=== PATIENT | female | born 2000 | race Caucasian/White ===

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

== ENCOUNTER 2019-07-31 11:42 | Emergency (ER) | payer MEDICAID, OTHER ==
[~2019-07-31] VITALS: Ht 149.9 cm; Wt 79.1 kg
[2019-07-31 11:43] VITALS: BP 126/80
[2019-07-31 12:44] LABS: HEMATOCRIT 40.1 % (36.0-47.0); MEAN CORPUSCULAR HEMOGLOBIN 27.2 pg (27.0-33.0); MEAN CORPUSCULAR HGB CONC 32.4 g/dl (32.0-36.5); MEAN CORPUSCULAR VOLUME 83.9 fl (80.0-96.0); PLATELET COUNT, AUTOMATED 286 10^3/uL (150-450); RED BLOOD COUNT 4.78 10^6/uL (4.00-5.40); WHITE BLOOD COUNT 7.2 10^3/uL (4.0-10.0)
[2019-07-31] MEDS ORDERED: ACETAMINOPHEN 500 MG TAB PO ONE (12:45)
[2019-07-31 13:04] LABS: BLOOD UREA NITROGEN 6 MG/DL (7-18); CALCIUM LEVEL 8.9 MG/DL (8.5-10.1); CARBON DIOXIDE LEVEL 24 MEQ/L (21-32); CHLORIDE LEVEL 109 MEQ/L (98-107); GLUCOSE, FASTING 88 MG/DL (70-100); POTASSIUM SERUM 3.6 MEQ/L (3.5-5.1); SODIUM LEVEL 139 MEQ/L (136-145)
--- NOTE | 2019-07-31 13:37 | REP ---
EMERGENCY FIRST TRIMESTER OBSTETRIC SONOGRAPHY: HISTORY: Rule out ectopic. 7 weeks 0 days by dates. FINDINGS: Transabdominal and transvaginal scanning are performed. Uterine dimensions are 9.0 x 4.9 x 8.3 cm. On transvaginal imaging, there is a small sac-like structure in the endometrium with mean sac size diameter of 3.1 mm. This would correspond with a 5-auol-3-day gestational age estimate based on mean sac diameter. No embryonic pole or yolk sac is visible. There is a small fluid collection adjacent to this which may be a small adjacent bleed. There is mild fluid in the cul-de-sac. This fluid is anechoic. Normal left ovary is seen measuring 2.4 x 1.0 x 1.8 cm. There is 2.1 cm hypoechoic cystic area in the right ovary. Right ovary dimensions are 3.7 x 2.1 x 2.9 cm. Doppler flow is present in both ovaries with resistive indices measured at 0.53 on the right and 0.48 on the left by Doppler. IMPRESSION: Nonspecific sonographic findings. There is a small 3.1 mm sac-like structure in the uterine endometrium with adjacent fluid. No yolk sac or embryonic pole. 5-week 0 days size by sac size diameter criteria. There is minimal anechoic fluid in the cul-de-sac. No adnexal masses seen. A 2.1 cm hypoechoic cyst is noted in the right ovary. Clinical and possibly sonographic followup is advised. Electronically Signed by Marcial Cardoso MD 08/01/2019 05:15 A
== END 2019-07-31 12:56 | disposition home or self-care (01) ==
LOC: M ED 11:42
DX: N83.209 Unspecified ovarian cyst, unspecified side (principal); Z3A.01 Less than 8 weeks gestation of pregnancy; F33.9 Major depressive disorder, recurrent, unspecified; F41.9 Anxiety disorder, unspecified

== ENCOUNTER → 2020-02-15 | Emergency (ER) | payer OTHER | END | disposition left against medical advice (07) | LOC: M ED 11:10 | DX: Z53.21 Procedure and treatment not carried out due to patient leaving prior to being seen by health care provider (principal) ==

== ENCOUNTER 2020-08-09 19:44 | Emergency (ER) | payer OTHER, MEDICAID ==
[~2020-08-09] VITALS: Ht 149.9 cm; Wt 69.3 kg
[~2020-08-09 19:44] MED LIST: ACET300T47 PO; AMOX500C; DOXY-350 PO; FLAG500T PO; GABA-282 PO; IBUP1TAB7 PO; IBUP80TA PO; KEFL500C17 PO; MAPA500T2 PO; MISO100T22 PO; OXYC1TAB23 PO; PRENTAB9 PO; REGL10TA6 PO; [UNRECOGNIZED DRUG - OTHER]
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
--- OUTSIDE RECORDS SUMMARY | 2020-08-09 19:54 | CCD | Continuity of Care Document ---
Author Author [facility] Organization [facility] Address Unknown Phone Unavailable Care Team Providers Care Senior Construction Estimator Name Role Phone Mirtha Escobar MD Unavailable Unavailable Allergies, Adverse Reactions, Alerts Substance Reaction Status Criticality MEPERIDINE HCL nausea and urticaria Active No Informat ion latex Active No Information Medications Medication Instructions Dosage Effective Dates (start - stop) Sta tus Comments acetaminophen 300 mg-codeine 30 mg tablet 1-2 tabs po every 4 hours prn pain MDD 10 - Active ibuprofen 800 mg tablet 1 tab po every 8 hours prn May - Active misoprostol 200 mcg tablet 4 tabs buccally 24-48 hrs after mifep ristone (#4) - Active ondansetron HCl 4 mg tablet 1 tab po every 4 hours prn (#4) - Active NuvaRing 0.12 mg-0.015 mg/24 hr vaginal 1 ring inserte d vaginally x 3 weeks for 12 weeks, then out x 1 week - Active Problems Condition Effective Dates (start - stop) Clinical Status C omments Body mass index (BMI) 35.0-35.9, adult - Encounter for test, result positive Encntr screen for dis of the bld/bld-form org/immun mechn Encounter for elective termination of Problems related to unwanted Encounter for initial prescription of vagnl ring Encounter for oth general cnsl and advice on contraception Encntr screen for infections w sexl mode of transmiss Other sex counseling Other sex counseling Encounter for oth general cnsl and advice on contraception Unspecified blood type, Rh positive Encounter for elective termination of Encounter for preprocedural laboratory examination Inapprop chg quantitav hCG in early Encntr screen for infections w sexl mode of transmiss High risk heterosexual behavior Encounter for test, result positive Problems related to unwanted state, incidental Encounter for other specified special examinations Unspecified blood type, Rh positive Other sex counseling Encounter for preprocedural laboratory examination Encounter for other preprocedural examination Encounter for test, result negative - Encounter for test, result negative Encounter for oth general cnsl and advice on contraception Encounter for surveillance of other contraceptives Encounter for initial prescription of other contraceptives Enctr srvlnc implantable subdermal contraceptive Enctr for init prescription of implntbl subdermal contracep Encounter for oth general cnsl and advice on contraception Encntr screen for infections w sexl mode of transmiss High risk heterosexual behavior Encounter for test, result negative Human immunodeficiency virus [HIV] counseling 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) w/o abn findings Encounter for oth general cnsl and advice on contraception Encounter for surveillance of contraceptive pills High risk heterosexual behavior Obesity, unspecified Encounter for surveillance of contraceptive pills Human immunodeficiency virus [HIV] counseling Encounter for test, result negative Encounter for oth general cnsl and advice on contraception Encounter for initial prescription of contraceptive pills BCM Other, Start OCP, Start F/U Surgical AB BCM Other, Start Migraine - Active Procedures Procedure Date No Information Results Test Name Date and Time Measure Units Reference Range Abnormal Flag St atus Comments No Information Advance Directives Directive Yes / No Effective Date File Name No Information Encounters Encounter Description Practice Location Reason(s) For Visit Diagnose s Date Provider Providers Copied on Encounter [facility] [address] [place] [address], [id number], tel:[phone] [facility] [place] No Information W cameron Shannon. [address] [place] [address], [id number], . tel:[phone] [facility] [place], [address] [place] [address], [id number], tel:[phone] [facility] [place] Encounter for pregn catalina test, result positiveEncntr screen for dis of the bld/bld-form org/immun mechnsmEncounter for elective termination of pregnancyProblems related to unwanted pregnancyEncounter for initial prescription of vagnl ringEncounter for oth general cnsl and advice on contraceptionEncntr screen for infections w sexl mode of transmissOther sex counseling Jojo Sampson. [address] [place] [address], [id number], [place]. tel:[phone] Referring Provider: Camilla Mayorga, [address] [place] [address], [id number]. tel:[phone] [facility], [address] [place] [address], [id number], [place] tel:[phone] [facility] [place] Other sex counselin gEncounter for oth general cnsl and advice on contraceptionUnspecified blood type, Rh positiveEncounter for elective termination of Albaro Matamoros. [address] [place] [address], [id number], [place]. tel:[phone] Referring Provider: Shiloh Irvin, [address] [place] [address], [id number]. tel:[phone] [facility], [address] [place] [address], [id number], [place] tel:[phone] [facility] [place] Encounter for prepr ocedural laboratory examinationInapprop chg quantitav hCG in early Albaro Matamoros. [address] [place] [address], [id number], [place]. tel:[phone] Referring Provider: Shiloh Irvin, [address] [place] [address], [id number]. tel:[phone] Provider: LUIZ Nurse/CA. [facility], [address] [place] [address], [id number], [place] tel:[phone] [facility] [place] Encntr screen for i nfections w sexl mode of transmissHigh risk heterosexual behaviorEncounter for test, result positiveProblems related to unwanted pregnancy state, incidentalEncoun ter for other specified special examinationsUnspecified blood type, Rh positiveOther sex counselingEncounter for preprocedural laboratory examinationEncounter for other preprocedural examinationEncounter for test, result negative Albaro Matamoros. [address] [place] [address], [id number], . tel:[phone] Referring Provider: Shiloh Irvin, [address] [place], [place], [id number]. tel:[phone] [facility], [address] [place] [address], [id number], [place] tel:[phone] [facility] [place] Encounter for pregn catalina test, result negativeEncounter for oth general cnsl and advice on contraceptionEncounter for surveillance of other contraceptivesEncounter for initial prescription of other contraceptivesEnctr srvlnc implantable subdermal contraceptiveEnctr for init prescription of implntbl subdermal contracep King Homar monroe. [address] [place] [address], [id number]. tel:[phone] Referring Provider: Jeanine Pérez, [address] [place] [address], [id number]. tel:[phone] [facility], [address] [place] [address], [id number], [place] tel:[phone] [facility] [place] Encounter for oth g eneral cnsl and advice on contraceptionEncntr screen for infections w sexl mode of transmissHigh risk heterosexual behavior King Jeanine. [address] [place] [address], [id number]. tel:[phone] Referring Provider: Jeanine Pérez, [address] [place] [address], [id number]. tel:[phone] [facility], [address] [place] [address], [id number], [place] tel:[phone] [facility] [place] Encounter for pregn catalina test, result negative Katie Gamez. [address] [place] [address], [id number], . tel:[phone] Referring Provider: Vera Wilson, [address], [place], [id number]. tel:[phone] Provider: LUIZ Nurse/CA. [facility], [address] [place] [address], [id number], tel:[phone] [facility] [place] Human immunodeficie ncy virus [HIV] counselingBody mass index (BMI) 35.0-35.9, adult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) w/o abn findingsEncounter for oth general cnsl and advice on contraceptionEncounter for surveillance of contraceptive pillsHigh risk heterosexual behaviorObesity, unspecified King Jeanine. [address] [place] [address], [id number]. tel:[phone] Referring Provider: Jeanine Pérez, [address] [place] [address], [id number]. tel:[phone] [facility], [address] [place] [address], [id number], tel:[phone] LUIZ Lu Encounter for surve illance of contraceptive pills Infante. [address] [place] [address], [id number], . tel:[phone] [facility], [address] [place] [address], [id number], tel:[phone] LUIZ Lu Human immunodeficie ncy virus [HIV] counselingEncounter for test, result negativeEncounter for oth general cnsl and advice on contraceptionEncounter for initial prescription of contraceptive pills Uche Drake. [address] [place] [address], [id number], [place]. tel:[phone] Referring Provider: Noelle Ivey, [address] [place], [place], [id number]. tel:[phone] [facility], [address] [place] [address], [id number], tel:[phone] [facility] [place] No Information F molina Martin. [address] [place] [address], [address] [place] [address], [place]. tel:[phone] [facility], [address] [place] [address], [id number], [place] tel:[phone] [facility] [place] BCM Other, Start Cl Lee. [address] [place] [address], [address] [place] [address], . tel:[phone] [facility], [address] [place] [address], [address] [place] [address], tel:[phone] [facility] [place] OCP, Start ONe ill Beatrice. [address] [place] [address], [id number], [place]. tel:[phone] [facility], [address] [place] [address], [address] [place] [address], [place] tel:[phone] [facility] [place] F/U Surgical ABBCM Other, Start Mccann Beatrice. [address] [place] [address], [address] [place] [address], [place]. tel:[phone] Family History Family Member Diagnosis Age At Onset Brother No history of Myocardial infarction Brother No history of Stroke Mother No history of Stroke Maternal grandmother Stroke Sister No history of Myocardial infarction Mother Depression Paternal grandmother Alzheimer's Disease Sister No history of Stroke Mother No history of Myocardial infarction Father No history of Stroke Maternal grandmother Diabetes mellitus Father No history of Myocardial infarction Mother Heart disease Maternal grandmother Cancer, colon Maternal grandfather Stroke Family history of Cancer, cervical Maternal grandfather Diabetes mellitus Immunizations Vaccine Date Status Comments No Information Payers Payer name Insurance type Covered republican ID Authorization(s ) Medicaid MC [id number] Social History Type Description Quantity Date Captured Comments Alcohol Use Details Unknown Caffeine Use Details Unknown Tobacco Use Status Smoking Status Light tobacco smoker Sex Female Vital Signs Date / Time: Height Weight BMI Pulse Rate Blood Pressure Temperatu re Respiratory Rate Body Surface Area Head Circumference BMI percentile Pulse Ox In haled Ox No Information Chief Complaint And Reason For Visit No Information Reason For Referral Reason For Referral No Information Plan Of Treatment Date Type Action Status Goal Tobacco cessation counseling com pleted Goal Tobacco cessation counseling com pleted Goal Tobacco cessation counseling com pleted Goal Tobacco cessation counseling com pleted Goal Tobacco cessation counseling com pleted Goal Lifestyle education regarding di et completed History Of Present Illness Encounter Date Complaint History Of Present I llness No Information Functional Status Date Functional Assessment No Information Medications Administered Medication Instructions Dosage Effective Dates (start - stop) Sta tus Comments No Information Instructions Date Instruction Additional Informati on Giving encouragement to exercise Related to Body mass index (BMI) 35.0-35.9, adult Lifestyle education regarding diet Relat ed to Body mass index (BMI) 35.0-35.9, adult Assessments Type Assessment Date No Information Goals Health Concern Goal Type Priority Status Date No Information Medical Equipment Description Device [place] Device Identifier Effective Celestino es (start - stop) Status No Information Mental Status Date Cognitive Assessment No Information Health Concerns Observation Date No Information Concern Status Date No Information Physical Examination Exam Findings Details No Information
--- OUTSIDE RECORDS SUMMARY | 2020-08-09 19:54 | CCD | Continuity of Care Document ---
Author Author [facility] Organization [facility] Address [address] [place] [address] Phone Care Team Providers Care Trade Facilitator Name Role Phone Josiane LLOYD, Leatha Unavailable Unavailabl e Allergies, Adverse Reactions, Alerts Substance Reaction Status [...] sex counseling Other sex counseling Encounter for ot general cnsl and advice on contraception Unspecified [...] Encounter for test, result negative Encounter for ot general cnsl and advice on contraception Encounter for surveillance of other contraceptives Encounter for initial prescription of other contraceptives Enctr srvlnc implantable subdermal contraceptive Enctr for init prescription of implntbl subdermal contracep Encounter for ot general cnsl and advice on contraception Encntr screen for infections w sexl mode of transmiss High risk heterosexual behavior Encounter for test, result negative Human immunodeficiency virus [HIV] counseling 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 [address] [place] [address], [id number], [place]. tel:[phone] [facility], [address] [place], [place], [id number], [place] tel:[phone] [facility] Encounter for pregn catalina test, result positiveEncntr screen for dis of the bld/bld-form org/immun mechnsmEncounter for elective termination of pregnancyProblems related to unwanted pregnancyEncounter for initial prescription of vagnl ringEncounter for oth general cnsl and advice on contraceptionEncntr screen for infections w sexl mode of transmissOther sex counseling Jojo Sampson. [address] [place] [address], [id number], [place]. tel:[phone] Referring Provider: Camilla Mayorga, [address] [place] [address], [id number]. tel:[phone] [facility], [address] [place] [address], [id number], [place] tel:[phone] [facility] Other sex counselin gEncounter for oth general cnsl and advice on contraceptionUnspecified blood type, Rh positiveEncounter for elective termination of Albaro Matamoros. [address] [place] [address], [id number], [place]. tel:[phone] Referring Provider: Shiloh Irvin, [address] [place] [address], [id number]. tel:[phone] [facility], [address] [place] [address], [id number], [place] tel:[phone] [facility] Encounter for prepr ocedural laboratory examinationInapprop chg quantitav hCG in early Albaro Matamoros. [address] [place] [address], [id number], [place]. tel:[phone] Referring Provider: Shiloh Irvin, [address] [place] [address], [id number]. tel:[phone] Provider: LUIZ Nurse/CA. [facility], [address] [place] [address], [id number], [place] tel:[phone] [facility] Encntr screen for i nfections w sexl mode of transmissHigh risk heterosexual behaviorEncounter for test, result positiveProblems related to unwanted pregnancy state, incidentalEncoun ter for other specified special examinationsUnspecified blood type, Rh positiveOther sex counselingEncounter for preprocedural laboratory examinationEncounter for other preprocedural examinationEncounter for test, result negative Albaro Matamoros. [address] [place] [address], [id number], [place]. tel:[phone] Referring Provider: Shiloh Irvin, [address] [place], [place], [id number]. tel:[phone] [facility], [address] [place] [address], [id number], tel:[phone] [facility] [place] Encounter for pregn catalina test, result negativeEncounter for oth general cnsl and advice on contraceptionEncounter for surveillance of other contraceptivesEncounter for initial prescription of other contraceptivesEnctr srvlnc implantable subdermal contraceptiveEnctr for init prescription of implntbl subdermal contracep King Homar monroe. [address] [place] [address], [id number]. tel:[phone] Referring Provider: Jeanine éPrez, [address] [place] [address], [id number]. tel:[phone] [facility], [address] [place] [address], [id number], [place] tel:[phone] [facility] [place] Encounter for oth g eneral cnsl and advice on contraceptionEncntr screen for infections w sexl mode of transmissHigh risk heterosexual behavior King Jeanine. [address] [place] [address], [id number]. tel:[phone] Referring Provider: Jeanine Pérez, [address] [place] [address], [id number]. tel:[phone] [facility], [address] [place], [place], [id number], [place] tel:[phone] LUIZ [place] Encounter for pregn catalina test, result negative Katie Gamez. [address] [place], [place], [id number], [place]. tel:[phone] Referring Provider: Vera Wilson, [address] [place], [place], [id number]. tel:[phone] Provider: LUIZ Nurse/CA. [facility], [address] [place] [address], [id number], [place] tel:[phone] LUI[facility] [place] Human immunodeficie ncy virus [HIV] counselingBody mass index (BMI) 35.0-35.9, adultEncntr for metal baler exam (general) (routine) w/o abn findingsEncounter for oth general cnsl and advice on contraceptionEncounter for surveillance of contraceptive pillsHigh risk heterosexual behaviorObesity, unspecified King Jeanine. [address] [place] [address], [id number]. tel:[phone] Referring Provider: Jeanine Pérez, [address] [place] [address], [id number]. tel:[phone] [facility], [address] [place], [place], [id number], [place] tel:[phone] LUIZ Lu Encounter for surve illance of contraceptive pills Estelleaston Sharpe. [address] [place], [place], [id number], [place]. tel:[phone] [facility], [address] [place], [place], [id number], [place] tel:[phone] LUIZ Lu Human immunodeficie ncy virus [HIV] counselingEncounter for test, result negativeEncounter for oth general cnsl and advice on contraceptionEncounter for initial prescription of contraceptive pills Uche Drake. [address] [place] [address], [id number], [place]. tel:[phone] Referring Provider: Noelle Ivey, [address] [place], [place], [id number]. tel:[phone] [facility], [address] [place] [address], [id number], [place] tel:[phone] [facility] [place] No Information Mariano Martin. [address] [place] [address], [id number], [place]. tel:[phone] [facility], [address] [place] [address], [id number], [place] tel:[phone] [facility] [place] BCM Other, Start Cl Lee. [address] [place] [address], [address] [place] [address], [place]. tel:[phone] [facility], [address] [place] [address], [id number], [place] tel:[phone] [facility] [place] OCP, Start ONe ill Beatrice. [address] [place] [address], [id number], [place]. tel:[phone] [facility], [address] [place] [address], [address] [place] [address], [place] tel:[phone] [facility] [place] [facility] Other, Start Mccann Beatrice. [address] [place] [address], [id number], [place]. tel:[phone] Family History Family Member Diagnosis Age At [...] Information Payers Payer name Insurance type Covered libertarian ID Authorization(s ) Medicaid MC [id number] Social History Type Description Quantity Date Captured [...] Date No Information Medical Equipment Description Device [facility] Device Identifier Effective Celestino es (start - stop) Status No Information Mental Status Date Cognitive Assessment No Information Health Concerns Observation Date No Information Concern Status Date No Information Physical Examination Exam Findings Details No Information
--- OUTSIDE RECORDS SUMMARY | 2020-08-09 19:54 | CCD | Continuity of Care Document ---
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 [address] [place] [address], [id number], . tel:[phone] [facility], [address] [place] [address], [id number], tel:[phone] LUIZ [place] Encounter for pregn catalina test, result positiveEncntr screen for dis of the bld/bld-form org/immun mechnsmEncounter for elective termination of pregnancyProblems related to unwanted pregnancyEncounter for initial prescription of vagnl ringEncounter for oth general cnsl and advice on contraceptionEncntr screen for infections w sexl mode of transmissOther sex counseling Jojo Sampson. [address] [place] [address], [id number], [place]. tel:[phone] Referring Provider: Camilla Mayorga, [address] [place] [address], [id number]. tel:[phone] [facility], [address] [place] [address], [id number], [place] tel:[phone] [facility] [place] Other sex counselin gEncounter for oth general cnsl and advice on contraceptionUnspecified blood type, Rh positiveEncounter for elective termination of Albaro Matamoros. [address] [place] [address], [id number], [place]. tel:[phone] Referring Provider: Shiloh Irvin, [address] [place] [address], [id number]. tel:[phone] [facility], [address] [place] [address], [id number], [place] tel:[phone] [facility] [place] Encounter for prepr ocedural laboratory examinationInapprop chg quantitav hCG in early Albaro Matamoros. [address] [place] [address], [id number], [place]. tel:[phone] Referring Provider: Shiloh Irvin, [address] [place] [address], [id number]. tel:[phone] Provider: LUIZ Nurse/CA. [facility], [address] [place] [address], [id number], [place] tel:[phone] [facility] Encntr screen for i nfections w sexl mode of transmissHigh risk heterosexual behaviorEncounter for test, result positiveProblems related to unwanted pregnancy state, incidentalEncoun ter for other specified special examinationsUnspecified blood type, Rh positiveOther sex counselingEncounter for preprocedural laboratory examinationEncounter for other preprocedural examinationEncounter for test, result negative Albaro Matamoros. [address] [place] [address], [id number], [place]. tel:[phone] Referring Provider: Shiloh Irvin, [address] [place], [place], [id number]. tel:[phone] [facility], [address] [place] [address], [id number], [place] tel:[phone] [facility] [place] Encounter for pregn catalina test, result negativeEncounter for oth general cnsl and advice on contraceptionEncounter for surveillance of other contraceptivesEncounter for initial prescription of other contraceptivesEnctr srvlnc implantable subdermal contraceptiveEnctr for init prescription of implntbl subdermal contracep King Homar monroe. [address] [place] [address], [id number]. tel:[phone] Referring Provider: Jeanine Pérez, [address] [place] [address], [id number]. tel:[phone] [facility], [address] [place] [address], [id number], [place] tel:[phone] [facility] Encounter for oth g eneral cnsl and advice on contraceptionEncntr screen for infections w sexl mode of transmissHigh risk heterosexual behavior King Jeanine. [address] [place] [address], [id number]. tel:[phone] Referring Provider: Jeanine Pérez, [address] [place] [address], [id number]. tel:[phone] [facility], [address] [place] [address], [id number], [place] tel:[phone] LUIZ [place] Encounter for pregn catalina test, result negative Katie Gamez. [address] [place], [place], [id number], [place]. tel:[phone] Referring Provider: Vera Wilson, [address] [place], [place], [id number]. tel:[phone] Provider: LUIZ Nurse/CA. [facility], [address] [place] [address], [id number], [place] tel:[phone] LUIZ [place] Human immunodeficie ncy virus [HIV] counselingBody mass index (BMI) 35.0-35.9, adultEncntr for industrial engineering technician exam (general) (routine) w/o abn findingsEncounter for oth general cnsl and advice on contraceptionEncounter for surveillance of contraceptive pillsHigh risk heterosexual behaviorObesity, unspecified King Jeanine. [address] [place] [address], [id number]. tel:[phone] Referring Provider: Jeanine Pérez, [address] [place] [address], [id number]. tel:[phone] [facility], [address] [place] [address], [id number], [place] tel:[phone] LUIZ Lu Encounter for surve illance of contraceptive pills Infante. [address] [place], [place], [id number], [place]. tel:[phone] [facility], [address] [place] [address], [id number], [place] tel:[phone] LUIZ Lu Human immunodeficie ncy virus [HIV] counselingEncounter for test, result negativeEncounter for oth general cnsl and advice on contraceptionEncounter for initial prescription of contraceptive pills Uche Drake. [address] [place] [address], [address] [place] [address], . tel:[phone] Referring Provider: Noelle Ivey, [address] [place] [address], [id number]. tel:[phone] [facility], [address] [place] [address], [address] [place] [address], tel:[phone] [facility] [place] No Information F molina Martin. [address] [place] [address], [address] [place] [address], . tel:[phone] [facility], [address] [place] [address], [address] [place] [address], [phone] [facility] [place] BCM Other, Start Cl Lee. [address] [place] [address], [address] [place] [address], . tel:[phone] [facility], [address] [place] [address], [address] [place] [address], tel:[phone] PPT[facility] [place] OCP, Start ONe ill Beatrice. [address] [place] [address], [address] [place] [address], . tel:[phone] [facility], [address] [place] [address], [address] [place] [address], tel:[phone] [facility] [place] [facility] Other, Start Mccann Beatrice. [address] [place] [address], [address] [place] [address], . tel:[phone] Family History Family Member Diagnosis Age At [...] Information Payers Payer name Insurance type Covered constitution party ID Authorization(s ) Medicaid MC [id number] Social History Type Description Quantity Date Captured [...] Date No Information Medical Equipment Description Device [place] Device Identifier Effective Celestino es (start - stop) Status No Information Mental Status Date Cognitive Assessment No Information Health Concerns Observation Date No Information Concern Status Date No Information Physical Examination Exam Findings Details No Information
--- OUTSIDE RECORDS SUMMARY | 2020-08-09 19:54 | CCD ---
Author Author [facility] Organization [facility] Address Unknown Phone Unavailable Care Team Providers Care Pediatric Critical Care Nurse Name Role Phone Sj Guadarrama Unavailable PROBLEMS Type Condition ICD9-CM Code [id number] Code Onset Dates Condition S tatus SNOMED Code Notes Problem Supervision of other normal Z34.80 Ac tive [id number] ALLERGIES Allergen (clinical drug ingredient) Drug/Non Drug Allergy do cumented on EMR Reaction Allergy Type Onset Date Status meperidine Demerol([facility] Code:[address]-55) Unknown Drug Allergy Active ENCOUNTERS from 1999 to 2020-06-29 Encounter Location Date Provider Diagnosis [facility] [address] [place] [id number] May, Sj Guadarrama Dichorionic diamniot ic twin in first trimester O30.041 and 8 weeks gestation of Z3A.08 IMMUNIZATIONS No Information SOCIAL HISTORY Tobacco Use: [...] FOR REFERRAL No Information VITAL SIGNS Weight 165 lbs 13 Nov, 2020 Weight-kg 74.84 kg May, Height 60 in May, BMI 32.224 kg/m2 May, Blood pressure systolic 110 mm Hg May, Blood pressure diastolic 70 mm Hg May, MEDICATIONS Medication SIG (Take, Route, Frequency, Duration) Notes Start Da te End Date Status Flagyl 500 MG 1 tablet Orally Three times a day Active Reglan 5 MG 1 tablet before meals Orally Twice a day Active Keflex 250 MG 1 capsule Orally every 6 hrs Active Lexapro 10 MG 1 tablet Orally Once a day for 30 day(s) Jun, Not-Taking PROCEDURES No Information RESULTS No Results REASON FOR VISIT 1ST PN TWINS PER DR GUADARRAMA MEDICAL (GENERAL) HISTORY Type Description Date Medical History PTSD Medical History anxiety Medical History depression Medical History bipolar Medical History unathoast disease Surgical History 04/25/2019 Surgical History 07/14/2017 Hospitalization History childbirth 07/14/2017 Hospitalization History childbirth 04/25/2019 Goals Section No Information Health Concerns No Information MEDICAL EQUIPMENT No Information MENTAL STATUS No Information FUNCTIONAL STATUS No Information ASSESSMENTS Encounter Date Diagnosis Assessment Notes Treatment Notes Treatm ent Clinical Notes May, Dichorionic diamniotic twin in first trimester (ICD-10 - O30.041) May, 8 weeks gestation of (ICD-10 - Z3A.08) PLAN OF TREATMENT Treatment Notes Test Name Order Date HIV 1&2 ANTIBODY SCREEN 2020-06-29 SYPHILIS ANTIBODY (RPR SCREEN) 2020-06-29 CBC - Complete Blood Count 2020-06-29 RUBELLA IMMUNE STATUS IgG 2020-06-29 URINE CULTURE 2020-06-29 CHLAMYDIA & GC DNA AMPLIFICAT 2020-06-29 HEPATITIS C ANTIBODY INDEX 2020-06-29 HBSAG 2020-06-29 Type and Screen Prenatal1 2020-06-29 Next Appt Details Provider Name:Deshawn Smallwood, 2020 0 8:20:00 AM, [address] [place], [id number],
--- OUTSIDE RECORDS SUMMARY | 2020-08-09 19:55 | CCD | Continuity of Care Document ---
Author Author [facility] Organization [facility] Address [address] [place] [address] Phone Care Team Providers [employer] Name Role Phone Dwello Camilla CHAVEZ Unavailable Unavailable Allergies, Adverse Reactions, Alerts Substance [...] then out x 1 week - Active misoprostol 200 mcg tablet 4 tabs buccally 24-48 hrs after mifep ristone (#4) - No Longer Active Problems Condition Effective Dates (start - stop) Clinical Status C omments Body mass index (BMI) 35.0-35.9, adult - Encounter for test, result positive Encntr screen for dis of the bld/bld-form org/immun mechnsm Encounter for elective termination of Problems related to unwanted Encounter for initial prescription of vagnl ring Encounter for ot general cnsl and advice [...] Human immunodeficiency virus [HIV] counseling 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 [address], [place], [id number], [place]. tel:[phone] [facility], [address] [place] [address], [id number], [place] tel:[phone] [facility] for [facility] catalina test, result positiveEncntr screen for dis of the bld/bld-form org/immun mechnsmEncounter for elective termination of pregnancyProblems related to unwanted pregnancyEncounter for initial prescription of vagnl ringEncounter for oth general cnsl and advice on contraceptionEncntr screen for infections w sexl mode of transmissOther sex counseling Jojo Sampson. [address] [place] [address], [id number], [place]. tel:[phone] Referring Provider: Camilla Mayorga, [address] [place] [address], [id number]. tel:[phone] [facility], [address] [place] [address], [id number], [place] tel:[phone] [facility] Other sex counselin gEncounter for oth general cnsl and advice on contraceptionUnspecified blood type, Rh positiveEncounter for elective termination of Albaro Matamoros. [address] [place] [address], [id number], [place]. tel:[phone] Referring Provider: Shiloh Irvin, [address] [place] [address], [id number]. tel:[phone] [facility], [address] [place] [address], [id number], [place] tel:[phone] [facility] Encounter for prepr ocedural laboratory examinationInapprop chg quantitav hCG in early Albaro Matamoros. [address] [place] [address], [id number], [place]. tel:[phone] Referring Provider: Shiloh Irvin, [address] [place] [address], [id number]. tel:[phone] Provider: LUIZ Nurse/[place]. [facility], [address], [place], [id number], tel:[phone] [facility] Encntr screen for i nfections w sexl mode of transmissHigh risk heterosexual behaviorEncounter for test, result positiveProblems related to unwanted pregnancy state, incidentalEncoun ter for other specified special examinationsUnspecified blood type, Rh positiveOther sex counselingEncounter for preprocedural laboratory examinationEncounter for other preprocedural examinationEncounter for test, result negative Albaro Matamoros. [address], [place], [id number], [place]. tel:[phone] Referring Provider: Shiloh Irvin, [address], [place], [id number]. tel:[phone] [facility], [address], [place], [id number], [place] tel:[phone] [facility] [place] Encounter for pregn catalina test, result negativeEncounter for oth general cnsl and advice on contraceptionEncounter for surveillance of other contraceptivesEncounter for initial prescription of other contraceptivesEnctr srvlnc implantable subdermal contraceptiveEnctr for init prescription of implntbl subdermal contracep King Homar monroe. [address] [place] [address], [id number]. tel:[phone] Referring Provider: Jeanine Pérez, [address], [place], [id number]. tel:[phone] [facility], [address], [place], [id number], [place] tel:[phone] [facility] Encounter for oth g eneral cnsl and advice on contraceptionEncntr screen for infections w sexl mode of transmissHigh risk heterosexual behavior King Jeanine. [address] [place], [place], [id number]. tel:[phone] Referring Provider: Jeanine Pérez, [address] [place] [address], [id number]. tel:[phone] [facility], [address] [place] [address], [id number], [place] tel:[phone] [facility] [place] Encounter for pregn catalina test, result negative Katie Gamez. [address] [place] [address], [id number], [place]. tel:[phone] Referring Provider: Vera Wilson, [address] [place] [address], [id number]. tel:[phone] Provider: LUIZ Nurse/[place]. [facility], [address] [place] [address], [id number], [place] tel:[phone] [facility] [place] Human immunodeficie ncy virus [HIV] counselingBody mass index (BMI) 35.0-35.9, adultEncntr for lightning rod erector exam (general) (routine) w/o abn findingsEncounter for oth general cnsl and advice on contraceptionEncounter for surveillance of contraceptive pillsHigh risk heterosexual behaviorObesity, unspecified King Jeanine. [address] [place] [address], [id number]. tel:[phone] Referring Provider: Jeanine Pérez, [address] [place] [address], [id number]. tel:[phone] [facility], [address] [place] [address], [id number], [place] tel:[phone] L[facility] [place] Encounter for surve illance of contraceptive pills Infante. [address] [place] [address], [id number], [place]. tel:[phone] [facility], [address] [place] [address], [id number], [place] tel:[phone] LUIZ [place] Human immunodeficie ncy virus [HIV] counselingEncounter for test, result negativeEncounter for oth general cnsl and advice on contraceptionEncounter for initial prescription of contraceptive pills Uche Drake. [address] [place] [address], [id number], . tel:[phone] Referring Provider: Noelle Ivey, [address], [place], [id number]. tel:[phone] [facility], [address] [place] [address], [address] [place] [address], tel:[phone] [facility] [place] No Information Mariano Martin. [address] [place] [address], [address] [place] [address], . tel:[phone] [facility], [address] [place] [address], [address] [place] [address], tel:[phone] [facility] [place] BCM Other, Start Cl Lee. [address] [place] [address], [address] [place] [address], [place]. tel:[phone] [facility], [address] [place] [address], [address] [place] [address], tel:[phone] [facility] [place] OCP, Start ONe ill Beatrice. [address] [place] [address], [address] [place] [address], . tel:[phone] [facility], [address] [place] [address], [address] [place] [address], [place] tel:[phone] [facility] [place] F/U Surgical ABBCM Other, Start Mccann Beatrice. [address] [place] [address], [address] [place] [address], [place]. tel:[phone] Family History Family Member Diagnosis Age At [...] Information Payers Payer name Insurance type Covered democrat ID Authorization(s ) Medicaid MC [id number] Social History Type Description Quantity Date Captured [...] Goal Lifestyle education regarding di et completed Appointment Latasha Dickerson BOOKED History Of Present Illness Encounter Date Complaint [...] Date No Information Medical Equipment Description Device [place] Device Identifier Effective Celestino es (start - stop) Status No Information Mental Status Date Cognitive Assessment No Information Health Concerns Observation Date No Information Concern Status Date No Information Physical Examination Exam Findings Details No Information
--- OUTSIDE RECORDS SUMMARY | 2020-08-09 19:55 | CCD ---
Author Author [facility] Organization [facility] Address Unknown Phone Unavailable Support Name Relationship Address Phone Shirley Pleitez Next Of Kin [address] [place], [place] [id number] MESHA ROSE Next Of Kin [address] [facility] [address] [place] [address] MESHA WANG Next Of Kin [address] [place] [address] NO, CONTACT Next Of Kin Unknown DOES, WISH NOT Next Of Kin [address] [place] [address] MEGHANN GOMEZ Next Of Kin [address] [place] [address] ANI HAY Next Of Kin [address] [place] [address] MEGHANN PAZ Next Of Kin [address] [place] [address] [facility] Next Of Kin [address] [place] [address] Unavailable UE Next Of Kin Unknown Unavailable JESSICA SANTANA Next Of Kin [address] [place] [address] MG FRITZ Next Of Kin [address] [place] [address] [facility] Next Of Kin [address] [place] [address] Pratik AMAYA, Ned Jaquez Next Of Kin [address] [place] [address] Carina Pleitez Next Of Kin [address] [place] [address] UN Next Of Kin Unknown Unavailable CHILD Next Of Kin Unknown Unavailable SYD, PRESTON Next Of Kin [address] [address] PRESTON STEARNS Next Of Kin [address] [place], [place] [id number] Next Of Kin Unknown Unavailable TRACI [place] [address] Eladia Hansen Next Of Kin [address] [place] [address] MESHA ROSE ECON [address] [place] [address] Unavailable PRESTON AGRAWAL ECON [address] [place] [address] [phone] Care Team Providers Care Geology Faculty Member Name Role Phone Irvin LABORER PLUMBING, Raquel Shiloh Unavailable Irvin LABORER PLUMBING, Raquel Shiloh Unavailable Irvin LABORER PLUMBING, Raquel Shiloh Unavailable Irvin LABORER PLUMBING, Raquel Shiloh Unavailable Irvin LABORER PLUMBING, Raquel Shiloh Unavailable Irvin LABORER PLUMBING, Raquel Shiloh Unavailable Ned Escobar MD Unavailable Unavailable Shawn, Ned Shannon MD Unavailable Unavailable Shawn, Ned Shannon MD Unavailable Unavailable Shawn, Ned Shannon MD Unavailable Unavailable Shawn, Ned Shannon MD Unavailable Unavailable Shawn, Ned Shannon MD Unavailable Unavailable Shawn, Ned Shannon MD Unavailable Unavailable Shawn, Ned Shannon MD Unavailable Unavailable Shawn, Ned Shannon MD Unavailable Unavailable Shawn, Ned Shannon MD Unavailable Unavailable Shawn, Ned Shannon MD Unavailable Unavailable Shawn, Ned Shannon MD Unavailable Unavailable Shawn, Ned Shannon MD Unavailable Unavailable Shawn, Ned Shannon MD Unavailable Unavailable Shawn, Ned Shannon MD Unavailable Unavailable Shawn, Ned Shannon MD Unavailable Unavailable Shawn, Ned Shannon MD Unavailable Unavailable Shawn, Ned Shannon MD Unavailable Unavailable Ned Escobar MD Unavailable Unavailable Shawn, Ned Shannon MD Unavailable Unavailable Ned Escobar MD Unavailable Unavailable Ned Escobar MD Unavailable Unavailable Ned Escobar MD Unavailable Unavailable Ned Escobar MD Unavailable Unavailable Ned Escobar MD Unavailable Unavailable Shawn, A Mirtha AMAYA Unavailable Unavailable Shawn, A Mirtha AMAYA Unavailable Unavailable Shawn, A Mirtha AMAYA Unavailable Unavailable Shawn, A Mirtha AMAYA Unavailable Unavailable Shawn, A Mirtha AMAYA Unavailable Unavailable Shawn, A Mirtha AMAYA Unavailable Unavailable Shawn, A Mirtha AMAYA Unavailable Unavailable Shawn, A Mirtha AMAYA Unavailable Unavailable Shawn, A Mirtha AMAYA Unavailable Unavailable Shawn, A Mirtha AMAYA Unavailable Unavailable Shawn, A Mirtha AMAYA Unavailable Unavailable Shawn, A Mirtha AMAYA Unavailable Unavailable Shawn, A Mirtha AMAYA Unavailable Unavailable Shawn, A Mirtha AMAYA Unavailable Unavailable Shawn, A Mirtha AMAYA Unavailable Unavailable Shawn, A Mirtha AMAYA Unavailable Unavailable Shawn, A Mirtha AMAYA Unavailable Unavailable Shawn, A Mirtha AMAYA Unavailable Unavailable Shawn, A Mirtha AMAYA Unavailable Unavailable Shawn, A Mirtha AMAYA Unavailable Unavailable Shawn, A Mirtha AMAYA Unavailable Unavailable Shawn, A Mirtha AMAYA Unavailable Unavailable Shawn, A Mirtha AMAYA Unavailable Unavailable Shawn, A Mirtha AMAYA Unavailable Unavailable Shawn, A Mirtha AMAYA Unavailable Unavailable Shawn, A Mirtha AMAYA Unavailable Unavailable Shawn, A Mirtha AMAYA Unavailable Unavailable Shawn, A Mirtha AMAYA Unavailable Unavailable Shawn, A Mirtha AMAYA Unavailable Unavailable Shawn, A Mirtha AMAYA Unavailable Unavailable Shawn, A Mirtha AMAYA Unavailable Unavailable Shawn, A Mirtha AMAYA Unavailable Unavailable Shawn, A Mirtha AMAYA Unavailable Unavailable Shawn, A Mirtha AMAYA Unavailable Unavailable Shawn, A Mirtha AMAYA Unavailable Unavailable Shawn, A Mirtha AMAYA Unavailable Unavailable Shawn, A Mirtha AMAYA Unavailable Unavailable Shawn, A Mirtha AMAYA Unavailable Unavailable Shawn, A Mirtha AMAYA Unavailable Unavailable Shawn, A Mirtha AMAYA Unavailable Unavailable Shawn, A Mirtha AMAYA Unavailable Unavailable Shawn, A Mirtha AMAYA Unavailable Unavailable Shawn, A Mirtha AMAYA Unavailable Unavailable Shawn, A Mirtha AMAYA Unavailable Unavailable Shawn, A Mirtha AMAYA Unavailable Unavailable Shawn, A Mirtha AMAYA Unavailable Unavailable Shawn, A Mirtha AMAYA Unavailable Unavailable Shawn, A Mirtha AMAYA Unavailable Unavailable Shawn, A Mirtha AMAYA Unavailable Unavailable Shawn, A Mirtha AMAYA Unavailable Unavailable MCELHERAN, FRANCISCO J PA Unavailable Unavailable MCELHERAN, FRANCISCO J PA Unavailable Unavailable MCELHERAN, FRANCISCO J PA Unavailable Unavailable MCELHERAN, FRANCISCO J PA Unavailable Unavailable MCELHERAN, FRANCISCO J PA Unavailable Unavailable MCELHERAN, FRANCISCO J PA Unavailable Unavailable MCELHERAN, FRANCISCO J PA Unavailable Unavailable MCELHERAN, FRANCISCO J PA Unavailable Unavailable MCELHERAN, FRANCISCO J PA Unavailable Unavailable MCELHERAN, FRANCISCO J PA Unavailable Unavailable MCELHERAN, FRANCISCO J PA Unavailable Unavailable MCELHERAN, FRANCISCO J PA Unavailable Unavailable MCELHERAN, FRANCISCO J PA Unavailable Unavailable MCELHERAN, FRANCISCO J PA Unavailable Unavailable MCELHERAN, FRANCISCO J PA Unavailable Unavailable MCELHERAN, FRANCISCO J PA Unavailable Unavailable MCELHERAN, FRANCISCO J PA Unavailable Unavailable MCELHERAN, FRANCISCO J PA Unavailable Unavailable MCELHERAN, FRANCISCO J PA Unavailable Unavailable MCELHERAN, FRANCISCO J PA Unavailable Unavailable MCELHERAN, FRANCISCO J PA Unavailable Unavailable MCELHERAN, FRANCISCO J PA Unavailable Unavailable MCELHERAN, FRANCISCO J PA Unavailable Unavailable MCELHERAN, FRANCISCO J PA Unavailable Unavailable MCELHERAN, FRANCISCO J PA Unavailable Unavailable MCELHERAN, FRANCISCO J PA Unavailable Unavailable MCELHERAN, FRANCISCO J PA Unavailable Unavailable MCELHERAN, FRANCISCO J PA Unavailable Unavailable PRYBYLOWSKI, E MOIZ PA Unavailable Unavailable PRYBYLOWSKI, E MOIZ PA Unavailable Unavailable PRYBYLOWSKI, E MOIZ PA Unavailable Unavailable PRYBYLOWSKI, E MOIZ PA Unavailable Unavailable PRYBYLOWSKI, E MOIZ PA Unavailable Unavailable PRYBYLOWSKI, E MOIZ PA Unavailable Unavailable PRYBYLOWSKI, E MOIZ PA Unavailable Unavailable PRYBYLOWSKI, E MOIZ PA Unavailable Unavailable PRYBYLOWSKI, E MOIZ PA Unavailable Unavailable PRYBYLOWSKI, E MOIZ PA Unavailable Unavailable PRYBYLOWSKI, E MOIZ PA Unavailable Unavailable PRYBYLOWSKI, E MOIZ PA Unavailable Unavailable PRYBYLOWSKI, E MOIZ PA Unavailable Unavailable PRYBYLOWSKI, E MOIZ PA Unavailable Unavailable PRYBYLOWSKI, E MOIZ PA Unavailable Unavailable PRYBYLOWSKI, E MOIZ PA Unavailable Unavailable POWER, MARY CARMEN RPA Unavailable Unavailable POWER, MARY CARMEN RPA Unavailable Unavailable POWER, MARY CARMEN RPA Unavailable Unavailable POWER, MARY CARMEN RPA Unavailable Unavailable POWER, MARY CARMEN RPA Unavailable Unavailable POWER, MARY CARMEN RPA Unavailable Unavailable POWER, MARY CARMEN RPA Unavailable Unavailable POWER, MARY CARMEN RPA Unavailable Unavailable POWER, MARY CARMEN RPA Unavailable Unavailable POWER, MARY CARMEN RPA Unavailable Unavailable POWER, MARY CARMEN RPA Unavailable Unavailable POWER, MARY CARMEN RPA Unavailable Unavailable POWER, MARY CARMEN RPA Unavailable Unavailable POWER, MARY CARMEN RPA Unavailable Unavailable POWER, MARY CARMEN RPA Unavailable Unavailable POWER, MARY CARMEN RPA Unavailable Unavailable POWER, MARY CARMEN RPA Unavailable Unavailable POWER, MARY CARMEN RPA Unavailable Unavailable Mara, Court HOGSHEAD MAT INSPECTOR Unavailable Unavailable Mara, Court HOGSHEAD MAT INSPECTOR Unavailable Unavailable Mara, Court HOGSHEAD MAT INSPECTOR Unavailable Unavailable Mara, Court HOGSHEAD MAT INSPECTOR Unavailable Unavailable Mara, Court HOGSHEAD MAT INSPECTOR Unavailable Unavailable Mara, Court HOGSHEAD MAT INSPECTOR Unavailable Unavailable Mara, Court HOGSHEAD MAT INSPECTOR Unavailable Unavailable Mara, Court HOGSHEAD MAT INSPECTOR Unavailable Unavailable Mara, Court HOGSHEAD MAT INSPECTOR Unavailable Unavailable Amra, Court HOGSHEAD MAT INSPECTOR Unavailable Unavailable Mara, Court HOGSHEAD MAT INSPECTOR Unavailable Unavailable Dwello PA PA, Camilla Unavailable Unavailable Dwello PA PA, Camilla Unavailable Unavailable [place]-Power, Leatha CNM Unavailable Unavailab le Rachele-Power, Leatha CNM Unavailable Unavailab le Rachele-Power, Leatha CNM Unavailable Unavailab le [place]-Power, Leatha CNM Unavailable Unavailab le [place]achele-Power, Leatha CNM Unavailable Unavailab le [place]-Power, Leatha CNM Unavailable Unavailab le Re-disclosure Warning The records that you are about to access may contain information from federally-assisted alcohol or drug abuse programs. If such information is present, then the following federally mandated warning applies: This information has been disclosed to you from records protected by federal confidentiality rules (42 CFR part 2). The federal rules prohibit you from making any further disclosure of this information unless further disclosure is expressly permitted by the written consent of the person to whom it pertains or as otherwise permitted by 42 CFR part 2. A general authorization for the release of medical or other information is NOT sufficient for this purpose. The Federal rules restrict any use of the information to criminally investigate or prosecute any alcohol or drug abuse patient.The records that you are about to access may contain highly sensitive health information, the redisclosure of which is protected by Article 27-F of the [facility] Public Health law. If you continue you may have access to information: Regarding HIV / AIDS; Provided by facilities licensed or operated by the [facility] Office of Mental Health; or Provided by the [facility] Office for People With Developmental Disabilities. If such information is present, then the following [facility] mandated warning applies: This information has been disclosed to you from confidential records which are protected by state law. State law prohibits you from making any further disclosure of this information without the specific written consent of the person to whom it pertains, or as otherwise permitted by law. Any unauthorized further disclosure in violation of state law may result in a fine or group home sentence or both. A general authorization for the release of medical or other information is NOT sufficient authorization for further disc losure. Family History Family Member Name Family Member Gender Family Member Status Date o f Status Description Data Source(s) Unknown Male Diagnosis 01/02/2016 12:00:00 AM EDT [facility] ([facility]) Unknown Male Diagnosis 01/02/2016 12:00:00 AM EDT [facility] ([facility]) Encounters Encounter Providers Location Date Indications Data Source(s ) ( [facility]) [facility] 20 Min [address] [place] [address] 2020 12:00:00 AM EST eCW1 ([facility]) Attender: Mirtha Mazariegos 10/2019 02:21:00 PM EST - 06/24/2020 02:21:00 PM EST [facility] ([facility]) [facility]EE [facility] 06/23/2020 12:49:00 PM EST - 06/23/2020 12:49:00 PM EST [facility] ([facility] Attender: Leatha [facility]EE [facility] 06/23/2020 10:15:00 AM EST - 06/23/2020 10:15:00 AM EST [facility] ([facility] Attender: Camilla [place] 08/2019 08:23:00 AM EST - 06/22/2020 08:23:00 AM EST [facility] ([facility]) Attender: Mirtha Mazariegos 02:32:00 PM EST - 06/20/2020 02:32:00 PM EST [facility] ([facility]) Attender: Camilla Mazariegos 12:15:00 PM EST - 06/20/2020 12:15:00 PM EST Other sex counselingEncntr screen for in fections w sexl mode of transmissEncounter for oth general cnsl and advice on contraceptionEncounter for initial prescription of vagnl ringProblems related to unwanted pregnancyEncounter for elective termination of pregnancyEncntr screen for dis of the bld/bld-form org/immun mechnsmEncounter for test, result positive [facility] ([facility]) Other sex counseling Encntr screen for infections w sexl mode of transmiss Encounter for oth general cnsl and advic e on contraception Encounter for initial prescription of va gnl ring Problems related to unwanted Encounter for elective termination of pr egnancy Encntr screen for dis of the bld/bld-for m org/immun mechnsm Encounter for test, result pos itive ([facility] EST[facility]) [facility] Est OB [address] [place] [address] 06/03/2020 12:00:00 AM EST eCW1 ([facility]) Unknown [address] [facility] [address] 05/26/2020 12:00:00 AM EST eCW1 ([facility]) Office Visit Attender: FRANCISCO J FERNANDO Physical Therapy 05/17/2020 02:00:00 PM EDT [facility] ([facility]) Outpatient Attender: Court Terry NP [facility] 05/16/2020 12:50: 00 PM EDT [facility] Outpatient Attender: FRANCISCO J FERNANDO Physical Therapy 04/12/2020 02:00:00 PM EDT [facility] ([facility]) Attender: MOIZ Perez 10:01:00 AM EDT - 02/15/2020 10:01:00 AM EDT [facility] ([facility]) Outpatient Referrer: MARY CARMEN POWER RPA 08/14/2019 05:50 :00 AM EST [facility] Attender: Shiloh DEE [place] 08/12/2019 11:15:00 AM EST - 08/12/2019 11:15:00 AM EST Encounter for elective termination of pregnancyUnspecified blood type, Rh positiveEncounter for oth general cnsl and advice on contraceptionOther sex counseling [facility] Encounter for elective termination of pr egnancy Unspecified blood type, Rh positive Encounter for oth general cnsl and advic e on contraception Other sex counseling Attender: Shiloh DEE [place] 08/03/2019 01:50:00 PM EST - 08/03/2019 01:50:00 PM EST Inapprop chg quantitav hCG in early pregnancyEncounter for preprocedural laboratory examination [facility] ([facility]) Inapprop chg quantitav hCG in early preg emma Encounter for preprocedural laboratory e xamination Attender: Shiloh JONES PPTOMAS [place] 07/31/2019 10:00:00 AM EST - 07/31/2019 10:00:00 AM EST Encounter for test, result negativeEncounter for other preprocedural examinationEncounter for preprocedural laboratory examinationOther sex counselingUnspecified blood type, Rh positiveEncounter for other specified special examinations state, incidentalProblems related to unwanted pregnancyEncounter for test, result positiveHigh risk heterosexual behaviorEncntr screen for infections w sexl mode of transmiss [facility] ([facility]) Encounter for test, result neg ative Encounter for other preprocedural examin ation Encounter for preprocedural laboratory e xamination Other sex counseling Unspecified blood type, Rh positive Encounter for other specified special ex aminations state, incidental Problems related to unwanted Encounter for test, result pos itive High risk heterosexual behavior Encntr screen for infections w sexl mode of transmiss Medications Medication Brand Name Start Date Product Form Dose Route Admi nistrative Instructions Pharmacy Instructions Status Indications Reaction Description Data Source(s) doxycycline hyclate 100 MG Oral Capsule DOXYCYCLINE HYCLATE 06/24/2020 12:00:00 AM EST capsule 20 TAKE ONE CAPSULE BY MOUTH TW ICE A DAY TAKE ONE CAPSULE BY MOUTH TWICE A DAY SOLD: 06/24/2020 [facility] 300-30 mg 06/20/2020 12:00:00 AM EST tablet 10 TAKE ONE TO TWO TABLETS BY MOUTH EVERY 4 HOURS NEEDED FOR PAIN MAXIMUM DAILY DOSE = TEN TABLETS TAKE ONE TO TWO TABLETS BY MOUTH EVERY 4 HOURS NEEDED FOR PAIN MAXIMUM DAILY DOSE = TEN TABLETS SOLD: 06/20/2020 [facility] 21 DAY Ethinyl Estradiol 0.228799 MG/HR / Etonogestrel 0.005 MG/HR Vaginal Ring [NuvaRing] NuvaRing 0.12 mg-0.015 mg/24 hr vaginal NuvaRing 0.12 mg-0.015 mg/24 hr vaginal 06/20/2020 12:00:00 AM EST active 21 DAY ethinyl estradiol 0.152763 MG/HR / etonogestrel 0.005 MG/HR Vaginal System [NuvaRing] [facility] ([facility]) Misoprostol 0.2 MG Oral Tablet misoprostol 200 mcg tab let misoprostol 200 mcg tablet 06/20/2020 12:00:00 AM EST active 4 tabs buccally 24-48 hrs after mifepristone (#4) [facility] ([facility]) Misoprostol 0.2 MG Oral Tablet misoprostol 200 mcg tab let misoprostol 200 mcg tablet 06/20/2020 12:00:00 AM EST completed 4 tabs buccally 24-48 hrs after mifepristone (#4) [facility] ([facility]) Mifepristone 200 MG Oral Tablet [Mifeprex] Mifeprex 20 0 mg tablet Mifeprex 200 mg tablet 06/20/2020 12:00:00 AM EST complete d mifepristone 200 MG Oral Tablet [Mifeprex] [facility] ([facility]) Ondansetron 4 MG Oral Tablet ondansetron HCl 4 mg tabl et ondansetron HCl 4 mg tablet 06/20/2020 12:00:00 AM EST active 1 tab po every 4 hours prn (#4) [facility] ([facility]) 800 mg 06/20/2020 12:00:00 AM EST tablet 10 TAKE ONE TABLET BY MOUTH EVERY 8 HOURS NEEDED TAKE ONE TABLET BY MOUTH EVERY 8 HOURS NEEDED SOLD: 06/20/2020 [facility] Ibuprofen 800 MG Oral Tablet ibuprofen 800 mg tablet ibuprof en 800 mg tablet 06/20/2020 12:00:00 AM EST active 1 tab po every 8 hours prn [facility] ([facility]) Acetaminophen 300 MG / Codeine Phosphate 30 MG Oral Tablet acetaminophen 300 mg- codeine 30 mg tablet acetaminophen 300 mg-codeine 30 mg tablet 06/20/2020 12:00:00 AM EST active 1-2 tabs po every 4 hours prn pain MDD 10 [facility] ([facility]) 4 mg 06/20/2020 12:00:00 AM EST tablet 10 TAKE ONE TABLET BY MOUTH EVERY 4 HOURS NEEDED MAXIMUM DAILY DOSE = SIX TABLETS TAKE ONE TABLET BY MOUTH EVERY 4 HOURS NEEDED MAXIMUM DAILY DOSE = SIX TABLETS SOLD: 06/20/2020 [facility] 10 mg 05/30/2020 12:00:00 AM EST tablet 20 TAKE ONE TABLET BY MOUTH EVERY 6 HOURS NEEDED FOR NAUSEA TAKE ONE TABLET BY MOUTH EVERY 6 HOURS A S NEEDED FOR NAUSEA SOLD: 05/30/2020 [facility] Cephalexin 500 MG Oral Capsule CEPHALEXIN 05/26/2020 12:00:00 AM EST capsule 28 TAKE ONE CAPSULE BY MOUTH EVERY 12 HOURS TAKE ONE CAPS ULE BY MOUTH EVERY 12 HOURS SOLD: 05/27/2020 [facility] Metronidazole 500 MG Oral Tablet METRONIDAZOLE 05/26/2020 12:0 0:00 AM EST tablet 14 TAKE ONE TABLET BY MOUTH TWICE A DAY TAKE ONE TABLET BY MOUTH TWICE A DAY SOLD: 05/27/2020 [facility] 300 mg 04/12/2020 12:00:00 AM EDT capsule 90 TAKE ONE CAPSULE BY MOUTH AT BEDTIME FOR 1 WEEK THEN 1 TWO TIMES A DAY FOR 1 WEEK THEN 1 THREE TIMES A DAY TAKE ONE CAPSULE BY MOUTH AT BEDTIME FOR 1 WEEK THEN 1 TWO TIMES A DAY FOR 1 WEEK THEN 1 THREE TIMES A DAY SOLD: 04/12/2020 [facility] gabapentin 300 MG Oral Capsule Gabapentin 04/12/2020 12:00:00 AM EDT ORAL active [facility] ([facility] tizanidine 4 MG Oral Tablet Tizanidine HCL 04/12/2020 12:00:00 AM EDT ORAL active [facility] ([facility] ) Methylprednisolone 4 MG Oral Tablet [Medrol] Medrol 12:00:00 AM EDT active [facility] ( [facility] ) 4 mg 04/12/2020 12:00:00 AM EDT tablet 60 TAKE ONE TABLET BY MOUTH THREE TIMES A DAY TAKE ONE TABLET BY MOUTH THREE TIMES A DAY SOLD: 04/12/2020 [facility] 4 mg 04/12/2020 12:00:00 AM EDT tablets,dose pack 21 DIRECTED DIRECTED SOLD: 04/12/2020 [facility] 500 mg 09/16/2019 12:00:00 AM EST capsule 30 TAKE ONE CAPSULE BY MOUTH THREE TIMES A DAY TAKE ONE CAPSULE BY MOUTH THREE TIMES A DAY SOLD: 09/16/2019 [facility] 800 mg 08/12/2019 12:00:00 AM EST tablet 10 TAKE ONE TABLET BY MOUTH EVERY 8 HOURS NEEDED TAKE ONE TABLET BY MOUTH EVERY 8 HOURS NEEDED SOLD: 08/12/2019 [facility] 25 mg 08/12/2019 12:00:00 AM EST tablet 10 TAKE ONE TABLET BY MOUTH EVERY 4 TO 6 HOURS NEEDED FOR NAUSEA TAKE ONE TABLET BY MOUTH EVERY 4 TO 6 HO URS NEEDED FOR NAUSEA SOLD: 08/12/2019 [facility] 300-30 mg 08/12/2019 12:00:00 AM EST tablet 10 TAKE ONE TO TWO TABLETS BY MOUTH EVERY 4 HOURS NEEDED FOR PAIN MAXIMUM DAILY DOSE = 10 TAKE ONE TO TWO TABLETS BY MOUTH EVERY 4 HOURS NEEDED FOR PAIN MAXIMUM DAILY DOSE = 10 SOLD: 08/12/2019 [facility] Escitalopram 10 MG Oral Tablet ESCITALOPRAM OXALATE 06/22/2019 1 2:00:00 AM EST tablet 30 TAKE ONE TABLET BY MOUTH EVERY D AY TAKE ONE TABLET BY MOUTH EVERY DAY SOLD: 06/22/2019 [facility] Escitalopram 10 MG Oral Tablet [Lexapro] Lexapro 10 MG Lexap ro 10 MG 06/22/2019 12:00:00 AM EST 1.0 {tablet} suspended Lexapro 10 MG eCW1 ([facility]) Escitalopram 10 MG Oral Tablet [Lexapro] Lexapro 10 MG Lexap ro 10 MG 06/22/2019 12:00:00 AM EST 1.0 {tablet} active Le xapro 10 MG eCW1 ([facility]) Escitalopram 10 MG Oral Tablet ESCITALOPRAM OXALATE 06/22/2019 1 2:00:00 AM EST tablet 30 TAKE ONE TABLET BY MOUTH EVERY D AY TAKE ONE TABLET BY MOUTH EVERY DAY SOLD: 08/11/2019 [facility] Escitalopram 10 MG Oral Tablet [Lexapro] Lexapro 10 MG Lexap ro 10 MG 06/22/2019 12:00:00 AM EST 1.0 {tablet} suspended Lexapro 10 MG eCW1 ([facility]) Escitalopram 10 MG Oral Tablet ESCITALOPRAM OXALATE 06/22/2019 1 2:00:00 AM EST tablet 30 TAKE ONE TABLET BY MOUTH EVERY D AY TAKE ONE TABLET BY MOUTH EVERY DAY SOLD: 09/11/2019 [facility] Citalopram 10 MG Oral Tablet citalopram 10 mg tablet citalopram 10 mg tablet 1.00 {tablet} ORAL completed take 1 t ablet by oral route every day [facility] ([facility]) Insurance Providers Payer name Policy type / Coverage type Policy ID Covered constitution party ID Covered constitution party's relationship to langley Policy Langley Plan Information JULIO [id number] SP [id number] SP [id number] [facility] [id number] SP [id number] SELF PAY ONLY [id number] SP [id number] [facility] [employer] MCDO [id number] SP [id number] Medicaid Dental S [id number] Managed Care [facility] P [id number] S [id number] SELF PAY O UNAVAILABLE S UNAVAILA BLE SELF PAY UNAVAILABLE SP UNAVAILA BLE [facility] O [id number] S [id number] MEDICAID [id number] SP [id number] SELF PAY [facility] MCDO [id number] SP [id number] [facility] [id number] SP [id number] [facility] [id number] SP [id number] [facility] [id number] SP [id number] [facility] [id number] SP [id number] [facility] [id number] SP [id number] [facility] MEDICAID [id number] [place] [id number] [facility] COMMUNITY PLAN [id number] SP [id number] [facility] COMMUNITY PLAN [id number] SP [id number] [facility] COMM[facility] [id number] SP [id number] [facility] COMMUNITY PLAN UNAVAILABLE UNAVAILABLE [facility] HEA [id number] S [id number] [place] Individual Policy 0 Self 0 UnitedHealthcare Other 0 Self 0 UNITED HEALTHCARE HEA [id number] S 10 [id number] [place] Individual Policy 0 Self 0 UnitedHealthcare Other 0 Self 0 MEDICAID [facility] [id number] SP [id number] [place] [id number] SP [place] [id number] MEDICAID [id number] SP [id number] [facility] Maintenance Organization (HMO) Self [facility] I [id number] Self [id number] Medicaid-Pcap Medicaid Self [facility] Community Plan Health Maintenance Organization (HMO) [facility] [phone] Family Dependent [phone] [facility] Community Plan Health Maintenance Organization (HMO) Family Dependent [facility] [id number] Family Dependent Jerry Hansen [id number] [facility] Community Plan Health Maintenance Organization (HMO) [id number] Family Dependent Preston Hansen [id number] Medicaid-Pcap Medicaid [id number] Self [id number] [facility] I [id number] Self [id number] MEDICAID [id number] SP [id number] MEDICAID M [id number] S [id number] Medicaid S [id number] S [id number] Managed Care - Community [facility] P [id number] S [id number] [facility]CS MEDICAID [id number] SP [id number] UNAVAILABLE LG UNAVAILA BLE MEDICAID M [id number] S [id number] [facility] [employer] O UNAVAILABLE S UNAVAILABLE [facility] COMMUNITY PLAN [id number] SP 1 [id number] SELF PAY UNAVAILABLE UNAVAILA BLE [facility](MCAID) P [id number] S [id number] MEDICAID W [id number] S [id number] [facility] REGIONAL CLAIMS O [id number] S [id number] [place]BA [place] [id number] SP [id number] PGBA [place] [id number] FA [id number] [place] [id number] FA [id number] PGBA [place] [id number] FA2 [id number] Problems, Conditions, and Diagnoses Code Display Name Description Problem Type Effective Dates Data Source(s) F32.9 Depression Depression (emotion) Problem 2020 12:0 0:00 AM EST eCW1 (Formerly [facility]) Z34.80 care Supervision of other normal P jayne 06/02/2020 12:00:00 AM EST eCW1 ([facility]) Surgeries/Procedures Procedure Description Date Indications Data Source(s) CVR Finance Specialist.Svc. STI / H 06/20/2020 12:00:00 AM EST - 06/20/2020 12:00:00 AM EST [facility] ([facility]) CVR Finance Specialist.Svc. Other 06/20/2020 12:00:00 AM EST - 2019 12:00:00 AM EST [facility] ([facility]) CVR Finance Specialist.Svc. Contraceptive 06/20/2020 12 :00:00 AM EST - 06/20/2020 12:00:00 AM EST [facility]Gen ([facility]) CVR Med.Svc. Height/Weight 06/20/2020 12 :00:00 AM EST - 06/20/2020 12:00:00 AM EST [facility] ([facility]) CVR Blood Pressure 06/20/2020 12:00:00 AM EST - 2019 12:00:00 AM EST [facility]Gen ([facility]) Misoprostol, oral, 200 mcg 4 Tabs MAB 12:00:00 AM EST - 06/20/2020 12:00:00 AM EST [facility]Gen ([facility]) Misoprostol, oral, 200 mcg 4 Tabs MAB 12:00:00 AM EST - 06/20/2020 12:00:00 AM EST [facility]Gen ([facility]) Mifeprex, oral, 200 mg 06/20/2020 12:00: 00 AM EST - 06/20/2020 12:00:00 AM EST [facility]Gen ([facility]) NGHN Default 06/20/2020 12:00:00 AM EST - 06/20/2020 1 2:00:00 AM EST NextGen ([facility]) NGHN Default 06/20/2020 12:00:00 AM EST - 06/20/2020 1 2:00:00 AM EST [facility]Gen ([facility]) CHORIONIC GONADOTROPIN TEST 06/20/2020 1 2:00:00 AM EST - 06/20/2020 12:00:00 AM EST [facility]Gen ([facility]) N.GONORRHOEAE, URINE 06/20/2020 12:00:00 AM EST - 06/20/2020 12:00:00 AM EST [facility]Gen ([facility]) CHYLMD TRACH, URINE 06/20/2020 12:00:00 AM EST - 06/20 12:00:00 AM EST NextGen ([facility]) CAPILLARY BLOOD DRAW 06/20/2020 12:00:00 AM EST - 06/20/2020 12:00:00 AM EST [facility]Gen ([facility]) HEMOGLOBIN 06/20/2020 12:00:00 AM EST - 06/20/2020 1 2:00:00 AM EST [facility]Gen ([facility]) URINE TEST 06/20/2020 12:00:00 AM EST - 06/20/2020 12:00:00 AM EST NextGen ([facility]) RADEX SPINE CRV COMPL W/OBLQ&FLEX&/XTN STDS 04/12/2020 12:00:00 AM EDT MEDENT ([facility]) RADEX SPINE THORACIC 2 VIEWS 04/12/2020 12:00:00 AM ED T MEDENT ([facility]) Results ID Date Data Source [id number] 06/23/2020 06:35:00 AM EST [facility] Name Value Range Interpretation Code Description Data Becca rce(s) Supporting Document(s) SARS coronavirus 2 RNA [Presence] in Res piratory specimen by BELEN with probe detection [facility] This lab was ordered by [facility] a nd reported by [facility]. ID Date Data Source [id number] 06/20/2020 01:02:51 PM EST NextGen ([facility]) Name Value Range Interpretation Code Description Data Becca rce(s) Supporting Document(s) 12.30 gm/dL Hemoglobin NextGen ([facility]) ID Date Data Source [id number] 06/20/2020 12:55:41 PM EST NextGen ([facility]) Name Value Range Interpretation Code Description Data Becca rce(s) Supporting Document(s) 9.80 gm/dL Hemoglobin [facility] ([facility]) ID Date Data Source [id number] 06/20/2020 12:45:41 PM EST NextGen ([facility]) Name Value Range Interpretation Code Description Data Becca rce(s) Supporting Document(s) PositiveLot: [id number]: 09/18/2021 Abnormal (applies to non-numeric results) High Sensitivity Urine Test NextGen ([facility]) ID Date Data Source [id number] 06/20/2020 12:00:00 AM EST NextGen ([facility]) Name Value Range Interpretation Code Description Data Becca rce(s) Supporting Document(s) Negative Normal (applies to non-numeric resul ts) Urine CT/GC Combo - GC [facility] ([facility]) : No Performed by: CDD ([id number]) ID Date Data Source [id number] 06/20/2020 12:00:00 AM EST NextGen ([facility]) Name Value Range Interpretation Code Description Data Becca rce(s) Supporting Document(s) Negative Normal (applies to non-numeric resul ts) Urine CT/GC Combo - CT NextGen ([facility]) ID Date Data Source [id number] 06/20/2020 12:00:00 AM EST NextGen ([facility]) Name Value Range Interpretation Code Description Data Becca rce(s) Supporting Document(s) [id number] SeeComment Abnormal (applies to no n-numeric results) hCG Quantitative NextGen ([facility]) Gestational Age Expected hCG values (m IU/mL)<1 Week: 5-501-2 Weeks: 50-5002-3 Weeks: 100-86347-6 Weeks: 640-833282-2 Weeks: 4636-482230-3 Weeks: 36456-6160126-7 Weeks: 05097-4088692-1 Months: 48319- 2484321Ckqicozvbhfoxx < 10 The table above provides only an estimate of gestationalage and should be used in conjunction with other more reliable and accurate methods for establishing gestationalage, e.g., Last Menstrual Period (LMP) or ultrasound. Forresults of 5-25 mlU/mL, collect another sample and repeattest in 2 days, if is suspected. Values from different assay methods may vary.The use of this assay to monitor or to diagnose patients with cancer or any condition unrelatedto has not been cleared or approved bythe FDA or the vp publisher development of the assay.

Performed by:
NASRIN ([id number])

Procedure Social History Code Duration Value Status Description Data Source(s ) Smoking 2020 12:00:00 AM EST Current Smoker completed Curre nt Smoker eCW1 (Formerly [facility]) Smoking 06/24/2020 12:00:00 AM EST Light tobacco smoker comple donna Light tobacco smoker NextGen ([facility]) 06/20/2020 12:00:00 AM EST Light cigarette smoker (1-9 cigs/day) completed Light cigarette smoker (1-9 cigs/day) NextGen ([facility]) Smoking 06/02/2020 12:00:00 AM EST Current Smoker completed Curre nt Smoker eCW1 (Formerly [facility]) Smoking 07/28/2019 12:00:00 AM EST Current Smoker completed Curre nt Smoker eCW1 (Formerly [facility]) Vital Signs ID Date Data Source [id number] Name Value Range Interpretation Code Description Data Source(s) Diastolic blood pressure 70 mm[Hg] 70 mm[Hg] eCW1 ([facility]) Systolic blood pressure 118 mm[Hg] 118 mm[Hg] e CW1 ([facility]) Body mass index (BMI) [Ratio] 30.74 kg/m2 30.74 kg/m2 W1 ([facility]) Body height 60 [in_i] 60 [in_i] W1 ([facility]) Body weight 71.4 kg 71.4 kg [facility] ([facility]) Body weight 157.4 [lb_av] 157.4 [lb_av] W ([facility]) Body mass index (BMI) [Ratio] 31.25 kg/m2 Overweight 31.25 kg/m2 NextGen ([facility]) Diastolic blood pressure 70 mm[Hg] 70 mm[Hg] NextGen ([facility]) Systolic blood pressure 110 mm[Hg] 110 mm[Hg] N extGen ([facility]) Body weight 72.575 kg 72.575 kg [facility] ([facility]) Body height 152.40 cm 152.40 cm [facility] ([facility]) Diastolic blood pressure 70 mm[Hg] 70 mm[Hg] eCW1 ([facility]) Systolic blood pressure 110 mm[Hg] 110 mm[Hg] e CW1 ([facility]) Body mass index (BMI) [Ratio] 32.224 kg/m2 32.2 24 kg/m2 W1 ([facility]) Body height 60 [in_i] 60 [in_i] eCW1 ([facility]) Body weight 74.84 kg 74.84 kg W1 ([facility]) Body weight 165 [lb_av] 165 [lb_av] eCW1 ([facility]) Body mass index (BMI) [Ratio] 27.7 kg/m2 27.7 k g/m2 MEDENT ([facility] ) Body weight 166.25 [lb_av] 166.25 [lb_av] MEDEN T ([facility] ) Body height 65 [in_i] 65 [in_i] MEDENT ([facility] ) 5'5" Body temperature 97.4 [degF] 97.4 [degF] MEDENT ([facility] ) Patient Treatment Plan of Care Planned Activity Planned Date Details Description Data Source (s) 21 DAY Ethinyl Estradiol 0.002960 MG/HR / Etonogestrel 0.005 MG/HR Vaginal Ring [NuvaRing] 06/20/2020 12:00:00 AM EST NextG en ([facility]) Ondansetron 4 MG Oral Tablet 06/20/2020 12:00:00 AM EST NextGen ([facility]) Misoprostol 0.2 MG Oral Tablet 06/20/2020 12:00:00 AM EST NextGen ([facility]) Ibuprofen 800 MG Oral Tablet 06/20/2020 12:00:00 AM EST NextGen ([facility]) Acetaminophen 300 MG / Codeine Phosphate 30 MG Oral Ta blet 06/20/2020 12:00:00 AM EST [facility] Misoprostol 0.2 MG Oral Tablet 06/20/2020 12:00:00 AM EST NextGen ([facility]) Mifepristone 200 MG Oral Tablet [Mifeprex] 06/20/2020 12:00:[address] [facility] ([facility]) Escitalopram 10 MG Oral Tablet [Lexapro] 06/22/2019 12:00:00 AM EST eCW1 ([facility]) Citalopram 10 MG Oral Tablet NextGen ([facility])
--- OUTSIDE RECORDS SUMMARY | 2020-08-09 19:55 | CCD ---
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 Role Phone Sj Alberto Unavailable PROBLEMS No Information ALLERGIES Allergen (clinical drug ingredient) Drug/Non Drug Allergy do cumented on EMR Reaction Allergy Type Onset Date Status meperidine Demerol([facility] Code:[address]-25) Unknown Drug Allergy Active ENCOUNTERS from 1999 to 2020-05-30 Encounter Location Date Provider Diagnosis [facility] [address] [place] [id number] May, Sj Alberto IMMUNIZATIONS No Information SOCIAL HISTORY Tobacco Use: [...] REASON FOR REFERRAL No Information VITAL SIGNS No information MEDICATIONS Medication SIG (Take, Route, Frequency, Duration) Start Date En d Date Status Lexapro 10 MG 1 tablet Orally Once a day for 30 day(s) Jun, Active PROCEDURES No Information RESULTS No Results REASON FOR VISIT pain MEDICAL (GENERAL) HISTORY Type Description Date Medical History PTSD Medical History anxiety Medical History depression Medical History bipolar Medical History unathoast disease Surgical History 04/25/2019 Surgical History 07/14/2017 Hospitalization History childbirth 07/14/2017 Hospitalization History childbirth 04/25/2019 Goals Section No Information Health Concerns No Information MEDICAL EQUIPMENT No Information MENTAL STATUS No Information FUNCTIONAL STATUS No Information ASSESSMENTS No Information PLAN OF TREATMENT Medication Medication Name Sig Start Date Stop Date Lexapro 10 MG 1 tablet Orally Once a day for 30 day(s) Jun, Next Appt Details Provider Name:Sj Alberto, 2020-06-03 08:00:00 AM, [address] [place], [address], Insurance Providers Payer Name Payer Address Payer Phone Insured Name Patient Relati onship to Insured Coverage Start Date Coverage End Date MEDICAID [employer] [id number] [facility] [id number] KATHRYN SPARROW self
--- OUTSIDE RECORDS SUMMARY | 2020-08-09 19:55 | CCD | Continuity of Care Document ---
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 Role Phone Mirtha Escobar MD Unavailable [...] then out x 1 week - Active Mifeprex 200 mg tablet 1 po administer to pt in clinic - No Longer Active misoprostol 200 mcg tablet 4 tabs buccally 24-48 hrs after mifep ristone (#4) - No Longer Active citalopram 10 mg tablet take 1 tablet by oral route every day 1 0 MG - No Longer Active Problems Condition Effective [...] Human immunodeficiency virus [HIV] counseling Encntr for shareholder exam (general) (routine) w/o abn findings Encounter [...] Copied on Encounter [facility], [address] [place], [place], [id number], tel:[phone] [facility] No Information W cameron Shannon. [address] [place] [address], [id number], [place]. tel:[phone] [facility], [address] [place] [address], [id number], [place] tel:[phone] [facility] Encounter for pregn catalina test, result positiveEncntr screen for dis of the bld/bld-form org/immun mechnsmEncounter for elective termination of pregnancyProblems related to unwanted pregnancyEncounter for initial prescription of vagnl ringEncounter for oth general cnsl and advice on contraceptionEncntr screen for infections w sexl mode of transmissOther sex counseling Jojo Sampson. [address] [place] [address], [id number], [place]. tel:[phone] Referring Provider: Camilla Mayorga, [address] [place] [address], [id number]. tel:[phone] [facility], [address] [place] [address], [id number], [place] tel:[phone] [facility] Other sex counselin gEncounter for oth general cnsl and advice on contraceptionUnspecified blood type, Rh positiveEncounter for elective termination of Albaro Matamoros. [address] [place] [address], [id number], [place]. tel:[phone] Referring Provider: Shiloh Irvin, [address] [place] [address], [id number]. tel:[phone] [facility], [address] [place] [address], [id number], [place] tel:[phone] [facility] Encounter for prepr ocedural laboratory examinationInapprop chg quantitav hCG in early Albaro Matamoros. [address] [place] [address], [id number], [place]. tel:[phone] Referring Provider: Shiloh Irvin [address] [place] [address], [id number]. tel:[phone] Provider: LUIZ Nurse/CA. [facility], [address] [place] [address], [id number], [place] tel:[phone] [facility] Encntr screen for i nfections w sexl mode of transmissHigh risk heterosexual behaviorEncounter for test, result positiveProblems related to unwanted pregnancy state, incidentalEncoun ter for other specified special examinationsUnspecified blood type, Rh positiveOther sex counselingEncounter for preprocedural laboratory examinationEncounter for other preprocedural examinationEncounter for test, result negative Albaro Matamoros. [address] [place] [address], [id number], [place]. tel:[phone] Referring Provider: Shiloh Irvin, [address] [place], [place], [id number]. tel:[phone] [facility], [address] [place] [address], [id number], [place] tel:[phone] [facility] Encounter for pregn catalina test, result negativeEncounter for oth general cnsl and advice on contraceptionEncounter for surveillance of other contraceptivesEncounter for initial prescription of other contraceptivesEnctr srvlnc implantable subdermal contraceptiveEnctr for init prescription of implntbl subdermal contracep King Homar monroe. [address] [place] [address], [id number]. tel:[phone] Referring Provider: Jeanine Pérez, [address] [place] [address], [id number]. tel:[phone] [facility], [address] [place] [address], [id number], [place] tel:[phone] [facility] [place] Encounter for oth g eneral cnsl and advice on contraceptionEncntr screen for infections w sexl mode of transmissHigh risk heterosexual behavior King Jeanine. [address] [place], [place], [id number]. tel:[phone] Referring Provider: Jeanine Pérez, [address] [place], [place], [id number]. tel:[phone] [facility] [place], [address] [place] [address], [id number], [place] tel:[phone] [facility] [place] Encounter for pregn catalina test, result negative Katie Gamez. [address] [place] [address], [id number], [place]. tel:[phone] Referring Provider: Vera Wilson, [address] [place], [place], [id number]. tel:[phone] Provider: LUIZ Nurse/CA. [facility] [place], [address] [place] [address], [id number], [place] tel:[phone] [facility] [place] Human immunodeficie ncy virus [HIV] counselingBody mass index (BMI) 35.0-35.9, adultEncntr for shareholder exam (general) (routine) w/o abn findingsEncounter for oth general cnsl and advice on contraceptionEncounter for surveillance of contraceptive pillsHigh risk heterosexual behaviorObesity, unspecified King Jeanine. [address] [place] [address], [id number]. tel:[phone] Referring Provider: Jeanine Pérez, [address] [place] [address], [id number]. tel:[phone] [facility] [place], [address] [place] [address], [id number], [place] tel:[phone] LUIZ [place] Encounter for surve illance of contraceptive pills Infante. [address] [place] [address], [id number], [place]. tel:[phone] [facility] [place], [address] [place], [place], [id number], tel:[phone] LUIZ Lu Human immunodeficie ncy virus [HIV] counselingEncounter for test, result negativeEncounter for oth general cnsl and advice on contraceptionEncounter for initial prescription of contraceptive pills Uche Drake. [address] [place] [address], [address] [place] [address], . tel:[phone] Referring Provider: Noelle Ivey, [address] [place], [place], [id number]. tel:[phone] [facility], [address] [place] [address], [id number], tel:[phone] [facility] [place] No Information F molina Martin. [address] [place] [address], [address] [place] [address], . tel:[phone] [facility], [address] [place] [address], [address] [place] [address], [place] tel:[phone] LUIZ [place] BCM Other, Start Cl Rosa. [address] [place] [address], [address] [place] [address], . tel:[phone] [facility], [address] [place] [address], [address] [place] [address], tel:[phone] [facility] [place] OCP, Start ONe ill Beatrice. [address] [place] [address], [address] [place] [address], [place]. tel:[phone] [facility], [address] [place] [address], [address] [place] [address], [place] tel:[phone] [facility] [place] F/U Surgical ABBCM Other, Start Mccann Beatrice. [address] [place] [address], [address] [place] [address], . tel:[phone] Family History Family Member Diagnosis Age At [...] Covered libertarian ID Authorization(s ) Medicaid MC [id number] Social History Type Description Quantity Date Captured [...] Date No Information Medical Equipment Description Device Excel Device Identifier Effective Celestino es (start - stop) Status No Information Mental Status Date Cognitive Assessment No Information Health Concerns Observation Date No Information Concern Status Date No Information Physical Examination Exam Findings Details No Information
--- OUTSIDE RECORDS SUMMARY | 2020-08-09 19:55 | CCD | Continuity of Care Document ---
Author Author Latasha ALLEN PAbisai Organization Unknown Address [address] [place] [address], it e [address] [place] [id number] Phone [phone] Problems Description No Information Available Social History Type Date Description Comments Sex Unknown Tobacco Use Start: Unknown Patient is a current smoker, smo kes every day Smoking Status Reviewed: 04/12/20 Patient is a current smoker, smokes every day Allergies, Adverse Reactions, Alerts Description No Information Available Medications Active Medications SIG Qnty Indications Ordering Provide r Date Medrol 4mg Tablets dose tulio, take as directed on sheet 1tabs S22.040A Balbir Keen MD 020 Tizanidine HCL 4mg Tablets 1 by mouth three times a day 60tabs S22.040A Balbir Keen MD 020 Gabapentin 300mg Capsules 1 tab po qhs for one week, then one tab po bid for one week then one tab po tid 90caps S22.040A Balbir Keen MD 04/12/2020 Immunizations Description No Information Available Vital Signs Date Vital Result Comment 04/12/2020 3:20pm Body Temperature 97.4 F Height 65 inches 5'5" Weight 166.25 lb BMI (Body Mass Index) 27.7 kg/m2 Results Description No Information Available Procedures Date Code Description Status 04/12/2020 54826 X-Ray Spine Thoracic Ap & Latera l 2 Views Completed 04/12/2020 02269 X-Ray Spine Cervical 6 Or More V iews Completed Medical Devices Description No Information Available Encounters Type Date Location Provider Dx Diagnosis Office Visit 05/17/2020 2:00p Oniel Pop S22.040D Wedge comprsn fx fourth thor vert, subs for fx w routn heal S12.391D Oth nondisp fx of 4th cervca l vert, subs for fx w routn heal Office Visit 04/12/2020 2:00p Dixonbee Allen, P.A. S22.040A Wedge compression fracture of fourth thoracic vertebra, init S12.391A Oth nondisp fx of fourth cer vical vertebra, init for clos fx Assessments Date Code Description Provider 05/17/2020 S22.040D Wedge compression fr acture of fourth thoracic vertebra, subsequent encounter for fracture with routine healing Tien Allen, P.A. 05/17/2020 S12.391D Other nondisplaced f racture of fourth cervical vertebra, subsequent encounter for fracture with routine healing Tien Allen, P.A. 04/12/2020 S22.040A Wedge compression fr acture of fourth thoracic vertebra, initial encounter for closed fracture Tien Allen, EshaA. 04/12/2020 S12.391A Other nondisplaced f racture of fourth cervical vertebra, initial encounter for closed fracture Tien Allen, P.AShelli Plan of Treatment No Information Available Functional Status Description No Information Available Mental Status Description No Information Available Referrals Description No Information Available
--- OUTSIDE RECORDS SUMMARY | 2020-08-09 19:55 | CCD | Continuity of Care Document ---
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 Height/Weight CVR Reel Slitter.Svc. Contraceptive CVR Reel Slitter.Svc. Other CVR Reel Slitter.Svc. STI / H Results Test Name Date and Time Measure Units Reference Range Abnormal Flag St atus Comments Panel Description: hCG Quantitative Final hCG Quantitative 00:00:00 804125 See Comment A Final Gestational Age Expected hCG values (mIU/mL)<1 Week: 5-501-2 Weeks: 50-5002-3 Weeks: 100-46405-6 Weeks: 406-378382-6 Weeks: 4427-457814-4 Weeks: 50803-2085957-1 Weeks: 57923-0773850-7 Months: 80015- 1400692Phvewoseozsvdb < 10 The table above provides only [...] cleared or approved bythe FDA or the marketing intern of the assay.

Performed by:
CDD ([id number])

Panel Description: Chlamydia trachomatis rRNA [Presence] in Unspecified specimen by BELEN with probe detection Final Urine CT/GC Combo - CT 00:00:00 Negative N Final Performed by:
CDD ([id number])

Panel Description: Amplified GC - Urine Final Urine CT/GC Combo - GC 00:00:00 Negative N Final : No

Performed by:
CDD ([id number])

Panel Description: Hemoglobin Final Hemoglobin 13:02:51 12.30 gm/dL Maya l Panel Description: Hemoglobin Final Hemoglobin 12:55:41 9.80 gm/dL Final Panel Description: High Sensitivity Urine Test Fi nal High Sensitivity Urine Test 12:45:41 P ositiveLot: [id number]: 09/18/2021 A Final Advance Directives Directive Yes / No Effective Date File Name No Information Encounters Encounter Description Practice Location Reason(s) For Visit Diagnose s Date Provider Providers Copied on Encounter [facility], [address] [place] [address], [id number], tel:[phone] PPWINY [place] (chief complaint)Pr egnancy Test (chief complaint) Encounter for test, result pos itiveEncntr screen for dis of the bld/bld-form org/immun mechnsmEncounter for elective termination of pregnancyProblems related to unwanted pregnancyEncounter for initial prescription of vagnl ringEncounter for oth general cnsl and advice on contraceptionEncntr screen for infections w sexl mode of transmissOther sex counseling Jojo Sampson. [address] [place] [address], [id number], . tel:[phone] Referring Provider: Camilla Suarez , [address] [place] [address], [id number]. tel:[phone] [facility], [address] [place] [address], [id number], [place] tel:[phone] [facility] Other sex counselin gEncounter for oth general cnsl and advice on contraceptionUnspecified blood type, Rh positiveEncounter for elective termination of Albaro Matamoros. [address] [place] [address], [id number], [place]. tel:[phone] Referring Provider: Shiloh Irvin, [address] [place] [address], [id number]. tel:[phone] [facility], [address] [place] [address], [id number], [place] tel:[phone] [facility] Encounter for prepr ocedural laboratory examinationInapprop chg quantitav hCG in early Albaro Matamoros. [address] [place] [address], [id number], [place]. tel:[phone] Referring Provider: Shiloh Irvin, [address] [place] [address], [id number]. tel:[phone] Provider: LUIZ Nurse/CA. [facility], [address] [place] [address], [id number], [place] tel:[phone] [facility] Encntr screen for i nfections w sexl mode of transmissHigh risk heterosexual behaviorEncounter for test, result positiveProblems related to unwanted pregnancy state, incidentalEncoun ter for other specified special examinationsUnspecified blood type, Rh positiveOther sex counselingEncounter for preprocedural laboratory examinationEncounter for other preprocedural examinationEncounter for test, result negative Albaro Matamoros. [address] [place] [address], [id number], [place]. tel:[phone] Referring Provider: Shiloh Irvin, [address] [place], [place], [id number]. tel:[phone] [facility], [address] [place] [address], [id number], [place] tel:[phone] [facility] Encounter for pregn catalina test, result negativeEncounter for oth general cnsl and advice on contraceptionEncounter for surveillance of other contraceptivesEncounter for initial prescription of other contraceptivesEnctr srvlnc implantable subdermal contraceptiveEnctr for init prescription of implntbl subdermal contracep King Homar monroe. [address] [place] [address], [id number]. tel:[phone] Referring Provider: Jeanine Pérez, [address] [place] [address], [id number]. tel:[phone] [facility] [place], [address] [place] [address], [id number], [place] tel:[phone] [facility] Encounter for oth g eneral cnsl and advice on contraceptionEncntr screen for infections w sexl mode of transmissHigh risk heterosexual behavior King Jeanine. [address] [place], [place], [id number]. tel:[phone] Referring Provider: Jeanine Pérez, [address] [place] [address], [id number]. tel:[phone] [facility] [place], [address] [place] [address], [id number], [place] tel:[phone] [facility] Encounter for pregn catalina test, result negative Katie Gamez. [address] [place] [address], [id number], [place]. tel:[phone] Referring Provider: Vera Wilson, [address] [place] [address], [id number]. tel:[phone] Provider: LUIZ Nurse/CA. [facility] [place], [address] [place] [address], [id number], [place] tel:[phone] [facility] Human immunodeficie ncy virus [HIV] counselingBody mass index (BMI) 35.0-35.9, adultEncntr for assistant director of plant operations exam (general) (routine) w/o abn findingsEncounter for oth general cnsl and advice on contraceptionEncounter for surveillance of contraceptive pillsHigh risk heterosexual behaviorObesity, unspecified King Jeanine. [address] [place] [address], [id number]. tel:[phone] Referring Provider: Jeanine Pérez, [address] [place] [address], [id number]. tel:[phone] [facility], [address] [place] [address], [id number], [place] tel:[phone] [facility] [place] Encounter for surve illance of contraceptive pills Estelle Annemarie. [address] [place] [address], [id number], [place]. tel:[phone] [facility], [address] [place] [address], [id number], [place] tel:[phone] [facility] [place] Human immunodeficie ncy virus [HIV] counselingEncounter for test, result negativeEncounter for oth general cnsl and advice on contraceptionEncounter for initial prescription of contraceptive pills Uche Drake. [address] [place] [address], [id number], [place]. tel:[phone] Referring Provider: Noelle Ivey, [address] [place], [place], [id number]. tel:[phone] [facility], [address] [place] [address], [id number], [place] tel:[phone] [facility] [place] No Information F molina Martin. [address] [place] [address], [id number], [place]. tel:[phone] [facility], [address] [place] [address], [id number], [place] tel:[phone] [facility] [place] BCM Other, Start Cl Rosa. [address] [place] [address], [id number], [place]. tel:[phone] [facility], [address] [place] [address], [id number], [place] tel:[phone] [facility] [place] OCP, Start ONe ill Beatrice. [address] [place] [address], [id number], [place]. tel:[phone] [facility], [address] [place] [address], [id number], [place] tel:[phone] LUIZ [place] [facility] Other, Start Ramy Barron. [address] [place], [place], [id number], . tel:[phone] Family History Family Member Diagnosis Age At [...] constitution party ID Authorization(s ) Medicaid MC [id number] Social History Type Description Quantity Date Captured Comments Alcohol Use Details Unknown Caffeine Use Details Unknown Tobacco Use Status Light cigarette smoker (1-9 cigs/day) Smoking Status Light tobacco smoker Smoking Tobacco Use Details Cigarette: Years Used 3 Cigarette: 3 Cigarettes per day, Pack Year: 0.45 Sex Female Vital Signs Date / Time: Height Weight BMI Pulse Rate Blood Pressure Temperatu re Respiratory Rate Body Surface Area Head Circumference BMI percentile Pulse Ox In haled Ox 12:40 PM 60.00 in 160.00 lbs 31.25 kg/meter(2) 110/7 0 mm[Hg] Chief Complaint And Reason For Visit Most recent encounter only, dated '06/20/2020 12:15'. (chief complaint) Test (chief complaint) Reason For Referral Reason For Referral No [...] (BMI) 35.0-35.9, adult Assessments Type Assessment Date assessment Encounter for test, result pos itive assessment Encntr screen for dis of the bld/bld-for m org/immun mechnsm assessment Encounter for elective termination of pr egnancy assessment Problems related to unwanted N assessment Encounter for initial prescription of va gnl ring assessment Encounter for oth general cnsl and advic e on contraception assessment Encntr screen for infections w sexl mode of transmiss assessment Other sex counseling Goals Health Concern Goal Type Priority Status Date No Information Medical Equipment Description Device [place] Device Identifier Effective Celestino es (start - stop) Status No Information Mental Status Date Cognitive Assessment Orientation - Oriented to ti me, place, person, situation.Normal Orientation Health Concerns Observation Date No Information Concern Status Date No Information Physical Examination Exam Findings Details Neurological Normal Level of consciousne ss - Normal. Orientation - Normal. Psychiatric Normal Orientation - Ferney ed to time, place, person & situation.
--- OUTSIDE RECORDS SUMMARY | 2020-08-09 21:46 | CCD ---
Author Author [facility] Organization [facility] Address Unknown Phone Unavailable Support Name Relationship Address Phone Shirley Pleitez Next Of Kin [address] [place], [place] [id number] MESHA ROSE Next Of Kin [address] ON LICENSE OF [facility] [address] [place] [address] MESHA WANG Next Of Kin [address] [place] [address] NO, CONTACT Next Of Kin Unknown DOES, WISH NOT Next Of Kin [address] [place] [address] MEGHANN GOMEZ Next Of Kin [address] [place] [address] ANI HAY Next Of Kin [address] [place] [address] MEGHANN PAZ Next Of Kin [address] [place] [address] [facility] Next Of Kin [address] [place] [address] Unavailable UE Next Of Kin Unknown Unavailable JESSICA SANTANA Next Of Kin [address] [place] [address] MG FRITZ Next Of Kin [address] [place] [address] [facility]DRENS, HOME Next Of Kin [address] [place] [address] Pratik AMAYA, Ned Jaquez Next Of Kin [address] [place] [address] Carina Pleitez Next Of Kin [address] [place] [phone] UN Next Of Kin Unknown Unavailable CHILD Next Of Kin Unknown Unavailable PRESTON VELARDE Next Of Kin [address] [address] PRESTON STEARNS Next Of Kin [address] [place], [place] [id number] Next Of Kin Unknown Unavailable TR[place] [address] Eladia Hansen Next Of Kin [address] [place] [address] MESHA ROSE ECON [address] [place] [address] Unavailable PRESTON AGRAWAL ECON [address] [place] [address] [phone] Care Team Providers Care Timber Cruiser Name Role Phone Irvin HEBREW PROFESSOR, Raquel Shiloh Unavailable Irvin HEBREW PROFESSOR, Raquel Shiloh Unavailable Irvin HEBREW PROFESSOR, Raquel Shiloh Unavailable Irvin HEBREW PROFESSOR, Raquel Shiloh Unavailable Irvin HEBREW PROFESSOR, Raquel Shiloh Unavailable Irvin HEBREW PROFESSOR, Raquel Shiloh Unavailable Ned Escobar MD Unavailable Unavailable Ned [...] Unavailable Ned Escobar MD Unavailable Unavailable Ned Ecsobar MD Unavailable Unavailable Ned Escobar MD Unavailable [...] MARY CARMEN RPA Unavailable Unavailable Mara, Court CLOCK REPAIRER Unavailable Unavailable Mara, Court CLOCK REPAIRER Unavailable Unavailable Mara, Court CLOCK REPAIRER Unavailable Unavailable Mara, Court CLOCK REPAIRER Unavailable Unavailable Mara, Court CLOCK REPAIRER Unavailable Unavailable Mara, Court CLOCK REPAIRER Unavailable Unavailable Mara, Court CLOCK REPAIRER Unavailable Unavailable Mara, Court CLOCK REPAIRER Unavailable Unavailable Mara, Court CLOCK REPAIRER Unavailable Unavailable Mara, Court CLOCK REPAIRER Unavailable Unavailable Mara, Court CLOCK REPAIRER Unavailable Unavailable Dwello PA PA, Camilla Unavailable Unavailable Dwello PA PA, Camilla Unavailable Unavailable Somers-Power, Leatha CNM Unavailable Unavailab le Rachele-Power, Leatha CNM Unavailable Unavailab le Rachele-Power, Leatha CNM Unavailable Unavailab le Somers-Power, Leatha CNM Unavailable Unavailab le Rachele-Power, Leatha CNM Unavailable Unavailab le Somers-Power, Leatha CNM Unavailable Unavailab le Re-disclosure Warning [...] is protected by Article 27-F of the [facility] Public Health law. If you continue you may have access to information: Regarding HIV / AIDS; Provided by facilities licensed or operated by the [facility] Office of Mental Health; or Provided by the [facility] Office for People With Developmental Disabilities. If such information is present, then the following [facility] mandated warning applies: This information has [...] law may result in a fine or nursing home sentence or both. A general authorization for the release of medical or other information is NOT sufficient authorization for further disc losure. Family History Family Member Name Family Member Gender Family Member Status Date o f Status Description Data Source(s) Unknown Male Diagnosis 01/02/2016 12:00:00 AM EDT [facility] ([facility]) Unknown Male Diagnosis 01/02/2016 12:00:00 AM EDT [facility] ([facility]) Encounters Encounter Providers Location Date Indications Data Source(s ) ( 20ESGYN) WCenter 20 Min Est Geophysical Laboratory Supervisor [address] [place] [address] 2020 12:00:00 AM EST eCW1 ([facility]) Attender: Mirtha Mazariegos 10/2019 02:21:00 PM EST - 06/24/2020 02:21:00 PM EST [facility] ([facility]) Attender: Leatha Joshua CNM, PPNCNY [address] [facility] 06/23/2020 12:49:00 PM EST - 06/23/2020 12:49:00 PM EST [facility] Attender: Leatha Joshua CNM, PPNCCLAR[address] Pl [facility] 06/23/2020 10:15:00 AM EST - 06/23/2020 10:15:00 AM EST [facility] ([facility] Attender: Camilla [place] 08/2019 08:23:00 AM EST - 06/22/2020 08:23:00 AM EST [facility] ([facility]) Attender: Mirtha Mazariegos 02:32:00 PM EST - 06/20/2020 02:32:00 PM EST [facility] ([facility]) Attender: Camilla Mazariegos 12:15:00 PM EST - 06/20/2020 12:15:00 PM EST Other sex counselingEncntr screen for in fections w sexl mode of transmissEncounter for oth general cnsl and advice on contraceptionEncounter for initial prescription of vagnl ringProblems related to unwanted pregnancyEncounter for elective termination of pregnancyEncntr screen for dis of the bld/bld-form org/immun mechnsmEncounter for test, result positive [facility] ([facility]) Other sex counseling Encntr screen for infections w sexl mode of transmiss Encounter for oth general cnsl and advic e on contraception Encounter for initial prescription of va gnl ring Problems related to unwanted Encounter for elective termination of pr egnancy Encntr screen for dis of the bld/bld-for m org/immun mechnsm Encounter for test, result pos itive (WC ESTOB) WCenter Est OB [address] [place] [address] 06/03/2020 12:00:00 AM EST eCW1 ([facility]) Unknown [address] [facility] [address] 05/26/2020 12:00:00 AM EST eCW1 ([facility]) Office Visit Attender: FRANCISCO J FERNANDO Physical Therapy 05/17/2020 02:00:00 PM EDT [facility] ([facility]) Outpatient Attender: Court Terry NP [facility] 05/16/2020 12:50: 00 PM EDT [facility] Outpatient Attender: FRANCISCO J FERNANDO Physical Therapy 04/12/2020 02:00:00 PM EDT MED[facility] ([facility]) Attender: MOIZ Perez 10:01:00 AM EDT - 02/15/2020 10:01:00 AM EDT [facility] ([facility]) Outpatient Referrer: MARY CARMEN POWER RPA 08/14/2019 05:50 :00 AM EST [facility] Imaging Attender: Shiloh DEE [place] 08/12/2019 11:15:00 AM EST - 08/12/2019 11:15:00 AM EST Encounter for elective termination of pregnancyUnspecified blood type, Rh positiveEncounter for oth general cnsl and advice on contraceptionOther sex counseling [facility] Encounter for elective termination of pr egnancy Unspecified blood type, Rh positive Encounter for oth general cnsl and advic e on contraception Other sex counseling Attender: Shiloh DEE [place] 08/03/2019 01:50:00 PM EST - 08/03/2019 01:50:00 PM EST Inapprop chg quantitav hCG in early pregnancyEncounter for preprocedural laboratory examination Next[facility] ([facility]) Inapprop chg quantitav hCG in early preg emma Encounter for preprocedural laboratory e xamination Attender: [facility] [place] 07/31/2019 10:00:00 AM EST - 07/31/2019 10:00:00 AM EST Encounter for test, result negativeEncounter for other preprocedural examinationEncounter for preprocedural laboratory examinationOther sex counselingUnspecified blood type, Rh positiveEncounter for other specified special examinations state, incidentalProblems related to unwanted pregnancyEncounter for test, result positiveHigh risk heterosexual behaviorEncntr screen for infections w sexl mode of transmiss [facility] ([facility] Encounter for test, result neg ative Encounter [...] BY MOUTH TWICE A DAY SOLD: 06/24/2020 [facility] 300-30 mg 06/20/2020 12:00:00 AM EST tablet 10 TAKE ONE TO TWO TABLETS BY MOUTH EVERY 4 HOURS NEEDED FOR PAIN MAXIMUM DAILY DOSE = TEN TABLETS TAKE ONE TO TWO TABLETS BY MOUTH EVERY 4 HOURS NEEDED FOR PAIN MAXIMUM DAILY DOSE = TEN TABLETS SOLD: 06/20/2020 [facility] 21 DAY Ethinyl Estradiol 0.817523 MG/HR / Etonogestrel 0.005 MG/HR Vaginal Ring [NuvaRing] NuvaRing 0.12 mg-0.015 mg/24 hr vaginal NuvaRing 0.12 mg-0.015 mg/24 hr vaginal 06/20/2020 12:00:00 AM EST active 21 DAY ethinyl estradiol 0.184397 MG/HR / etonogestrel 0.005 MG/HR Vaginal System [NuvaRing] NextGen ([facility]) Misoprostol 0.2 MG Oral Tablet misoprostol 200 mcg tab let misoprostol 200 mcg tablet 06/20/2020 12:00:00 AM EST active 4 tabs buccally 24-48 hrs after mifepristone (#4) [facility] ([facility]) Misoprostol 0.2 MG Oral Tablet misoprostol 200 mcg tab let misoprostol 200 mcg tablet 06/20/2020 12:00:00 AM EST completed 4 tabs buccally 24-48 hrs after mifepristone (#4) [facility] ([facility]) Mifepristone 200 MG Oral Tablet [Mifeprex] Mifeprex 20 0 mg tablet Mifeprex 200 mg tablet 06/20/2020 12:00:00 AM EST complete d mifepristone 200 MG Oral Tablet [Mifeprex] [facility] ([facility]) Ondansetron 4 MG Oral Tablet ondansetron HCl 4 mg tabl et ondansetron HCl 4 mg tablet 06/20/2020 12:00:00 AM EST active 1 tab po every 4 hours prn (#4) [facility] ([facility]) 800 mg 06/20/2020 12:00:00 AM EST tablet 10 TAKE ONE TABLET BY MOUTH EVERY 8 HOURS NEEDED TAKE ONE TABLET BY MOUTH EVERY 8 HOURS NEEDED SOLD: 06/20/2020 [facility] Ibuprofen 800 MG Oral Tablet ibuprofen 800 mg tablet ibuprof en 800 mg tablet 06/20/2020 12:00:00 AM EST active 1 tab po every 8 hours prn [facility] ([facility]) Acetaminophen 300 MG / Codeine Phosphate 30 MG Oral Tablet acetaminophen 300 mg- codeine 30 mg tablet acetaminophen 300 mg-codeine 30 mg tablet 06/20/2020 12:00:00 AM EST active 1-2 tabs po every 4 hours prn pain MDD 10 [facility] ([facility]) 4 mg 06/20/2020 12:00:00 AM EST tablet [...] 04/12/2020 12:00:00 AM EDT ORAL active MEDENT ([facility] ) tizanidine 4 MG Oral Tablet Tizanidine HCL 04/12/2020 12:00:00 AM EDT ORAL active [facility] ([facility] ) Methylprednisolone 4 MG Oral Tablet [Medrol] Medrol 12:00:00 AM EDT active MED[facility] ( [facility] ) 4 mg 04/12/2020 12:00:00 AM [...] 1.0 {tablet} suspended Lexapro 10 MG eCW1 ([facility]) Escitalopram 10 MG Oral Tablet [Lexapro] Lexapro 10 MG Lexap ro 10 MG 06/22/2019 12:00:00 AM EST 1.0 {tablet} active Le xapro 10 MG eCW1 ([facility]) Escitalopram 10 MG Oral Tablet ESCITALOPRAM OXALATE 06/22/2019 1 2:00:00 AM EST tablet 30 TAKE ONE TABLET BY MOUTH EVERY D AY TAKE ONE TABLET BY MOUTH EVERY DAY SOLD: 08/11/2019 [facility] Escitalopram 10 MG Oral Tablet [Lexapro] Lexapro 10 MG Lexap ro 10 MG 06/22/2019 12:00:00 AM EST 1.0 {tablet} suspended Lexapro 10 MG eCW1 ([facility]) Escitalopram 10 MG Oral Tablet ESCITALOPRAM [...] every day [facility] ([facility]) Insurance Providers Payer name Policy type / Coverage type Policy ID Covered democrat ID Covered democrat's relationship to langley Policy Langley Plan Information JULIO [id number] SP [id number] SP [id number] [facility] [id number] SP [id number] SELF PAY ONLY [id number] SP [id number] [facility] COMMUNITY PLAN [facility] [id number] SP [id number] Medicaid Dental S [id number] S [id number] Managed Care [facility] P [id number] S [id number] SELF PAY O UNAVAILABLE S UNAVAILA BLE SELF PAY UNAVAILABLE SP UNAVAILA BLE [facility](MCA[facility]) O [id number] S [id number] MEDICAID [id number] SP [id number] SELF PAY [facility] COMMUNITY PLAN [facility] [id number] SP [id number] [facility] COMMUNITY PLAN [facility] [id number] SP [id number] [facility] COMMUNITY PLAN [facility] [id number] SP [id number] [facility] [id number] SP [id number] [facility] [id number] SP [id number] [facility] COMMUNITY PLAN [facility] [id number] SP [id number] [facility] MEDICAID PI PI [facility] MEDICAID [id number] [place] [id number] [facility]AN [id number] SP [id number] [facility]AN [id number] SP [id number] [facility] COMMUNITY PLAN [id number] SP [id number] [facility] COMMUN[facility] PLAN UNAVAILABLE [facility]NAVAILABLE [facility] [id number] S [id number] [place] of [place] Individual Policy 0 Self 0 UnitedHealthcare Other 0 Self 0 UNITED HEALTHCARE HEA [id number] S [id number] [place] of [place] Individual Policy 0 Self 0 UnitedHealthcare Other 0 Self 0 MEDICAID [facility] [id number] SP [id number] MED[place]ID [place] [id number] SP [id number] MEDICAID [id number] SP [id number] [facility]/Community [facility] Health Maintenance Organization (HMO) Self [facility] I [id number] Self [id number] Medicaid-Pcap Medicaid Self [facility] Community Plan Health Maintenance Organization (HMO) [facility] Commercial [phone] Family Dependent [phone] [facility] Community Plan Health Maintenance Organization (HMO) Family Dependent [facility] Commercial [id number] Family Dependent Jerry Hansen [id number] [facility] Community Plan Health Maintenance Organization (HMO) [id number] Family Dependent Preston Hansen [id number] Medicaid-Pcap Medicaid [id number] Self [id number] [facility] I [id number] Self [id number] MEDICAID [id number] SP [id number] MEDICAID M [id number] S [id number] Medicaid S [id number] S [id number] Managed Care - Community [facility] P [id number] S [id number] [facility] MEDICAID [id number] SP [id number] UNAVAILABLE LG UNAVAILA BLE MEDICAID M [id number] S [id number] [facility] [place] O UNAVAILABLE S UNAVAILABLE [facility] COMMUNITY PLAN [id number] SP [id number] SELF PAY UNAVAILABLE [facility]VAILA BLE [facility]) P [id number] S [id number] MEDICAID W [id number] S [id number] [facility] REGIONAL CLAIMS O [id number] S [id number] [facility] [place] [id number] SP [id number] [facility] [place] [facility] [id number] FA [id number] [facility] [place] [id number] FA [id number] [facility] [place] [id number] FA2 [id number] Problems, Conditions, and Diagnoses Code Display Name Description Problem Type Effective Dates Data Source(s) F32.9 Depression Depression (emotion) Problem 2020 12:0 0:00 AM EST eCW1 ([facility]) Z34.80 care Supervision of other normal P jayne 06/02/2020 12:00:00 AM EST eCW1 ([facility]) Surgeries/Procedures Procedure Description Date Indications Data Source(s) CVR Swaging Machine Adjuster.Svc. STI / H 06/20/2020 12:00:00 AM EST - 06/20/2020 12:00:00 AM EST [facility] ([facility]) CVR Swaging Machine Adjuster.Svc. Other 06/20/2020 12:00:00 AM EST - 2019 12:00:00 AM EST [facility] ([facility]) CVR Swaging Machine Adjuster.Svc. Contraceptive 06/20/2020 12 :00:00 AM EST - 06/20/2020 12:00:00 AM EST [facility] ([facility]) CVR Med.Svc. Height/Weight 06/20/2020 12 :00:00 AM EST - 06/20/2020 12:00:00 AM EST [facility] ([facility]) CVR Blood Pressure 06/20/2020 12:00:00 AM EST - 2019 12:00:00 AM EST [facility] ([facility]) Misoprostol, oral, 200 mcg 4 Tabs MAB 12:00:00 AM EST - 06/20/2020 12:00:00 AM EST [facility] ([facility]) Misoprostol, oral, 200 mcg 4 Tabs MAB 12:00:00 AM EST - 06/20/2020 12:00:00 AM EST [facility] ([facility]) Mifeprex, oral, 200 mg 06/20/2020 12:00: 00 AM EST - 06/20/2020 12:00:00 AM EST [facility] ([facility]) NGHN Default 06/20/2020 12:00:00 AM EST - 06/20/2020 1 2:00:00 AM EST [facility] ([facility]) NGHN Default 06/20/2020 12:00:00 AM EST - 06/20/2020 1 2:00:00 AM EST [facility] ([facility]) CHORIONIC GONADOTROPIN TEST 06/20/2020 1 2:00:00 AM EST - 06/20/2020 12:00:00 AM EST [facility] ([facility]) N.GONORRHOEAE, URINE 06/20/2020 12:00:00 AM EST - 06/20/2020 12:00:00 AM EST [facility] ([facility]) CHYLMD TRACH, URINE 06/20/2020 12:00:00 AM EST - 06/20 12:00:00 AM EST [facility] ([facility]) CAPILLARY BLOOD DRAW 06/20/2020 12:00:00 AM EST - 06/20/2020 12:00:00 AM EST [facility] ([facility]) HEMOGLOBIN 06/20/2020 12:00:00 AM EST - 06/20/2020 1 2:00:00 AM EST [facility] ([facility]) URINE TEST 06/20/2020 12:00:00 AM EST - 06/20/2020 12:00:00 AM EST [facility] ([facility]) RADEX SPINE CRV COMPL W/OBLQ&FLEX&/XTN STDS 04/12/2020 12:00:00 AM EDT [facility] ([facility]) RADEX SPINE THORACIC 2 VIEWS 04/12/2020 12:00:00 AM ED T [facility] ([facility]) Results ID Date Data Source [id number] 06/23/2020 06:35:00 AM EST [facility] Name Value Range Interpretation Code Description Data Becca rce(s) Supporting Document(s) SARS coronavirus 2 RNA [Presence] in Res piratory specimen by BELEN with probe detection [facility] This lab was ordered by [facility] a nd reported by [facility]. ID Date Data Source [id number] 06/20/2020 01:02:51 PM EST [facility] ([facility]) Name Value Range Interpretation Code Description Data Becca rce(s) Supporting Document(s) 12.30 gm/dL Hemoglobin Next[facility] ([facility]) ID Date Data Source [id number] 06/20/2020 12:55:41 PM EST [facility] ([facility]) Name Value Range Interpretation Code Description Data Becca rce(s) Supporting Document(s) 9.80 gm/dL Hemoglobin [facility] ([facility]) ID Date Data Source [id number] 06/20/2020 12:45:41 PM EST [facility] ([facility]) Name Value Range Interpretation Code Description Data Becca rce(s) Supporting Document(s) PositiveLot: [id number]: 09/18/2021 Abnormal (applies to non-numeric results) High Sensitivity Urine Test [facility] ([facility]) ID Date Data Source [id number] 06/20/2020 12:00:00 AM EST [facility] ([facility]) Name Value Range Interpretation Code Description Data Becca rce(s) Supporting Document(s) Negative Normal (applies to non-numeric resul ts) Urine CT/GC Combo - GC [facility] : No Performed by: CDD ([id number]) ID Date Data Source [id number] 06/20/2020 12:00:00 AM EST [facility] ([facility]) Name Value Range Interpretation Code Description Data Becca rce(s) Supporting Document(s) Negative Normal (applies to non-numeric resul ts) Urine CT/GC Combo - CT [facility] ([facility]) ID Date Data Source [id number] 06/20/2020 12:00:00 AM EST [facility] ([facility]) Name Value Range Interpretation Code Description Data Becca rce(s) Supporting Document(s) [id number] SeeComment Abnormal (applies to no n-numeric results) hCG Quantitative [facility] ([facility]) Gestational Age Expected hCG values (m IU/mL)<1 Week: 5-501-2 Weeks: 50-5002-3 Weeks: 100-59348-5 Weeks: 962-588780-7 Weeks: 6220-624267-3 Weeks: 25629-9704750-3 Weeks: 60372-6724675-9 Months: 58358- 3070725Vfwngngleruvic < 10 The table above provides only [...] cleared or approved bythe FDA or the collections rep of the assay.

Performed by:
NASRIN ([id number])

Procedure Social History Code Duration Value Status Description Data Source(s ) Smoking 2020 12:00:00 AM EST Current Smoker completed Curre nt Smoker eCW1 ([facility]) Smoking 06/24/2020 12:00:00 AM EST Light tobacco smoker comple donna Light tobacco smoker [facility] ([facility]) 06/20/2020 12:00:00 AM EST Light cigarette smoker (1-9 cigs/day) completed Light cigarette smoker (1-9 cigs/day) [facility] ([facility]) Smoking 06/02/2020 12:00:00 AM EST Current Smoker completed Curre nt Smoker eCW1 ([facility]) Smoking 07/28/2019 12:00:00 AM EST Current Smoker completed Curre nt Smoker eCW1 ([facility]) Vital Signs ID Date Data Source UNK Name Value Range Interpretation Code Description Data Source(s) Diastolic blood pressure 70 mm[Hg] 70 mm[Hg] eCW1 ([facility]) Systolic blood pressure 118 mm[Hg] 118 mm[Hg] e CW1 ([facility]) Body mass index (BMI) [Ratio] 30.74 kg/m2 30.74 kg/m2 W1 ([facility]) Body height 60 [in_i] 60 [in_i] W1 ([facility]) Body weight 71.4 kg 71.4 kg [facility] ([facility]) Body weight 157.4 [lb_av] 157.4 [lb_av] W ([facility]) Body mass index (BMI) [Ratio] 31.25 kg/m2 Overweight 31.25 kg/m2 Next[facility] ([facility]) Diastolic blood pressure 70 mm[Hg] 70 mm[Hg] Next[facility] ([facility]) Systolic blood pressure 110 mm[Hg] 110 mm[Hg] N extGen ([facility]) Body weight 72.575 kg 72.575 kg [facility] ([facility]) Body height 152.40 cm 152.40 cm [facility] ([facility]) Diastolic blood pressure 70 mm[Hg] 70 mm[Hg] eCW1 ([facility]) Systolic blood pressure 110 mm[Hg] 110 mm[Hg] e CW1 ([facility]) Body mass index (BMI) [Ratio] 32.224 kg/m2 32.2 24 kg/m2 W1 ([facility]) Body height 60 [in_i] 60 [in_i] eCW1 ([facility]) Body weight 74.84 kg 74.84 kg W1 ([facility]) Body weight 165 [lb_av] 165 [lb_av] eCW1 ([facility]) Body mass index (BMI) [Ratio] 27.7 kg/m2 27.7 k g/m2 MEDENT ([facility] Body weight 166.25 [lb_av] 166.25 [lb_av] MEDEN T ([facility] ) Body height 65 [in_i] 65 [in_i] MED[facility] ([facility] ) 5'5" Body temperature 97.4 [degF] 97.4 [degF] [facility] ([facility] ) Patient Treatment Plan of Care Planned Activity Planned Date Details Description Data Source (s) 21 DAY Ethinyl Estradiol 0.856349 MG/HR / Etonogestrel 0.005 MG/HR Vaginal Ring [NuvaRing] 06/20/2020 12:00:00 AM EST NextG en ([facility]) Ondansetron 4 MG Oral Tablet 06/20/2020 12:00:00 AM EST [facility] ([facility]) Misoprostol 0.2 MG Oral Tablet 06/20/2020 12:00:00 AM EST [facility] ([facility]) Ibuprofen 800 MG Oral Tablet 06/20/2020 12:00:00 AM EST [facility] ([facility]) Acetaminophen 300 MG / Codeine Phosphate 30 MG Oral Ta blet 06/20/2020 12:00:00 AM EST [facility] Misoprostol 0.2 MG Oral Tablet 06/20/2020 12:00:00 AM EST [facility] ([facility]) Mifepristone 200 MG Oral Tablet [Mifeprex] 06/20/2020 12:00:[address] [facility] ([facility]) Escitalopram 10 MG Oral Tablet [Lexapro] 06/22/2019 12:00:00 AM EST eCW1 ([facility]) Citalopram 10 MG Oral Tablet [facility] ([facility])
[2020-08-09] MEDS ORDERED: NS 1,000 ML IV ONE (22:15)
[2020-08-09 22:32] LABS: APPEARANCE, URINE CLEAR (CLEAR); BACTERIA, URINE AUTO NEGATIVE (NEGATIVE); BILIRUBIN, URINE AUTO NEGATIVE (NEGATIVE); BLOOD, URINE BLOOD 3+ (NEGATIVE); COLOR, URINE YELLOW (YELLOW); GLUCOSE, URINE (UA) AUTO NEGATIVE (NEGATIVE); KETONE, URINE AUTO NEGATIVE (NEGATIVE); LEUKOCYTE ESTERASE, URINE AUTO NEGATIVE (NEGATIVE); MUCUS, URINE SMALL (NEGATIVE); NITRITE, URINE AUTO NEGATIVE (NEGATIVE); PROTEIN, URINE AUTO NEGATIVE (NEGATIVE); RBC, URINE AUTO 153 /HPF (0-3); SPECIFIC GRAVITY URINE AUTO 1.016 (1.002-1.035); SQUAMOUS EPITHELIAL CELL UR AU 0 /HPF (0-6); UROBILINOGEN, URINE AUTO 0.2 mg/dL (0.0-2.0); WBC, URINE AUTO 2 /HPF (0-3)
[2020-08-09] MEDS ORDERED: ACETAMINOPHEN 325 MG TAB PO ONE (22:45)
[2020-08-09 22:50] LABS: HEMATOCRIT 38.3 % (36.0-47.0); HEMOGLOBIN 12.2 g/dl (12.0-15.5); MEAN CORPUSCULAR HGB CONC 31.9 g/dl (32.0-36.5); MEAN CORPUSCULAR VOLUME 87.8 fl (80.0-96.0); PLATELET COUNT, AUTOMATED 295 10^3/uL (150-450); RED BLOOD COUNT 4.36 10^6/uL (4.00-5.40); WHITE BLOOD COUNT 10.5 10^3/uL (4.0-10.0)
[2020-08-10] MEDS ORDERED: RHOGAM 300 MCG (1500 IU) INJ (J2790) IM ONE ×2 (00:45)
--- NOTE | 2020-08-10 01:06 | REPVR ---
PROCEDURE INFORMATION: Exam: US First Trimester, Transabdominal Exam date and time: 08/09/2020 12:21 AM Age: 20 years old Clinical indication: Lmp or gestational age (in weeks): N/a; Prior surgery; Surgery date: 1-6 months; Patient HX: Patient had elective chemical induced ab on 06/21 for twins, ended up with complications and a d&c on 06/24 now here today for abnormal bleeding 1st cycle since d&c, also hcg came back positive. TECHNIQUE: Imaging protocol: Real-time transabdominal obstetrical ultrasound of the maternal pelvis and a first trimester , less than 14 weeks 0 days, with image documentation. COMPARISON: No relevant prior studies available. FINDINGS: Gestation: No intrauterine gestational sac MATERNAL: Uterus: The uterus measures 11.0 cm in its cephalocaudad dimension and 7.4 x 8.2 cm in its AP and lateral dimensions transabdominal. The uterus measures 12.3 cm in its cephalocaudad dimension and 6.8 x 8.4 cm in its AP and lateral dimensions transvaginal. The endometrium is complex and heterogeneous measuring 3.7 cm in thickness transabdominal and 4.9 cm transvaginal. There is vascular supply from anteriorly Cervix: Unremarkable. Right adnexa: The right ovary measures 3.8 x 2.2 x 2.8 cm with arterial and venous blood flow. Left adnexa: The left ovary measures 2.9 x 1.3 x 1.8 cm with blood flow. Intraperitoneal space: No intraperitoneal free fluid. IMPRESSION: 1. Thick heterogeneous endometrium measuring up to 4.9 cm with vascularity along the anterior aspect suggesting retained products of conception and adjacent blood clot. 2. Otherwise negative pelvic sonogram. Electronically signed by: Anthony Mackenzie On 08/10/2020 01:05:30 AM
[2020-08-10 01:41] VITALS: BP 119/57
== END 2020-08-10 01:43 | disposition home or self-care (01) ==
LOC: M ED 19:44
DX: N93.9 Abnormal uterine and vaginal bleeding, unspecified (principal); R10.2 Pelvic and perineal pain; R89.1 Abnormal level of hormones in specimens from other organs, systems and tissues; F17.200 Nicotine dependence, unspecified, uncomplicated

== ENCOUNTER 2021-01-15 10:23 | Emergency (ER) | payer MEDICAID, OTHER ==
[~2021-01-15] VITALS: Ht 149.9 cm; Wt 59.9 kg
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
[2021-01-15 12:38] VITALS: BP 138/91
== END 2021-01-15 12:41 | disposition home or self-care (01) ==
LOC: M ED 10:23
DX: M54.5 Low back pain (principal); G89.29 Other chronic pain; Z88.8 Allergy status to other drugs, medicaments and biological substances; Z87.828 Personal history of other (healed) physical injury and trauma

== ENCOUNTER 2021-02-03 05:30 | Emergency (ER) | payer OTHER ==
[~2021-02-03] VITALS: Ht 149.9 cm; Wt 58.1 kg
[2021-02-03] MEDS ORDERED: NORCO, ANEXSIA 5/325MG TABLET (HYDROcodone/ACETAMINOPHEN) PO ONE (07:25)
[2021-02-03 07:58] LABS: BASO # 0.1 10^3/uL (0.0-0.2); BASO % 0.7 % (0.0-1.0); EOS # 0.1 10^3/uL (0.0-0.5); EOS % 1.2 % (0.0-3.0); HEMATOCRIT 33.6 % (36.0-47.0); HEMOGLOBIN 10.1 g/dl (12.0-15.5); LYMPH # 1.9 10^3/uL (1.5-5.0); LYMPH % 25.3 % (24.0-44.0); MEAN CORPUSCULAR HGB CONC 30.1 g/dl (32.0-36.5); MONO # 0.7 10^3/uL (0.0-0.8); MONO % 9.2 % (2.0-8.0); NEUTROPHILS # 4.6 10^3/uL (1.5-8.5); NEUTROPHILS % 63.3 % (36.0-66.0); PLATELET COUNT, AUTOMATED 342 10^3/uL (150-450); WHITE BLOOD COUNT 7.3 10^3/uL (4.0-10.0)
--- NOTE | 2021-02-03 08:24 | REP ---
INDICATION: 5 weeks preg, vaginal bleeding COMPARISON: None. TECHNIQUE: Transabdominal and transvaginal 1st trimester obstetrical ultrasound with color Doppler evaluation. FINDINGS: Anteverted uterus measures 8.6 x 4.1 x 5.7 cm. The endometrial complex measures 13.2 mm thickness. No intrauterine identified. Bilateral ovaries are normal in appearance. Right ovary measures 2.0 x 1.7 x 2.2 cm. Left ovary measures 2.5 x 1.8 x 1.7 cm. No pelvic fluid or adnexal mass lesion. IMPRESSION: Anteverted uterus without intrauterine . Differential diagnosis includes spontaneous as well as early and less likely ectopic cannot be excluded. Correlation with serial HCG levels and physical examination recommended. <Electronically signed by Francisco Ryan > 02/03/21 [id number]
[2021-02-03 09:22] VITALS: BP 125/65
== END 2021-02-03 09:25 | disposition home or self-care (01) ==
LOC: M ED 05:30
DX: O03.9 Complete or unspecified spontaneous abortion without complication (principal); D64.9 Anemia, unspecified; Z3A.01 Less than 8 weeks gestation of pregnancy; Z88.8 Allergy status to other drugs, medicaments and biological substances; F17.210 Nicotine dependence, cigarettes, uncomplicated

== ENCOUNTER 2021-02-18 15:32 | Inpatient (IN) | payer OTHER ==
[~2021-02-18] VITALS: Ht 149.9 cm; Wt 59.0 kg
[2021-02-18] MEDS ORDERED: AMOX500C (15:40)
[2021-02-18] MEDS ORDERED: CEPH500C (15:40)
[2021-02-18] MEDS ORDERED: NS 1,000 ML IV ONE (16:05)
--- NOTE | 2021-02-18 16:19 | ECGEPIP ---
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
[2021-02-18 16:48] LABS: BASO % 0.5 % (0.0-1.0); EOS # 0.1 10^3/uL (0.0-0.5); HEMATOCRIT 31.6 % (36.0-47.0); HEMOGLOBIN 9.5 g/dl (12.0-15.5); LYMPH # 1.6 10^3/uL (1.5-5.0); LYMPH % 27.2 % (24.0-44.0); MEAN CORPUSCULAR HEMOGLOBIN 21.5 pg (27.0-33.0); MEAN CORPUSCULAR HGB CONC 30.1 g/dl (32.0-36.5); MEAN CORPUSCULAR VOLUME 71.7 fl (80.0-96.0); MONO # 0.6 10^3/uL (0.0-0.8); MONO % 10.1 % (2.0-8.0); NEUTROPHILS # 3.7 10^3/uL (1.5-8.5); PLATELET COUNT, AUTOMATED 291 10^3/uL (150-450); RED BLOOD COUNT 4.41 10^6/uL (4.00-5.40)
[2021-02-18 17:10] LABS: ALBUMIN 3.7 GM/DL (3.2-5.2); BILIRUBIN,DIRECT 0.1 MG/DL (0.0-0.2); BILIRUBIN,TOTAL 0.3 MG/DL (0.2-1.0); TOTAL PROTEIN 6.6 GM/DL (6.4-8.2)
[2021-02-18] MEDS ORDERED: MORPHINE 2 MG/ML 1ML VIAL (J2270) IV ONE (18:05)
[2021-02-18] MEDS ORDERED: ISOVUE-370 76% 100ML VIAL As Ordered ONE (18:19)
--- NOTE | 2021-02-18 18:27 | REP ---
INDICATION: CHEST PAIN. COMPARISON: PA chest, 01/31/2012. TECHNIQUE: AP portable image of the chest was obtained. FINDINGS: The lungs are clear. The heart borders, mediastinum and pulmonary vascular pattern normal. The upper abdominal bowel gas pattern is normal. IMPRESSION: No evidence of acute cardiopulmonary pathology. <Electronically signed by Kobe Delarosa > 02/18/21 [id number]
--- NOTE | 2021-02-18 19:29 | REPVR ---
PROCEDURE INFORMATION: Exam: CTA Chest With Contrast Exam date and time: 02/18/2021 6:24 PM Age: 20 years old Clinical indication: Other: R/O pe TECHNIQUE: Imaging protocol: Computed tomographic angiography of the chest with contrast. 3D rendering (Not supervised by radiologist): MIP and/or 3D reconstructed images were created by the technologist. Radiation optimization: All CT scans at this facility use at least one of these dose optimization techniques: automated exposure control; mA and/or kV adjustment per patient size (includes targeted exams where dose is matched to clinical indication); or iterative reconstruction. Contrast material: ISOVUE 370; Contrast volume: 100 ml; Contrast route: INTRAVENOUS (IV); COMPARISON: CR PORTABLE CHEST X-RAY 02/18/2021 6:09 PM FINDINGS: Pulmonary arteries: There are no abnormal filling defects within the pulmonary arterial system. The examination is negative for pulmonary thromboembolism. Aorta: The thoracic aorta is normal caliber. No aneurysm or dissection is seen. Lungs: No infiltrate is seen. Pleural spaces: No pleural effusion. No pneumothorax. Heart: No cardiomegaly or pericardial effusion. Mediastinal space: Pneumomediastinum is noted. Mediastinal air is seen anteriorly, in the left subcarinal region, and adjacent to the esophagus in the mid to lower chest. Lymph nodes: No lymphadenopathy. Liver: Suspect hepatomegaly. The liver is not included in its entirety. Bones/joints: Unremarkable. No acute fracture. IMPRESSION: 1. Pneumomediastinum, with esophagus as the likely source of mediastinal air. 2. No pulmonary embolism identified. Electronically signed by: Solange Evans On 02/18/2021 19:29:08 PM
[2021-02-18] MEDS ORDERED: HOME MED LIST COMPLETE! XX SCH (20:30)
[2021-02-18 21:00] VITALS: BP 126/72
[2021-02-18] MEDS ORDERED: DOCUSATE SODIUM 100MG CAPSULE PO SCH (21:00)
[2021-02-18] MEDS ORDERED: NORCO, ANEXSIA 5/325MG TABLET (HYDROcodone/ACETAMINOPHEN) PO PRN (21:40)
[2021-02-18] MEDS ORDERED: BISACODYL 10 MG SUPP PR PRN (21:40)
[2021-02-18] MEDS ORDERED: ONDANSETRON 4MG/2ML VIAL IV PRN (21:40)
[2021-02-18] MEDS ORDERED: ACETAMINOPHEN TAB 650MG DOSE (2X325MG) PO PRN (21:40)
[2021-02-18] MEDS ORDERED: KCL 20MEQ IN D5/NS 1000ML 1,000 ML IV SCH (21:40)
[2021-02-18] MEDS ORDERED: LEVALBUTEROL 1.25 MG/0.5 ML CONCENTRATE NEB NEB PRN (21:40)
[2021-02-18] MEDS ORDERED: KETOROLAC 30 MG/ML 1ML VIAL IV SCH (22:00)
[2021-02-19] MEDS ORDERED: LEVALBUTEROL 1.25 MG/0.5 ML CONCENTRATE NEB NEB SCH (02:00)
[2021-02-19] MEDS ORDERED: HEPARIN SOD (PORCINE) 5000UNITS/ML 1ML VIAL/SYRINGE SC SCH (09:00)
[2021-02-19] MEDS ORDERED: MOM 30ML SUSPENSION UDC PO SCH (09:00)
[2021-02-19] MEDS ORDERED: PANTOPRAZOLE 40MG TAB (PROTONIX) PO SCH (09:00)
--- NOTE | 2021-02-19 12:13 | CR ---
CONSULTATION DATE: 02/18/2021 REASON FOR CONSULTATION: The patient is seen at the request of Dr. Chaidez in the emergency room for mediastinal emphysema with a chest CT report from radiology invoking esophageal rupture. HISTORY OF PRESENT ILLNESS: The patient is a 20-year-old white female who story starts three days when she started to develop chest pain in her upper chest and neck. This was not occasioned by any trauma. She has a chronic smoker's cough, which she smokes about a half pack per day. There has been no nausea or vomiting. There has been no fever, chills or sweats, but she does state that she subjectively has felt warm over the last couple of days. She is not intrinsically short of breath, but it does hurt to take a deep breath. It was noticeably in the upper mid chest. There is no sputum production, no hemoptysis. She has been eating and has not had any dysphagia or pain with swelling this past three days. The patient states that at least once a month she gets the same pain, which goes away in a day. This is the longest that it has lasted. No one has been able to uncover the source of this pain. There is nothing in the medical record indicated prior pneumomediastinum. She also states that she feels faint two or three times a week and has to sit down. She has never lost consciousness. She does report having seizures in the past and states that she has been seen by both Trudi and Amanda. Nothing has been uncovered as far as its causes. I have reviewed the medical record and I do not find any history of treatment of seizures at this hospital. The patient has had two children. During her , she did stop smoking, but she now is smoking as noted above 1/2 pack [place] PAST MEDICAL HISTORY: As noted above in the history and physical. She has had various obstetric procedures with septic endometritis and retained products of conception after a medically induced in 2019. Denies any other medical problems other than the described seizures. PAST SURGERIES: Dilation and curettage, section times two. MEDICATIONS AT HOME: None. HABITS: The above smoking history. Denies alcohol. Smokes marijuana 3 or 4 times a day. 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 Does not do any heavy lifting. No asbestos exposure. No dogs, birds or cats at home. TRAVEL HISTORY: She has been to [place] once for a few hours. There has been no other travel history to [facility] or [facility] and no foreign travel. FAMILY HISTORY: Not pertinent to the acute problem. REVIEW OF SYSTEMS: Constitutional: See history of present illness. Eyes: Without diplopia. Without amaurosis fugax. Without prior jaundice. Does wear glasses. Nose: No epistasis. Mouth: Has her own teeth. Respiratory: See history of present illness. Cardiac: Without orthopnea or paroxysmal nocturnal dyspnea. Poor intermittent claudication. No history of prior myocardial infarction. Without palpitations or tachycardia. Gastrointestinal (GI): Without nausea or vomiting. She has had diarrhea today, but none before. Without abdominal pain. Without hematemesis or dysphagia. Without melena or hematochezia. Genitourinary (): Without dysuria or hematuria or prior renal stones. Endocrine: Without diabetes or thyroid disease. Neurologic; Without paresthesias or paralyses. The above history of prior seizures. Psychiatric: According to the medical records, she has had suicidal ideation in the past, but none now. There is an emergency room note of 03/15/2013 when she was age 12 of being transferred to Hospital for suicidal ideation. PHYSICAL EXAMINATION: Well-developed, well-nourished, but underweight, white female, in no acute distress. Vital signs: Temperature is 98.5 with a heart rate of 94 in sinus rhythm. Respiratory rate of 18 without use of accessory muscles, who is a 100% saturating on room air and blood pressure is 138/77. Her weight is 69 kilograms on a standing scale. Head: Normocephalic. Eyes: Pupils equal, round and reactive to light. Extraocular motions intact. Sclerae nonicteric. Nose without deformity. Mouth: Shows mucous membranes to be pink and moist. Lips and commissures are without lesions. Teeth are in good repair. There is no thrush. Neck is supple. There is no jugular venous distention (JVD). No subcutaneous emphysema. Trachea is midline. 2+ carotid upstrokes without bruits. There is no thyromegaly or lymphadenopathy. Lungs show equal breath sounds on either side without wheezes, rhonchi or rales. Percussion is full at the diaphragm. Cardiac examination: Without murmurs, clicks, gallops or rubs. PMI is the 5th intercostal space. S1, S2 are normal. Abdomen: Soft, nontender. Bowel sounds positive. There is no hepatomegaly. No costovertebral angle (CVA) tenderness. Extremities: Show no pretibial edema. No calf tenderness. No differential swelling in the upper extremities. Both dorsalis pedis and posterior tibials are 2+. Skin: Warm, dry and perfuse without cyanosis or mottling including nailbeds and knees. Neuro: CN II-XII intact with gross motor intact. Gait is not tested. Psychiatric: Awake, alert and oriented x 3 with appropriate mood and affect and conversational. INVESTIGATIONS: Her white count is 6.0 with a hemoglobin and hematocrit of 9.5 and 31.6. Platelet count is 291. Differential shows 61% neutrophils, 20% lymphocytes, 10% monocytes. There are no immature forms or toxic granulations. Chemistries showed normal electrolytes with a potassium of 3.6. Hematocrit is 31. Ionized calcium is 4.9. AST and ALT are 7 and 19 respectively with a total bilirubin of 0.3 and albumin if 3.7. Beta HCG is less than 5.0. Her chest x-ray shows her lungs fully expanded to the chest wall with sharp costophrenic angles. There is no pneumothorax. It is done portably. I do not appreciate B-cell emphysema on the chest x-ray. There is no pneumopericardium. CT angiogram of the chest was undertaken. I see no pulmonary emboli. 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 There is some in the posterior mediastinal space and along the upper esophagus. There is no pleural effusion. She had some lower lobe bronchiectasis. Infection quite striking. There are no other emphysematous changes in the lungs however. Great vessels were intact. There is no pericardial effusion. There is no lymphadenopathy. The adrenals have a normal configuration. No liver lesions. Pancreas looks to have a normal configuration. IMPRESSION: 1. Mediastinal emphysema. 2. Prior suicidal ideation. 3. Prior endometritis and septic . 4. History of seizures per patient, not documented in medical record. 5. Tobacco abuse. 6. Marijuana abuse. PLAN/DISCUSSION: I highly doubt that she has esophageal rupture. This pain started three day ago in the anterior mediastinum. If esophagus really had rupture, she would be in deep trouble by today. I There is no white count, no pleural effusion and no posterior or lateral chest pain. However, the radiologist has invoked the diagnosis and I am obliged to observe her at least 24 to 48 hours. I suspect the pneumomediastinum is from her chronic cough against a closed glottis. Will treat her pain with Toradol. She is not yet vaccinated and both and her boyfriend seemed to be quite reticent and resistant to vaccination. I also counseled her on smoking cessation. She stopped during her and if she had the interest in stopping, we would provide support for her with at least nicotine patch. Complicating her medical care is that she does not have a primary care physician. She is to be admitted to the hospitalist service with me on consultation. DIANNA
== END 2021-02-18 22:12 | disposition left against medical advice (07) | DRG 143 ==
LOC: M ED 15:32 → M ED INP 15:33
PROVIDERS: ADMIT Thoracic Surgery (Cardiothoracic Vascular Surgery); ATTEND Thoracic Surgery (Cardiothoracic Vascular Surgery)
DX: J98.2 Interstitial emphysema (principal); F17.210 Nicotine dependence, cigarettes, uncomplicated; F12.10 Cannabis abuse, uncomplicated

== ENCOUNTER 2021-05-13 13:29 | Emergency (ER) | payer MEDICAID, OTHER ==
[~2021-05-13] VITALS: Ht 149.9 cm; Wt 62.9 kg
[~2021-05-13 13:29] MED LIST changes: +CEPH500C
[2021-05-13 13:30] VITALS: BP 113/57
--- OUTSIDE RECORDS SUMMARY | 2021-05-13 17:36 | CCD | Continuity of Care Document ---
Author Author Latasha VAZQUEZ M.D. Organization Unknown Address [address] [place] [address] Phone [phone] Care Team Providers Care [employer] Supervisor Name Role Phone Jacques Wang AUTM [phone] AUTM Unavailable No PCP AUTM Unavailable Problems Active Problems Provider Date Sleep apnea Noelle Velasquez M.D. Onset: Disturbance of consciousness Noelle Velasquez M.D. O nset: 04/06/2016 Tobacco user Noelle Velasquez M.D. Onset: Social History Type Date Description Comments Sex Unknown Tobacco Use Start: Unknown End: Unknown Patient is a former smoker hx: 6-8 cigs pd x 7yrs, quit a few days ago Exercise Type/Frequency Occasional Mild Exercise JAYDON: 05/03/2019 Estimated Date of Delivery Based on Final JAYDON Allergies, Adverse Reactions, Alerts Active Allergies Criticality Reaction | Severity Comments Date Demerol Unable to assess criticality Nausea and Vomiting 04/06/2016 Medications Active Medications SIG Qnty Indications Ordering Provide r Date Zantac 150 Maximum Strength 150mg Tablets 1 by mouth twice daily 60tabs Jackelyn Carrero , MSN, CNM 09/08/2018 Immunizations CPT Code Status Date Vaccine Lot # [id number] Given 03/18/2019 Tetanus, Diphthe arian Toxoids/Acellular Pertussis Vaccine 7 Or > Vital Signs Date Vital Result Comment 09/12/2018 10:53am BP Systolic 110 mmHg BP Diastolic 64 mmHg Height 60 inches 5'0" Weight 175.00 lb BMI (Body Mass Index) 34.2 kg/m2 [place] Body Weight 100 lb Weight 79.380 kg Weight Percentile 94th Height Percentile 5 % BSA (Body Surface Area) 1.76 m2 04/06/2016 10:42am BP Systolic 100 mmHg BP Diastolic 64 mmHg Heart Rate 64 /min O2 % BldC Oximetry 99 % Height 62 inches 5'2" Weight 174.00 lb BMI (Body Mass Index) 31.8 kg/m2 Neck Circumference in inches 15.5 Trail Score 1 Weight 78.926 kg Weight Percentile 95th Height Percentile 20 % BSA (Body Surface Area) 1.80 m2 Results Description No Information Available Procedures Date Code Description Status 02/18/2021 83750 Emergency Dept Visit Level 4 Com pleted Medical Devices Description No Information Available Encounters Type Date Location Provider Dx Diagnosis Office Visit 02/18/2021 1:23a [facility] hugo Vazquez M.D. 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 02/18/2021 F17.210 Nicotine dependence, cigarettes, uncomplicated Paul Vazquez M.D. 02/18/2021 F12.10 Cannabis abuse, uncomplicated Maru Vazquez M.D. Plan of Treatment No Information Available Functional Status Description No Information Available Mental Status Mental Condition Comment Date Status Cognitive ability not impaired A ctive Referrals Description No Information Available
--- OUTSIDE RECORDS SUMMARY | 2021-05-13 17:36 | CCD ---
Author Author [facility] Organization [facility] Address Unknown Phone Unavailable Support Name Relationship Address Phone JEIMY PRITCHETT Next Of Kin [address] [place] [address] ROXANA PRINGEL Next Of Kin [address] [place] [address] BRODERICK SULLIVAN Next Of Kin Unknown Mara ALATORRE-C, Shirley Yun Next Of Kin [address] [place], [place] [phone] MESHA ROSE Next Of Kin [address] [place] [address] MESHA WANG Next Of Kin [address] [place] [address] NO, CONTACT Next Of Kin Unknown DOES, WISH NOT Next Of Kin [address] [place] [address] MEGHANN GOMEZ Next Of Kin [address] [place] [address] ANI HAY Next Of Kin [address] [place] [address] MEGHANN PAZ Next Of Kin [address] [place] [address] [facility] Next Of Kin [address] [place] [address] Unavailable UE Next Of Kin Unknown Unavailable JESSICA SANTANA Next Of Kin [address] [place] [address] MG FRITZ Next Of Kin [address] [place] [address] CHILDRENS, HOME Next Of Kin [address] [place] [address] Pratik MD, A Gisele Next Of Kin [address] [place] [address] Mara PNP-C, Carina Next Of Kin [address] [place] [address] UN Next Of Kin Unknown Unavailable CHILD Next Of Kin Unknown Unavailable PRESTON VELARDE Next Of Kin [address] [address] PRESTON STEARNS Next Of Kin [address] [place] [address] ST Next Of Kin Unknown Unavailable TRACI HUANG [place] [address] Eladia Hansen Next Of Kin [address] [place] [address] MESHA ROSE ECON [address] [place] [address] Unavailable Preston Hansen ECON [address] [place] [address] [phone] Care Team Providers Care Warehouse Operations Manager Name Role Phone NO, PCP Unavailable Unavailable MCELHERAN, FRANCISCO J PA Unavailable [...] Unavailable MCELHERAN, FRANCISCO J PA Unavailable Unavailable MCELAN, FRANCISCO J PA Unavailable Unavailable MCELHERAN, FRANCISCO [...] Unavailable MCELHERAN, FRANCISCO J PA Unavailable Unavailable Dwello PA PA, Camilla Unavailable Unavailable Dwello PA PA, Camilla Unavailable Unavailable Dwello PA PA, Camilla Unavailable Unavailable Dwello PA PA, Camilla Unavailable Unavailable Dwello PA PA, Camilla Unavailable Unavailable Dwello PA PA, Camilla Unavailable Unavailable Dwello PA PA, Camilla Unavailable Unavailable Shawn, Ned Shannon MD Unavailable [...] Shawn, Ned Shannon MD Unavailable Unavailable Shawn, eNd Shannon MD Unavailable Unavailable Shawn, Ned Shannon MD Unavailable Unavailable Shawn, Ned Shannon MD Unavailable Unavailable Shawn, Ned Shannon MD Unavailable Unavailable Shawn, Ned Shannon MD Unavailable Unavailable Shawn, A Mirtha AMAYA Unavailable Unavailable Shawn, A Mirtha AMAYA Unavailable Unavailable Shawn, A Mirtha AMAYA Unavailable Unavailable Shawn, Ned Shannon MD Unavailable Unavailable Shawn, Ned Shannon MD Unavailable Unavailable Shawn, Ned Shannon MD Unavailable Unavailable Shawn, Ned Shannon MD Unavailable Unavailable Shawn, Ned Shannon MD Unavailable Unavailable Shawn, Ned Shannon MD Unavailable Unavailable Shawn, Ned Shannon MD Unavailable Unavailable Shawn, Ned Shannon MD Unavailable Unavailable Shawn, Ned Shannon MD Unavailable Unavailable Shawn, Ned Shannon MD Unavailable Unavailable Shawn, Nde Shannon MD Unavailable Unavailable Shawn, Ned Shannon MD Unavailable Unavailable Shawn, Ned Shannon MD Unavailable Unavailable Shawn, Ned Shannon MD Unavailable Unavailable Shawn, A Mirtha AMAYA Unavailable Unavailable Shawn, A Mirtha AMAYA Unavailable Unavailable Shawn, A Mirtha AMYAA Unavailable Unavailable Shawn, A Mirtha AMAYA Unavailable Unavailable Shawn, A Mirtha AMAYA Unavailable Unavailable Shawn, Ned Shannon MD Unavailable [...] Shawn, Ned Shannon MD Unavailable Unavailable Shawn, A Mirtha MD Unavailable Unavailable Shawn, A Mirtha MD Unavailable Unavailable Shawn, A Mirtha MD Unavailable Unavailable Shawn, A Mirtha MD Unavailable Unavailable Shawn, A Mirtha MD Unavailable Unavailable Shawn, A Mirtha MD Unavailable Unavailable Shawn, A Mirtha MD Unavailable Unavailable Shawn, A Mirtha MD Unavailable Unavailable Shawn, A Mirtha MD Unavailable Unavailable Shawn, A Mirtha MD Unavailable Unavailable Shawn, A Mirtha MD Unavailable Unavailable Shawn, A Mirtha MD Unavailable Unavailable Shawn, A Mirtha MD Unavailable Unavailable Shawn, A Mirtha MD Unavailable Unavailable Shawn, A Mirtha MD Unavailable Unavailable Shawn, A Mirtha MD Unavailable Unavailable Shawn, A Mirtha MD Unavailable Unavailable Shawn, A Mirtha MD Unavailable Unavailable Shawn, A Mirtha MD Unavailable Unavailable Shawn, A Mritha MD Unavailable Unavailable Shawn, A Mirtha MD Unavailable Unavailable Shawn, Ned Shannon MD Unavailable Unavailable Shawn, Ned Shannon MD Unavailable Unavailable Mathew, Sathya Miller MD Unavailable Unavailable Mathew, Sathya Miller MD Unavailable Unavailable Mathew, Sathya Miller MD Unavailable Unavailable Mathew, Sathya Miller MD Unavailable Unavailable Mathew, Sathya Miller MD Unavailable Unavailable Mathew, Sathya Miller MD Unavailable Unavailable Mathew, Sathya Miller MD Unavailable Unavailable Mathew, Sathya Miller MD Unavailable Unavailable Mathew, Sathya Miller MD Unavailable Unavailable Mathew, Sathya Miller MD Unavailable Unavailable Mathew, Sathya Miller MD Unavailable Unavailable Mathew, Sathya Miller MD Unavailable Unavailable Mathew, Sathya Miller MD Unavailable Unavailable Mathew, Sathya Miller MD Unavailable Unavailable Mathew, Sathya Miller MD Unavailable Unavailable Mathew, Sathya Miller MD Unavailable Unavailable Mathew, Sathya Miller MD Unavailable Unavailable Mathew, Sathya Miller MD Unavailable Unavailable Mathew, Sathya Miller MD Unavailable Unavailable Mathew, Sathya Miller MD Unavailable Unavailable Mathew, Sathya Miller MD Unavailable Unavailable Mathew, Sathya Miller MD Unavailable Unavailable Mathew, Sathya Miller MD Unavailable Unavailable Mathew, Sathya Miller MD Unavailable Unavailable Mathew, Sathya Miller MD Unavailable Unavailable Mathew, Sathya Miller MD Unavailable Unavailable Mathew, Sathya Miller MD Unavailable Unavailable Mathew, Sathya Miller MD Unavailable Unavailable Mathew, Sathya Miller MD Unavailable Unavailable Mathew, Sathya Miller MD Unavailable Unavailable Mathew, Sathya Miller MD Unavailable Unavailable Mathew, Sathya Miller MD Unavailable Unavailable Mathew, Sathya Miller MD Unavailable Unavailable Mathew, Sathya Miller MD Unavailable Unavailable Mathew, Stahya Miller MD Unavailable Unavailable Mathew, Sathya Miller MD Unavailable Unavailable Rachele-Power, Leatha CNM Unavailable Unavailab le Rachele-Power, Leatha CNM Unavailable Unavailab le Rachele-Power, Leatha CNM Unavailable Unavailab le [place]-Power, Leatha CNM Unavailable Unavailab le Rachele-Power, Leatha CNM Unavailable Unavailab le Rachele-Power, Leatha CNM Unavailable Unavailab le Mara, Court TACKER ELASTIC BAND Unavailable Unavailable Mara, Court TACKER ELASTIC BAND Unavailable Unavailable Mara, Court TACKER ELASTIC BAND Unavailable Unavailable Mara, Court TACKER ELASTIC BAND Unavailable Unavailable Mara, Court TACKER ELASTIC BAND Unavailable Unavailable Mara, Court TACKER ELASTIC BAND Unavailable Unavailable Mara, Court TACKER ELASTIC BAND Unavailable Unavailable Mara, Court TACKER ELASTIC BAND Unavailable Unavailable Mara, Court TACKER ELASTIC BAND Unavailable Unavailable Mara, Court TACKER ELASTIC BAND Unavailable Unavailable Mara, Court TACKER ELASTIC BAND Unavailable Unavailable Quiñonez, M Christopher PA-C Unavailable Unavailable Quiñonez, M Christopher PA-C Unavailable Unavailable Quiñonez, M Christopher PA-C Unavailable Unavailable Quiñonez, M Christopher PA-C Unavailable Unavailable Quiñonez, M Christopher PA-C Unavailable Unavailable Quiñonez, M Christopher PA-C Unavailable Unavailable Quiñonez, M Christopher PA-C Unavailable Unavailable Quiñonez, M Christopher PA-C Unavailable Unavailable Quiñonez, M Christopher PA-C Unavailable Unavailable Quiñonez, M Christopher PA-C Unavailable Unavailable Quiñonez, M Christopher PA-C Unavailable Unavailable Quiñonez, M Christopher PA-C Unavailable Unavailable Quiñonez, M Christopher PA-C Unavailable Unavailable Quiñonez, M Christopher PA-C Unavailable Unavailable Quiñonez, M Christopher PA-C Unavailable Unavailable Quiñonez, M Christopher PA-C Unavailable Unavailable Quiñonez, M Christopher PA-C Unavailable Unavailable Quiñonez, M Christopher PA-C Unavailable Unavailable Quiñonez, M Christopher PA-C Unavailable Unavailable Quiñonez, M Christopher PA-C Unavailable Unavailable Quiñonez, M Christopher PA-C Unavailable Unavailable Quiñonez, M Christopher PA-C Unavailable Unavailable Quiñonez, M Christopher PA-C Unavailable Unavailable Quiñonez, M Christopher PA-C Unavailable Unavailable Quiñonez, M Christopher PA-C Unavailable Unavailable Quiñonez, M Christopher PA-C Unavailable Unavailable Beth TREVINO MD Unavailable Unavailable Beth TREVINO MD Unavailable Unavailable URIEL, L CAROLINE MD Unavailable Unavailable URIEL, L CAROLINE MD Unavailable Unavailable URIEL, L CAROLINE MD Unavailable Unavailable URIEL, L CAROLINE MD Unavailable Unavailable URIEL, L CAROLINE MD Unavailable Unavailable URIEL, L CAROLINE MD Unavailable Unavailable URIEL, L CAROLINE MD Unavailable Unavailable URIEL, L CAROLINE MD Unavailable Unavailable URIEL, L CAROLINE MD Unavailable Unavailable URIEL, L CAROLINE MD Unavailable Unavailable URIEL, L CAROLINE MD Unavailable Unavailable URIEL, L CAROLINE MD Unavailable Unavailable URIEL, L CAROLINE MD Unavailable Unavailable URIEL, L CAROLINE MD Unavailable Unavailable URIEL, L CAROLINE MD Unavailable Unavailable URIEL, L CAROLINE MD Unavailable Unavailable URIEL, L CAROLINE MD Unavailable Unavailable URIEL, L CAROLINE MD Unavailable Unavailable Re-disclosure Warning The records that you are [...] protected by Article 27-F of the [facility] Public Health law. If you continue you may have access to information: Regarding HIV / AIDS; Provided by facilities licensed or operated by the [facility] Office of Mental Health; or Provided by the [facility] Office for People With Developmental Disabilities. If such information is present, then the following [facility] mandated warning applies: This information has [...] law may result in a fine or shelter sentence or both. A general authorization for the release of medical or other information is NOT sufficient authorization for further disc losure. Family History Family Member Name Family Member Gender Family Member Status Date o f Status Description Data Source(s) Unknown Male Diagnosis 01/02/2016 12:00:00 AM EDT [facility] ([facility]) Unknown Male Diagnosis 01/02/2016 12:00:00 AM EDT [facility] ([facility]) Encounters Encounter Providers Location Date Indications Data Source(s ) Outpatient Attender: Stefan Quiñonez PA-C 02/18/2021 02:19:05 PM EDT - 02/18/2021 02:56:57 PM EDT [facility] ([facility]) Outpatient Attender: Paul Hill/Genaro/Conner/Harika indl 02/18/2021 01:23:00 AM EDT [facility] ([facility]) OFFICE VISIT, ESTOutpatient Attender: Camilla DEE [place] 11/01/2020 12:00:00 PM EDT - 11/01/2020 12:00:00 PM EDT Other sex counselingEncounter for initial prescription of vagnl ringEncounter for oth general cnsl and advice on contraceptionHuman immunodeficiency virus [HIV] counseling [facility] ([facility]) Other sex counseling Encounter for initial prescription of va gnl ring Encounter for oth general cnsl and advic e on contraception Human immunodeficiency virus [HIV] couns ashish Outpatient 10/26/2020 01:10:31 PM EDT - 021 01:11:03 PM EDT [facility] ([facility]) Attender: Camilla DEE [place] 10:27:00 AM EST - 09/13/2020 10:27:00 AM EST [facility] ([facility]) Emergency Attender: CAROLINE TREVINO MDConsultant: PCP NO 08/10/2020 03:31:00 AM EST - 08/10/2020 07:13:00 AM EST [facility] Patient discharged[facility] (WC 20ESGYN) [facility] 20 Min Est Vp Compliance [address] [place] [address] 2020 12:00:00 AM EST eCW1 (Critical access hospital) Attender: Mirtha Mazariegos 10/2019 02:21:00 PM EST - 06/24/2020 02:21:00 PM EST [facility] ([facility]) [facility] 06/23/2020 12:49:00 PM EST - 06/23/2020 12:49:00 PM EST [facility]atha [facility] 06/23/2020 10:15:00 AM EST - 06/23/2020 10:15:00 AM EST [facility] Attender: Camilla DEE [place] 08/2019 08:23:00 AM EST - 06/22/2020 08:23:00 AM EST [facility] ([facility]) Attender: Mirtha DEE [place] 02:32:00 PM EST - 06/20/2020 02:32:00 PM EST [facility] ([facility]) Attender: Camilla DEE [place] 12:15:00 PM EST - 06/20/2020 12:15:00 PM EST Other sex counselingEncntr screen for in fections w sexl mode of transmissEncounter for oth general cnsl and advice on contraceptionEncounter for initial prescription of vagnl ringProblems related to unwanted pregnancyEncounter for elective termination of pregnancyEncntr screen for dis of the bld/bld-form org/immun mechnsmEncounter for test, result positive [facility] ([facility]) Other sex counseling Encntr [...] itive (WC ESTOB) WCenter Est OB [address] [place] [address] 06/03/2020 12:00:00 AM EST eCW1 ([facility]) Unknown [address] [facility] [place] [address] 05/26/2020 12:00:00 AM EST eCW1 (Critical access hospital) Office Visit Attender: FRANCISCO J FERNANDO Physical [facility] 05/17/2020 02:00:00 PM EDT [facility] ([facility]) Outpatient Attender: Court Terry NP [facility] 05/16/2020 12:50: 00 PM EDT [facility] Outpatient Attender: FRANCISCO J FERNANDO Physical Therapy 04/12/2020 02:00:00 PM EDT [facility] ([facility]) Medications Medication Brand Name Start Date Product Form Dose Route Admi nistrative Instructions Pharmacy Instructions Status Indications Reaction Description Data Source(s) 800 mg 02/09/2021 12:00:00 AM EDT tablet 15 TAKE ONE TABLET BY MOUTH THREE TIMES A DAY NEEDED FOR PAIN TAKE ONE TABLET BY MOUTH THREE TIMES A D AY NEEDED FOR PAIN SOLD: 02/11/2021 [facility] 500 mg 02/09/2021 12:00:00 AM EDT capsule 15 TAKE ONE CAPSULE BY MOUTH THREE TIMES A DAY TAKE ONE CAPSULE BY MOUTH THREE TIMES A DAY SOLD: 02/11/2021 [facility] Cephalexin 500 MG Oral Capsule CEPHALEXIN 02/09/2021 12:00:00 AM EDT capsule 14 TAKE ONE CAPSULE BY MOUTH TWICE A DAY FOR 7 DAYS TAKE ONE CAPSULE BY MOUTH TWICE A DAY FOR 7 DAYS SOLD: 02/09/2021 [facility] 21 DAY Ethinyl Estradiol 0.547037 MG/HR / Etonogestrel 0.005 MG/HR Vaginal Ring [NuvaRing] NuvaRing 0.12 mg-0.015 mg/24 hr vaginal NuvaRing 0.12 mg-0.015 mg/24 hr vaginal 11/01/2020 12:00:00 AM EDT active 21 DAY ethinyl estradiol 0.403732 MG/HR / etonogestrel 0.005 MG/HR Vaginal System [NuvaRing] [facility] ([facility]) 5 % 10/25/2020 12:00:00 AM EDT cream 60 APPLY LIBERALLY ONCE AND THEN SHOWER 8 HOURS LATER APPLY LIBERALLY ONCE AND THEN SHOWER 8 HOURS LATER [facility] 150 mg 10/13/2020 12:00:00 AM EDT capsule,extended releas e 24hr 30 TAKE ONE CAPSULE BY MOUTH EVERY MORNING TAKE ONE CAPSULE BY MOUTH EVERY MORNING SOLD: 10/15/2020 [facility] 50 mg 10/13/2020 12:00:00 AM EDT tablet 30 TAKE ONE TABLET BY MOUTH AT BEDTIME FOR SLEEP TAKE ONE TABLET BY MOUTH AT BEDTIME FOR SLEEP SOLD: [facility] 0.12-0.015 mg/24 hr 09/14/2020 12:00:00 AM EST ring 3 INSERT ONE RING VAGINALLY AND LEAVE IN FOR 3 WEEKS, THEN REMOVE FOR ONE WEEK INSERT ONE RING VAGINALLY AND LEAVE IN FOR 3 WEEKS, THEN REMOVE FOR ONE WEEK SOLD: 09/15/2020 [facility] 37.5 mg 09/14/2020 12:00:00 AM EST capsule,extended releas e 24hr 30 TAKE ONE CAPSULE BY MOUTH EVERY MORNING TAKE ONE CAPSULE BY MOUTH EVERY MORNING SOLD: 09/15/2020 [facility] 50 mg 09/14/2020 12:00:00 AM EST tablet 15 TAKE ONE-HALF TABLET BY MOUTH AT BEDTIME NEEDED TAKE ONE-HALF TABLET BY MOUTH AT BEDTIME NEEDED [facility] doxycycline hyclate 100 MG Oral Capsule DOXYCYCLINE HYCLATE 06/24/2020 12:00:00 AM EST capsule 20 TAKE ONE CAPSULE BY MOUTH TW ICE A DAY TAKE ONE CAPSULE BY MOUTH TWICE A DAY SOLD: 06/24/2020 [facility] Misoprostol 0.2 MG Oral Tablet misoprostol 200 mcg tab let misoprostol 200 mcg tablet 06/20/2020 12:00:00 AM EST completed 4 tabs buccally 24-48 hrs after mifepristone (#4) [facility] ([facility]) Mifepristone 200 MG Oral Tablet [Mifeprex] Mifeprex 20 0 mg tablet Mifeprex 200 mg tablet 06/20/2020 12:00:00 AM EST complete d mifepristone 200 MG Oral Tablet [Mifeprex] [facility] ([facility]) Misoprostol 0.2 MG Oral Tablet misoprostol 200 mcg tab let misoprostol 200 mcg tablet 06/20/2020 12:00:00 AM EST active 4 tabs buccally 24-48 hrs after mifepristone (#4) [facility] ([facility]) 800 mg 06/20/2020 12:00:00 AM EST tablet 10 TAKE ONE TABLET BY MOUTH EVERY 8 HOURS NEEDED TAKE ONE TABLET BY MOUTH EVERY 8 HOURS NEEDED SOLD: 06/20/2020 [facility] Ib[facility] 800 MG Oral Tablet ibuprofen 800 mg tablet ibuprof en 800 mg tablet 06/20/2020 12:00:00 AM EST active 1 tab po every 8 hours prn [facility] ([facility]) 21 DAY Ethinyl Estradiol 0.573178 MG/HR / Etonogestrel 0.005 MG/HR Vaginal Ring [NuvaRing] NuvaRing 0.12 mg-0.015 mg/24 hr vaginal NuvaRing 0.12 mg-0.015 mg/24 hr vaginal 06/20/2020 12:00:00 AM EST complet ed 21 DAY ethinyl estradiol 0.982574 MG/HR / etonogestrel 0.005 MG/HR Vaginal System [NuvaRing] [facility] ([facility]) Ondansetron 4 MG Oral Tablet ondansetron HCl 4 mg tabl et ondansetron HCl 4 mg tablet 06/20/2020 12:00:00 AM EST active 1 tab po every 4 hours prn (#4) [facility] ([facility]) Acetaminophen 300 MG / Codeine Phosphate 30 MG Oral Tablet acetaminophen 300 mg- codeine 30 mg tablet acetaminophen 300 mg-codeine 30 mg tablet 06/20/2020 12:00:00 AM EST active 1-2 tabs po every 4 hours prn pain MDD 10 [facility] ([facility]) 300-30 mg 06/20/2020 12:00:00 AM EST tablet 10 TAKE ONE TO TWO TABLETS BY MOUTH EVERY 4 HOURS NEEDED FOR PAIN MAXIMUM DAILY DOSE = TEN TABLETS TAKE ONE TO TWO TABLETS BY MOUTH EVERY 4 HOURS NEEDED FOR PAIN MAXIMUM DAILY DOSE = TEN TABLETS SOLD: 06/20/2020 [facility] 4 mg 06/20/2020 12:00:00 AM EST tablet [...] FOR NAUSEA SOLD: 05/30/2020 [facility] Metronidazole 500 MG Oral Tablet METRONIDAZOLE 05/26/2020 12:0 0:00 AM EST tablet 14 TAKE ONE TABLET BY MOUTH TWICE A DAY TAKE ONE TABLET BY MOUTH TWICE A DAY SOLD: 05/27/2020 [facility] Cephalexin 500 MG Oral Capsule CEPHALEXIN 05/26/2020 12:00:00 AM EST capsule 28 TAKE ONE CAPSULE BY MOUTH EVERY 12 HOURS TAKE ONE CAPS ULE BY MOUTH EVERY 12 HOURS SOLD: 05/27/2020 [facility] Methylprednisolone 4 MG Oral Tablet [Medrol] Medrol 12:00:00 AM EDT active [facility] ( [facility]) 300 mg 04/12/2020 12:00:00 AM EDT capsule 90 TAKE ONE CAPSULE BY MOUTH AT BEDTIME FOR 1 WEEK THEN 1 TWO TIMES A DAY FOR 1 WEEK THEN 1 THREE TIMES A DAY TAKE ONE CAPSULE BY MOUTH AT BEDTIME FOR 1 WEEK THEN 1 TWO TIMES A DAY FOR 1 WEEK THEN 1 THREE TIMES A DAY SOLD: 04/12/2020 [facility] tizanidine 4 MG Oral Tablet Tizanidine HCL 04/12/2020 12:00:00 AM EDT ORAL active [facility] ([facility]) gabapentin 300 MG Oral Capsule Gabapentin 04/12/2020 12:00:00 AM EDT ORAL active [facility] ([facility]) 4 mg 04/12/2020 12:00:00 AM EDT tablets,dose pack 21 DIRECTED DIRECTED SOLD: 04/12/2020 [facility] 4 mg 04/12/2020 12:00:00 AM EDT tablet 60 TAKE ONE TABLET BY MOUTH THREE TIMES A DAY TAKE ONE TABLET BY MOUTH THREE TIMES A DAY SOLD: 04/12/2020 [facility] Citalopram 10 MG Oral Tablet citalopram 10 mg tablet citalopram 10 mg tablet 1.00 {tablet} ORAL completed take 1 t ablet by oral route every day [facility] ([facility]) Insurance Providers Payer name Policy type / Coverage type Policy ID Covered libertarian ID Covered libertarian's relationship to langley Policy Langley Plan Information MEDICAID [facility] [id number] [id number] Medicaid [facility] Individual Policy 0 [id number] Self 0 United Healthcare Commercial [id number] Family Dependent [phone] Medicaid [facility] Individual Policy 0 [id number] Self 0 [facility] Community Plan Health Maintenance Organization (HMO) [id number] Family Dependent Medicaid S [id number] S [id number] UnitedHealthcare Other 0 [id number] Self 0 UnitedHealthcare Other 0 [id number] Self 0 Managed Care - Community Plan United Healthcare P [id number] S [id number] Medicaid Dental S [id number] Medicaid-Pcap Medicaid [id number] Self [facility] Community Plan Health Maintenance Organization (HMO) [id number] Managed Care United Healthcare P [id number] S [id number] UH I [id number] Self [id number] UH I [id number] Self [id number] [facility] COMMUNITY PLAN [id number] SP [id number] [facility] COMMUNITY PLAN [id number] SP [id number] [facility] MEDICAID [id number] [place] [id number] [facility] COMMUNITY PLAN MCDHMO [id number] SP [id number] [facility] COMMUNITY PLAN MCDHMO [id number] SP [id number] SELF PAY [employer] [id number] Self [id number] UNITED HEALTHCARE HEA [id number] S [id number] UNITED HEALTHCARE HEA [id number] S 1 [id number] MEDICAID [facility] [id number] SP [id number] MEDICAID [id number] SP [id number] [facility] Health Maintenance Organization (HMO) [id number] Self United Healthcare Commercial [id number] Family Dependent Preston Hansen [id number] [facility] Community Plan Health Maintenance Organization (HMO) [id number] Family Dependent Preston Hansen [id number] Medicaid-Pcap Medicaid [id number] Self [id number] MEDICAID [id number] SP [id number] MEDICAID [id number] S [id number] MEDICAID [id number] SP [id number] UNAVAILABLE LG UNAVAILA BLE [facility] [employer] [place] O UNAVAILABLE [id number] S UNAVAILABLE [facility] COMMUNITY PLAN [id number] SP [id number] SELF PAY UNAVAILABLE UNAVAILA BLE [facility](MCAID) P [id number] S [id number] MEDICAID [id number] S [id number] [facility] REGIONAL CLAIMS O [id number] S [id number] [employer] [place] [id number] SP [id number] [employer] [place] [id number] FA [id number] [employer] [place] [id number] FA [id number] [employer] [place] [id number] [id number] JULIO [id number] SP [id number] [place] MED[place] [id number] SP [id number] SELF PAY ONLY [id number] SP [id number] [place] [id number] SP [id number] [place] CARE [place] O [id number] S [id number] MEDICAID M [id number] S [id number] JULIO CARE [place] -OP [id number] [facility] COMMUNITY PLAN [facility] [id number] SP [id number] SELF PAY O UNAVAILABLE [id number] S UNAVAILA BLE SELF PAY UNAVAILABLE SP UNAVAILA BLE [facility](MCAID) O [id number] S [id number] MEDICAID [id number] SP [id number] [facility] COMMUNITY PLAN [facility] [id number] SP [id number] [facility] COMMUNITY PLAN [facility] [id number] SP [id number] [facility] [id number] SP [id number] [facility] [id number] SP [id number] [facility] [id number] SP [id number] [facility] MEDICAID PI PI [facility] COMMUNITY PLAN [id number] SP [id number] [facility] COMMUNITY PLAN UNAVAILABLE UNAVAILABLE Problems, Conditions, and Diagnoses Code Display Name Description Problem Type Effective Dates Data Source(s) Z3A01 Less than 8 weeks gestation of Less than 8 weeks gestation of Diagnosis 08/10/2020 03:31:00 AM [facility] T60332 Nicotine dependence, cigarettes, uncompl icated Nicotine dependence, cigarettes, uncomplicated Diagnosis 08/10/2020 03:31:00 AM [facility] [id number] Smoking (tobacco) complicating , first trimester Smoking (tobacco) complicating , first trimester Diagnosis 07/23 03:31:00 AM [facility] R55 Syncope and collapse Syncope and collapse Diagnosis 08/10/2020 03:31:00 AM [facility] [id number] Other specified related condit ions, first trimester Other specified related conditions, first trimester Diagnosis 08/10/2020 03:31:00 AM [facility] O200 Threatened Threatened Diagnosis 0 08/10/2020 03:31:00 AM [facility] O209 Hemorrhage in early , unspecifi ed Hemorrhage in early , unspecified Diagnosis 08/10/2020 03:31:00 AM [facility] F32.9 Depression Depression (emotion) Problem 2020 12:0 0:00 AM [place] [address] ([facility]) Z34.80 care Supervision of other normal P roblem 06/02/2020 12:00:00 AM [place] [address] ([facility]) Surgeries/Procedures Procedure Description Date Indications Data Source(s) EMERGENCY DEPARTMENT VISIT HIGH/URGENT SEVERITY 2020 12:00:00 AM EDT [facility] ([facility]) CVR Usability Architect.Svc. STI / H 11/01/2020 12:00:00 AM EDT - 11/01/2020 12:00:00 AM EDT [facility] ([facility]) CVR Usability Architect.Svc. Contraceptive 11/01/2020 12 :00:00 AM EDT - 11/01/2020 12:00:00 AM EDT [facility] ([facility]) CVR Med.Svc. Method Initiation 12:00:00 AM EDT - 11/01/2020 12:00:00 AM EDT [facility] ([facility]) CVR Med.Svc. Height/Weight 11/01/2020 12 :00:00 AM EDT - 11/01/2020 12:00:00 AM EDT [facility] ([facility]) HCS Without Test 11/01/2020 12:00:00 AM EDT - 11/02/19 21 12:00:00 AM EDT [facility] ([facility]) OFFICE VISIT, EST 11/01/2020 12:00:00 AM EDT - 021 12:00:00 AM EDT [facility] ([facility]) CVR Usability Architect.Svc. STI / H 06/20/2020 12:00:00 AM EST - 06/20/2020 12:00:00 AM EST [facility] ([facility]) CVR Usability Architect.Svc. Other 06/20/2020 12:00:00 AM EST - 2019 12:00:00 AM EST [facility] ([facility]) CVR Usability Architect.Svc. Contraceptive 06/20/2020 12 :00:00 AM EST - 06/20/2020 12:00:00 AM EST [facility] ([facility]) CVR Med.Svc. Height/Weight 06/20/2020 12 :00:00 AM EST - 06/20/2020 12:00:00 AM EST [facility] ([facility]) CVR Blood Pressure 06/20/2020 12:00:00 AM EST - 2019 12:00:00 AM EST [facility] ([facility]) Misoprostol, oral, 200 mcg 4 Tabs MAB 12:00:00 AM EST - 06/20/2020 12:00:00 AM EST [facility] ([facility]) Misoprostol, oral, 200 mcg 4 Tabs MAB 12:00:00 AM EST - 06/20/2020 12:00:00 AM EST [facility] ([facility]) Mifeprex, oral, 200 mg 06/20/2020 12:00: 00 AM EST - 06/20/2020 12:00:00 AM EST [facility] ([facility]) NGHN Default 06/20/2020 12:00:00 AM EST - 06/20/2020 1 2:00:00 AM EST [facility] ([facility]) NGHN Default 06/20/2020 12:00:00 AM EST - 06/20/2020 1 2:00:00 AM EST [facility] ([facility]) CHORIONIC GONADOTROPIN TEST 06/20/2020 1 2:00:00 AM EST - 06/20/2020 12:00:00 AM EST [facility] ([facility]) N.GONORRHOEAE, URINE 06/20/2020 12:00:00 AM EST - 06/20/2020 12:00:00 AM EST [facility] ([facility]) CHYLMD TRACH, URINE 06/20/2020 12:00:00 AM EST - 06/20 12:00:00 AM EST [facility] ([facility]) CAPILLARY BLOOD DRAW 06/20/2020 12:00:00 AM EST - 06/20/2020 12:00:00 AM EST [facility] ([facility]) HEMOGLOBIN 06/20/2020 12:00:00 AM EST - 06/20/2020 1 2:00:00 AM EST [facility] ([facility]) URINE TEST 06/20/2020 12:00:00 AM EST - 06/20/2020 12:00:00 AM EST [facility] ([facility]) RADEX SPINE CRV COMPL W/OBLQ&FLEX&/XTN STDS 04/12/2020 12:00:00 AM EDT [facility] ([facility]) RADEX SPINE THORACIC 2 VIEWS 04/12/2020 12:00:00 AM ED T [facility] ([facility]) Results ID Date Data Source [id number] 08/10/2020 03:31:00 AM EST [facility] 1 OrderSheet [facility] Emergency Department [address] [place] [address] Phone #: ext- [phone] 08/10/2020 03:29 Patient: KATHRYN SPARROW Sex: F : 2000 Age: 20yWEIGHT:68.0 kg (S) HEIGHT:59 inches (S) BMI:30.3ALLERGIES: No Known Drug AllergyCHIEF COMPLAINT: vag bleedingDIAGNOSIS: , Vaginal bleeding problem, Vasovagal syncopeLAB ORDERSOrder Description Priority Entered Acknowledged InitialedCBC w Diff STAT 03:52 08/10/2020 03:53 Uriel Kraus Norma MD; Patsy YbarraCMP STAT 03:52 08/10/2020 03:53 Uriel Kraus Norma MD; Patsy YbarraDIAGNOSTIC STUDY ORDERSOrder Description Priority Entered Acknowledged InitialedMEDICATION/IV/DRIP/FLUID ORDERSOrder Description Priority Entered Acknowledged InitialedIV NS 1000 mL 03:52 08/10/2020 03:57 Nayana,Bolus : Bolus 1000 Caroline Trevino MD; Patsy YbarramL (X1)GENERAL ORDERSOrder Description Priority Entered Acknowledged Initialed[Electronically signed by Patsy Kraus R.N. (07:13 08/10/2020)][Electronically signed by Caroline Trevino MD (07:18 08/10/2020)][Electronically locked by Patsy Kraus R.N. (07:13 08/10/2020)] Name Value Range Interpretation Code Description Data Becca rce(s) Supporting Document(s) ID Date Data Source [id number] 08/10/2020 03:31:00 AM EST [facility] 1 Medication Reconciliation Report [facility] Emergency Department [address] [place] [address] Phone #: ext- [phone] 08/10/2020 03:29 Patient: KATHRYN SPARROW Sex: F : 2000 Age: 20yWeight: 68.0 kgHeight/Length: 59 in.BMI: 30.3ALLERGIES: No Known Drug AllergyThe patient's Home Medications are listed below:NONE.The source(s) of the original Home Medication information:Not obtained.The following Medications were given to the patient in the Emergency Department:Sodium Chloride [IV] IV Fluids bolus 1000 mL, then 1000 mL/hr, administered: 03:57 08/10/2020The following Medications were prescribed to the patient:None. Name Value Range Interpretation Code Description Data [facility](s) Supporting Document(s) ID Date Data Source [id number] 08/10/2020 03:31:00 AM EST [facility] 1 Medication Administration Record [facility] Emergency Department [address] [place] [address] Phone #: ext- [phone] 08/10/2020 03:29 Patient: KATHRYN SPARROW Sex: F : 2000 Age: 20yWeight: 68.0 kgHeight/Length: 59 inBMI: 30.3ALLERGIES: No Known Drug Allergy Date/Time Medication Administered Medication OrderedStart SODIUM CHLORIDE [IV] IV NS 1000 mL Bolus : Bolus [id number] 08/10/2020 Dose: IV Fluids mL (X1)Patsy Kraus, RShelliNShelli Rate: 1000 mL/hr over 1 hour(s)---- Bolus: 1000 mLStop Dispensed: 1000 mL bag05:07 08/10/2020 Site: #1 right Patsy Stallworth RAmber Name Value Range Interpretation Code Description Data Becca rce(s) Supporting Document(s) ID Date Data Source [id number] 08/10/2020 03:31:00 AM EST [facility] 1 General Instructions [facility] Emergency Department [address] [place] [address] Phone #: ext- [phone] 08/10/2020 03:29 Patient: KATHRYN SPARROW Sex: F : 2000 Age: 20yVaginal bleeding.Threatened .Vasovagal syncopeINSTRUCTIONSNo strenuous activity.Drink plenty of fluids.(Take tylenol for pain. Please call your ob doctor today for a follow up appt. you will need a repeat Hcgand a repeat ultrasound in 2-3 days. If you feel worse or you feel something does not feel right, pleasereturn immediately for re-evaluation. drink plenty of fluids and make sure you eat to keep up your energy.).Warnings: Further evaluation is necessary.GENERAL WARNINGS: Return or contact your physician immediately if your condition worsens orchanges unexpectedly, if not improving as expected, or if other problems arise.Your Current Medications: .No home medication.Follow-up:Follow up with your doctor today even if well. Call for an appointment. Reason for referral: evaluation.Summary of care provided to patient via paper.Understanding of the discharge instructions verbalized by patient. ADDITIONAL INFORMATIONPossible Miscarriage (Threatened )You may be having a miscarriage.Common signs of a miscarriage are pain and bleeding. A small amount of bleeding can be normalduring the first 3 months of . Often the pain and bleeding stop, and you have a normalpregnancy and baby. But heavy bleeding or severe cramping can be an early sign of miscarriage. Amiscarriage means an unexpected loss of your .At this time, your healthcare provider doesn't know whether you will have a miscarriage, or if things 2 General Instructions [facility] Emergency Department [address] [place] [address] Phone #: ext- [phone] 08/10/2020 03:29 [id number] Sex[facility] Mariano : 2000 Age: 20ywill clear up and your will continue normally. This can be emotionally difficult. There is littlethat can be done to change the way you feel. But understand that miscarriages are common.About 1 or 2 out of every [address] Some even end before you know you are. This happens for a number of reasons, and usually the cause is never known. It's importantyou know that it is not your fault. It didn't happen because you did anything wrong.Having sex or exercising does not cause a miscarriage. These activities are usually safe unless youhave pain or bleeding or your healthcare provider tells you to stop. Even minor falls won't cause amiscarriage. Miscarriages h appen because things were not developing as they were supposed to. Nomedicine can prevent a miscarriage.Again, understand that things are uncertain right now. You may still have some bleeding. This may belight spotting or like a period, and you may pass some tissue. You may have some cramping. This iswhy follow-up care is important.Home careTo improve the chance of keeping your , you should take these steps: Rest in bed until the pain and bleeding stop. Don't have sex until your healthcare provider says it's OK. Use sanitary napkins instead of tampons. Don't douche. Don't take aspirin, ibuprofen, or naproxen. Don't have alcoholic or caffeinated beverages or smoke.Follow-up careMake an appointment with your healthcare provider within the next week, or as directed.If you had an ultrasound, a radiologist will review it. You will be told of any new findings that mayaffect your care.Call [phone] if you have: Severe pain and very heavy bleeding Severe lightheadedness, passing out, or fainting Rapid heart rate 3 General Instructions [facility] Emergency Department [address] [place] [address] Phone #: ext- [phone] 08/10/2020 03:29 Patient: KATHRYN SPARROW Sex: F : 2000 Age: 20y Trouble breathing Confusion or trouble waking upWhen to seek medical adviceCall your healthcare provider right away if any of these occur: Vaginal bleeding or pain that lasts for more than 3 days Heavy bleeding. This means soaking 1 new pad an hour over 3 hours. Fever of 100.4F (38C) or higher, or as directed by your healthcare provider Pain in your lower belly (abdomen) that gets worse Weakness or dizziness Passage of anything that resembles tissue. This would be pink or grayish membrane or solid material. Save the tissue in a clean container and bring it to your provider. [phone] [employer]. [address] [place] [address]. All rights reserved. This information is not intended as asubstitute for professional medical care. Always follow your healthcare professional's instructions.Painful Menstrual Periods (Dysmenorrhea)Dysmenorrhea is the term used to describe painful menstrual periods.The uterus is a muscle. Normally, chemicals called prostaglandins cause the uterus to contract duringyour period. The contractions push out the build-up of tissue that occurs each month inside theuterus. If the contraction is very strong, it can cause pain. The pain may feel like cramping in the 4 General Instructions [facility] Emergency Department [address] [place] [address] Phone #: ext- [phone] 08/10/2020 03:29 Patient: KATHRYN SPARROW Sex: F : 2000 Age: 20ylower abdomen, lower back, or thighs. In severe cases, you may have other symptoms as well. Thesecan include nausea, vomiting, loose stools, sweating, or dizziness.There are 2 types of dysmenorrhea:Primary dysmenorrhea refers to common menstrual cramps. It may begin 1 or 2 years after you firstget your period. It may get better or go away as you get older or when you have a baby. The crampsare most often felt just before, or on the first day of your period. They may last 1 to 3 days. Treatmentis with medicines and comfort measures as described below (see the "Home care" section).Secondary dysmenorrhea may start later in life. It describes menstrual pain that occurs due to anunderlying health problem. The pain may last longer than common menstrual cramps. It may alsoworsen over time. Some problems that can lead to secondary dysmenorrhea include: Pelvic inflammatory disease (PID). Infection that involves the female reproductive organs, such as the uterus and fallopian tubes Fibroids. Benign growths within the wall of the uterus (not cancer) Endometriosis. Tissue that normally only lines the uterus also grows outside of it (because the abnormal tissue also swells and bleeds each month, it can cause pain)Once the cause of secondary dysmenorrhea is found, it can be treated. Your healthcare provider willdiscuss options with you as needed. Your care may also include some of the treatments describedbelow (see the "Home care" section).Home careMedicinesCertain medicines can help relieve or prevent menstru al pain and cramping. These can include: Nonsteroidal anti-inflammatory drugs (NSAIDs), such as ibuprofen Prescription pain medicine, if needed Hormone therapy (this includes most methods of hormonal control such as pills, shots, or a hormone-releasing IUD)General careTo help relieve pain and cramping, try these tips: Rest as needed. Apply a heating pad to the lower belly or back as directed. A warm bath or massage to these areas may also help. 5 General Instructions [facility] Emergency Department [address] [place] [address] Phone #: ext- [phone] 08/10/2020 03:29 [id number] Sex: F : 2000 Age: 20y Exercise regularly. Many women find that being more active each week helps reduce pain and cramping. Ask your healthcare provider for advice about other treatments you can try to help control pain and cramping.Follow-up careFollow up with your healthcare provider, or as advised.When to seek medical adviceCall your healthcare provider right away if any of these occur: Fever of 100.4F (38C) or higher, or as directed by your provider Pain or cramping worsens or doesn't improve with medicine Pain or cramping lasts longer than usual or occurs between periods Unusual vaginal discharge between periods Bleeding becomes heavy (soaking more than 1 pad or tampon every hour for 3 hours) Passage of pink or holcomb tissue from the vagina [employer]. [address] [place] [address]. All rights reserved. This information is not intended as asubstitute for professional medical care. Always follow your healthcare professional's instructions.Fainting: Vagal ReactionFainting (syncope) is a temporary loss of consciousness that is associated with a loss of posturaltone. It's also called passing out. It occurs when blood flow to the brain is less than normal. Yourhealthcare provider believes that your fainting w as because of a vagal reaction. This condition is not asign of serious disease.A vagal reaction is a response in your body that causes your pulse to slow down or the blood vesselsto expand. This causes your blood pressure to fall. And this sends less blood to your brain if you arestanding or sitting. That results in dizziness, near-fainting, or fainting. Lying down usually stops thereaction within 60 seconds.This response can occur during sudden fear, severe pain, emotional stress, overexertion,overheating, hunger, nausea or vomiting, prolonged standing, or standing up after sitting or lying for along time.Home care 6 General Instructions [facility] Emergency Department [address] [place] [address] Phone #: ext- [phone] 08/10/2020 03:29 Patient: KATHRYN SPARROW [facility]#: [id number] Sex: F : 2000 Age: 20yFollow these guidelines when caring for yourself at home: Rest today. Go back to your normal activities as soon as you are feeling back to normal. Stay hydrated and avoid skipping meals. If you feel lightheaded or dizzy, lie down right away. Or sit with your head lowered between your knees.Follow-up careFollow up with your healthcare provider, or as advised.When to seek medical adviceCall your healthcare provider right away if any of these occur: Another fainting spell that's not explained by the common causes listed above Pain in your chest, arm, neck, jaw, back, or abdomen Shortness of breath Severe headache or seizure Your heart beats very rapidly, very slowly, or irregularly (palp itations) [employer] [address] [place] [address]. All rights reserved. This information is not intended as asubstitute for professional medical care. Always follow your healthcare professional's instructions. You have been given the following additional information: Possible Miscarriage (Threatened ) Painful Menstrual Periods (Dysmenorrhea) Fainting, Vagal Reaction No strenuous activity.(Electronically signed by Caroline Trevino MD 08/10/2020 07:18) Name Value Range Interpretation Code Description Data Becca rce(s) Supporting Document(s) ID Date Data Source [id number] 08/10/2020 03:31:00 AM EST [facility] 1 Clinical Report - Nurses [facility] Emergency Department [address] [place] [address] Phone #: ext- [phone] 08/10/2020 03:29 Patient: KATHRYN SPARROW Sex: F : 2000 Age: 20yTRIAGEArrived by EMS. Historian: patient. Accompanied by family.Acuity: LEVEL 3.Chief Complaint: ABDOMINAL CRAMPS and VAGINAL BLEEDING.Alert. No acute distress.Onset. (8 days). ( Patient arrives via ems from home c/o vaginal bleed. [facility] she just found out she was today, unsure how far along she is. Pt statesshe was also told the bleeding she is having now is her period. Pt reports pelvic cramping, that feels likeperiod cramps. Pt states when she got home she was still bleeding about 200 cc of bright red blood. Ptstates she had pelvic exam and US at [facility]. Pt is a .).Treatment ALLERGY NURSE:(IVFs by ems). --03:39 08/10/20 Patsy Kraus R.N.03:29 08/10/20. BP: 97/64. MAP: 75. HR: 72. RR: 16. O2 saturation: 98%. Temp: 98.3 F (oral). Pain levelnow: 7/10. --03:39 08/10/20 Patsy Kraus R.N.Weight: 68 kg stated. Height/Length: 59 inches Per Patient. BMI: 30.3. --03:36 08/10/20 Patsy Kraus R.N.MedicationsNone. --03:39 08/10/20 Patsy Kraus R.N.AllergiesNo Known Drug Allergy. --03:38 08/10/20 Patsy Kraus R.N.ADDITIONAL SURGERIES:C-sections.D. --03:39 08/10/20 Patsy Kraus R.N.HistoryPAST MEDICAL HX: Immunizations: up-to-date. Last normal menstrual period- D6 weeks ago, unsure oflast lmp. Currently : do es not know how far along she is. In 1st trimester. OB history: G 8; Ab 2.SOCIAL HX: Heavy tobacco smoker (cigarette)- 1 pack per day. No alcohol use or drug use. The patientwas offered HIV testing but declined. Patient education was provided. The patient was offered hepatitis Ctesting but declined. Patient education was provided. ( COVID screen negative). The patient has nottraveled outside the [place]Infectious disease exposure: No infectious disease exposure. Patient is not a known carrier of tuberculosis, 2 Clinical Report - Nurses [facility] Emergency Department [address] [place] [address] Phone #: ext- [phone] 08/10/2020 03:29 Patient: KATHRYN SPARROW Sex: F : 2000 Age: 20y hepatitis, HIV, MRSA or VRE. Patient is not a known carrier of CRE. SELF HARM ASSESSMENT: Self harm assessment was performed. The patient answered "no" to the question(s) "Have you recently felt down, depressed, or hopeless?", "Do you have thoughts of harming or killing yourself?", "Do you have a plan for harming or killing yourself?" and "Have you recently had thoughts about harming or killing others?". ABUSE ASSESSMENT: Abuse assessment. The patient had positive responses to the question(s) "Do you feel safe in your home?", "Are you afraid to go home?" and "Has anyone hurt you or threatened to hurt you?". Abuse denied. NUTRITIONAL RISK ASSESSMENT: The nutritional risk assessment revealed no deficiencies. FUNCTIONAL ASSESSMENT: Functional assessment: no impairments noted. LEARNING NEEDS ASSESSMENT: The learning needs assessment revealed no barriers. FALL RISK ASSESSMENT: Fall risk assessment completed. No risk factors identified. SKIN INTEGRITY ASSESSMENT: Skin integrity risk assessment completed. No skin integrity risk identified. --03:39 08/10/20 Patsy Kraus R.N. Int erventions Identification band on patient. To treatment room. --03:39 08/10/20 Patsy Kraus R.N.PHYSICAL ASSESSMENTTo room via stretcher. Patient gowned.GENERAL / NEURO / PSYCH: Alert. Oriented X 4. Appears in no acute distress.HEENT: Mucous membranes are pink.RESPIRATORY: Respirations not labored. Breath sounds within normal limits.CVS: Normal heart rate and rhythm. Capillary refill less than 2 seconds.GI / : Abdomen soft and nontender. Bowel sounds within normal limits. Vaginal bleeding present,consisting of bright red blood (200 cc since she was d/c home from [facility]). ( Unknown how far along sheis or her lmp. Pt states she was told today she is and that she is on her period now.).EXTREMITIES: No lower extremity edema.SKIN: Skin is warm and dry. --03:43 08/10/20 Patsy Kraus R.N.NURSING PROGRESS NOTESPatient gowned. Reassurance given. Two patient identifiers checked. Call light placed in reach. Siderails up x 2. Bed placed in lowest position. Brakes of bed on. --03:40 08/10/20 Patsy bradford R.N. 03:40 08/10/2020 Site #1 started prior to arrival by EMS via IV in the right antecubital space with an 20g angiocath. Blood drawn: rainbow set. Sent to the lab. Saline lock flushed with 10 mL saline. --03:40 08/10/20 Patsy Kraus R.N. 3 Clinical Report - Nurses [facility] Emergency Department [address] [place] [address] Phone #: ext- [phone] 08/10/2020 03:29 Patient: KATHRYN SPARROW Sex: F : 2000 Age: 20y ( Per [facility] pt is <14 weeks , 1st trimester by US.). --03:44 08/10/20 Patsy Kraus R.N. 03:57 08/10/2020 Started bag #1 1000 mL IV Fluids Sodium Chloride; bolus of 1000 mL then at 1000 mL/hr over 1 hour(s) via site #1 via IV pump. Allergies verified and confirmed 5 rights. IV patency established. IV site checked: no pain, redness, or swelling. IV flushed thoroughly pre- and post- medication administration. Information reviewed with patient. Verbalizes understanding. --03:57 08/10/20 Patsy Kraus R.N. late entry - 05:07 08/10/20. The patient is sleeping. --05:58 08/10/20 Patsy Kraus R.N. 05:07 08/10/2020 IV Fluids Sodium Chloride via IV site #1 Discontinued: completed. Total amount infused: 1000 mL. IV patency established. IV site checked: no pain, redness, or swelling. IV flushed thoroughly. --05:57 08/10/20 Patsy Kraus R.N. The patient is calm, resting quietly and sleeping. --06:24 08/10/20 Patsy Kraus R.N. 06:24 08/10/20. BP: 91/49. MAP: 63. HR: 76. RR: 16. O2 saturation: 99%. --06:24 08/10/20 Patsy Kraus R.N. The patient is calm and resting quietly. --06:43 08/10/20 Patsy Kraus R.N. 06:42 08/10/20. BP: 103/64. MAP: 77. --06:43 08/10/20 Patsy Kraus R.N.DISPOSITION / DISCHARGE 06:45 08/10/20. BP: 103/64. MAP: 77. HR: 76. RR: 16. O2 saturation: 99% on room air. Temp: 98.1 F. Pain level now: 10/29. --06:45 08/10/20 Patsy Kraus R.N. 07:08/10/2020 Site #1 removed upon discharge. Bandage applied. --07:11 08/10/20 Patsy Kraus R.N. No learning barriers present. Discharge instructions provided and reviewed with the patient. Reviewed warnings. Reviewed medication(s). Treatments reviewed. Reviewed referral to an esthetician makeup artist. Work note given. Patient verbalized understanding. Written instructions provided in [place]. The patient was discharged home and accompanied by bias cutter helper. She left ambulatory and via private vehicle. Behavioral Health Tech driving. --07:13 08/10/20 Patsy Kraus R.N.Locked/Released at 08/10/2020 07:13 by Patsy Kraus R.N. 4 Clinical Report - Nurses [facility] Emergency Department [address] [place] [address] Phone #: [phone] 08/10/2020 03:29 Patient: KATHRYN SPARROW Sex: F : 2000 Age: 20y Name Value Range Interpretation Code Description Data Becca rce(s) Supporting Document(s) ID Date Data Source [id number] 08/10/2020 03:31:00 AM EST [facility] 1 Clinical Report - Physicians/Mid Levels [facility] Emergency Department [address] [place] [address] Phone #: ext- [phone] 08/10/2020 03:29 Patient: KATHRYN SPARROW Sex: F : 2000 Age: 20y Arrived- By private vehicle. Historian- patient. Disposition decision: 06:44 08/10/2020.HISTORY OF PRESENT ILLNESS Chief Complaint: VAGINAL BLEEDING. ((8 days). ( Patient arrives via ems from home c/o vaginal bleed. Pt states she was just d/c from [facility]. Pt states she just found out she was today, unsure how far along she is. Pt states she was also told the bleeding she is having now is her period. Pt reports pelvic cramping, that feels like period cramps. Pt states when she got home she was still bleeding about 200 cc of bright red blood. she states she thinks she may have passed out when she went home. Her boyfriend brought her here to the ED for further evaluation. Pt states she had pelvic exam and US at [facility]. Pt is a .). Still present. The symptoms are described as mild. Modifying factors. Not worsened by anything. Not relieved by anything. The patient has had abdominal pain and abnormal bleeding. No pelvic pain, vaginal pain, low back pain, flank pain or vaginal discharge. No vaginal itching, genital lesions, pain with urination, urinary frequency or urgency of urination. No hematuria. The patient has missed a period and had irregular periods. Currently . Similar symptoms previously. Recent medical care: The patient was seen recently at another facility in the emergency department.REVIEW OF SYSTEMSNo nausea, vomiting, diarrhea, headache or fever. No chills, eye discomfort, sore throat or throat orcough. No difficulty breathing, chest pain, skin rash or rash or chills. No fever, double vision, ear pain,epistaxis or cough. No constipation, diarrhea, nausea, vomiting or urinary frequency. No hematuria,back pain, headache, seizure or easy bruising. No difficulty with urination. The patient has hadabdominal pain and abnormal bleeding.PAST HISTORYSee nurses notes. Problems: . OB History. Additio nal Surgeries: C-sections. D. 2 Clinical Report - Physicians/Mid Levels [facility] Emergency Department [address] [place] [address] Phone #: ext- [phone] 08/10/2020 03:29 Patient: KATHRYN SPARROW Sex: F : 2000 Age: 20y Medications: None. Allergies: No Known Drug Allergy.SOCIAL HISTORYNo drug use.ADDITIONAL NOTESThe nursing notes have been reviewed.PHYSICAL EXAMVital Signs: 08/10/2020 06:45 BP: 103/64. MAP: 77. HR: 76. RR: 16. O2 saturation: 99% on room air.Temp: 98.1 F. Pain level now: 10/29.08/10/2020 06:42 BP: 103/64. MAP: 77.08/10/2020 06:24 BP: 91/49. MAP: 63. HR: 76. RR: 16. O2 saturation: 99%.08/10/2020 03:29 BP: 97/64. MAP: 75. HR: 72. RR: 16. O2 saturation: 98%. Temp: 98.3 F. Pain level now:01/28. Have been reviewed and appear to be correct. Blood pressure normal. Mean arterial pressure-normal. Heart rate normal. Respiratory rate normal. Temperature normal. Oxygen saturation normal.Appearance: Alert. Oriented X3. No acute distress.HEENT: Normal external inspection.ENT: Pharynx normal.Neck: Neck supple.CVS: Heart sounds normal.Respir atory: No respiratory distress. Painless inspiration. Breath sounds normal. Chest nontender.Abdomen: Soft and nontender. Bowel sounds normal.Back: Normal external inspection. No CVA tenderness.Skin: Skin warm and dry. Normal skin color. No rash. Normal skin turgor.Extremities: Extremities nontender. No lower extremity edema.Neuro: Oriented X 3. Mood/affect normal. No motor deficit.LABS, X-RAYS, AND EKGLaboratory Tests: CBC w Diff: (ANN: 08/10/2020 03:36) ( MsgRcvd 08/10/2020 04:01) Final results Test Result Flag Units (Reference) CBC W/AUTOMATED DIFF COMPLETE BLOOD COUNT WBC 9.2 10/uL (4.2 - 11.0) RBC 3.37 L 10/uL (4.20 - 5.40) HEMOGLOBIN 9.7 L g/dL (12.0 - 16.0) HEMATOCRIT 28.9 L % (37.0 - 47.0) MCV 85.8 fL (81.0 - 101) MCH 28.8 pg (27.0 - 34.0) MCHC 33.6 g/dL (31.0 - 36.0) RDW 13.5 % (11.5 - 14.5) 3 Clinical Report - Physicians/Mid Levels [facility] Emergency Department [address] [place] [address] Phone #: ext- [phone] 08/10/2020 03:29 Patient: KATHRYN SPARROW Sex: F : 2000 Age: 20y PLATELETS 250 10/uL (150 - 450) MPV 10.9 H fL (7.4 - 10.4) NEUT 61.3 % (37.0 - 80.0) LYMPH 30.0 % (25.0 - 40.0) MONO 7.4 % (3.0 - 8.0) EOS 0.7 % (0.0 - 7.0) BASO 0.5 % (0.0 - 2.5) %IG 0.1 H % (0.0 - 0.0) %NRBC 0.0 % (0.0 - 0.0) #NEUT 5.62 10/uL (2.00 - 6.90) #LYMPH 2.75 10/uL (0.60 - 3.40) #MONO 0.68 10/uL (0.00 - 0.90) #EOS 0.06 10/uL (0.00 - 0.70) #BASO 0.05 10/uL (0.00 - 0.20) #IG 0.01 10/uL (0.00 - 0.10) #NRBC 0.00 10/uL (0.00 - 0.00) MANUAL DIFF NOT INDICATED RBC MORPH NOT INDICATED CMP: (ANN: 08/10/2020 03:36) ( MsgRcvd 08/10/2020 04:13) Final results Test Result Flag Units (Reference) COMPREHENSIVE METABOLIC PANEL COMPREHENSIVE METABOLIC PANEL SODIUM 139 mEq/L (134 - 153) POTASSIUM 3.4 L mEq/L (3.6 - 5.0) CHLORIDE 106 mEq/L (98 - 107) CO2 24 MEQ/L (22 - 30) GLUCOSE 110 H MG/DL (70 - 99) BUN 6 L MG/DL (7 - 21) CREATININE 0.7 MG/DL (0.7 - 1.5) BUN/CREAT 9 (8 - 27) TOTAL PROTEIN 5.8 L G/DL (6.3 - 8.2) ALBUMIN 4.1 G/DL (3.9 - 5.0) GLOBULIN 1.7 L GM/DL (2.4 - 3.2) A/G RATIO 2.4 H (0.8 - 2.0) CALCIUM 8.2 L MG/DL (8.4 - 10.2) TOTAL BILI <0.7 MG/DL (0.2 - 1.3) ALKALINE PHOS 67 U/L (38 - 126) SGOT/AST 12 U/L (5 - 40) SGPT/ALT 11 U/L (7 - 56) ANION GAP 9.0 mmol/L (8.0 - 16.0) AGE 20 yrs NON-AA GFR >60 mL/min AFR AMER GFR >60 mL/min Male GFR Interprentation 20-49 yrs >60 mL/min Normal 50-59 yrs >56 mL/min Normal 60-69 yrs >49 mL/min Normal 70-79yrs >42 mL/min Normal 80 and above >35 mL/min Normal Female GFR Interpretation 20-39 yrs >60 mL/min Normal 40-49 yrs >58 mL/min Normal 50-59 yrs >51 mL/min Normal 60-69 yrs >45 mL/min Normal 70-79 yrs >39 mL/min Normal 80 and above >32 mL/min Normal.PROGRESS AND PROCEDURESCourse of Care: Pt presents to the ED after being discharged from [facility] for vaginal bleeding. shestates she is and she does not know how far along she is. she states she went home and bleed 4 Clinical Report - Physicians/Mid Levels [facility] Emergency Department [address] [place] [address] Phone #: ext- [phone] 08/10/2020 03:29 Patient: KATHRYN SPARROW Sex: F : 2000 Age: 20y more. she has been bleeding for 8 days. she has had multiple miscarriages in the past all int he first trimester of the . pt states she thinks she may have passed out when she went home when she bled again. on exam, she is non-toxic. We requested labs from [facility]. I reordered labs here at [facility]. I was able to review. Her h/h has not dropped. she received 300mcg of rhogram at [facility]. Her bp was slightly low. I think this might have been positional. she did receive 1 L NS in our ED. she states she felt better and she had no dizziness. Patient/family counseled. Disposition: Discharged. Condition: good and stable.CLINICAL IMPRESSION Vaginal bleeding. Threatened . Vasovagal syncopeINSTRUCTIONS No strenuous activity. Drink plenty of fluids. (Take tylenol for pain. Please call your ob doctor today for a follow up appt. you will need a repeat Hcg and a repeat ultrasound in 2-3 days. If you feel worse or you feel something does not feel right, please return immediately for re-evaluation. drink plenty of fluids and make sure you eat to keep up your energy.). Warnings: Further evaluation is necessary. GENERAL WARNINGS: Return or contact your physician immediately if your condition worsens or changes unexpectedly, if not improving as expected, or if other problems arise. Your Current Medications: . No home medication. Follow-up: Follow up with your doctor today even if well. Call for an appointment. Reason for referral: evaluation. Summary of care provided to patient via paper. Understanding of the discharge instructions verbalized by patient.(Electronically signed by Caroline Trevino MD 08/10/2020 07:18) 5Clinical Report - Physicians/Mid Levels [facility] Emergency Department [address] [place] [address] Phone #: ext- [phone] 08/10/2020 03:29--------- Patient: KATHRYN SPARROW Sex: F : 2000 Age: 20y Name Value Range Interpretation Code Description Data Becca rce(s) Supporting Document(s) ID Date Data Source [id number] 08/10/2020 04:13:00 AM EST [facility] Name Value Range Interpretation Code Description Data [facility] rce(s) Supporting Document(s) COMPREHENSIVE METABOLIC PANEL [facility] COMPREHENSIVE METABOLIC PANEL Sodium [Moles/volume] in Serum or Plasma 139 mEq/L 134 - 153 [facility] Potassium [Moles/volume] in Serum or Plasma 3.4 mEq/L 3.6 - 5.0 L [facility] Chloride [Moles/volume] in Serum or Plasma 106 mEq/L 98 - 107 [facility] Carbon dioxide, total [Moles/volume] in Serum or Plasma 24 MEQ/L 22 - 30 [facility] Glucose [Mass/volume] in Serum or Plasma 110 MG/DL 70 - 99 H [facility] BUN 6 MG/DL 7 - 21 [facility] Creat[facility] [Mass/volume] in Serum or Plasma 0.7 MG/DL 0.7 - 1.5 [facility] BUN/CREAT 9 8 - 27 [facility] Protein [Mass/volume] in Serum or Plasma 5.8 G/DL 6.3 - 8.2 L [facility] Albumin [Mass/volume] in Serum or Plasma 4.1 G/DL 3.9 - 5.0 [facility] Globulin [Mass/volume] in Serum by calculation 1.7 GM/DL 2.4 - 3.2 L [facility] A/G RATIO 2.4 0.8 - 2.0 [facility] al Calcium [Mass/volume] in Serum or Plasma 8.2 MG/DL 8.4 - 10.2 L [facility] Bilirubin.total [Mass/volume] in Serum or Plasma <0.7 MG/DL 0.2 - 1.3 [facility] Alkaline phosphatase [Enzymatic activity/volume] in Serum or Plasma 67 U/L 38 - 126 [facility] Aspartate aminotransferase [Enzymatic activity/volume] in Serum or Plasma 12 U/L 5 - 40 [facility] Alanine aminotransferase [Enzymatic activity/volume] in Seru m or Plasma 11 U/L 7 - 56 [facility] Anion gap 3 in Serum or Plasma 9.0 mmol/L 8.0 - 16.0 [facility] AGE 20 yrs [facility] Hospit al NON-AA GFR >60 mL/min [facility] Hosp ital AFR AMER GFR >60 mL/min [facility] Ho spital Male GFR In terprentation 20-49 yrs >60 mL/min Normal 50-59 yrs >56 mL/min Normal 60-69 yrs >49 mL/min Normal 70-79yrs >42 mL/min Normal 80 and above >35 mL/min Normal Female GFR Interpretation 20-39 yrs >60 mL/min Normal 40-49 yrs >58 mL/min Normal 50-59 yrs >51 mL/min Normal 60-69 yrs >45 mL/min Normal 70-79 yrs >39 mL/min Normal 80 and above >32 mL/min Normal ID Date Data Source [id number] 08/10/2020 04:01:00 AM EST [facility] Name Value Range Interpretation Code Description Data Becca rce(s) Supporting Document(s) CBC W/AUTOMATED DIFF [facility] COMPLETE BLOOD COUNT Leukocytes [#/volume] in Blood by Automated count 9.2 10^3/uL 4.2 - 1 1.0 [facility] Erythrocytes [#/volume] in Blood by Automated count 3.37 10^6/uL 4. 20 - 5.40 L [facility] Hemoglobin [Mass/volume] in Blood 9.7 g/dL 12.0 - 16.0 L [facility] Hematocrit [Volume Fraction] of Blood by Automated count 28.9 % 3 7.0 - 47.0 L [facility] Erythrocyte mean corpuscular volume [Entitic volume] by Auto mated count 85.8 fL 81.0 - 101 [facility] Erythrocyte mean corpuscular hemoglobin [Entitic mass] by Automated count 28.8 pg 27.0 - 34.0 [facility] Erythrocyte mean corpuscular hemoglobin concentration [Mass/volume] by Automated count 33.6 g/dL 31.0 - 36.0 [facility] Erythrocyte distribution width [Ratio] by Automated count 13.5 % 11.5 - 14.5 [facility] Platelets [#/volume] in Blood by Automated count 250 10^3/uL 150 - 45 0 [facility] Platelet mean volume [Entitic volume] in Blood by Automated count 10.9 fL 7.4 - 10.4 H [facility] Neutrophils/100 leukocytes in Blood by Automated count 61.3 % 37. 0 - 80.0 [facility] Lymphocytes/100 leukocytes in Blood by Manual count 30.0 % 25.0 - 40.0 [facility] Monocytes/100 leukocytes in Blood by Automated count 7.4 % 3.0 - 8.0 [facility] Eosinophils/100 leukocytes in Blood by Automated count 0.7 % 0.0 - 7.0 [facility] Basophils/100 leukocytes in Blood by Automated count 0.5 % 0.0 - 2.5 [facility] %IG 0.1 % 0.0 - 0.0 [facility] %NRBC 0.0 % 0.0 - 0.0 [facility] al Neutrophils [#/volume] in Blood by Automated count 5.62 10^3/uL 2.00 - 6.90 [facility] Lymphocytes [#/volume] in Blood by Automated count 2.75 10^3/uL 0.60 - 3.40 [facility] Monocytes [#/volume] in Blood by Automated count 0.68 10^3/uL 0.00 - 0.90 [facility] Eosinophils [#/volume] in Blood by Automated count 0.06 10^3/uL 0.00 - 0.70 [facility] Basophils [#/volume] in Blood by Automated count 0.05 10^3/uL 0.00 - 0.20 [facility] #IG 0.01 10^3/uL 0.00 - 0.10 [facility] #NRBC 0.00 10^3/uL 0.00 - 0.00 [facility] MANUAL DIFF NOT INDICATED [facility] RBC MORPH NOT INDICATED [facility] ID Date Data Source [id number] 06/23/2020 06:35:00 AM EST [facility] Name Value Range Interpretation Code Description Data Becca rce(s) Supporting Document(s) SARS coronavirus 2 RNA [Presence] in Res piratory specimen by BELEN with probe detection [facility] This lab was ordered by [facility] a nd reported by [facility]. ID Date Data Source [id number] 06/20/2020 01:02:51 PM EST [facility] ([facility]) Name Value Range Interpretation Code Description Data Becca rce(s) Supporting Document(s) 12.30 gm/dL Hemoglobin [facility] ([facility]) ID Date Data Source [id number] 06/20/2020 12:55:41 PM EST [facility] ([facility]) Name Value Range Interpretation Code Description Data Becca rce(s) Supporting Document(s) 9.80 gm/dL Hemoglobin [facility] ([facility]) ID Date Data Source [id number] 06/20/2020 12:45:41 PM EST [facility] ([facility]) Name Value Range Interpretation Code Description Data Becca rce(s) Supporting Document(s) PositiveLot: [id number]: 09/18/2021 Abnormal (applies to non-numeric results) High Sensitivity Urine Test [facility] ([facility]) ID Date Data Source [id number] 06/20/2020 12:00:00 AM EST [facility] ([facility]) Name Value Range Interpretation Code Description Data Becca rce(s) Supporting Document(s) Negative Normal (applies to non-numeric resul ts) Urine CT/GC Combo - GC [facility] ([facility]) : No Performed by: NASRIN ([id number]) ID Date Data Source [id number] 06/20/2020 12:00:00 AM EST [facility] ([facility]) Name Value Range Interpretation Code Description Data Becca rce(s) Supporting Document(s) Negative Normal (applies to non-numeric resul ts) Urine CT/GC Combo - CT [facility] ([facility]) ID Date Data Source [id number] 06/20/2020 12:00:00 AM EST [facility]) Name Value Range Interpretation Code Description Data Becca rce(s) Supporting Document(s) [id number] SeeComment Abnormal (applies to no n-numeric results) hCG Quantitative [facility] ([facility]) Gestational Age Expected hCG values (m IU/mL)<1 Week: 5-501-2 Weeks: 50-5002-3 Weeks: 100-41224-5 Weeks: 956-865885-6 Weeks: 8345-023844-1 Weeks: 86824-5865949-9 Weeks: 69414-4327792-1 Months: 50174- [id number] < 10 The table above provides only [...] cleared or approved bythe FDA or the construction cost estimator of the assay.

Performed by:
NASRIN ([id number])

Procedure Social History Code Duration Value Status Description Data Source(s ) 11/01/2020 12:00:00 AM EDT Light cigarette smoker (1-9 cigs/day) completed Light cigarette smoker (1-9 cigs/day) [facility] ([facility]) Smoking 11/01/2020 12:00:00 AM EDT Light tobacco smoker comple donna Light tobacco smoker [facility] ([facility]) Smoking 2020 12:00:00 AM EST Current Smoker completed Curre nt Smoker eCW1 ([facility]) Smoking 06/02/2020 12:00:00 AM EST Current Smoker completed Curre nt Smoker eCW1 ([facility]) Vital Signs ID Date Data Source [id number] Name Value Range Interpretation Code Description Data Source(s) Body height 149.86 cm 149.86 cm [facility] ([facility]) Body weight 63.503 kg 63.503 kg [facility] ([facility]) Body mass index (BMI) [Ratio] 28.28 kg/m2 Overweight 28.28 kg/m2 [facility] ([facility]) Body weight 157.4 [lb_av] 157.4 [lb_av] eCW1 ([facility]) Diastolic blood pressure 70 mm[Hg] 70 mm[Hg] eCW1 ([facility]) Body weight 71.4 kg 71.4 kg W1 ([facility]) Body height 60 [in_i] 60 [in_i] W1 ([facility]) Body mass index (BMI) [Ratio] 30.74 kg/m2 30.74 kg/m2 W1 ([facility]) Systolic blood pressure 118 mm[Hg] 118 mm[Hg] e CW1 ([facility]) Body height 152.40 cm 152.40 cm [facility] ([facility]) Body weight 72.575 kg 72.575 kg [facility] ([facility]) Systolic blood pressure 110 mm[Hg] 110 mm[Hg] N [facility]Gen ([facility]) Diastolic blood pressure 70 mm[Hg] 70 mm[Hg] [facility] ([facility]) Body mass index (BMI) [Ratio] 31.25 kg/m2 Overweight 31.25 kg/m2 [facility] ([facility]) Body weight 165 [lb_av] 165 [lb_av] eCW1 ([facility]) Body weight 74.84 kg 74.84 kg eCW1 ([facility]) Body height 60 [in_i] 60 [in_i] eCW1 ([facility]) Body mass index (BMI) [Ratio] 32.224 kg/m2 32.2 24 kg/m2 eCW1 ([facility]) Systolic blood pressure 110 mm[Hg] 110 mm[Hg] e CW1 ([facility]) Diastolic blood pressure 70 mm[Hg] 70 mm[Hg] eCW1 ([facility]) Body temperature 97.4 [degF] 97.4 [degF] [facility] ([facility]) Body height 65 [in_i] 65 [in_i] [facility] ([facility]) 5'5" Body weight 166.25 [lb_av] 166.25 [lb_av] MEDEN T ([facility]) Body mass index (BMI) [Ratio] 27.7 kg/m2 27.7 k g/m2 [facility] ([facility]) Patient Treatment Plan of Care Planned Activity Planned Date Details Description Data Source (s) 21 DAY Ethinyl Estradiol 0.258666 MG/HR / Etonogestrel 0.005 MG/HR Vaginal Ring [NuvaRing] 11/01/2020 12:00:00 AM EDT [facility] ([facility]) 21 DAY Ethinyl Estradiol 0.273218 MG/HR / Etonogestrel 0.005 MG/HR Vaginal Ring [NuvaRing] 06/20/2020 12:00:00 AM EST [facility] ([facility]) Ondansetron 4 MG Oral Tablet 06/20/2020 12:00:00 AM EST [facility] ([facility]) Misoprostol 0.2 MG Oral Tablet 06/20/2020 12:00:00 AM EST [facility] ([facility]) Ibuprofen 800 MG Oral Tablet 06/20/2020 12:00:00 AM EST [facility] ([facility]) Acetaminophen 300 MG / Codeine Phosphate 30 MG Oral Ta blet 06/20/2020 12:00:00 AM EST [facility] Misoprostol 0.2 MG Oral Tablet 06/20/2020 12:00:00 AM EST [facility] ([facility]) Mifepristone 200 MG Oral Tablet [Mifeprex] 06/20/2020 12:00:[address] [facility] ([facility]) Citalopram 10 MG Oral Tablet [facility] ([facility])
== END 2021-05-13 14:00 | disposition left against medical advice (07) ==
LOC: M ED 13:29
DX: Z53.29 Procedure and treatment not carried out because of patient's decision for other reasons (principal)

== ENCOUNTER 2021-05-15 09:00 | Emergency (ER) | payer OTHER ==
[~2021-05-15] VITALS: Ht 149.9 cm; Wt 59.1 kg
--- OUTSIDE RECORDS SUMMARY | 2021-05-15 09:06 | CCD ---
Author Author [facility] Organization [facility] Address Unknown Phone Unavailable Support Name Relationship Address Phone JEIMY PRITCHETT Next Of Kin [address] [place] [address] ROXANA PRINGLE Next Of Kin [address] [place] [address] BRODERICK SULLIVAN Next Of Kin Unknown Mara ALATORRE-C, Shirley Yun Next Of Kin [address] [place], [place] [id number] MESHA ROSE Next Of Kin [address] [facility] [address] [place] [address] MESHA WANG Next Of Kin [address] [place] [address] NO, CONTACT Next Of Kin Unknown DOES, WISH NOT Next Of Kin [address] [place] [address] MEGHANN GOMEZ Next Of Kin [address] [place] [address] ANI HAY Next Of Kin [address] [place] [address] MEGHANN PAZ Next Of Kin [address] [place] [address] [facility] Next Of Kin [address] [place] [address] Unavailable UE Next Of Kin Unknown Unavailable JESSICA SANTANA Next Of Kin [address] [place] [address] MG FRITZ Next Of Kin [address] [place] [address] [facility]ILDRENS, HOME Next Of Kin [address] [place] [address] Pratik MD, A Gisele Next Of Kin [address] [place] [address] Mara PNP-C, Carina Next Of Kin [address] [place] [address] UN Next Of Kin Unknown Unavailable CHILD Next Of Kin Unknown Unavailable PRESTON VELARDE Next Of Kin [address] [address] PRESTON STEARNS Next Of Kin [address] [place] [address] ST Next Of Kin Unknown Unavailable TRACI HUANG [place] [address] Eladia Hansen Next Of Kin [address] [place] [address] MESHA ROSE ECON [address] [place] [address] Unavailable Preston Hansen ECON [address] [place] [address] [phone] Care Team Providers Care Magnetic Observer Name Role Phone NO, PCP Unavailable Unavailable [...] le Rachele-Power, Leatha CNM Unavailable Unavailab le [place]-Power, Leatha CNM Unavailable Unavailab le Rachele-Power, Leatha CNM Unavailable Unavailab le Rachele-Power, Leatha CNM Unavailable Unavailab le Mara, Court ORACLE BUSINESS INTELLIGENCE DEVELOPER Unavailable Unavailable Mara, Court ORACLE BUSINESS INTELLIGENCE DEVELOPER Unavailable Unavailable Mara, Court ORACLE BUSINESS INTELLIGENCE DEVELOPER Unavailable Unavailable Mara, Court ORACLE BUSINESS INTELLIGENCE DEVELOPER Unavailable Unavailable Mara, Court ORACLE BUSINESS INTELLIGENCE DEVELOPER Unavailable Unavailable Mara, Court ORACLE BUSINESS INTELLIGENCE DEVELOPER Unavailable Unavailable Mara, Court ORACLE BUSINESS INTELLIGENCE DEVELOPER Unavailable Unavailable Mara, Court ORACLE BUSINESS INTELLIGENCE DEVELOPER Unavailable Unavailable Mara, Court ORACLE BUSINESS INTELLIGENCE DEVELOPER Unavailable Unavailable Mara, Court ORACLE BUSINESS INTELLIGENCE DEVELOPER Unavailable Unavailable Mara, Court ORACLE BUSINESS INTELLIGENCE DEVELOPER Unavailable Unavailable Quiñonez, M Christopher PA-C Unavailable [...] is protected by Article 27-F of the [facility] Public Health law. If you continue you may have access to information: Regarding HIV / AIDS; Provided by facilities licensed or operated by the [facility] Office of Mental Health; or Provided by the [facility] Office for People With Developmental Disabilities. If such information is present, then the following [facility] mandated warning applies: This information has [...] law may result in a fine or halfway sentence or both. A general authorization for the release of medical or other information is NOT sufficient authorization for further disc losure. Family History Family Member Name Family Member Gender Family Member Status Date o f Status Description Data Source(s) Unknown Male Diagnosis 01/02/2016 12:00:00 AM EDT [facility] ([facility]) Unknown Male Diagnosis 01/02/2016 12:00:00 AM EDT [facility] ([facility]) Encounters Encounter Providers Location Date Indications Data Source(s ) Outpatient Attender: Stefan Quiñonez PA-C 02/18/2021 02:19:05 PM EDT - 02/18/2021 02:56:57 PM EDT [facility] ([facility]) Outpatient Attender: Paul Hill/Genaro/Conner/Harika indl 02/18/2021 01:23:00 AM EDT JUDY ([facility]) OFFICE VISIT, ESTOutpatient Attender: Camilla DEE [place] 11/01/2020 12:00:00 PM EDT - 11/01/2020 12:00:00 PM EDT Other sex counselingEncounter for initial prescription of vagnl ringEncounter for oth general cnsl and advice on contraceptionHuman immunodeficiency virus [HIV] counseling [facility] ([facility]) Other sex counseling Encounter for initial prescription of va gnl ring Encounter for oth general cnsl and advic e on contraception Human immunodeficiency virus [HIV] couns ashish Outpatient 10/26/2020 01:10:31 PM EDT - 021 01:11:03 PM EDT [facility] ([facility]) Attender: Camilla DEE [place] 10:27:00 AM EST - 09/13/2020 10:27:00 AM EST [facility] ([facility]) Emergency Attender: CAROLINE TREVINO MDConsultant: PCP NO 08/10/2020 03:31:00 AM EST - 08/10/2020 07:13:00 AM EST [facility] Patient discharged[facility] (WC 20ESGYN) WCenter 20 Min Est [address] [place] [address] 2020 12:00:00 AM EST eCW1 ([facility]) Attender: Mirtha Mazariegos 10/2019 02:21:00 PM EST - 06/24/2020 02:21:00 PM EST [facility] ([facility]) [facility]: [facility] 06/23/2020 12:49:00 PM EST - 06/23/2020 12:49:00 PM EST [facility] Attender: Leatha [facility] 06/23/2020 10:15:00 AM EST - 06/23/2020 10:15:00 AM EST [facility] Attender: Camilla DEE Bison 08/2019 08:23:00 AM EST - 06/22/2020 08:23:00 AM EST [facility] ([facility]) Attender: Mirtha DEE Bison 02:32:00 PM EST - 06/20/2020 02:32:00 PM EST [facility] ([facility]) Attender: Camilla DEE [place] 12:15:00 PM EST - 06/20/2020 12:15:00 PM EST Other sex counselingEncntr screen for in fections w sexl mode of transmissEncounter for oth general cnsl and advice on contraceptionEncounter for initial prescription of vagnl ringProblems related to unwanted pregnancyEncounter for elective termination of pregnancyEncntr screen for dis of the bld/bld-form org/immun mechnsmEncounter for test, result positive [facility] ([facility]) Other sex counseling Encntr screen for [...] itive (WC ESTOB) WCenter Est OB [address] [place] [address] 06/03/2020 12:00:00 AM EST eCW1 ([facility]) Unknown [address] [facility] [address] 05/26/2020 12:00:00 AM EST eCW1 ([facility]) Office Visit Attender: FRANCISCO J FERNANDO Physical Therapy 05/17/2020 02:00:00 PM EDT [facility] ([facility]) Outpatient Attender: Court Terry NP [facility] 05/16/2020 12:50: 00 PM EDT [facility] Outpatient Attender: FRANCISCO J FERNANDO Physical Therapy 04/12/2020 02:00:00 PM EDT [facility] ([facility]) Medications Medication Brand Name [...] [facility] 21 DAY Ethinyl Estradiol 0.185591 MG/HR / Etonogestrel 0.005 MG/HR Vaginal Ring [NuvaRing] NuvaRing 0.12 mg-0.015 mg/24 hr vaginal NuvaRing 0.12 mg-0.015 mg/24 hr vaginal 11/01/2020 12:00:00 AM EDT active 21 DAY ethinyl estradiol 0.177013 MG/HR / etonogestrel 0.005 MG/HR Vaginal System [NuvaRing] [facility] ([facility]) 5 % 10/25/2020 12:00:00 AM EDT [...] mifepristone (#4) [facility] ([facility]) Mifepristone 200 MG Oral Tablet [Mifeprex] Mifeprex 20 0 mg tablet Mifeprex 200 mg tablet 06/20/2020 12:00:00 AM EST complete d mifepristone 200 MG Oral Tablet [Mifeprex] [facility] ([facility]) Misoprostol 0.2 MG Oral Tablet misoprostol 200 mcg tab let misoprostol 200 mcg tablet 06/20/2020 12:00:00 AM EST active 4 tabs buccally 24-48 hrs after mifepristone (#4) [facility] ([facility]) 800 mg 06/20/2020 12:00:00 AM EST tablet 10 TAKE ONE TABLET BY MOUTH EVERY 8 HOURS NEEDED TAKE ONE TABLET BY MOUTH EVERY 8 HOURS NEEDED SOLD: 06/20/2020 [facility] Ibuprofen 800 MG Oral Tablet ibuprofen 800 mg tablet ibuprof en 800 mg tablet 06/20/2020 12:00:00 AM EST active 1 tab po every 8 hours prn [facility] ([facility]) 21 DAY Ethinyl Estradiol 0.472900 MG/HR / Etonogestrel 0.005 MG/HR Vaginal Ring [NuvaRing] NuvaRing 0.12 mg-0.015 mg/24 hr vaginal NuvaRing 0.12 mg-0.015 mg/24 hr vaginal 06/20/2020 12:00:00 AM EST complet ed 21 DAY ethinyl estradiol 0.235330 MG/HR / etonogestrel 0.005 MG/HR Vaginal System [NuvaRing] [facility] ([facility]) Ondansetron 4 MG Oral Tablet ondansetron HCl 4 mg tabl et ondansetron HCl 4 mg tablet 06/20/2020 12:00:00 AM EST active 1 tab po every 4 hours prn (#4) [facility] ([facility]) Acetaminophen 300 MG / Codeine Phosphate 30 MG Oral Tablet acetaminophen 300 mg- codeine 30 mg tablet acetaminophen 300 mg-codeine 30 mg tablet 06/20/2020 12:00:00 AM EST active 1-2 tabs po every 4 hours prn pain MDD 10 [facility] ([facility]) 300-30 mg 06/20/2020 12:00:00 AM EST tablet 10 TAKE ONE TO TWO TABLETS BY MOUTH EVERY 4 HOURS NEEDED FOR PAIN MAXIMUM DAILY DOSE = TEN TABLETS TAKE ONE TO TWO TABLETS BY MOUTH EVERY 4 HOURS NEEDED FOR PAIN MAXIMUM DAILY DOSE = TEN TABLETS SOLD: 06/20/2020 [facility] 4 mg 06/20/2020 12:00:00 AM [...] Medrol 12:00:00 AM EDT active [facility] ( [facility]) 300 mg 04/12/2020 12:00:00 AM [...] 04/12/2020 12:00:00 AM EDT ORAL active [facility] ([facility]) gabapentin 300 MG Oral Capsule Gabapentin 04/12/2020 12:00:00 AM EDT ORAL active [facility] ([facility]) 4 mg 04/12/2020 12:00:00 [...] every day [facility] ([facility]) Insurance Providers Payer name Policy type / Coverage type Policy ID Covered alliance party ID Covered alliance party's relationship to langley Policy Langley Plan Information MEDICAID [facility] [id number] [place] [id number] Medicaid [facility] Individual Policy 0 [id number] Self 0 United Healthcare Commercial [id number] Family Dependent [id number] Medicaid [facility] Individual Policy 0 [id number] Self 0 [facility] Community Plan Health Maintenance Organization (HMO) [id number] Family Dependent Medicaid S [id number] S [id number] UnitedHealthcare Other 0 [id number] Self 0 UnitedHealthcare Other 0 [id number] Self 0 Managed Care - Community Plan United Healthcare P [id number] S [id number] Medicaid Dental S [id number] Medicaid-Pcap Medicaid [id number] Self [facility] Community Plan Health Maintenance Organization (HMO) [id number] Managed Care United Healthcare P [id number] S [id number] UH I [id number] Self [id number] UH I [id number] Self [id number] [facility] COMMUNITY PLAN [id number] SP [id number] [facility] COMMUNITY PLAN [id number] SP [id number] [facility] MEDICAID [id number] [place] [id number] [facility] COMMUNITY PLAN MCDHMO [id number] SP [id number] [facility] COMMUNITY PLAN MCDHMO [id number] SP [id number] SELF PAY [employer] [id number] Self [id number] UNITED HEALTHCARE HEA [id number] S [id number] UNITED HEALTHCARE HEA [id number] S [id number] MEDICAID [facility] [id number] [place] [id number] MEDICAID [id number] SP [id number] [facility] Health Maintenance Organization (HMO) [id number] Self United Healthcare Commercial [id number] Family Dependent Preston Hansen [id number] [facility] Community Plan Health Maintenance Organization (HMO) [id number] Family Dependent Preston Hansen [id number] Medicaid-Pcap Medicaid [id number] Self [id number] MEDICAID [id number] SP [id number] MEDICAID M [id number] S [id number] CCS MEDICAID [id number] SP [id number] UNAVAILABLE LG UNAVAILA BLE [facility] [employer] O UNAVAILABLE [id number] S UNAVAILABLE [facility] COMMUNITY PLAN [id number] SP [id number] SELF PAY UNAVAILABLE UNAVAILA BLE [facility](MCAID) P [id number] S [id number] MEDICAID W [id number] S [id number] [facility] REGIONAL CLAIMS O [id number] S [id number] [employer] [place] [id number] SP [id number] [employer] [place] [id number] FA [id number] [employer] [place] [id number] FA [id number] [employer] [place] [id number] FA2 [id number] JULIO [id number] SP [id number] [place] MEDICAID [id number] SP [id number] SELF PAY ONLY [id number] SP [id number] EMEDNY [id number] SP [id number] [place]ARE [place] O [id number] S [id number] MEDICAID M [id number] S [id number] [place]ARE OF [place] -OP [id number] 18 [id number] [facility] COMMUNITY PLAN [facility] [id number] SP [id number] SELF PAY O UNAVAILABLE [id number] S UNAVAILA BLE SELF PAY UNAVAILABLE SP UNAVAILA BLE [facility](MCAID) O [id number] S [id number] MEDICAID [id number] SP [id number] [facility] COMMUNITY PL[facility] [id number] SP [id number] [facility] COMMUNITY PLAN [facility] [id number] SP [id number] [facility] [id number] SP [id number] [facility] [id number] SP [id number] [facility]UNITY [facility] [id number] SP [id number] [facility] MEDICAID PI PI [facility] COMMUNITY PLAN [id number] SP [id number] [facility] COMMUNITY PLAN UNAVAILABLE UNAVAILABLE Problems, Conditions, and Diagnoses Code Display Name Description Problem Type Effective Dates Data Source(s) Z3A01 Less than 8 weeks gestation of Less than 8 weeks gestation of Diagnosis 08/10/2020 03:31:00 AM [facility] F24226 Nicotine dependence, cigarettes, uncompl icated Nicotine dependence, cigarettes, uncomplicated Diagnosis 08/10/2020 03:31:00 AM [facility] D25791 Smoking (tobacco) complicating , first trimester Smoking (tobacco) complicating , first trimester Diagnosis 07/23 03:31:00 AM [facility] R55 Syncope and collapse Syncope and collapse Diagnosis 08/10/2020 03:31:00 AM [facility] A01052 Other specified related condit ions, first trimester Other specified related conditions, first trimester Diagnosis 08/10/2020 03:31:00 AM [facility] O200 Threatened Threatened Diagnosis 0 08/10/2020 03:31:00 AM [facility] O209 Hemorrhage in early , unspecifi ed Hemorrhage in early , unspecified Diagnosis 08/10/2020 03:31:00 AM [facility] F32.9 Depression Depression (emotion) Problem 2020 12:0 0:00 AM [place] [address] [facility]) Z34.80 care Supervision of other normal P roblem 06/02/2020 12:00:00 AM [place] [address] [facility]) Surgeries/Procedures Procedure Description Date Indications Data Source(s) EMERGENCY DEPARTMENT VISIT HIGH/URGENT SEVERITY 2020 12:00:00 AM EDT [facility] ([facility]) CVR Assistant Professor Nurse Education.Svc. STI / H 11/01/2020 12:00:00 AM EDT - 11/01/2020 12:00:00 AM EDT [facility] ([facility]) CVR Assistant Professor Nurse Education.Svc. Contraceptive 11/01/2020 12 :00:00 AM EDT - 11/01/2020 12:00:00 AM EDT [facility] ([facility]) CVR Med.Svc. Method Initiation 12:00:00 AM [...] ([facility]) CVR Assistant Professor Nurse Education.Svc. STI / H 06/20/2020 12:00:00 AM EST - 06/20/2020 12:00:00 AM EST [facility] ([facility]) CVR Assistant Professor Nurse Education.Svc. Other 06/20/2020 12:00:00 AM EST - 2019 12:00:00 AM EST [facility] ([facility]) CVR Assistant Professor Nurse Education.Svc. Contraceptive 06/20/2020 12 :00:00 AM EST - [...] AM EST [facility] ([facility]) NGHN Default 06/20/2020 12:00:00 AM EST - 06/20/2020 1 2:00:00 AM EST [facility] ([facility]) NGHN Default 06/20/2020 12:00:00 AM EST - 06/20/2020 1 2:00:00 AM EST [facility] ([facility]) CHORIONIC GONADOTROPIN TEST 06/20/2020 1 2:00:00 AM EST - 06/20/2020 12:00:00 AM EST [facility] ([facility]) N.GONORRHOEAE, URINE 06/20/2020 12:00:00 AM EST - 06/20/2020 12:00:00 AM EST [facility] ([facility]) CHYLMD TRACH, URINE 06/20/2020 12:00:00 AM EST - 06/20 12:00:00 AM EST [facility] ([facility]) CAPILLARY BLOOD DRAW 06/20/2020 12:00:00 AM EST - 06/20/2020 12:00:00 AM EST [facility] ([facility]) HEMOGLOBIN 06/20/2020 12:00:00 AM EST - 06/20/2020 1 2:00:00 AM EST [facility] ([facility]) URINE TEST 06/20/2020 12:00:00 AM EST - 06/20/2020 12:00:00 AM EST [facility] ([facility]) RADEX SPINE CRV COMPL W/OBLQ&FLEX&/XTN STDS 04/12/2020 12:00:00 AM EDT [facility] ([facility]) RADEX SPINE THORACIC 2 VIEWS 04/12/2020 12:00:00 AM ED T [facility] ([facility]) Results ID Date Data Source [id number] 08/10/2020 03:31:00 AM EST [facility] 1 OrderSheet [facility] Emergency Department [address] [place] [address] Phone #: ext- [phone] 08/10/2020 03:29 Patient: KATHRYN SPARROW Sex: F [...] rce(s) Supporting Document(s) ID Date Data Source [id number] 08/10/2020 03:31:00 AM EST [facility] 1 Medication Reconciliation Report [facility] Emergency Department [address] [place] [address] Phone #: ext- [phone] 08/10/2020 03:29 Patient: [...] Name Value Range Interpretation Code Description Data [facility](s) Supporting Document(s) ID Date Data Source [id number] 08/10/2020 03:31:00 AM EST [facility] 1 Medication Administration Record [facility] Emergency Department [address] [place] [address] Phone #: ext- [phone] 08/10/2020 03:29 Patient: KATHRYN SPARROW Sex: F : 2000 Age: 20yWeight: 68.0 kgHeight/Length: 59 inBMI: 30.3ALLERGIES: No Known Drug Allergy Date/Time Medication Administered Medication OrderedStart SODIUM CHLORIDE [IV] IV NS 1000 mL Bolus : Bolus 711847:57 08/10/2020 Dose: IV Fluids mL (X1)Patsy Kraus, RShelliNShelli Rate: 1000 mL/hr over 1 hour(s)---- Bolus: 1000 mLStop Dispensed: 1000 mL bag05:07 08/10/2020 Site: #1 right Patsy Stallworth RAmber Name Value Range Interpretation Code Description Data Becca rce(s) Supporting Document(s) ID Date Data Source [id number] 08/10/2020 03:31:00 AM EST [facility] 1 General Instructions [facility] Emergency Department [address] [place] [address] Phone #: ext- [phone] 08/10/2020 03:29 Patient: [...] miscarriage, or if things 2 General Instructions [facility] Emergency Department [address] [place] [address] Phone #: ext- [phone] 08/10/2020 03:29 [id number] Sex: Mariano : 2000 Age: 20ywill clear [...] any new findings that mayaffect your care.Call [phone] if you have: Severe pain and very heavy bleeding Severe lightheadedness, passing out, or fainting Rapid heart rate 3 General Instructions [facility] Emergency Department [address] [place] [address] Phone #: ext- [phone] 08/10/2020 03:29 Patient: [...] container and bring it to your provider. [id number] [employer]. [address] [place] [address]. All rights reserved. This information is not [...] like cramping in the 4 General Instructions [facility] Emergency Department [address] [place] [address] Phone #: ext- [phone] 08/10/2020 03:29 Patient: [...] areas may also help. 5 General Instructions [facility] Emergency Department [address] [place] [address] Phone #: ext- [phone] 08/10/2020 03:29 Patient[id number] Sex: F : 2000 Age: 20y Exercise [...] pink or holcomb tissue from the vagina [employer]. [address] [place] [address]. All rights reserved. This information is not [...] for along time.Home care 6 General Instructions [facility] Emergency Department [address] [place] [address] Phone #: ext- [phone] 08/10/2020 03:29 Patient: KATHRYN SPARROW [facility]#: [id number] Sex: F : 2000 Age: 20yFollow these [...] very slowly, or irregularly (palp itations) [employer]. [address] [place] [address]. All rights reserved. This information is not [...] rce(s) Supporting Document(s) ID Date Data Source [id number] 08/10/2020 03:31:00 AM EST [facility] 1 Clinical Report - Nurses [facility] Emergency Department [address] [place] [address] Phone #: ext- [phone] 08/10/2020 03:29 Patient: KATHRYN SPARROW Sex: F : 2000 Age: 20yTRIAGEArrived by EMS. Historian: patient. Accompanied by family.Acuity: LEVEL 3.Chief Complaint: ABDOMINAL CRAMPS and VAGINAL BLEEDING.Alert. No acute distress.Onset. (8 days). ( Patient arrives via ems from home c/o vaginal bleed. [facility] sta jelena she just [...] she had pelvic exam and US at [facility]. 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 --03:39 08/10/20 Patsy Kraus R.N.03:29 [...] of tuberculosis, 2 Clinical Report - Nurses [facility] Emergency Department [address] [place] [address] Phone #: ext- [phone] 08/10/2020 03:29 Patient: [...] cc since she was d/c home from [facility]). ( Unknown how far along sheis or [...] Kraus R.N. 3 Clinical Report - Nurses [facility] Emergency Department [address] [place] [address] Phone #: ext- [phone] 08/10/2020 03:29 Patient: KATHRYN SPARROW Sex: F : 2000 Age: 20y ( Per [facility] pt is <14 weeks , 1st trimester by US.). --03:44 08/10/20 Patsy Krasu R.N. 03:57 08/10/2020 Started bag #1 1000 [...] medication(s). Treatments reviewed. Reviewed referral to an screen printing loader unloader. Work note given. Patient verbalized understanding. Written instructions provided in [place]ese. The patient was discharged home and accompanied by professional advisor. She left ambulatory and via private vehicle. Postdoctoral Research Fellow driving. --07:13 08/10/20 Patsy Kraus R.N.Locked/Released at 08/10/2020 07:13 by Patsy Kraus R.N. 4 Clinical Report - Nurses [facility] Emergency Department [address] [place] [address] Phone #: gni- [phone] 08/10/2020 03:29 Patient: KATHRYN SPARROW Sex: F : 2000 Age: 20y Name Value Range Interpretation Code Description Data Becca rce(s) Supporting Document(s) ID Date Data Source [id number] 08/10/2020 03:31:00 AM EST [facility] 1 Clinical Report - Physicians/Mid Levels [facility] Emergency Department [address] [place] [address] Phone #: ext- [phone] 08/10/2020 03:29 Patient: KATHRYN SPARROW Sex: F : 2000 Age: 20y Arrived- By private vehicle. Historian- patient. Disposition decision: 06:44 08/10/2020.HISTORY OF PRESENT ILLNESS Chief Complaint: VAGINAL BLEEDING. ((8 days). ( Patient arrives via ems from home c/o vaginal bleed. Pt states she was just d/c from [facility]. Pt states she just found out she [...] she had pelvic exam and US at [facility]. Pt is a .). Still present. The [...] D. 2 Clinical Report - Physicians/Mid Levels [facility] Emergency Department [address] [place] [address] Phone #: ext- [phone] 08/10/2020 03:29 Patient: KATHRYN SPARROW Sex: F [...] 14.5) 3 Clinical Report - Physicians/Mid Levels [facility] Emergency Department [address] [place] [address] Phone #: ext- [phone] 08/10/2020 03:29 Patient: [...] to the ED after being discharged from [facility] for vaginal bleeding. shestates she is and she does not know how far along she is. she states she went home and bleed 4 Clinical Report - Physicians/Mid Levels [facility] Emergency Department [address] [place] [address] Phone #: ext- [phone] 08/10/2020 03:29 Patient: KATHRYN SPARROW Sex: F : 2000 Age: 20y more. she has been bleeding for 8 days. she has had multiple miscarriages in the past all int he first trimester of the . pt states she thinks she may have passed out when she went home when she bled again. on exam, she is non-toxic. We requested labs from [facility]. I reordered labs here at [facility]. I was able to review. Her h/h has not dropped. she received 300mcg of rhogram at [facility]. Her bp was slightly low. I [...] 08/10/2020 07:18) 5Clinical Report - Physicians/Mid Levels [facility] Emergency Department [address] [place] [address] Phone #: ext- [phone] 08/10/2020 03:29--------- Patient: KATHRYN SPARROW Sex: F : 2000 Age: 20y Name Value Range Interpretation Code Description Data Becca rce(s) Supporting Document(s) ID Date Data Source [id number] 08/10/2020 04:13:00 AM EST [facility] Name Value Range Interpretation Code Description Data [facility] rce(s) Supporting Document(s) COMPREHENSIVE METABOLIC PANEL [facility] COMPREHENSIVE METABOLIC PANEL Sodium [Moles/volume] in Serum or Plasma 139 mEq/L 134 - 153 [facility] Potassium [Moles/volume] in Serum or Plasma 3.4 mEq/L 3.6 - 5.0 L [facility] Chloride [Moles/volume] in Serum or Plasma 106 mEq/L 98 - 107 [facility] Carbon dioxide, total [Moles/volume] in Serum or Plasma 24 MEQ/L 22 - 30 [facility] Glucose [Mass/volume] in Serum or Plasma 110 MG/DL 70 - 99 H [facility] BUN 6 MG/DL 7 - [facility] Creatinine [Mass/volume] in Serum or Plasma 0.7 MG/DL 0.7 - 1.5 [facility] BUN/CREAT 9 8 - 27 [facility] Protein [Mass/volume] in Serum or Plasma 5.8 G/DL 6.3 - 8.2 L [facility] Albumin [Mass/volume] in Serum or Plasma 4.1 G/DL 3.9 - 5.0 [facility] Globulin [Mass/volume] in Serum by calculation 1.7 GM/DL 2.4 - 3.2 L [facility] A/G RATIO 2.4 0.8 - 2.0 H [facility] Calcium [Mass/volume] in Serum or Plasma 8.2 MG/DL 8.4 - 10.2 L [facility] Bilirubin.total [Mass/volume] in Serum or Plasma <0.7 MG/DL 0.2 - 1.3 [facility] Alkaline phosphatase [Enzymatic activity/volume] in Serum or Plasma 67 U/L 38 - 126 [facility] Aspartate aminotransferase [Enzymatic activity/volume] in Serum or Plasma 12 U/L 5 - 40 [facility] Alanine aminotransferase [Enzymatic activity/volume] in Seru m or Plasma 11 U/L 7 - 56 [facility] Anion gap 3 in Serum or Plasma 9.0 mmol/L 8.0 - 16.0 [facility] AGE 20 yrs [facility] NON-AA GFR >60 mL/min [facility] AFR AMER GFR >60 mL/min [facility] Male GFR In terprentation [...] >32 mL/min Normal ID Date Data Source [id number] 08/10/2020 04:01:00 AM EST [facility] Name Value Range Interpretation Code Description Data Becca rce(s) Supporting Document(s) CBC W/AUTOMATED DIFF [facility] COMPLETE BLOOD COUNT Leukocytes [#/volume] in Blood by Automated count 9.2 10^3/uL 4.2 - 1 1.0 [facility] Erythrocytes [#/volume] in Blood by Automated count 3.37 10^6/uL 4. 20 - 5.40 L [facility] Hemoglobin [Mass/volume] in Blood 9.7 g/dL 12.0 - 16.0 L [facility] Hematocrit [Volume Fraction] of Blood by Automated count 28.9 % 3 7.0 - 47.0 L [facility] Erythrocyte mean corpuscular volume [Entitic volume] by Auto mated count 85.8 fL 81.0 - 101 [facility] Erythrocyte mean corpuscular hemoglobin [Entitic mass] by Automated count 28.8 pg 27.0 - 34.0 [facility] Erythrocyte mean corpuscular hemoglobin concentration [Mass/volume] by Automated count 33.6 g/dL 31.0 - 36.0 [facility] Erythrocyte distribution width [Ratio] by Automated count 13.5 % 11.5 - 14.5 [facility] Platelets [#/volume] in Blood by Automated count 250 10^3/uL 150 - 45 0 [facility] Platelet mean volume [Entitic volume] in Blood by Automated count 10.9 fL 7.4 - 10.4 H [facility] Neutrophils/100 leukocytes in Blood by Automated count 61.3 % 37. 0 - 80.0 [facility] Lymphocytes/100 leukocytes in Blood by Manual count 30.0 % 25.0 - 40.0 [facility] Monocytes/100 leukocytes in Blood by Automated count 7.4 % 3.0 - 8.0 [facility] Eosinophils/100 leukocytes in Blood by Automated count 0.7 % 0.0 - 7.0 [facility] Basophils/100 leukocytes in Blood by Automated count 0.5 % 0.0 - 2.5 [facility] %IG 0.1 % 0.0 - 0.0 [facility] %NRBC 0.0 % 0.0 - 0.0 [facility] al Neutrophils [#/volume] in Blood by Automated count 5.62 10^3/uL 2.00 - 6.90 [facility] Lymphocytes [#/volume] in Blood by Automated count 2.75 10^3/uL 0.60 - 3.40 [facility] Monocytes [#/volume] in Blood by Automated count 0.68 10^3/uL 0.00 - 0.90 [facility] Eosinophils [#/volume] in Blood by Automated count 0.06 10^3/uL 0.00 - 0.70 [facility] Basophils [#/volume] in Blood by Automated count 0.05 10^3/uL 0.00 - 0.20 [facility] #IG 0.01 10^3/uL 0.00 - 0.10 [facility] #NRBC 0.00 10^3/uL 0.00 - 0.00 [facility] MANUAL DIFF NOT INDICATED [facility] RBC MORPH NOT INDICATED [facility] ID Date Data Source [id number] 06/23/2020 06:35:00 AM EST [facility] Name Value Range Interpretation Code Description Data Becca rce(s) Supporting Document(s) SARS coronavirus 2 RNA [Presence] in Res piratory specimen by BELEN with probe detection [facility] This lab was ordered by [facility] a nd reported by [facility]. ID Date Data Source [id number] 06/20/2020 01:02:51 PM EST [facility] ([facility]) Name Value Range Interpretation Code Description Data Becca rce(s) Supporting Document(s) 12.30 gm/dL Hemoglobin [facility] ([facility]) ID Date Data Source [id number] 06/20/2020 12:55:41 PM EST [facility] ([facility]) Name Value Range Interpretation Code Description Data Becca rce(s) Supporting Document(s) 9.80 gm/dL Hemoglobin [facility] ([facility] ID Date Data Source [id number] 06/20/2020 12:45:41 PM EST [facility] ([facility]) Name Value Range Interpretation Code Description Data Becca rce(s) Supporting Document(s) PositiveLot: [id number]: 09/18/2021 Abnormal (applies to non-numeric results) High Sensitivity Urine Test [facility] ([facility]) ID Date Data Source [id number] 06/20/2020 12:00:00 AM EST [facility] ([facility]) Name Value Range Interpretation Code Description Data Becca rce(s) Supporting Document(s) Negative Normal (applies to non-numeric resul ts) Urine CT/GC Combo - GC [facility] ([facility]) : No Performed by: NASRIN ([id number]) ID Date Data Source [id number] 06/20/2020 12:00:00 AM EST [facility] ([facility]) Name Value Range Interpretation Code Description Data Becca rce(s) Supporting Document(s) Negative Normal (applies to non-numeric resul ts) Urine CT/GC Combo - CT [facility] ([facility]) ID Date Data Source [id number] 06/20/2020 12:00:00 AM EST [facility] ([facility]) Name Value Range Interpretation Code Description Data Becca rce(s) Supporting Document(s) [id number] SeeComment Abnormal (applies to no n-numeric results) hCG Quantitative [facility] ([facility]) Gestational Age Expected hCG values (m IU/mL)<1 Week: 5-501-2 Weeks: 50-5002-3 Weeks: 100-58982-6 Weeks: 446-499266-4 Weeks: 5250-887989-8 Weeks: 93695-7073124-1 Weeks: 77236-7104981-5 Months: 11584- [id number] < 10 The table above provides only [...] cleared or approved bythe FDA or the maintenance helper of the assay.

Performed by:
NASRIN ([id number])

Procedure Social History Code Duration Value Status Description Data Source(s ) 11/01/2020 12:00:00 AM EDT Light cigarette smoker (1-9 cigs/day) completed Light cigarette smoker (1-9 cigs/day) [facility] ([facility]) Smoking 11/01/2020 12:00:00 AM EDT Light tobacco smoker comple donna Light tobacco smoker [facility] ([facility]) Smoking 2020 12:00:00 AM EST Current Smoker completed Curre nt Smoker eCW1 ([facility]) Smoking 06/02/2020 12:00:00 AM EST Current Smoker completed Curre nt Smoker eCW1 ([facility]) Vital Signs ID Date Data Source [id number] Name Value Range Interpretation Code Description Data Source(s) Body height 149.86 cm 149.86 cm [facility] ([facility]) Body weight 63.503 kg 63.503 kg [facility] ([facility]) Body mass index (BMI) [Ratio] 28.28 kg/m2 Overweight 28.28 kg/m2 [facility] ([facility]) Body weight 157.4 [lb_av] 157.4 [lb_av] eCW1 ([facility]) Body weight 71.4 kg 71.4 kg [facility] ([facility]) Body height 60 [in_i] 60 [in_i] W1 ([facility]) Body mass index (BMI) [Ratio] 30.74 kg/m2 30.74 kg/m2 [facility] ([facility]) Systolic blood pressure 118 mm[Hg] 118 mm[Hg] e CW1 ([facility]) Diastolic blood pressure 70 mm[Hg] 70 mm[Hg] eCW1 ([facility]) Body height 152.40 cm 152.40 cm [facility] ([facility]) Body weight 72.575 kg 72.575 kg [facility] ([facility]) Systolic blood pressure 110 mm[Hg] 110 mm[Hg] N [facility] ([facility]) Diastolic blood pressure 70 mm[Hg] 70 mm[Hg] [facility] ([facility]) Body mass index (BMI) [Ratio] 31.25 kg/m2 Overweight 31.25 kg/m2 [facility] ([facility]) Body weight 165 [lb_av] 165 [lb_av] eCW1 ([facility]) Body weight 74.84 kg 74.84 kg eCW1 ([facility]) Body height 60 [in_i] 60 [in_i] eCW1 ([facility]) Body mass index (BMI) [Ratio] 32.224 kg/m2 32.2 24 kg/m2 eCW1 ([facility]) Systolic blood pressure 110 mm[Hg] 110 mm[Hg] e CW1 ([facility]) Diastolic blood pressure 70 mm[Hg] 70 mm[Hg] eCW1 ([facility]) Body temperature 97.4 [degF] 97.4 [degF] [facility] ([facility]) Body height 65 [in_i] 65 [in_i] [facility] ([facility]) 5'5" Body weight 166.25 [lb_av] 166.25 [lb_av] MEDEN T ([facility]) Body mass index (BMI) [Ratio] 27.7 kg/m2 27.7 k g/m2 [facility] ([facility]) Patient Treatment Plan of Care Planned Activity Planned Date Details Description Data Source (s) 21 DAY Ethinyl Estradiol 0.161759 MG/HR / Etonogestrel 0.005 MG/HR Vaginal Ring [NuvaRing] 11/01/2020 12:00:00 AM EDT [facility] ([facility]) 21 DAY Ethinyl Estradiol 0.457375 MG/HR / Etonogestrel 0.005 MG/HR Vaginal Ring [NuvaRing] 06/20/2020 12:00:00 AM EST [facility] ([facility]) Ondansetron 4 MG Oral Tablet 06/20/2020 12:00:00 AM EST [facility] ([facility]) Misoprostol 0.2 MG Oral Tablet 06/20/2020 12:00:00 AM EST [facility] ([facility]) Ibuprofen 800 MG Oral Tablet 06/20/2020 12:00:00 AM EST [facility] ([facility]) Acetaminophen 300 MG / Codeine Phosphate 30 MG Oral Ta blet 06/20/2020 12:00:00 AM EST [facility] Misoprostol 0.2 MG Oral Tablet 06/20/2020 12:00:00 AM EST [facility] ([facility]) Mifepristone 200 MG Oral Tablet [Mifeprex] 06/20/2020 12:00:[address] [facility] ([facility]) Citalopram 10 MG Oral Tablet [facility] ([facility])
[2021-05-15 09:55] LABS: HEMATOCRIT 36.2 % (36.0-47.0); HEMOGLOBIN 11.4 g/dl (12.0-15.5); MEAN CORPUSCULAR HGB CONC 31.5 g/dl (32.0-36.5); MEAN CORPUSCULAR VOLUME 76.2 fl (80.0-96.0); PLATELET COUNT, AUTOMATED 276 10^3/uL (150-450); RED BLOOD COUNT 4.75 10^6/uL (4.00-5.40); WHITE BLOOD COUNT 5.4 10^3/uL (4.0-10.0)
--- OUTSIDE RECORDS SUMMARY | 2021-05-15 11:38 | CCD ---
Author Author [facility] Organization [facility] Address Unknown Phone Unavailable Support Name Relationship Address Phone JEIMY PRITCHETT Next Of Kin [address] [place] [address] ROXANA PRINGLE Next Of Kin [address] [place] [address] BRODERICK SULLIVAN Next Of Kin Unknown Mara ALATORRE-C, Shirley Yun Next Of Kin [address] [place], [place] [id number] MESHA ROSE Next Of Kin [address] [place] [address] MESHA WANG Next Of Kin [address] [place] [address] NO, CONTACT Next Of Kin Unknown DOES, WISH NOT Next Of Kin [address] [place] [address] MEGHANN GOMEZ Next Of Kin [address] [place] [address] ANI HAY Next Of Kin [address] [place] [address] MEGHANN PAZ Next Of Kin [address] [place] [address] [facility] Next Of Kin [address] [place] [address] Unavailable UE Next Of Kin Unknown Unavailable JESSICA SANTANA Next Of Kin [address] [place] [address] MG FRITZ Next Of Kin [address] [place] [address] CHILDRENS, HOME Next Of Kin [address] [place] [address] Pratik MD, A Gisele Next Of Kin [address] [place] [address] Mara PNP-C, Carina Next Of Kin [address] [place] [address] UN Next Of Kin Unknown Unavailable CHILD Next Of Kin Unknown Unavailable PRESTON VELARDE Next Of Kin [address] [address] PRESTON STEARNS Next Of Kin [address] [place] [address] ST Next Of Kin Unknown Unavailable TRACI HUANG [place] [address] Eladia Hansen Next Of Kin [address] [place] [address] MESHA ROSE ECON [address] [place] [address] Unavailable Preston Hansen ECON [address] [place] [address] [phone] Care Team Providers Care Electrician Marine Name Role Phone NO, PCP Unavailable Unavailable [...] MCELHERAN, FRANCISCO J PA Unavailable Unavailable MCELHERAN, FRANCISOC J PA Unavailable Unavailable MCELHERAN, FRANCISCO J [...] A Mirtha MD Unavailable Unavailable Shawn, A Mirtah MD Unavailable Unavailable Shawn, A Mirtha MD [...] le Rachele-Power, Leatha CNM Unavailable Unavailab le Gilson-Power, Leatha CNM Unavailable Unavailab le Rachele-Power, Leatha CNM Unavailable Unavailab le Rachele-Power, Leatha CNM Unavailable Unavailab le Mara, Court CHILD DEVELOPMENT INSTRUCTOR Unavailable Unavailable Mara, Court CHILD DEVELOPMENT INSTRUCTOR Unavailable Unavailable Mara, Court CHILD DEVELOPMENT INSTRUCTOR Unavailable Unavailable Mara, Court CHILD DEVELOPMENT INSTRUCTOR Unavailable Unavailable Mara, Court CHILD DEVELOPMENT INSTRUCTOR Unavailable Unavailable Mara, Court CHILD DEVELOPMENT INSTRUCTOR Unavailable Unavailable Mara, Court CHILD DEVELOPMENT INSTRUCTOR Unavailable Unavailable Mara, Court CHILD DEVELOPMENT INSTRUCTOR Unavailable Unavailable Mara, Court CHILD DEVELOPMENT INSTRUCTOR Unavailable Unavailable Mara, Court CHILD DEVELOPMENT INSTRUCTOR Unavailable Unavailable Mara, Court CHILD DEVELOPMENT INSTRUCTOR Unavailable Unavailable Quiñonez, M Christopher PA-C Unavailable [...] L CAROLINE MD Unavailable Unavailable URIEL, L CRAOLINE MD Unavailable Unavailable URIEL, L CAROLINE MD [...] is protected by Article 27-F of the [facility] Public Health law. If you continue you may have access to information: Regarding HIV / AIDS; Provided by facilities licensed or operated by the [facility] Office of Mental Health; or Provided by the [facility] Office for People With Developmental Disabilities. If such information is present, then the following [facility] mandated warning applies: This information has [...] law may result in a fine or long-term sentence or both. A general authorization for [...] 12:00:00 AM EDT [facility] ([facility]) Encounters Encounter Providers Location Date Indications Data Source(s ) Outpatient Attender: Stefan Quiñonez PA-C 02/18/2021 02:19:05 PM EDT - 02/18/2021 02:56:57 PM EDT DocuTap ([facility]) Outpatient Attender: Paul Hill/Genaro/Conner/Harika indl 02/18/2021 01:23:00 AM EDT JUDY ([facility]) OutpatientOFFICE VISIT, EST Attender: Camilla DEE [place] 11/01/2020 12:00:00 [...] EDT - 021 01:11:03 PM EDT [facility]Tap ([facility]) Attender: Camilla DEE [place] 10:27:00 AM EST - 09/13/2020 10:27:00 AM EST [facility] ([facility]) Emergency Attender: CAROLINE TREVINO MDConsultant: PCP NO 08/10/2020 03:31:00 AM EST - 08/10/2020 07:13:00 AM EST [facility] Patient discharged. (WC 20ESGYN) WCenter 20 Min Est Vegetable Tester [address] [place] [address] 2020 12:00:00 AM EST eCW1 ([facility]) Attender: Mirtha Mazariegos 10/2019 02:21:00 PM EST - 06/24/2020 02:21:00 PM EST [facility] ([facility]) [facility]: [facility] 06/23/2020 12:49:00 PM EST - 06/23/2020 12:49:00 PM EST [facility] Attender: Leatha [facility] 06/23/2020 10:15:00 AM EST - 06/23/2020 10:15:00 AM EST [facility] Attender: Camilla DEE [place] 08/2019 08:23:00 AM EST - 06/22/2020 08:23:00 AM EST [facility] ([facility]) Attender: Mirtha DEE [place] 02:32:00 PM EST - 06/20/2020 02:32:00 PM EST [facility] ([facility]) Attender: Camilla DEE [place] 12:15:00 PM EST - 06/20/2020 12:15:00 PM [...] itive (WC ESTOB) WCenter Est OB [address] [place] [address] 06/03/2020 12:00:00 AM EST eCW1 ([facility]) [place] [address] [place] [address] 05/26/2020 12:00:00 AM EST eCW1 ([facility]) Office Visit Attender: FRANCISCO J FERNANDO Physical Therapy 05/17/2020 02:00:00 PM EDT MEDENT ([facility]) Outpatient Attender: Court Terry NP [facility] 05/16/2020 12:50: 00 PM EDT [facility] Outpatient Attender: FRANCISCO J FERNANDO [...] [facility] 21 DAY Ethinyl Estradiol 0.193049 MG/HR / Etonogestrel 0.005 MG/HR Vaginal Ring [NuvaRing] NuvaRing 0.12 mg-0.015 mg/24 hr vaginal NuvaRing 0.12 mg-0.015 mg/24 hr vaginal 11/01/2020 12:00:00 AM EDT active 21 DAY ethinyl estradiol 0.154122 MG/HR / etonogestrel 0.005 MG/HR Vaginal System [NuvaRing] NextGen ([facility]) 5 % 10/25/2020 12:00:00 AM EDT [...] MOUTH EVERY 8 HOURS NEEDED SOLD: 06/20/2020 [facility] Ibuprofen 800 MG Oral Tablet ibuprofen 800 mg tablet ibuprof en 800 mg tablet 06/20/2020 12:00:00 AM EST active 1 tab po every 8 hours prn NextGen ([facility]) 21 DAY Ethinyl Estradiol 0.888635 MG/HR / Etonogestrel 0.005 MG/HR Vaginal Ring [NuvaRing] NuvaRing 0.12 mg-0.015 mg/24 hr vaginal NuvaRing 0.12 mg-0.015 mg/24 hr vaginal 06/20/2020 12:00:00 AM EST complet ed 21 DAY ethinyl estradiol 0.643131 MG/HR / etonogestrel 0.005 MG/HR Vaginal System [...] DAILY DOSE = TEN TABLETS SOLD: 06/20/2020 [facility] 4 mg 06/20/2020 12:00:00 AM [...] type / Coverage type Policy ID Covered green party ID Covered green party's relationship to langley Policy L[place]y Plan Information MEDICAID [facility] [id number] [place] [id number] Medicaid [facility] Individual Policy 0 [id number] Self 0 United Healthcare Commercial [id number] Family Dependent [id number] Medicaid [facility] Individual Policy 0 [id number] Self 0 [facility] Community Plan Health Maintenance Organization (HMO) [id number] Family Dependent Medicaid S [id number] S [id number] UnitedHealthcare Other 0 [id number] Self 0 UnitedHealthcare Other 0 [id number] Self 0 Managed Care - Community Plan United Healthcare P [id number] S [id number] Medicaid Dental S [id number] Medicaid-Pcap Medicaid [id number] Self [facility] Community Plan Health Maintenance Organization (HMO) [id number] Managed Care United Healthcare P [id number] S [id number] UH I [id number] Self [id number] UH I [id number] Self [id number] [facility] COMMUNITY PLAN [id number] SP [id number] [facility] COMMUNITY PLAN [id number] SP [id number] [facility] MEDICAID [id number] [place] [id number] [facility] COMMUNITY PLAN MCDHMO [id number] SP [id number] [facility] COMMUNITY PLAN MCDHMO [id number] SP [id number] SELF PAY [employer] [id number] Self [id number] UNITED HEALTHCARE HEA [id number] S [id number] UNITED HEALTHCARE HEA [id number] S [id number] MEDICAID [facility] [id number] [id number] MEDICAID [id number] SP [id number] [facility] [place] Health Maintenance Organization (HMO) [id number] Self United Healthcare Commercial [id number] Family Dependent Preston Hansen [id number] [facility] Community Plan Health Maintenance Organization (HMO) [id number] Family Dependent Preston Hansen [id number] Medicaid-Pcap Medicaid [id number] Self [id number] MEDICAID [id number] SP [id number] MEDICAID M [id number] S [id number] CCS MEDICAID [id number] SP [id number] UNAVAILABLE LG UNAVAILA BLE [facility] [employer] O UNAVAILABLE [id number] S UNAVAILABLE [facility] COMMUNITY PLAN [id number] SP [id number] SELF PAY UNAVAILABLE UNAVAILA BLE [facility](MCAID) P [id number] S [id number] MEDICAID [id number] [facility] CLAIMS O [id number] S [id number] [employer] [place] [id number] SP [id number] [employer] [place] [id number] FA [id number] [employer] [place] [id number] FA [id number] [employer] [place] [id number] FA2 [id number] JULIO [id number] SP [id number] [place] MED[place] [id number] SP [id number] SELF PAY ONLY [id number] SP [id number] EMEDNY [id number] SP [id number] [place] CARE [place] O [id number] S [id number] MEDICAID M [id number] S [id number] J[place] CARE OF [place] -OP [id number] 18 [id number] [facility] COMMUNITY PLAN [facility] [id number] SP [id number] SELF PAY O UNAVAILABLE [id number] S UNAVAILA BLE SELF PAY UNAVAILABLE SP UNAVAILA BLE [facility](MCAID) O [id number] S [id number] MEDICAID [id number] SP [id number] [facility] COMMUNITY PL[facility] [id number] SP [id number] [facility] COMMUNITY PLAN [facility] [id number] SP [id number] [facility] [id number] SP [id number] [facility] [id number] SP [id number] [facility] COMMUNITY PLAN [facility] [id number] SP [id number] [facility] MEDICAID PI PI [facility] COMMUNITY PLAN [id number] SP [id number] [facility] COMMUNITY PLAN UNAVAILABLE UNAVAILABLE Problems, Conditions, and Diagnoses Code Display Name Description Problem Type Effective Dates Data Source(s) Z3A01 Less than 8 weeks gestation of Less than 8 weeks gestation of Diagnosis 08/10/2020 03:31:00 AM [facility] W99947 Nicotine dependence, cigarettes, uncompl icated Nicotine dependence, cigarettes, uncomplicated Diagnosis 08/10/2020 03:31:00 AM [facility] Q62188 Smoking (tobacco) complicating , first trimester Smoking (tobacco) complicating , first trimester Diagnosis 07/23 03:31:00 AM [facility] R55 Syncope and collapse Syncope and collapse Diagnosis 08/10/2020 03:31:00 AM [facility] Q42458 Other specified related condit ions, first trimester Other specified related conditions, first trimester Diagnosis 08/10/2020 03:31:00 AM [facility] O200 Threatened Threatened Diagnosis 0 08/10/2020 03:31:00 AM [facility] O209 Hemorrhage in early , unspecifi ed Hemorrhage in early , unspecified Diagnosis 08/10/2020 03:31:00 AM 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 Contraceptive 11/01/2020 12 :00:00 AM EDT - 11/01/2020 12:00:00 AM EDT [facility] ([facility]) CVR Med.Svc. 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 Contraceptive 06/20/2020 12 :00:00 AM EST - [...] [facility]) Results ID Date Data Source [id number] 08/10/2020 03:31:00 AM EST [facility] 1 OrderSheet [facility] Emergency Department [address] [place] [address] Phone #: ext- [phone] 08/10/2020 03:29 Patient: KATHRYN SPARROW Sex: F [...] rce(s) Supporting Document(s) ID Date Data Source [id number] 08/10/2020 03:31:00 AM EST [facility] 1 Medication Reconciliation Report [facility] Emergency Department [address] [place] [address] Phone #: ext- [phone] 08/10/2020 03:29 Patient: [...] Name Value Range Interpretation Code Description Data [facility](s) Supporting Document(s) ID Date Data Source [id number] 08/10/2020 03:31:00 AM EST [facility] 1 Medication Administration Record [facility] Emergency Department [address] [place] [address] Phone #: ext- [phone] 08/10/2020 03:29 Patient: KATHRYN SPARROW Sex: F : 2000 Age: 20yWeight: 68.0 kgHeight/Length: 59 inBMI: 30.3ALLERGIES: No Known Drug Allergy Date/Time Medication Administered Medication OrderedStart SODIUM CHLORIDE [IV] IV NS 1000 mL Bolus : Bolus 292233:[id number] 08/10/2020 Dose: IV Fluids mL (X1)Patsy Kraus, RShelliNShelli Rate: 1000 mL/hr over 1 hour(s)---- Bolus: 1000 mLStop Dispensed: 1000 mL bag05:07 08/10/2020 Site: #1 right Patsy Stallworth RAmber Name Value Range Interpretation Code Description Data Becca rce(s) Supporting Document(s) ID Date Data Source [id number] 08/10/2020 03:31:00 AM EST [facility] 1 General Instructions [facility] Emergency Department [address] [place] [address] Phone #: ext- [phone] 08/10/2020 03:29 Patient: [...] miscarriage, or if things 2 General Instructions [facility] Emergency Department [address] [place] [address] Phone #: ext- [phone] 08/10/2020 03:29 [id number] Sex: Mariano : 2000 Age: 20ywill clear [...] any new findings that mayaffect your care.Call [phone] if you have: Severe pain and very heavy bleeding Severe lightheadedness, passing out, or fainting Rapid heart rate 3 General Instructions [facility] Emergency Department [address] [place] [address] Phone #: ext- [phone] 08/10/2020 03:29 Patient: [...] container and bring it to your provider. 4717-5788 [employer]. [address] [place] [address]. All rights reserved. This information is not [...] like cramping in the 4 General Instructions [facility] Emergency Department [address] [place] [address] Phone #: ext- [phone] 08/10/2020 03:29 Patient: [...] areas may also help. 5 General Instructions [facility] Emergency Department [address] [place] [address] Phone #: ext- [phone] 08/10/2020 03:29 Patient: [facility]OW [id number] Sex: F : 2000 Age: 20y Exercise [...] pink or holcomb tissue from the vagina [employer] [address] [place] [address]. All rights reserved. This information is not [...] for along time.Home care 6 General Instructions [facility] Emergency Department [address] [place] [address] Phone #: ext- [phone] 08/10/2020 03:29 Patient: KATHRYN SPARROW [facility]#: [id number] Sex: F : 2000 Age: 20yFollow these [...] very slowly, or irregularly (palp itations) [employer] [address] [place] [address]. All rights reserved. This information is not [...] rce(s) Supporting Document(s) ID Date Data Source [id number] 08/10/2020 03:31:00 AM EST [facility] 1 Clinical Report - Nurses [facility] Emergency Department [address] [place] [address] Phone #: ext- [phone] 08/10/2020 03:29 Patient: KATHRYN SPARROW Sex: F : 2000 Age: 20yTRIAGEArrived by EMS. Historian: patient. Accompanied by family.Acuity: LEVEL 3.Chief Complaint: ABDOMINAL CRAMPS and VAGINAL BLEEDING.Alert. No acute distress.Onset. (8 days). ( Patient arrives via ems from home c/o vaginal bleed. [facility] jelena she just [...] she had pelvic exam and US at [facility]. 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 --03:39 08/10/20 Patsy Kraus R.N.03:29 [...] of tuberculosis, 2 Clinical Report - Nurses [facility] Emergency Department [address] [place] [address] Phone #: ext- [phone] 08/10/2020 03:29 Patient: [...] cc since she was d/c home from [facility]). ( Unknown how far along sheis or [...] Kraus R.N. 3 Clinical Report - Nurses [facility] Emergency Department [address] [place] [address] Phone #: ext- [phone] 08/10/2020 03:29 Patient: KATHRYN SPARROW Sex: F : 2000 Age: 20y ( Per [facility] pt is <14 weeks , 1st trimester [...] medication(s). Treatments reviewed. Reviewed referral to an client services specialist. Work note given. Patient verbalized understanding. Written instructions provided in Swazi. The patient was discharged home and accompanied by director of procurement. She left ambulatory and via private vehicle. Chick Sexer driving. --07:13 08/10/20 Patsy Kraus R.N.Locked/Released at 08/10/2020 07:13 by Patsy Kraus R.N. 4 Clinical Report - Nurses [facility] Emergency Department [address] [place] [address] Phone #: [phone]- [phone] 08/10/2020 03:29 Patient: KATHRYN SPARROW Sex: F : 2000 Age: 20y Name Value Range Interpretation Code Description Data Becca rce(s) Supporting Document(s) ID Date Data Source [id number] 08/10/2020 03:31:00 AM EST [facility] 1 Clinical Report - Physicians/Mid Levels [facility] Emergency Department [address] [place] [address] Phone #: ext- [phone] 08/10/2020 03:29 Patient: KATHRYN SPARROW Sex: F : 2000 Age: 20y Arrived- By private vehicle. Historian- patient. Disposition decision: 06:44 08/10/2020.HISTORY OF PRESENT ILLNESS Chief Complaint: VAGINAL BLEEDING. ((8 days). ( Patient arrives via ems from home c/o vaginal bleed. Pt states she was just d/c from [facility]. Pt states she just found out she [...] she had pelvic exam and US at [facility]. Pt is a .). Still present. The [...] D. 2 Clinical Report - Physicians/Mid Levels [facility] Emergency Department [address] [place] [address] Phone #: ext- [phone] 08/10/2020 03:29 Patient: KATHRYN SPARROW Sex: F [...] 14.5) 3 Clinical Report - Physicians/Mid Levels [facility] Emergency Department [address] [place] [address] Phone #: ext- [phone] 08/10/2020 03:29 Patient: [...] the ED after being discharged from [facility] for vaginal bleeding. shestates she is and she does not know how far along she is. she states she went home and bleed 4 Clinical Report - Physicians/Mid Levels [facility] Emergency Department [address] [place] [address] Phone #: ext- [phone] 08/10/2020 03:29 Patient: KATHRYN SPARROW Sex: F : 2000 Age: 20y more. she has been bleeding for 8 days. she has had multiple miscarriages in the past all int he first trimester of the . pt states she thinks she may have passed out when she went home when she bled again. on exam, she is non-toxic. We requested labs from [facility]. I reordered labs here at [facility]. I was able to review. Her h/h has not dropped. she received 300mcg of rhogram at [facility]. Her bp was slightly low. I [...] 08/10/2020 07:18) 5Clinical Report - Physicians/Mid Levels [facility] Emergency Department [address] [place] [address] Phone #: ext- [phone] 08/10/2020 03:29--------- Patient: KATHRYN SPARROW Sex: F : 2000 Age: 20y Name Value Range Interpretation Code Description Data Becca rce(s) Supporting Document(s) ID Date Data Source [id number] 08/10/2020 04:13:00 AM EST [facility] Name Value Range Interpretation Code Description Data [facility] rce(s) Supporting Document(s) COMPREHENSIVE METABOLIC PANEL [facility] COMPREHENSIVE METABOLIC PANEL Sodium [Moles/volume] in Serum or Plasma 139 mEq/L 134 - 153 [facility] Potassium [Moles/volume] in Serum or Plasma 3.4 mEq/L 3.6 - 5.0 L [facility] Chloride [Moles/volume] in Serum or Plasma 106 mEq/L 98 - 107 [facility] Carbon dioxide, total [Moles/volume] in Serum or Plasma 24 MEQ/L 22 - 30 [facility] Glucose [Mass/volume] in Serum or Plasma 110 MG/DL 70 - 99 H [facility] BUN 6 MG/DL 7 - 21 [facility] Creatinine [Mass/volume] in Serum or Plasma 0.7 MG/DL 0.7 - 1.5 [facility] BUN/CREAT 9 8 - 27 [facility] Protein [Mass/volume] in Serum or Plasma 5.8 G/DL 6.3 - 8.2 L [facility] Albumin [Mass/volume] in Serum or Plasma 4.1 G/DL 3.9 - 5.0 [facility] Globulin [Mass/volume] in Serum by calculation 1.7 GM/DL 2.4 - 3.2 L [facility] A/G RATIO 2.4 0.8 - 2.0 H [facility] al Calcium [Mass/volume] in Serum or Plasma 8.2 MG/DL 8.4 - 10.2 L [facility] Bilirubin.total [Mass/volume] in Serum or Plasma <0.7 MG/DL 0.2 - 1.3 [facility] Alkaline phosphatase [Enzymatic activity/volume] in Serum or Plasma 67 U/L 38 - 126 [facility] Aspartate aminotransferase [Enzymatic activity/volume] in Serum or Plasma 12 U/L 5 - 40 [facility] Alanine aminotransferase [Enzymatic activity/volume] in Seru m or Plasma 11 U/L 7 - 56 [facility] Anion gap 3 in Serum or Plasma 9.0 mmol/L 8.0 - 16.0 [facility] AGE 20 yrs [facility] NON-AA GFR >60 mL/min [facility] ital AFR AMER GFR >60 mL/min [facility] Ho spital Male GFR In terprentation 20-49 [...] >32 mL/min Normal ID Date Data Source [id number] 08/10/2020 04:01:00 AM EST [facility] Name Value Range Interpretation Code Description Data Becca rce(s) Supporting Document(s) CBC W/AUTOMATED DIFF [facility] COMPLETE BLOOD COUNT Leukocytes [#/volume] in Blood by Automated count 9.2 10^3/uL 4.2 - 1 1.0 [facility] Erythrocytes [#/volume] in Blood by Automated count 3.37 10^6/uL 4. 20 - 5.40 L [facility] Hemoglobin [Mass/volume] in Blood 9.7 g/dL 12.0 - 16.0 L [facility] Hematocrit [Volume Fraction] of Blood by Automated count 28.9 % 3 7.0 - 47.0 L [facility] Erythrocyte mean corpuscular volume [Entitic volume] by Auto mated count 85.8 fL 81.0 - 101 [facility] Erythrocyte mean corpuscular hemoglobin [Entitic mass] by Automated count 28.8 pg 27.0 - 34.0 [facility] Erythrocyte mean corpuscular hemoglobin concentration [Mass/volume] by Automated count 33.6 g/dL 31.0 - 36.0 [facility] Erythrocyte distribution width [Ratio] by Automated count 13.5 % 11.5 - 14.5 [facility] Platelets [#/volume] in Blood by Automated count 250 10^3/uL 150 - 45 0 [facility] Platelet mean volume [Entitic volume] in Blood by Automated count 10.9 fL 7.4 - 10.4 H [facility] Neutrophils/100 leukocytes in Blood by Automated count 61.3 % 37. 0 - 80.0 [facility] Lymphocytes/100 leukocytes in Blood by Manual count 30.0 % 25.0 - 40.0 [facility] Monocytes/100 leukocytes in Blood by Automated count 7.4 % 3.0 - 8.0 [facility] Eosinophils/100 leukocytes in Blood by Automated count 0.7 % 0.0 - 7.0 [facility] Basophils/100 leukocytes in Blood by Automated count 0.5 % 0.0 - 2.5 [facility] %IG 0.1 % 0.0 - [facility].0 % 0.0 - 0.0 [facility] al Neutrophils [#/volume] in Blood by Automated count 5.62 10^3/uL 2.00 - 6.90 [facility] Lymphocytes [#/volume] in Blood by Automated count 2.75 10^3/uL 0.60 - 3.40 [facility] Monocytes [#/volume] in Blood by Automated count 0.68 10^3/uL 0.00 - 0.90 [facility] Eosinophils [#/volume] in Blood by Automated count 0.06 10^3/uL 0.00 - 0.70 [facility] Basophils [#/volume] in Blood by Automated count 0.05 10^3/uL 0.00 - 0.20 [facility] #IG 0.01 10^3/uL 0.00 - 0.10 [facility] #NRBC 0.00 10^3/uL 0.00 - 0.00 [facility] MANUAL DIFF NOT INDICATED [facility] RBC MORPH NOT INDICATED [facility] ID Date Data Source [id number] 06/23/2020 06:35:00 AM EST [facility] Name Value Range Interpretation Code Description Data Becca rce(s) Supporting Document(s) SARS coronavirus 2 RNA [Presence] in Res piratory specimen by BELEN with probe detection [facility] This lab was ordered by [facility] a nd reported by [facility]. ID Date Data Source [id number] 06/20/2020 01:02:51 PM EST [facility] ([facility]) Name Value Range Interpretation Code Description Data Becca rce(s) Supporting Document(s) 12.30 gm/dL Hemoglobin [facility] ([facility]) ID Date Data Source [id number] 06/20/2020 12:55:41 PM EST [facility] ([facility]) Name Value Range Interpretation Code Description Data Becca rce(s) Supporting Document(s) 9.80 gm/dL Hemoglobin [facility] ([facility]) ID Date Data Source [id number] 06/20/2020 12:45:41 PM EST [facility] ([facility]) Name Value Range Interpretation Code Description Data Becca rce(s) Supporting Document(s) PositiveLot: [id number]: 09/18/2021 Abnormal (applies to non-numeric results) High Sensitivity Urine Test [facility] ([facility]) ID Date Data Source [id number] 06/20/2020 12:00:00 AM EST [facility] ([facility]) Name Value Range Interpretation Code Description Data Becca rce(s) Supporting Document(s) Negative Normal (applies to non-numeric resul ts) Urine CT/GC Combo - GC [facility] ([facility]) : No Performed by: NASRIN ([id number]) ID Date Data Source [id number] 06/20/2020 12:00:00 AM EST [facility] ([facility] Name Value Range Interpretation Code Description Data Becca rce(s) Supporting Document(s) Negative Normal (applies to non-numeric resul ts) Urine CT/GC Combo - CT [facility] ([facility]) ID Date Data Source [id number] 06/20/2020 12:00:00 AM EST [facility] ([facility]) Name Value Range Interpretation Code Description Data Becca rce(s) Supporting Document(s) [id number] SeeComment Abnormal (applies to no n-numeric results) hCG Quantitative [facility] ([facility]) Gestational Age Expected hCG values (m IU/mL)<1 Week: 5-501-2 Weeks: 50-5002-3 Weeks: 100-28126-4 Weeks: 545-968183-8 Weeks: 5326-812271-4 Weeks: 83505-2849481-8 Weeks: 84564-8214852-1 Months: 37027- [id number] < 10 The table above provides only [...] cleared or approved bythe FDA or the gang drill press operator of the assay.

Performed by:
NASRIN ([id number])

Procedure Social History Code Duration Value Status Description Data Source(s ) 11/01/2020 12:00:00 AM EDT Light cigarette smoker (1-9 cigs/day) completed Light cigarette smoker (1-9 cigs/day) [facility] ([facility]) Smoking 11/01/2020 12:00:00 AM EDT Light tobacco smoker comple donna Light tobacco smoker [facility] ([facility]) Smoking 2020 12:00:00 AM EST Current Smoker completed Curre nt Smoker eCW1 ([facility]) Smoking 06/02/2020 12:00:00 AM EST Current Smoker completed Curre nt Smoker eCW1 ([facility]) Vital Signs ID Date Data Source UNK Name Value Range Interpretation Code Description Data Source(s) Body height 149.86 cm 149.86 cm [facility] ([facility]) Body weight 63.503 kg 63.503 kg [facility] ([facility] Body mass index (BMI) [Ratio] 28.28 kg/m2 Overweight 28.28 kg/m2 [facility] Body weight 157.4 [lb_av] 157.4 [lb_av] eCW1 ([facility]) Body weight 71.4 kg 71.4 kg [facility] ([facility]) Body height 60 [in_i] 60 [in_i] W1 ([facility]) Body mass index (BMI) [Ratio] 30.74 kg/m2 30.74 kg/m2 [facility] ([facility]) Systolic blood pressure 118 mm[Hg] 118 mm[Hg] e CW1 ([facility]) Diastolic blood pressure 70 mm[Hg] 70 mm[Hg] eCW1 ([facility]) Body height 152.40 cm 152.40 cm [facility] ([facility]) Body weight 72.575 kg 72.575 kg [facility] ([facility]) Systolic blood pressure 110 mm[Hg] 110 mm[Hg] N [facility] ([facility]) Diastolic blood pressure 70 mm[Hg] 70 mm[Hg] [facility] ([facility]) Body mass index (BMI) [Ratio] 31.25 kg/m2 Overweight 31.25 kg/m2 [facility] ([facility]) Body weight 165 [lb_av] 165 [lb_av] eCW1 ([facility]) Body weight 74.84 kg 74.84 kg eCW1 ([facility]) Body height 60 [in_i] 60 [in_i] eCW1 ([facility]) Body mass index (BMI) [Ratio] 32.224 kg/m2 32.2 24 kg/m2 eCW1 ([facility]) Systolic blood pressure 110 mm[Hg] 110 mm[Hg] e CW1 ([facility]) Diastolic blood pressure 70 mm[Hg] 70 mm[Hg] eCW1 ([facility]) Body temperature 97.4 [degF] 97.4 [degF] MEDENT [...] Data Source (s) 21 DAY Ethinyl Estradiol 0.218255 MG/HR / Etonogestrel 0.005 MG/HR Vaginal Ring [NuvaRing] 11/01/2020 12:00:00 AM EDT [facility] ([facility]) 21 DAY Ethinyl Estradiol 0.869339 MG/HR / Etonogestrel 0.005 MG/HR Vaginal Ring [NuvaRing] 06/20/2020 12:00:00 AM EST [facility] ([facility]) Ondansetron 4 MG Oral Tablet 06/20/2020 12:00:00 AM EST [facility] ([facility]) Misoprostol 0.2 MG Oral Tablet 06/20/2020 [...] 12:00:00 AM EST [facility] ([facility]) Mifepristone 200 MG Oral Tablet [Mifeprex] 06/20/2020 12:00:[address] [facility] ([facility]) Citalopram 10 MG Oral Tablet [facility] ([facility])
[2021-05-15 11:46] LABS: RSV AMPLIFICATION NEGATIVE (NEGATIVE)
--- NOTE | 2021-05-15 13:22 | REP ---
INDICATION: cramping/spotting. COMPARISON: None. TECHNIQUE: Real-time sonographic evaluation of pelvis performed utilizing transabdominal and endovaginal technique. FINDINGS: The uterus measures 9.5 x 5.5 x 6.0 cm. A sac-like structure in the endometrial canal has a mean diameter of 14 mm and there is a suggestion of an internal yolk sac. Estimated gestational age is 6 weeks 2 days. No pole is seen. The right ovary could not be visualized. Left ovary is grossly unremarkable, only seen on transabdominal imaging, measuring 3.5 x 1.7 x 1.9 cm. There is no adnexal mass or free fluid. Hypoechoic area adjacent to the presumed gestational sac likely represents a subchorionic hemorrhage 1.6 x 2.5 x 1.7 cm. IMPRESSION: A presumed gestational sac in the endometrial canal likely contains a yolk sac but no pole. Estimated gestational age 6 weeks 2 days. Subchorionic hemorrhage 1.6 x 2.5 x 1.7 cm. Recommend follow-up ultrasound in 7-14 days to document viability. <Electronically signed by Amos Cruz > 05/15/21 [id number]
[2021-05-15] MEDS ORDERED: ACETAMINOPHEN 325 MG TAB PO ONE (13:40)
[2021-05-15 14:00] VITALS: BP 107/63
== END 2021-05-15 14:02 | disposition home or self-care (01) ==
LOC: M ED 09:00
DX: O20.8 Other hemorrhage in early pregnancy (principal); U07.1 COVID-19; K50.90 Crohn's disease, unspecified, without complications; Z88.8 Allergy status to other drugs, medicaments and biological substances; O99.331 Smoking (tobacco) complicating pregnancy, first trimester; F17.210 Nicotine dependence, cigarettes, uncomplicated; Z3A.01 Less than 8 weeks gestation of pregnancy; O99.611 Diseases of the digestive system complicating pregnancy, first trimester; O98.511 Other viral diseases complicating pregnancy, first trimester

== ENCOUNTER → 2021-06-01 | Outpatient (REF) | payer OTHER | LOC: M SFHCWAGY 18:53 | PROVIDERS: ATTEND Advanced Practice Midwife | DX: Z12.4 Encounter for screening for malignant neoplasm of cervix (principal) ==

== ENCOUNTER 2021-06-10 14:10 | Emergency (ER) | payer OTHER ==
[~2021-06-10] VITALS: Ht 149.9 cm; Wt 65.1 kg
--- OUTSIDE RECORDS SUMMARY | 2021-06-10 14:17 | CCD ---
Author Author [facility] Organization [facility] Address Unknown Phone Unavailable Support Name Relationship Address Phone JEIMY PRITCHETT Next Of Kin [address] [place] [address] ROXANA PRINGLE Next Of Kin [address] [place] [address] BRODERICK SULLIVAN Next Of Kin Unknown Mara ALATORRE-C, Shirley Yun Next Of Kin [address] [place], [place] [id number] MESHA ROSE Next Of Kin [address] [place] [address] MESHA WANG Next Of Kin [address] [place] [address] NO, CONTACT Next Of Kin Unknown DOES, WISH NOT Next Of Kin [address] [place] [address] MEGHANN GOMEZ Next Of Kin [address] [place] [address] ANI HAY Next Of Kin [address] [place] [address] MEGHANN PAZ Next Of Kin [address] [place] [address] [facility] Next Of Kin [address] [place] [address] Unavailable UE Next Of Kin Unknown Unavailable JESSICA SANTANA Next Of Kin [address] [place] [address] MG FRITZ Next Of Kin [address] [place] [address] [facility] Next Of Kin [address] [place] [address] Pratik AMAYA, Ned Jaquez Next Of Kin [address] [place] [address] Mara PNP-C, Carina Next Of Kin [address] [place] [address] UN Next Of Kin Unknown Unavailable CHILD Next Of Kin Unknown Unavailable PRESTON VELARDE Next Of Kin [address] [address] PRESTON STEARNS Next Of Kin [address] [place] [address] ST Next Of Kin Unknown Unavailable TRACI HUANG [place] [address] Eladia Hansen Next Of Kin [address] [place] [address] MESHA ROSE ECON [address] [place] [address] Unavailable Preston Hansen ECON [address] [place] [address] [phone] Care Team Providers Care Fiber Optics Supervisor Name Role Phone NO, PCP Unavailable Unavailable [...] Mirtha AMAYA Unavailable Unavailable Shawn, A Mirtha MD Unavailable Unavailable Shawn, A Mirtha MD Unavailable Unavailable Shawn, A Mirtha MD Unavailable Unavailable Shawn, A Mirtha MD Unavailable Unavailable Shawn, A Mirtha MD Unavailable Unavailable Shawn, A Mirtha MD Unavailable Unavailable Shawn, A Mirtha AMAYA [...] le Rachele-Power, Leatha CNM Unavailable Unavailab le [place]Power, Leatha CNM Unavailable Unavailab le [place]Power, Leatha CNM Unavailable Unavailab le [place]-Power, Leatha CNM Unavailable Unavailab le Mara, Court IMAGING ANALYST Unavailable Unavailable Mara, Court IMAGING ANALYST Unavailable Unavailable Mara, Coutr IMAGING ANALYST Unavailable Unavailable Mara, Court IMAGING ANALYST Unavailable Unavailable Mara, Court IMAGING ANALYST Unavailable Unavailable Mara, Court IMAGING ANALYST Unavailable Unavailable Mara, Court IMAGING ANALYST Unavailable Unavailable Mara, Court IMAGING ANALYST Unavailable Unavailable Mara, Court IMAGING ANALYST Unavailable Unavailable Mara, Court IMAGING ANALYST Unavailable Unavailable Mara, Court IMAGING ANALYST Unavailable Unavailable Quiñonez, M Christopher PA-C Unavailable [...] is protected by Article 27-F of the [facility] Public Health law. If you continue you may have access to information: Regarding HIV / AIDS; Provided by facilities licensed or operated by the [facility] Office of Mental Health; or Provided by the [facility] Office for People With Developmental Disabilities. If such information is present, then the following [facility] mandated warning applies: This information has [...] AM EDT [facility] ([facility]) Unknown Male Diagnosis 01/02/2016 12:00:00 AM EDT [facility] ([facility]) Encounters Encounter Providers Location Date Indications Data Source(s ) Outpatient Attender: Stefan Quioñnez PA-C 02/18/2021 02:19:05 PM EDT - 02/18/2021 02:56:57 PM EDT Doc[facility]Tap ([facility]) Outpatient Attender: Paul Hill/Genaro/Conner/Harika indl 02/18/2021 01:23:00 AM EDT JUDY ([facility]) OFFICE VISIT, ESTOutpatient Attender: Camilla DEE [place] 11/01/2020 12:00:00 PM EDT - 11/01/2020 12:00:00 PM EDT Other sex counselingEncounter for initial prescription of vagnl ringEncounter for oth general cnsl and advice on contraceptionHuman immunodeficiency virus [HIV] counseling [facility] ([facility]) Other sex counseling Encounter for initial prescription of va gnl ring Encounter for oth general cnsl and advic e on contraception Human immunodeficiency virus [HIV] couns ashish Outpatient 10/26/2020 01:10:31 PM EDT - 021 01:11:03 PM EDT Doc[facility]Tap ([facility]) Attender: Camilla DEE [place] 10:27:00 AM EST - 09/13/2020 10:27:00 AM EST [facility] ([facility]) Emergency Attender: CAROLINE TREVINO MDConsultant: PCP NO 08/10/2020 03:31:00 AM EST - 08/10/2020 07:13:00 AM EST [facility] Patient [facility] (WC 20ESGYN) WCenter 20 Min Est Music Aut[employer] [address] [place] [address] 2020 12:00:00 AM EST eCW1 ([facility]) Attender: Mirtha Mazariegos 10/2019 02:21:00 PM EST - 06/24/2020 02:21:00 PM EST [facility] ([facility]) Attender: [facility]atha [facility] 06/23/2020 12:49:00 PM EST - 06/23/2020 12:49:00 PM EST [facility] ([facility] Attender: Leatha [facility] 06/23/2020 10:15:00 AM EST - 06/23/2020 10:15:00 AM EST [facility] ([facility] Attender: Camilla Mazariegos 08/2019 08:23:00 AM EST - 06/22/2020 08:23:00 AM EST [facility] ([facility]) Attender: Mirtha Mazariegos 02:32:00 PM EST - 06/20/2020 02:32:00 PM EST [facility] ([facility]) Attender: Camilla DEE [place] 12:15:00 PM EST - 06/20/2020 12:15:00 PM EST Other sex counselingEncntr screen for in fections w sexl mode of transmissEncounter for oth general cnsl and advice on contraceptionEncounter for initial prescription of vagnl ringProblems related to unwanted pregnancyEncounter for elective termination of pregnancyEncntr screen for dis of the bld/bld-form org/immun mechnsmEncounter for test, result positive [facility] ([facility]) Other sex counseling Encntr screen for [...] itive (WC ESTOB) WCenter Est OB [address] [place] [address] 06/03/2020 12:00:00 AM EST eCW1 ([facility]) Unknown [address] [facility] [address] 05/26/2020 12:00:00 AM EST eCW1 ([facility]) Office Visit Attender: FRANCISCO J FERNANDO Physical Therapy 05/17/2020 02:00:00 PM EDT [facility] ([facility]) Outpatient Attender: Court Terry NP SP 05/16/2020 12:50: 00 PM EDT [facility] Outpatient Attender: FRANCISCO J FERNANDO Physical Therapy 04/12/2020 02:00:00 PM EDT [facility] ([facility]) Medications Medication Brand [...] [facility] 21 DAY Ethinyl Estradiol 0.651462 MG/HR / Etonogestrel 0.005 MG/HR Vaginal Ring [NuvaRing] NuvaRing 0.12 mg-0.015 mg/24 hr vaginal NuvaRing 0.12 mg-0.015 mg/24 hr vaginal 11/01/2020 12:00:00 AM EDT active 21 DAY ethinyl estradiol 0.865224 MG/HR / etonogestrel 0.005 MG/HR Vaginal System [NuvaRing] [facility] ([facility]) 5 % 10/25/2020 12:00:00 AM EDT [...] mifepristone (#4) [facility] ([facility]) Mifepristone 200 MG Oral Tablet [Mifeprex] Mifeprex 20 0 mg tablet Mifeprex 200 mg tablet 06/20/2020 12:00:00 AM EST complete d mifepristone 200 MG Oral Tablet [Mifeprex] [facility] ([facility]) Misoprostol 0.2 MG Oral Tablet misoprostol 200 mcg tab let misoprostol 200 mcg tablet 06/20/2020 12:00:00 AM EST active 4 tabs buccally 24-48 hrs after mifepristone (#4) [facility] ([facility]) 800 mg 06/20/2020 12:00:00 AM EST tablet 10 TAKE ONE TABLET BY MOUTH EVERY 8 HOURS NEEDED TAKE ONE TABLET BY MOUTH EVERY 8 HOURS NEEDED SOLD: 06/20/2020 [employer] Ibuprofen 800 MG Oral Tablet ibuprofen 800 mg tablet ibuprof en 800 mg tablet 06/20/2020 12:00:00 AM EST active 1 tab po every 8 hours prn [facility] ([facility]) 21 DAY Ethinyl Estradiol 0.440527 MG/HR / Etonogestrel 0.005 MG/HR Vaginal Ring [NuvaRing] NuvaRing 0.12 mg-0.015 mg/24 hr vaginal NuvaRing 0.12 mg-0.015 mg/24 hr vaginal 06/20/2020 12:00:00 AM EST complet ed 21 DAY ethinyl estradiol 0.500731 MG/HR / etonogestrel 0.005 MG/HR Vaginal System [NuvaRing] [facility] ([facility]) Ondansetron 4 MG Oral Tablet ondansetron HCl 4 mg tabl et ondansetron HCl 4 mg tablet 06/20/2020 12:00:00 AM EST active 1 tab po every 4 hours prn (#4) [facility] ([facility]) Acetaminophen 300 MG / Codeine Phosphate 30 MG Oral Tablet acetaminophen 300 mg- codeine 30 mg tablet acetaminophen 300 mg-codeine 30 mg tablet 06/20/2020 12:00:00 AM EST active 1-2 tabs po every 4 hours prn pain MDD 10 [facility] ([facility]) 300-30 mg 06/20/2020 12:00:00 AM EST tablet 10 TAKE ONE TO TWO TABLETS BY MOUTH EVERY 4 HOURS NEEDED FOR PAIN MAXIMUM DAILY DOSE = TEN TABLETS TAKE ONE TO TWO TABLETS BY MOUTH EVERY 4 HOURS NEEDED FOR PAIN MAXIMUM DAILY DOSE = TEN TABLETS SOLD: 06/20/2020 [facility] 4 mg 06/20/2020 12:00:00 AM [...] Medrol 12:00:00 AM EDT active [facility] ( [facility]) 300 mg 04/12/2020 12:00:00 [...] 04/12/2020 12:00:00 AM EDT ORAL active [facility] ([facility]) gabapentin 300 MG Oral Capsule Gabapentin 04/12/2020 12:00:00 AM EDT ORAL active [facility] ([facility]) 4 mg 04/12/2020 12:00:00 [...] t ablet by oral route every day MojganGen ([facility]) Insurance Providers Payer name Policy type / Coverage type Policy ID Covered libertarian ID Covered libertarian's relationship to langley Policy Langley Plan Information MEDICAID [facility] [id number] [place] [id number] Medicaid [facility] Individual Policy 0 [id number] Self 0 United Healthcare Commercial [id number] Family Dependent [phone] Medicaid [facility] Individual Policy 0 [id number] Self 0 [facility] Community Plan Health Maintenance Organization (HMO) [id number] Family Dependent Medicaid S [id number] UnitedHealthcare Other 0 [id number] Self 0 UnitedHealthcare Other 0 [id number] Self 0 Managed Care - Community Plan United Healthcare P [id number] S [id number] Medicaid Dental S [id number] Medicaid-Pcap Medicaid [id number] Self [facility] Community Plan Health Maintenance Organization (HMO) [id number] Managed Care United Healthcare P [id number] S [id number] [facility] I [id number] Self [id number] [facility] I [id number] Self [id number] [facility] COMMUNITY PLAN [id number] SP [id number] [facility] COMMUNITY PLAN [id number] SP [id number] [facility] MEDICAID [id number] [place] [id number] [facility] COMMUNITY PLAN MCDHMO [id number] SP [id number] [facility] COMMUNITY PLAN MCDHMO [id number] SP [id number] SELF PAY [employer] [id number] Self [id number] UNITED [facility] HEA [id number] S [id number] UNITED [facility] HEA [id number] S [id number] MEDICAID [facility] [id number] SP [place] [id number] MEDICAID [id number] SP [id number] [facility] Health Maintenance Organization (HMO) [id number] Self United Healthcare Commercial [id number] Family Dependent Preston Hansen [id number] [facility] Community Plan Health Maintenance Organization (HMO) [id number] Family Dependent Preston Hansen [id number] Medicaid-Pcap Medicaid [id number] Self [id number] MEDICAID [id number] SP [id number] MEDICAID M [id number] S [id number] [facility]CS MEDICAID [id number] SP [id number] UNAVAILABLE LG UNAVAILA BLE [facility] [employer] O UNAVAILABLE [id number] S UNAVAILABLE [facility] COMMUNITY PLAN [id number] SP [id number] SELF PAY UNAVAILABLE UNAVAILA BLE [facility](MCAID) P [id number] S [id number] MEDICAID W [id number] S [id number] [facility] REGIONAL CLAIMS O [id number] S [id number] [employer] [place] [id number] SP [id number] [employer] [place] [id number] FA [id number] [employer] [place] [id number] FA [id number] [employer] [place] [id number] FA2 [id number] JULIO [id number] SP [id number] [place] [id number] SP [id number] SELF PAY ONLY [id number] SP [id number] [place] [id number] SP [id number] [place] CARE [place] O [id number] S [id number] MEDICAID M [id number] S [id number] [place] CARE OF [place] -OP [id number] 18 [id number] [facility] COMMUNITY PLAN [facility] [id number] SP [id number] SELF PAY O UNAVAILABLE [id number] S UNAVAILA BLE SELF PAY UNAVAILABLE SP UNAVAILA BLE [facility](MCAID) O [id number] S [id number] MEDICAID [id number] SP [id number] [facility]ITY [facility] [id number] SP [id number] [facility] COMMUNITY PLAN [facility] [id number] SP [id number] [facility] [id number] SP [id number] [facility] [id number] SP [id number] [facility] COMMUN[facility] [id number] SP [id number] [facility] MEDICAID PI PI [facility] COMMUNITY PLAN [id number] SP [id number] [facility] COMMUNITY PLAN UNAVAILABLE UNAVAILABLE Problems, Conditions, and Diagnoses Code Display Name Description Problem Type Effective Dates Data Source(s) Z3A01 Less than 8 weeks gestation of Less than 8 weeks gestation of Diagnosis 08/10/2020 03:31:00 AM [facility] W40397 Nicotine dependence, cigarettes, uncompl icated Nicotine dependence, cigarettes, uncomplicated Diagnosis 08/10/2020 03:31:00 AM [facility] G45496 Smoking (tobacco) complicating , first trimester Smoking (tobacco) complicating , first trimester Diagnosis 07/23 03:31:00 AM [facility] R55 Syncope and collapse Syncope and collapse Diagnosis 08/10/2020 03:31:00 AM [facility] W65747 Other specified related condit ions, first trimester Other specified related conditions, first trimester Diagnosis 08/10/2020 03:31:00 AM [facility] O200 Threatened Threatened Diagnosis 0 08/10/2020 03:31:00 AM [facility] O209 Hemorrhage in early , unspecifi ed Hemorrhage in early , unspecified Diagnosis 08/10/2020 03:31:00 AM [facility] F32.9 Depression Depression (emotion) Problem 2020 12:0 0:00 AM [place] [address] ([facility]) Z34.80 care Supervision of other normal P roblem 06/02/2020 12:00:00 AM [place] [address] ([facility]) Surgeries/Procedures Procedure Description Date Indications Data Source(s) EMERGENCY DEPARTMENT VISIT HIGH/URGENT SEVERITY 2020 12:00:00 AM EDT MEDENT ([facility]) CVR Children'S Service Supervisor.Svc. STI / H 11/01/2020 12:00:00 AM EDT - 11/01/2020 12:00:00 AM EDT [facility] ([facility]) CVR Children'S Service Supervisor.Svc. Contraceptive 11/01/2020 12 :00:00 AM EDT - 11/01/2020 12:00:00 AM EDT [facility] ([facility]) CVR Med.Svc. Method Initiation 12:00:00 AM EDT - 11/01/2020 12:00:00 AM EDT [facility] ([facility]) CVR Med.Svc. Height/Weight 11/01/2020 12 :00:00 AM EDT - 11/01/2020 12:00:00 AM EDT [facility] ([facility]) HCS Without Test 11/01/2020 12:00:00 AM EDT - 11/02/19 21 12:00:00 AM EDT [facility] ([facility]) OFFICE VISIT, EST 11/01/2020 12:00:00 AM EDT - 021 12:00:00 AM EDT [facility] ([facility]) CVR Children'S Service Supervisor.Svc. STI / H 06/20/2020 12:00:00 AM EST - 06/20/2020 12:00:00 AM EST [facility] ([facility]) CVR Children'S Service Supervisor.Svc. Other 06/20/2020 12:00:00 AM EST - 2019 12:00:00 AM EST [facility] ([facility]) CVR Children'S Service Supervisor.Svc. Contraceptive 06/20/2020 12 :00:00 AM EST - 06/20/2020 12:00:00 AM EST [facility] ([facility]) CVR Med.Svc. Height/Weight 06/20/2020 12 :00:00 AM EST - 06/20/2020 12:00:00 AM EST [facility] ([facility]) CVR Blood Pressure 06/20/2020 12:00:00 AM [...] AM EST [facility] ([facility]) NGHN Default 06/20/2020 12:00:00 AM EST - 06/20/2020 1 2:00:00 AM EST [facility] ([facility]) NGHN Default 06/20/2020 12:00:00 AM EST - 06/20/2020 1 2:00:00 AM EST [facility] ([facility]) CHORIONIC GONADOTROPIN TEST 06/20/2020 1 2:00:00 AM EST - 06/20/2020 12:00:00 AM EST [facility] ([facility]) N.GONORRHOEAE, URINE 06/20/2020 12:00:00 AM EST - 06/20/2020 12:00:00 AM EST [facility] ([facility]) CHYLMD TRACH, URINE 06/20/2020 12:00:00 AM EST - 06/20 12:00:00 AM EST [facility] ([facility]) CAPILLARY BLOOD DRAW 06/20/2020 12:00:00 AM EST - 06/20/2020 12:00:00 AM EST [facility] ([facility]) HEMOGLOBIN 06/20/2020 12:00:00 AM EST - 06/20/2020 1 2:00:00 AM EST [facility] ([facility]) URINE TEST 06/20/2020 12:00:00 AM EST - 06/20/2020 12:00:00 AM EST [facility] ([facility]) RADEX SPINE CRV COMPL W/OBLQ&FLEX&/XTN STDS 04/12/2020 12:00:00 AM EDT [facility] ([facility]) RADEX SPINE THORACIC 2 VIEWS 04/12/2020 12:00:00 AM ED T [facility] ([facility]) Results ID Date Data Source [id number] 05/15/2021 10:33:00 AM EDT [facility] Name Value Range Interpretation Code Description Data Becca rce(s) Supporting Document(s) SARS coronavirus 2 RNA [Presence] in Res piratory specimen by BELEN with probe detection POSITIVE [facility] This lab was ordered by [facility] a nd reported by [facility]. ID Date Data Source [id number] 08/10/2020 03:31:00 AM [facility] 1 OrderSheet [facility] Emergency Department [address] [place] [address] Phone #: ext- [phone] 08/10/2020 03:29 Patient: [...] rce(s) Supporting Document(s) ID Date Data Source [id number] 08/10/2020 03:31:00 AM [facility] 1 Medication Reconciliation Report [facility] Emergency Department [address] [place] [address] Phone #: ext- [phone] 08/10/2020 03:29 Patient: [...] rce(s) Supporting Document(s) ID Date Data Source [id number] 08/10/2020 03:31:00 AM [place] [address] Medication Administration Record [facility] Emergency Department [address] [place] [address] Phone #: ext- [phone] 08/10/2020 03:29 Patient: KATHRYN SPARROW Sex: F : 2000 Age: 20yWeight: 68.0 kgHeight/Length: 59 inBMI: 30.3ALLERGIES: No Known Drug Allergy Date/Time Medication Administered Medication OrderedStart SODIUM CHLORIDE [IV] IV NS 1000 mL Bolus : Bolus 850086:[id number] 08/10/2020 Dose: IV Fluids mL (X1)Melaragno, Patsy, R.N. Rate: 1000 mL/hr over 1 hour(s)---- Bolus: 1000 mLStop Dispensed: 1000 mL bag05:07 08/10/2020 Site: #1 Patsy Bullock R.N. Name Value Range Interpretation Code Description Data Becca rce(s) Supporting Document(s) ID Date Data Source [id number] 08/10/2020 03:31:00 AM EST [facility] 1 General Instructions [facility] Emergency Department [address] [place] [address] Phone #: ext- [phone] 08/10/2020 03:29 Patient: [...] miscarriage, or if things 2 General Instructions [facility] Emergency Department [address] [place] [address] Phone #: ext- [phone] 08/10/2020 03:29 Patient: KATHRYN SPARROW Sex: F : 2000 Age: 20ywill clear up and [...] any new findings that mayaffect your care.Call [id number] if you have: Severe pain and very heavy bleeding Severe lightheadedness, passing out, or fainting Rapid heart rate 3 General Instructions [facility] Emergency Department [address] [place] [address] Phone #: ext- [phone] 08/10/2020 03:29 Patient: [...] container and bring it to your provider. [id number] [employer]. [address] [place] [address]. All rights reserved. This information is not [...] like cramping in the 4 General Instructions [facility] Emergency Department [address] [place] [address] Phone #: ext- [phone] 08/10/2020 03:29 Patient: KATHRYN SPARROW [facility]#: [id number] Sex: Mariano : 2000 Age: 20ylower abdomen, lower back, [...] areas may also help. 5 General Instructions [facility] Emergency Department [address] [place] [address] Phone #: ext- [phone] 08/10/2020 03:29 Patient: KATHRYN SPARROW Sex: F : 2000 Age: 20y Exercise [...] pink or holcomb tissue from the vagina [employer]. [address] [place] [address]. All rights reserved. This information is not [...] for along time.Home care 6 General Instructions [facility] Emergency Department [address] [place] [address] Phone #: ext- [phone] 08/10/2020 03:29 Patient: KATHRYN SPARROW Sex: F : 2000 Age: 20yFollow these [...] rapidly, very slowly, or irregularly (palp itations) [id number] [employer]. [address] [place] [address]. All rights reserved. This information is not [...] rce(s) Supporting Document(s) ID Date Data Source [id number] 08/10/2020 03:31:00 AM EST [facility] 1 Clinical Report - Nurses [facility] Emergency Department [address] [place] [address] Phone #: ext- [phone] 08/10/2020 03:29 Patient: KATHRYN SPARROW Sex: F : 2000 Age: 20yTRIAGEArrived by EMS. Historian: patient. Accompanied by family.Acuity: LEVEL 3.Chief Complaint: ABDOMINAL CRAMPS and VAGINAL BLEEDING.Alert. No acute distress.Onset. (8 days). ( Patient arrives via ems from home c/o vaginal bleed. [facility] she just found [...] she had pelvic exam and US at [facility]. Pt is a .).Treatment ORE GRADER:(IVFs by ems). --03:39 08/10/20 Patsy Kraus R.N.03:29 08/10/20. BP: 97/64. MAP: 75. HR: 72. RR: 16. O2 saturation: 98%. Temp: 98.3 F (oral). Pain levelnow: 10. --03:39 08/10/20 Patsy Kraus R.N.Weight: 68 kg [...] of tuberculosis, 2 Clinical Report - Nurses [facility] Emergency Department [address] [place] [address] Phone #: ext- [phone] 08/10/2020 03:29 Patient: [...] cc since she was d/c home from [facility]). ( Unknown how far along sheis or [...] Kraus R.N. 3 Clinical Report - Nurses [facility] Emergency Department [address] [place] [address] Phone #: ext- [phone] 08/10/2020 03:29 Patient: KATHRYN SPARROW Sex: F : 2000 Age: 20y ( Per [facility] pt is <14 weeks , 1st trimester [...] now: 10/29. --06:45 08/10/20 Patsy Kraus R.N. 07:01 08/10/2020 Site #1 removed upon discharge. Bandage applied. --07:11 08/10/20 Patsy Kraus R.N. No learning barriers present. Discharge instructions provided and reviewed with the patient. Reviewed warnings. Reviewed medication(s). Treatments reviewed. Reviewed referral to an senior insight manager. Work note given. Patient verbalized understanding. Written instructions provided in Ecuadorean. The patient was discharged home and accompanied by babbitter. She left ambulatory and via private vehicle. Legal Support Manager driving. --07:13 08/10/20 Patsy Kraus R.N.Locked/Released at 08/10/2020 07:13 by Patsy Kraus R.N. 4 Clinical Report - Nurses [facility] Emergency Department [address] [place] [address] Phone #: [phone] 08/10/2020 03:29 [id number] Sex: F : 2000 Age: 20y Name Value Range Interpretation Code Description Data Becca rce(s) Supporting Document(s) ID Date Data Source [id number] 08/10/2020 03:31:00 AM EST [facility] 1 Clinical Report - Physicians/Mid Levels [facility] Emergency Department [address] [place] [address] Phone #: ext- [phone] 08/10/2020 03:29 Patient: KATHRYN SPARROWN: [id number] Sex: F : 2000 Age: 20y Arrived- By private vehicle. Historian- patient. Disposition decision: 06:44 08/10/2020.HISTORY OF PRESENT ILLNESS Chief Complaint: VAGINAL BLEEDING. ((8 days). ( Patient arrives via ems from home c/o vaginal bleed. Pt states she was just d/c from [facility]. Pt states she just found out she [...] she had pelvic exam and US at [facility]. Pt is a .). Still present. The [...] D. 2 Clinical Report - Physicians/Mid Levels [facility] Emergency Department [address] [place] [address] Phone #: ext- [phone] 08/10/2020 03:29 Patient: KATHRYN SPARROW Sex: F [...] 14.5) 3 Clinical Report - Physicians/Mid Levels [facility] Emergency Department [address] [place] [address] Phone #: ext- [phone] 08/10/2020 03:29 Patient: [...] to the ED after being discharged from [facility] for vaginal bleeding. shestates she is and she does not know how far along she is. she states she went home and bleed 4 Clinical Report - Physicians/Mid Levels [facility] Emergency Department [address] [place] [address] Phone #: ext- [phone] 08/10/2020 03:29 Patient: [...] she is non-toxic. We requested labs from [facility]. I reordered labs here at [place]. I was able to review. Her h/h has not dropped. she received 300mcg of rhogram at [facility]. Her bp was slightly low. I think [...] 08/10/2020 07:18) 5Clinical Report - Physicians/Mid Levels [facility] Emergency Department [address] [place] [address] Phone #: ext- [phone] 08/10/2020 03:29--------- Patient: KATHRYN SPARROW Sex: F : 2000 Age: 20y Name Value Range Interpretation Code Description Data Becca rce(s) Supporting Document(s) ID Date Data Source [id number] 08/10/2020 04:13:00 AM EST [facility] Name Value Range Interpretation Code Description Data Becca rce(s) Supporting Document(s) COMPREHENSIVE METABOLIC PANEL [facility] COMPREHENSIVE METABOLIC PANEL Sodium [Moles/volume] in Serum or Plasma 139 mEq/L 134 - 153 [facility] Potassium [Moles/volume] in Serum or Plasma 3.4 mEq/L 3.6 - 5.0 L [facility] Chloride [Moles/volume] in Serum or Plasma 106 mEq/L 98 - 107 [facility] Carbon dioxide, total [Moles/volume] in Serum or Plasma 24 MEQ/L 22 - 30 [facility] Glucose [Mass/volume] in Serum or Plasma 110 MG/DL 70 - 99 H [facility] BUN 6 MG/DL 7 - 21 L [facility] Creatinine [Mass/volume] in Serum or Plasma 0.7 MG/DL 0.7 - 1.5 [facility] BUN/CREAT 9 8 - 27 [facility] Protein [Mass/volume] in Serum or Plasma 5.8 G/DL 6.3 - 8.2 L [facility] Albumin [Mass/volume] in Serum or Plasma 4.1 G/DL 3.9 - 5.0 [facility] Globulin [Mass/volume] in Serum by calculation 1.7 GM/DL 2.4 - 3.2 L [facility] A/G RATIO 2.4 0.8 - 2.0 H [facility] Calcium [Mass/volume] in Serum or Plasma 8.2 MG/DL 8.4 - 10.2 L [facility] Bilirubin.total [Mass/volume] in Serum or Plasma <0.7 MG/DL 0.2 - 1.3 [facility] Alkaline phosphatase [Enzymatic activity/volume] in Serum or Plasma 67 U/L 38 - 126 [facility] Aspartate aminotransferase [Enzymatic activity/volume] in Serum or Plasma 12 U/L 5 - 40 [facility] Alanine aminotransferase [Enzymatic activity/volume] in Seru m or Plasma 11 U/L 7 - 56 [facility] Anion gap 3 in Serum or Plasma 9.0 mmol/L 8.0 - 16.0 [facility] AGE 20 yrs [facility] al NON-AA GFR >60 mL/min [facility] AFR AMER GFR >60 mL/min [facility] Male GFR In terprentation 20-49 [...] >32 mL/min Normal ID Date Data Source [id number] 08/10/2020 04:01:00 AM EST [facility] Name Value Range Interpretation Code Description Data Becca rce(s) Supporting Document(s) CBC W/AUTOMATED DIFF [facility] COMPLETE BLOOD COUNT Leukocytes [#/volume] in Blood by Automated count 9.2 10^3/uL 4.2 - 1 1.0 [facility] Erythrocytes [#/volume] in Blood by Automated count 3.37 10^6/uL 4. 20 - 5.40 L [facility] Hemoglobin [Mass/volume] in Blood 9.7 g/dL 12.0 - 16.0 L [facility] Hematocrit [Volume Fraction] of Blood by Automated count 28.9 % 3 7.0 - 47.0 L [facility] Erythrocyte mean corpuscular volume [Entitic volume] by Auto mated count 85.8 fL 81.0 - 101 [facility] Erythrocyte mean corpuscular hemoglobin [Entitic mass] by Automated count 28.8 pg 27.0 - 34.0 [facility] Erythrocyte mean corpuscular hemoglobin concentration [Mass/volume] by Automated count 33.6 g/dL 31.0 - 36.0 [facility] Erythrocyte distribution width [Ratio] by Automated count 13.5 % 11.5 - 14.5 [facility] Platelets [#/volume] in Blood by Automated count 250 10^3/uL 150 - 45 0 [facility] Platelet mean volume [Entitic volume] in Blood by Automated count 10.9 fL 7.4 - 10.4 H [facility] Neutrophils/100 leukocytes in Blood by Automated count 61.3 % 37. 0 - 80.0 [facility] Lymphocytes/100 leukocytes in Blood by Manual count 30.0 % 25.0 - 40.0 [facility] Monocytes/100 leukocytes in Blood by Automated count 7.4 % 3.0 - 8.0 [facility] Eosinophils/100 leukocytes in Blood by Automated count 0.7 % 0.0 - 7.0 [facility] Basophils/100 leukocytes in Blood by Automated count 0.5 % 0.0 - 2.5 [facility] %IG 0.1 % 0.0 - 0.0 [facility] %NRBC 0.0 % 0.0 - 0.0 [facility] al Neutrophils [#/volume] in Blood by Automated count 5.62 10^3/uL 2.00 - 6.90 [facility] Lymphocytes [#/volume] in Blood by Automated count 2.75 10^3/uL 0.60 - 3.40 [facility] Monocytes [#/volume] in Blood by Automated count 0.68 10^3/uL 0.00 - 0.90 [facility] Eosinophils [#/volume] in Blood by Automated count 0.06 10^3/uL 0.00 - 0.70 [facility] Basophils [#/volume] in Blood by Automated count 0.05 10^3/uL 0.00 - 0.20 [facility] #IG 0.01 10^3/uL 0.00 - 0.10 [facility] #NRBC 0.00 10^3/uL 0.00 - 0.00 [facility] MANUAL DIFF NOT INDICATED [facility] RBC MORPH NOT INDICATED [facility] ID Date Data Source [id number] 06/23/2020 06:35:00 AM EST [facility] Name Value Range Interpretation Code Description Data Becca rce(s) Supporting Document(s) SARS coronavirus 2 RNA [Presence] in Res piratory specimen by BELEN with probe detection [facility] This lab was ordered by [facility] a nd reported by [facility]. ID Date Data Source [id number] 06/20/2020 01:02:51 PM EST [facility] ([facility]) Name Value Range Interpretation Code Description Data Becca rce(s) Supporting Document(s) 12.30 gm/dL Hemoglobin [facility] ([facility]) ID Date Data Source [id number] 06/20/2020 12:55:41 PM EST [facility] ([facility]) Name Value Range Interpretation Code Description Data Becca rce(s) Supporting Document(s) 9.80 gm/dL Hemoglobin [facility] ([facility] ID Date Data Source [id number] 06/20/2020 12:45:41 PM EST [facility] ([facility]) Name Value Range Interpretation Code Description Data Becca rce(s) Supporting Document(s) PositiveLot: [id number]: 09/18/2021 Abnormal (applies to non-numeric results) High Sensitivity Urine Test [facility] ([facility]) ID Date Data Source [id number] 06/20/2020 12:00:00 AM EST [facility] ([facility]) Name Value Range Interpretation Code Description Data Becca rce(s) Supporting Document(s) Negative Normal (applies to non-numeric resul ts) Urine CT/GC Combo - GC [facility] ([facility]) : No Performed by: CDD ([id number]) ID Date Data Source [id number] 06/20/2020 12:00:00 AM EST [facility] ([facility]) Name Value Range Interpretation Code Description Data Becca rce(s) Supporting Document(s) Negative Normal (applies to non-numeric resul ts) Urine CT/GC Combo - CT [facility] ([facility]) ID Date Data Source [id number] 06/20/2020 12:00:00 AM EST [facility] ([facility]) Name Value Range Interpretation Code Description Data Becca rce(s) Supporting Document(s) [id number] SeeComment Abnormal (applies to no n-numeric results) hCG Quantitative [facility] ([facility]) Gestational Age Expected hCG values (m IU/mL)<1 Week: 5-501-2 Weeks: 50-5002-3 Weeks: 100-27491-5 Weeks: 781-502429-7 Weeks: 8868-224354-7 Weeks: 05737-1408810-3 Weeks: 22101-8871353-8 Months: 56136- [id number] < 10 The table above provides only [...] cleared or approved bythe FDA or the property management assistant of the assay.

Performed by:
CDD ([id number])

Procedure Social History Code Duration Value Status Description Data Source(s ) 11/01/2020 12:00:00 AM EDT Light cigarette smoker (1-9 cigs/day) completed Light cigarette smoker (1-9 cigs/day) [facility] ([facility]) Smoking 11/01/2020 12:00:00 AM EDT Light tobacco smoker comple donna Light [facility]oker [facility] Sm[facility] 2020 12:00:00 AM EST Current Smoker completed Curre nt Smoker eCW1 ([facility]) Smoking 06/02/2020 12:00:00 AM EST Current Smoker completed Curre nt Smoker eCW1 ([facility]) Vital Signs ID Date Data Source UNK Name Value Range Interpretation Code Description Data Source(s) Body height 149.86 cm 149.86 cm [facility] ([facility] Body weight 63.503 kg 63.503 kg [facility] Body mass index (BMI) [Ratio] 28.28 kg/m2 Overweight 28.28 kg/m2 [facility] ([facility] Body mass index (BMI) [Ratio] 30.74 kg/m2 30.74 kg/m2 W1 ([facility]) Body weight 157.4 [lb_av] 157.4 [lb_av] W1 ([facility]) Body weight 71.4 kg 71.4 kg [facility] ([facility]) Body height 60 [in_i] 60 [in_i] eCW1 ([facility]) Diastolic blood pressure 70 mm[Hg] 70 mm[Hg] eCW1 ([facility]) Systolic blood pressure 118 mm[Hg] 118 mm[Hg] e CW1 ([facility]) Body height 152.40 cm 152.40 cm [facility] ([facility] Body weight 72.575 kg 72.575 kg [facility] ([facility]) Systolic blood pressure 110 mm[Hg] 110 mm[Hg] N extGen ([facility]) Diastolic blood pressure 70 mm[Hg] 70 mm[Hg] [facility] ([facility]) Body mass index (BMI) [Ratio] 31.25 kg/m2 Overweight 31.25 kg/m2 [facility] ([facility]) Body weight 165 [lb_av] 165 [lb_av] [facility]CW[facility] Body weight 74.84 kg 74.84 kg eCW1 ([facility]) Body height 60 [in_i] 60 [in_i] eCW1 ([facility]) Body mass index (BMI) [Ratio] 32.224 kg/m2 32.2 24 kg/m2 eCW1 ([facility]) Systolic blood pressure 110 mm[Hg] 110 mm[Hg] e CW1 ([facility]) Diastolic blood pressure 70 mm[Hg] 70 mm[Hg] eCW1 ([facility]) Body temperature 97.4 [degF] 97.4 [degF] MEDENT ([facility]) Body height 65 [in_i] 65 [in_i] [facility] ([facility]) 5'5" Body weight 166.25 [lb_av] 166.25 [lb_av] MEDEN T ([facility]) Body mass index (BMI) [Ratio] 27.7 kg/m2 27.7 k g/m2 [facility] ([facility]) Patient Treatment Plan of Care Planned Activity Planned Date Details Description Data Source (s) 21 DAY Ethinyl Estradiol 0.478860 MG/HR / Etonogestrel 0.005 MG/HR Vaginal Ring [NuvaRing] 11/01/2020 12:00:00 AM EDT [facility] ([facility]) 21 DAY Ethinyl Estradiol 0.549516 MG/HR / Etonogestrel 0.005 MG/HR Vaginal Ring [NuvaRing] 06/20/2020 12:00:00 AM EST [facility] ([facility]) Ondansetron 4 MG Oral Tablet 06/20/2020 12:00:00 AM EST [facility] ([facility]) Misoprostol 0.2 MG Oral Tablet 06/20/2020 12:00:00 AM EST [facility] ([facility]) Ibuprofen 800 MG Oral Tablet 06/20/2020 12:00:00 AM EST [facility] ([facility]) Acetaminophen 300 MG / Codeine Phosphate 30 MG Oral Ta blet 06/20/2020 12:00:00 AM EST [facility] Misoprostol 0.2 MG Oral Tablet 06/20/2020 12:00:00 AM EST [facility] ([facility]) Mifepristone 200 MG Oral Tablet [Mifeprex] 06/20/2020 12:00:[address] [facility] ([facility]) Citalopram 10 MG Oral Tablet [facility] ([facility])
[2021-06-10] MEDS ORDERED: METO5TAB2 (14:20)
[2021-06-10 14:46] LABS: HEMATOCRIT 34.2 % (36.0-47.0); HEMOGLOBIN 10.9 g/dl (12.0-15.5); MEAN CORPUSCULAR HEMOGLOBIN 24.8 pg (27.0-33.0); MEAN CORPUSCULAR HGB CONC 31.9 g/dl (32.0-36.5); MEAN CORPUSCULAR VOLUME 77.9 fl (80.0-96.0); PLATELET COUNT, AUTOMATED 271 10^3/uL (150-450); RED BLOOD COUNT 4.39 10^6/uL (4.00-5.40); WHITE BLOOD COUNT 9.2 10^3/uL (4.0-10.0)
[2021-06-10 15:15] LABS: AMPHETAMINES LEVEL URINE NEGATIVE (NEGATIVE); BARBITURATES URINE NEGATIVE (NEGATIVE); BENZODIAZEPINES URINE NEGATIVE (NEGATIVE); CANNABINOIDS URINE POSITIVE (NEGATIVE); COCAINE METABOLITE URINE NEGATIVE (NEGATIVE); METHADONE URINE NEGATIVE (NEGATIVE); OPIATES URINE NEGATIVE (NEGATIVE); PHENCYCLIDINE URINE NEGATIVE (NEGATIVE)
[2021-06-10 15:28] LABS: ACETAMINOPHEN LEVEL < 2.0 UG/ML (10.0-30.0); ALBUMIN 3.5 GM/DL (3.2-5.2); ALT/SGPT 17 U/L (12-78); BILIRUBIN,DIRECT 0.1 MG/DL (0.0-0.2); BILIRUBIN,TOTAL 0.3 MG/DL (0.2-1.0); BLOOD UREA NITROGEN 4 MG/DL (7-18); CALCIUM LEVEL 8.6 MG/DL (8.5-10.1); CARBON DIOXIDE LEVEL 25 MEQ/L (21-32); CHLORIDE LEVEL 106 MEQ/L (98-107); CREATININE FOR GFR 0.68 MG/DL (0.55-1.30); ETHYL ALCOHOL (ETHANOL) < 0.003 % (0.000-0.010); GLOMERULAR FILTRATION RATE > 60.0 (>60); GLUCOSE, FASTING 126 MG/DL (70-100); HCG, SERUM QUANTITATIVE 142316 MIU/ML; POTASSIUM SERUM 3.4 MEQ/L (3.5-5.1); SALICYLATE LEVEL 2.5 MG/DL (5.0-30.0); SODIUM LEVEL 138 MEQ/L (136-145); THYROID STIMULATING HORMONE 0.098 uIU/ML (0.358-3.740); TOTAL PROTEIN 7.1 GM/DL (6.4-8.2)
--- OUTSIDE RECORDS SUMMARY | 2021-06-10 15:34 | CCD ---
Author Author [facility] Organization [facility] Address Unknown Phone Unavailable Support Name Relationship Address Phone JEIMY PRITCHETT Next Of Kin [address] [place] [address] ROXANA PRINGLE Next Of Kin [address] [place] [address] BRODERICK SULLIVAN Next Of Kin Unknown Mara ALATORRE-C, Shirley Yun Next Of Kin [address] [place], [place] [id number] MESHA ROSE Next Of Kin [address] [place] [address] MESHA WANG Next Of Kin [address] [place] [address] NO, CONTACT Next Of Kin Unknown DOES, WISH NOT Next Of Kin [address] [place] [address] MEGHANN GOMEZ Next Of Kin [address] [place] [address] ANI HAY Next Of Kin [address] [place] [address] MEGHANN PAZ Next Of Kin [address] [place] [address] [facility] Next Of Kin [address] [place] [address] Unavailable UE Next Of Kin Unknown Unavailable JESSICA SANTANA Next Of Kin [address] [place] [address] MG FRITZ Next Of Kin [address] [place] [address] [facility] Next Of Kin [address] [place] [address] Pratik AMAYA, Ned Jaquez Next Of Kin [address] [place] [address] Mara PNP-C, Carina Next Of Kin [address] [place] [address] UN Next Of Kin Unknown Unavailable CHILD Next Of Kin Unknown Unavailable PRESTON VELARDE Next Of Kin [address] [address] PRESTON STEARNS Next Of Kin [address] [place] [address] ST Next Of Kin Unknown Unavailable TRACI [place] [address] Eladia Hansen Next Of Kin [address] [place] [address] MESHA ROSE ECON [address] [place] [address] Unavailable Preston Hansen ECON [address] [place] [address] [phone] Care Team Providers Care Engineer Chief Name Role Phone NO, PCP Unavailable Unavailable [...] Unavailable Shawn, A Mirtha AMAYA Unavailable Unavailable Shwan, A Mirtha AMAYA Unavailable Unavailable Shawn, A [...] le Rachele-Power, Leatha CNM Unavailable Unavailab le Winchester-Power, Leatha CNM Unavailable Unavailab le Winchester-Power, Leatha CNM Unavailable Unavailab le Rachele-Power, Leatha CNM Unavailable Unavailab le Mara, Court AUTOMATED CUTTING MACHINE OPERATOR Unavailable Unavailable Mara, Court AUTOMATED CUTTING MACHINE OPERATOR Unavailable Unavailable Mara, Court AUTOMATED CUTTING MACHINE OPERATOR Unavailable Unavailable Mara, Court AUTOMATED CUTTING MACHINE OPERATOR Unavailable Unavailable Mara, Court AUTOMATED CUTTING MACHINE OPERATOR Unavailable Unavailable Mara, Court AUTOMATED CUTTING MACHINE OPERATOR Unavailable Unavailable Mara, Court AUTOMATED CUTTING MACHINE OPERATOR Unavailable Unavailable Mara, Court AUTOMATED CUTTING MACHINE OPERATOR Unavailable Unavailable Mara, Court AUTOMATED CUTTING MACHINE OPERATOR Unavailable Unavailable Mara, Court AUTOMATED CUTTING MACHINE OPERATOR Unavailable Unavailable Mara, Court AUTOMATED CUTTING MACHINE OPERATOR Unavailable Unavailable Quiñonez, M Christopher PA-C Unavailable [...] is protected by Article 27-F of the [facility] Public Health law. If you continue you may have access to information: Regarding HIV / AIDS; Provided by facilities licensed or operated by the [facility] Office of Mental Health; or Provided by the [facility] Office for People With Developmental Disabilities. If such information is present, then the following [facility] mandated warning applies: This information [...] ([facility]) Unknown Male Diagnosis 01/02/2016 12:00:00 AM EDT [facility] ([facility]) Encounters Encounter Providers Location Date Indications Data Source(s ) Outpatient Attender: Stefan Quiñonez PA-C 02/18/2021 02:19:05 PM EDT - 02/18/2021 02:56:57 PM EDT DocuTap ([facility]) Outpatient Attender: Paul Hill/Genaro/Conner/Harika indl 02/18/2021 01:23:00 AM EDT JUDY ([facility]) OFFICE VISIT, ESTOutpatient Attender: Camilla DEE [place] 11/01/2020 12:00:00 PM EDT - 11/01/2020 12:00:00 PM EDT Other sex counselingEncounter for initial prescription of vagnl ringEncounter for oth general cnsl and advice on contraceptionHuman immunodeficiency virus [HIV] counseling NextGen ([facility]) Other sex counseling Encounter for initial prescription of va gnl ring Encounter for oth general cnsl and advic e on contraception Human immunodeficiency virus [HIV] couns ashish Outpatient 10/26/2020 01:10:31 PM EDT - 021 01:11:03 PM EDT DocuTap ([facility]) Attender: Camilla DEE [place] 10:27:00 AM EST - 09/13/2020 10:27:00 AM EST NextGen ([facility]) Emergency Attender: CAROLINE TREVINO MDConsultant: PCP NO 08/10/2020 03:31:00 AM EST - 08/10/2020 07:13:00 AM EST [facility] Patient discharged. (WC 20ESGYN) WCenter 20 Min Est [employer] [employer] [address] [place] [address] 2020 12:00:00 AM EST eCW1 ([facility]) Attender: Mirtha Mazariegos 10/2019 02:21:00 PM EST - 06/24/2020 02:21:00 PM EST NextGen ([facility]) Att[facility]: [facility]atha [facility] 06/23/2020 12:49:00 PM EST - 06/23/2020 12:49:00 PM EST [facility] ([facility]) Attender: Leatha Ya [facility] 06/23/2020 10:15:00 AM EST - 06/23/2020 10:15:00 AM EST [facility] ([facility]) Attender: Camilla Mazariegos 08/2019 08:23:00 AM EST - 06/22/2020 08:23:00 AM EST NextGen ([facility]) Attender: Mirtha Mazariegos 02:32:00 PM EST - 06/20/2020 02:32:00 PM EST NextGen ([facility]) Attender: Camilla DEE [place] 12:15:00 PM EST - 06/20/2020 12:15:00 PM EST Other sex counselingEncntr screen for in fections w sexl mode of transmissEncounter for oth general cnsl and advice on contraceptionEncounter for initial prescription of vagnl ringProblems related to unwanted pregnancyEncounter for elective termination of pregnancyEncntr screen for dis of the bld/bld-form org/immun mechnsmEncounter for test, result positive NextGen ([facility]) Other sex counseling Encntr screen [...] itive (WC ESTOB) WCenter Est OB [address] [place] [address] 06/03/2020 12:00:00 AM EST eCW1 ([facility]) Unknown [address] [facility] [address] 05/26/2020 12:00:00 AM EST eCW1 ([facility]) Office Visit Attender: FRANCISCO J FERNANDO Physical Therapy 05/17/2020 02:00:00 PM EDT MEDENT ([facility]) Outpatient Attender: Court Terry NP SP 05/16/2020 12:50: 00 PM EDT [facility] Outpatient Attender: FRANCISCO J FERNANDO Physical Therapy 04/12/2020 02:00:00 PM EDT MEDENT ([facility]) Medications Medication [...] [facility] 21 DAY Ethinyl Estradiol 0.992843 MG/HR / Etonogestrel 0.005 MG/HR Vaginal Ring [NuvaRing] NuvaRing 0.12 mg-0.015 mg/24 hr vaginal NuvaRing 0.12 mg-0.015 mg/24 hr vaginal 11/01/2020 12:00:00 AM EDT active 21 DAY ethinyl estradiol 0.556422 MG/HR / etonogestrel 0.005 MG/HR Vaginal System [NuvaRing] NextGen ([facility]) 5 % 10/25/2020 12:00:00 AM EDT [...] MOUTH EVERY 8 HOURS NEEDED SOLD: 06/20/2020 Antavo Ibuprofen 800 MG Oral Tablet ibuprofen 800 mg tablet ibuprof en 800 mg tablet 06/20/2020 12:00:00 AM EST active 1 tab po every 8 hours prn NextGen ([facility]) 21 DAY Ethinyl Estradiol 0.993939 MG/HR / Etonogestrel 0.005 MG/HR Vaginal Ring [NuvaRing] NuvaRing 0.12 mg-0.015 mg/24 hr vaginal NuvaRing 0.12 mg-0.015 mg/24 hr vaginal 06/20/2020 12:00:00 AM EST complet ed 21 DAY ethinyl estradiol 0.833413 MG/HR / etonogestrel 0.005 MG/HR Vaginal System [...] ([facility]) 300-30 mg 06/20/2020 12:00:00 AM EST tablet 10 TAKE ONE TO TWO TABLETS BY MOUTH EVERY 4 HOURS NEEDED FOR PAIN MAXIMUM DAILY DOSE = TEN TABLETS TAKE ONE TO TWO TABLETS BY MOUTH EVERY 4 HOURS NEEDED FOR PAIN MAXIMUM DAILY DOSE = TEN TABLETS SOLD: 06/20/2020 [facility] 4 mg 06/20/2020 12:00:00 AM [...] active MEDENT ( [facility]) 300 mg 04/12/2020 [...] ORAL active MEDENT ([facility]) gabapentin 300 MG Oral Capsule Gabapentin 04/12/2020 12:00:00 AM EDT ORAL active MEDENT ([facility]) 4 mg 04/12/2020 12:00:00 AM [...] every day MojganGen ([facility]) Insurance Providers Payer name Policy type / Coverage type Policy ID Covered alliance party ID Covered alliance party's relationship to langley Policy Langley Plan Information MEDICAID [facility] [id number] [place] [id number] Medicaid [facility] Individual Policy 0 [id number] Self 0 United Healthcare Commercial [id number] Family Dependent [phone] Medicaid [facility] Individual Policy 0 [id number] Self 0 [facility] Community Plan Health Maintenance Organization (HMO) [id number] Family Dependent Medicaid S [id number] UnitedHealthcare Other 0 [id number] Self 0 UnitedHealthcare Other 0 [id number] Self 0 Managed Care - Community Plan United Healthcare P [id number] S [id number] Medicaid Dental S [id number] Medicaid-Pcap Medicaid [id number] Self [facility] Community Plan Health Maintenance Organization (HMO) [id number] Managed Care United Healthcare P [id number] S [id number] [facility] I [id number] Self [id number] [facility] I [id number] Self [id number] [facility] COMMUNITY PLAN [id number] SP [id number] [facility] COMMUNITY PLAN [id number] SP [id number] [facility] MEDICAID [id number] [place] [id number] [facility] COMMUNITY PLAN MCDHMO [id number] SP [id number] [facility] COMMUNITY PLAN MCDHMO [id number] SP [id number] SELF PAY [employer] [id number] Self [id number] UNITED HEALTHCARE HEA [id number] S [id number] UNITED HEALTHCARE HEA [id number] S [id number] MEDICAID [facility] [id number] SP [id number] MEDICAID [id number] SP [id number] [facility] [place] Health Maintenance Organization (HMO) [id number] Self United Healthcare Commercial [id number] Family Dependent Preston Hansen [id number] [facility] Community Plan Health Maintenance Organization (HMO) [id number] Family Dependent Preston Hansen [id number] Medicaid-Pcap Medicaid [id number] Self [id number] MEDICAID [id number] SP [id number] MEDICAID M [id number] S [id number] CCS MEDICAID [id number] SP [id number] UNAVAILABLE LG UNAVAILA BLE [facility] [employer] O UNAVAILABLE [id number] S UNAVAILABLE [facility] COMMUNITY PLAN [id number] SP [id number] SELF PAY UNAVAILABLE UNAVAILA BLE [facility](MCAID) P [id number] S [id number] MEDICAID W [id number] S [id number] [facility] REGIONAL CLAIMS O [id number] S [id number] [employer] [place] [id number] SP [id number] [employer] [place] [id number] FA [id number] [employer] [place] [id number] FA [id number] [employer] [place] [id number] FA2 [id number] JULIO [id number] SP [id number] [place] MED[place] [id number] SP [id number] J SELF PAY ONLY [id number] SP [id number] [place]ED[place] [id number] SP [id number] [place]ARE [place] O [id number] S [id number] MEDICAID M [id number] S [id number] [place]ARE OF [place] -OP [id number] 18 [id number] [facility] COMMUNITY PLAN [facility] [id number] SP [id number] SELF PAY O UNAVAILABLE [id number] S UNAVAILA BLE SELF PAY UNAVAILABLE SP UNAVAILA BLE [facility](MCAID) O [id number] S [id number] MEDICAID [id number] SP [id number] [facility] COMMUNITY PLAN [facility] [id number] SP [id number] [facility] COMMUNITY PLAN [facility] [id number] SP [id number] [facility] [id number] SP [id number] [facility] [id number] SP [id number] [facility] COMMUNITY PLAN [facility] [id number] SP [id number] [facility] MEDICAID PI PI [facility] COMMUNITY PLAN [id number] SP [id number] [facility] COMMUNITY PLAN UNAVAILABLE UNAVAILABLE Problems, Conditions, and Diagnoses Code Display Name Description Problem Type Effective Dates Data Source(s) Z3A01 Less than 8 weeks gestation of Less than 8 weeks gestation of Diagnosis 08/10/2020 03:31:00 AM [facility] X99775 Nicotine dependence, cigarettes, uncompl icated Nicotine dependence, cigarettes, uncomplicated Diagnosis 08/10/2020 03:31:00 AM [facility] [id number] Smoking (tobacco) complicating , first trimester Smoking (tobacco) complicating , first trimester Diagnosis 07/23 03:31:00 AM [facility] R55 Syncope and collapse Syncope and collapse Diagnosis 08/10/2020 03:31:00 AM [facility] X56031 Other specified related condit ions, first trimester Other specified related conditions, first trimester Diagnosis 08/10/2020 03:31:00 AM [facility] O200 Threatened Threatened Diagnosis 0 08/10/2020 03:31:00 AM [facility] O209 Hemorrhage in early , unspecifi ed Hemorrhage in early , unspecified Diagnosis 08/10/2020 03:31:00 AM [facility] F32.9 Depression Depression (emotion) Problem 2020 12:0 0:00 AM [place] [address] ([facility]) Z34.80 care Supervision of other normal P roblem 06/02/2020 12:00:00 AM [place] [address] ([facility]) Surgeries/Procedures Procedure Description Date Indications Data Source(s) EMERGENCY DEPARTMENT VISIT HIGH/URGENT SEVERITY 2020 12:00:00 AM EDT MEDENT ([facility]) CVR Archivist Political History.Svc. STI / H 11/01/2020 12:00:00 AM EDT - 11/01/2020 12:00:00 AM EDT [facility]Gen ([facility]) CVR Archivist Political History.Svc. Contraceptive 11/01/2020 12 :00:00 AM EDT - 11/01/2020 12:00:00 AM EDT [facility]Gen ([facility]) CVR Med.Svc. Method Initiation 12:00:00 AM [...] ([facility]) CVR Archivist Political History.Svc. STI / H 06/20/2020 12:00:00 AM EST - 06/20/2020 12:00:00 AM EST [facility] ([facility]) CVR Archivist Political History.Svc. Other 06/20/2020 12:00:00 AM EST - 2019 12:00:00 AM EST [facility] ([facility]) CVR Archivist Political History.Svc. Contraceptive 06/20/2020 12 :00:00 AM EST - [...] ([facility]) NGHN Default 06/20/2020 12:00:00 AM EST - 06/20/2020 1 2:00:00 AM EST NextGen ([facility]) NGHN Default 06/20/2020 12:00:00 AM EST - 06/20/2020 1 2:00:00 AM EST [facility] ([facility]) CHORIONIC GONADOTROPIN TEST 06/20/2020 1 2:00:00 AM EST - 06/20/2020 12:00:00 AM EST [facility]Gen ([facility]) N.GONORRHOEAE, URINE 06/20/2020 12:00:00 AM [...] 2:00:00 AM EST [facility]Gen ([facility]) URINE TEST 06/20/2020 12:00:00 AM EST - 06/20/2020 12:00:00 AM EST NextGen ([facility]) RADEX SPINE CRV COMPL W/OBLQ&FLEX&/XTN STDS 04/12/2020 12:00:00 AM EDT MEDENT ([facility]) RADEX SPINE THORACIC 2 VIEWS 04/12/2020 12:00:00 AM ED T MEDENT ([facility]) Results ID Date Data Source [id number] 05/15/2021 10:33:00 AM EDT [facility] Name Value Range Interpretation Code Description Data Becca rce(s) Supporting Document(s) SARS coronavirus 2 RNA [Presence] in Res piratory specimen by BELEN with probe detection POSITIVE [facility] This lab was ordered by [facility] a nd reported by [facility]. ID Date Data Source [id number] 08/10/2020 03:31:00 AM [facility] 1 OrderSheet [facility] Emergency Department [address] [place] [address] Phone #: ext- [phone] 08/10/2020 03:29 Patient: [...] rce(s) Supporting Document(s) ID Date Data Source [id number] 08/10/2020 03:31:00 AM [facility] 1 Medication Reconciliation Report [facility] Emergency Department [address] [place] [address] Phone #: ext- [phone] 08/10/2020 03:29 Patient: [...] rce(s) Supporting Document(s) ID Date Data Source [id number] 08/10/2020 03:31:00 AM EST [facility] 1 Medication Administration Record [facility] Emergency Department [address] [place] [address] Phone #: ext- [phone] 08/10/2020 03:29 Patient: KATHRYN SPARROW Sex: F : 2000 Age: 20yWeight: 68.0 kgHeight/Length: 59 inBMI: 30.3ALLERGIES: No Known Drug Allergy Date/Time Medication Administered Medication OrderedStart SODIUM CHLORIDE [IV] IV NS 1000 mL Bolus : Bolus 816747:57 08/10/2020 Dose: IV Fluids mL (X1)Patsy Kraus R.N. Rate: 1000 mL/hr over 1 hour(s)---- Bolus: 1000 mLStop Dispensed: 1000 mL bag05:07 08/10/2020 Site: #1 Patsy Bullock R.N. Name Value Range Interpretation Code Description Data Becca rce(s) Supporting Document(s) ID Date Data Source [id number] 08/10/2020 03:31:00 AM EST [facility] 1 General Instructions [facility] Emergency Department [address] [place] [address] Phone #: ext- [phone] 08/10/2020 03:29 Patient: [...] miscarriage, or if things 2 General Instructions [facility] Emergency Department [address] [place] [address] Phone #: ext- [phone] 08/10/2020 03:29 Patient: [...] any new findings that mayaffect your care.Call [id number] if you have: Severe pain and very heavy bleeding Severe lightheadedness, passing out, or fainting Rapid heart rate 3 General Instructions [facility] Department [address] [place] [address] Phone #: ext- [phone] 08/10/2020 03:29 Patient: [...] container and bring it to your provider. [id number] [employer]. [address] [place] [address]. All rights reserved. This information is not [...] like cramping in the 4 General Instructions [facility] Emergency Department [address] [place] [address] Phone #: ext- [phone] 08/10/2020 03:29 Patient: KATHRYN SPARROW [facility]#: [id number] Sex: Mariano : 2000 Age: 20ylower abdomen, [...] areas may also help. 5 General Instructions [facility] Emergency Department [address] [place] [address] Phone #: ext- [phone] 08/10/2020 03:29 Patient: [...] or holcomb tissue from the vagina [employer]. [address] [place] [address]. All rights reserved. This information is not [...] for along time.Home care 6 General Instructions [facility] Emergency Department [address] [place] [address] Phone #: ext- [phone] 08/10/2020 03:29 Patient: [...] very slowly, or irregularly (palp itations) [employer]. [address] [place] [address]. All rights reserved. This information is not [...] rce(s) Supporting Document(s) ID Date Data Source [id number] 08/10/2020 03:31:00 AM EST [facility] 1 Clinical Report - Nurses [facility] Emergency Department [address] [place] [address] Phone #: ext- [phone] 08/10/2020 03:29 Patient: KATHRYN SPARROW Sex: F : 2000 Age: 20yTRIAGEArrived by EMS. Historian: patient. Accompanied by family.Acuity: LEVEL 3.Chief Complaint: ABDOMINAL CRAMPS and VAGINAL BLEEDING.Alert. No acute distress.Onset. (8 days). ( Patient arrives via ems from home c/o vaginal bleed. [facility] Pt sta jelena she just found [...] she had pelvic exam and US at [facility]. Pt is a .).Treatment LIVESTOCK AGENT:(IVFs by ems). --03:39 08/10/20 Patsy Kraus R.N.03:29 08/10/20. BP: 97/64. MAP: 75. HR: 72. RR: 16. O2 saturation: 98%. Temp: 98.3 F (oral). Pain levelnow: 01/28. --03:39 08/10/20 Patsy Kraus R.N.Weight: 68 kg [...] of tuberculosis, 2 Clinical Report - Nurses [facility] Emergency Department [address] [place] [address] Phone #: ext- [phone] 08/10/2020 03:29 Patient: [...] cc since she was d/c home from [facility]). ( Unknown how far along [...] Kraus R.N. 3 Clinical Report - Nurses [facility] Emergency Department [address] [place] [address] Phone #: ext- [phone] 08/10/2020 03:29 Patient: KATHRYN SPARROW Sex: F : 2000 Age: 20y ( Per [facility] pt is <14 weeks , [...] medication(s). Treatments reviewed. Reviewed referral to an hospice volunteer coordinator. Work note given. Patient verbalized understanding. Written instructions provided in Georgian. The patient was discharged home and accompanied by carpet technician. She left ambulatory and via private vehicle. Clinical Trial Leader driving. --07:13 08/10/20 Patsy Kraus R.N.Locked/Released at 08/10/2020 07:13 by Patsy Kraus R.N. 4 Clinical Report - Nurses [facility] Emergency Department [address] [place] [address] Phone #: [phone] 08/10/2020 03:29 [id number] Sex: F : 2000 Age: 20y Name Value Range Interpretation Code Description Data Becca rce(s) Supporting Document(s) ID Date Data Source [id number] 08/10/2020 03:31:00 AM EST [facility] 1 Clinical Report - Physicians/Mid Levels [facility] Emergency Department [address] [place] [address] Phone #: ext- [phone] 08/10/2020 03:29 [id number] Sex: F : 2000 Age: 20y Arrived- By private vehicle. Historian- patient. Disposition decision: 06:44 08/10/2020.HISTORY OF PRESENT ILLNESS Chief Complaint: VAGINAL BLEEDING. ((8 days). ( Patient arrives via ems from home c/o vaginal bleed. Pt states she was just d/c from [facility]. Pt states she just found out [...] she had pelvic exam and US at [facility]. Pt is a .). Still [...] D. 2 Clinical Report - Physicians/Mid Levels [facility] Emergency Department [address] [place] [address] Phone #: ext- [phone] 08/10/2020 03:29 Patient: KATHRYN SPARROW Sex: F [...] 14.5) 3 Clinical Report - Physicians/Mid Levels [facility] Emergency Department [address] [place] [address] Phone #: ext- [phone] 08/10/2020 03:29 Patient: [...] to the ED after being discharged from [facility] for vaginal bleeding. shestates she is and she does not know how far along she is. she states she went home and bleed 4 Clinical Report - Physicians/Mid Levels [facility] [address] [place] [address] Phone #: ext- [phone] 08/10/2020 03:29 Patient: [...] she is non-toxic. We requested labs from [facility]. I reordered labs here at [facility]. I was able to review. Her h/h has not dropped. she received 300mcg of rhogram at [facility]. Her bp was slightly low. I think [...] 08/10/2020 07:18) 5Clinical Report - Physicians/Mid Levels [facility] [address] [place] [address] Phone #: ext- [phone] 08/10/2020 03:29--------- Patient: KATHRYN SPARROW Sex: F : 2000 Age: 20y Name Value Range Interpretation Code Description Data Becca rce(s) Supporting Document(s) ID Date Data Source [id number] 08/10/2020 04:13:00 AM EST [facility] Name Value Range Interpretation Code Description Data Becca rce(s) Supporting Document(s) COMPREHENSIVE METABOLIC PANEL [facility] COMPREHENSIVE METABOLIC PANEL Sodium [Moles/volume] in Serum or Plasma 139 mEq/L 134 - 153 [facility] Potassium [Moles/volume] in Serum or Plasma 3.4 mEq/L 3.6 - 5.0 L [facility] Chloride [Moles/volume] in Serum or Plasma 106 mEq/L 98 - 107 [facility] Carbon dioxide, total [Moles/volume] in Serum or Plasma 24 MEQ/L 22 - 30 [facility] Glucose [Mass/volume] in Serum or Plasma 110 MG/DL 70 - 99 H [facility] BUN 6 MG/DL 7 - 21 L [facility] Creatinine [Mass/volume] in Serum or Plasma 0.7 MG/DL 0.7 - 1.5 [facility] BUN/CREAT 9 8 - 27 [facility] al Protein [Mass/volume] in Serum or Plasma 5.8 G/DL 6.3 - 8.2 L [facility] Albumin [Mass/volume] in Serum or Plasma 4.1 G/DL 3.9 - 5.0 [facility] Globulin [Mass/volume] in Serum by calculation 1.7 GM/DL 2.4 - 3.2 L [facility] A/G RATIO 2.4 0.8 - 2.0 H [facility] Calcium [Mass/volume] in Serum or Plasma 8.2 MG/DL 8.4 - 10.2 L [facility] Bilirubin.total [Mass/volume] in Serum or Plasma <0.7 MG/DL 0.2 - 1.3 [facility] Alkaline phosphatase [Enzymatic activity/volume] in Serum or Plasma 67 U/L 38 - 126 [facility] Aspartate aminotransferase [Enzymatic activity/volume] in Serum or Plasma 12 U/L 5 - 40 [facility] Alanine aminotransferase [Enzymatic activity/volume] in Seru m or Plasma 11 U/L 7 - 56 [facility] Anion gap 3 in Serum or Plasma 9.0 mmol/L 8.0 - 16.0 [facility] AGE 20 yrs [facility] al NON-AA GFR >60 mL/min [facility] ital AFR AMER GFR >60 mL/min [facility] Male GFR In terprentation [...] >32 mL/min Normal ID Date Data Source [id number] 08/10/2020 04:01:00 AM EST [facility] Name Value Range Interpretation Code Description Data Becca rce(s) Supporting Document(s) CBC W/AUTOMATED DIFF [facility] COMPLETE BLOOD COUNT Leukocytes [#/volume] in Blood by Automated count 9.2 10^3/uL 4.2 - 1 1.0 [facility] Erythrocytes [#/volume] in Blood by Automated count 3.37 10^6/uL 4. 20 - 5.40 L [facility] Hemoglobin [Mass/volume] in Blood 9.7 g/dL 12.0 - 16.0 L [facility] Hematocrit [Volume Fraction] of Blood by Automated count 28.9 % 3 7.0 - 47.0 L [facility] Erythrocyte mean corpuscular volume [Entitic volume] by Auto mated count 85.8 fL 81.0 - 101 [facility] Erythrocyte mean corpuscular hemoglobin [Entitic mass] by Automated count 28.8 pg 27.0 - 34.0 [facility] Erythrocyte mean corpuscular hemoglobin concentration [Mass/volume] by Automated count 33.6 g/dL 31.0 - 36.0 [facility] Erythrocyte distribution width [Ratio] by Automated count 13.5 % 11.5 - 14.5 [facility] Platelets [#/volume] in Blood by Automated count 250 10^3/uL 150 - 45 0 [facility] Platelet mean volume [Entitic volume] in Blood by Automated count 10.9 fL 7.4 - 10.4 H [facility] Neutrophils/100 leukocytes in Blood by Automated count 61.3 % 37. 0 - 80.0 [facility] Lymphocytes/100 leukocytes in Blood by Manual count 30.0 % 25.0 - 40.0 [facility] Monocytes/100 leukocytes in Blood by Automated count 7.4 % 3.0 - 8.0 [facility] Eosinophils/100 leukocytes in Blood by Automated count 0.7 % 0.0 - 7.0 [facility] Basophils/100 leukocytes in Blood by Automated count 0.5 % 0.0 - 2.5 [facility] %IG 0.1 % 0.0 - 0.0 [facility] 0.0 % 0.0 - 0.0 [facility] al Neutrophils [#/volume] in Blood by Automated count 5.62 10^3/uL 2.00 - 6.90 [facility] Lymphocytes [#/volume] in Blood by Automated count 2.75 10^3/uL 0.60 - 3.40 [facility] Monocytes [#/volume] in Blood by Automated count 0.68 10^3/uL 0.00 - 0.90 [facility] Eosinophils [#/volume] in Blood by Automated count 0.06 10^3/uL 0.00 - 0.70 [facility] Basophils [#/volume] in Blood by Automated count 0.05 10^3/uL 0.00 - 0.20 [facility] #IG 0.01 10^3/uL 0.00 - 0.10 [facility] #NRBC 0.00 10^3/uL 0.00 - 0.00 [facility] MANUAL DIFF NOT INDICATED [facility] RBC MORPH NOT INDICATED [facility] ID Date Data Source [id number] 06/23/2020 06:35:00 AM EST [facility] Name Value Range Interpretation Code Description Data Becca rce(s) Supporting Document(s) SARS coronavirus 2 RNA [Presence] in Res piratory specimen by BELEN with probe detection [facility] This lab was ordered by [facility] a nd reported by [facility]. ID Date Data Source [id number] 06/20/2020 01:02:51 PM EST [facility] ([facility]) Name Value Range Interpretation Code Description Data Becca rce(s) Supporting Document(s) 12.30 gm/dL Hemoglobin [facility] ([facility]) ID Date Data Source [id number] 06/20/2020 12:55:41 PM EST [facility] ([facility]) Name Value Range Interpretation Code Description Data Becca rce(s) Supporting Document(s) 9.80 gm/dL Hemoglobin [facility] ([facility]) ID Date Data Source [id number] 06/20/2020 12:45:41 PM EST [facility] ([facility]) Name Value Range Interpretation Code Description Data Becca rce(s) Supporting Document(s) PositiveLot: [id number]: 09/18/2021 Abnormal (applies to non-numeric results) High Sensitivity Urine Test [facility] ([facility]) ID Date Data Source [id number] 06/20/2020 12:00:00 AM EST [facility] ([facility]) Name Value Range Interpretation Code Description Data Becca rce(s) Supporting Document(s) Negative Normal (applies to non-numeric resul ts) Urine CT/GC Combo - GC [facility] ([facility]) : No Performed by: CDD ([id number]) ID Date Data Source [id number] 06/20/2020 12:00:00 AM EST [facility] ([facility]) Name Value Range Interpretation Code Description Data Becca rce(s) Supporting Document(s) Negative Normal (applies to non-numeric resul ts) Urine CT/GC Combo - CT [facility] ID Date Data Source [id number] 06/20/2020 12:00:00 AM EST [facility] ([facility]) Name Value Range Interpretation Code Description Data Becca rce(s) Supporting Document(s) [id number] SeeComment Abnormal (applies to no n-numeric results) hCG Quantitative [facility] ([facility]) Gestational Age Expected hCG values (m IU/mL)<1 Week: 5-501-2 Weeks: 50-5002-3 Weeks: 100-89849-8 Weeks: 962-419784-9 Weeks: 9378-097819-0 Weeks: 61483-0354622-1 Weeks: 73885-7981249-4 Months: 23871- [id number] < 10 The table above provides only [...] cleared or approved bythe FDA or the engineering design manager of the assay.

Performed by:
NASRIN ([id number])

Procedure Social History Code Duration Value Status Description Data Source(s ) 11/01/2020 12:00:00 AM EDT Light cigarette smoker (1-9 cigs/day) completed Light cigarette smoker (1-9 cigs/day) [facility] Smoking 11/01/2020 12:00:00 AM EDT Light tobacco smoker comple donna Light tobacco smoker [facility] ([facility]) Smoking 2020 12:00:00 AM EST Current Smoker completed Curre nt Smoker eCW1 ([facility]) Smoking 06/02/2020 12:00:00 AM EST Current Smoker completed Curre nt Smoker eCW1 ([facility]) Vital Signs ID Date Data Source UNK Name Value Range Interpretation Code Description Data Source(s) Body height 149.86 cm 149.86 cm [facility] ([facility]) Body weight 63.503 kg 63.503 kg [facility] ([facility]) Body mass index (BMI) [Ratio] 28.28 kg/m2 Overweight 28.28 kg/m2 [facility] ([facility]) Diastolic blood pressure 70 mm[Hg] 70 mm[Hg] W1 ([facility]) Body weight 157.4 [lb_av] 157.4 [lb_av] W1 ([facility]) Body weight 71.4 kg 71.4 kg [facility] ([facility]) Body mass index (BMI) [Ratio] 30.74 kg/m2 30.74 kg/m2 [facility] ([facility]) Body height 60 [in_i] 60 [in_i] W1 ([facility]) Systolic blood pressure 118 mm[Hg] 118 mm[Hg] e CW1 ([facility]) Body height 152.40 cm 152.40 cm [facility] Body weight 72.575 kg 72.575 kg [facility] ([facility] Systolic blood pressure 110 mm[Hg] 110 mm[Hg] N [facility] ([facility]) Diastolic blood pressure 70 mm[Hg] 70 mm[Hg] [facility] ([facility]) Body mass index (BMI) [Ratio] 31.25 kg/m2 Overweight 31.25 kg/m2 [facility] ([facility]) Body weight 165 [lb_av] 165 [lb_av] eCW1 ([facility]) Body weight 74.84 kg 74.84 kg eCW1 ([facility]) Body height 60 [in_i] 60 [in_i] eCW1 ([facility]) Body mass index (BMI) [Ratio] 32.224 kg/m2 32.2 24 kg/m2 eCW1 ([facility]) Systolic blood pressure 110 mm[Hg] 110 mm[Hg] e CW1 ([facility]) Diastolic blood pressure 70 mm[Hg] 70 mm[Hg] eCW1 ([facility]) Body temperature 97.4 [degF] 97.4 [degF] MEDENT ([facility]) Body height 65 [in_i] 65 [in_i] [facility] ([facility]) 5'5" Body weight 166.25 [lb_av] 166.25 [lb_av] MEDEN T ([facility]) Body mass index (BMI) [Ratio] 27.7 kg/m2 27.7 k g/m2 [facility] ([facility]) Patient Treatment Plan of Care Planned Activity Planned Date Details Description Data Source (s) 21 DAY Ethinyl Estradiol 0.563219 MG/HR / Etonogestrel 0.005 MG/HR Vaginal Ring [NuvaRing] 11/01/2020 12:00:00 AM EDT [facility] ([facility]) 21 DAY Ethinyl Estradiol 0.987293 MG/HR / Etonogestrel 0.005 MG/HR Vaginal Ring [NuvaRing] 06/20/2020 12:00:00 AM EST [facility] ([facility]) Ondansetron 4 MG Oral Tablet 06/20/2020 12:00:00 AM EST [facility] ([facility]) Misoprostol 0.2 MG Oral Tablet 06/20/2020 12:00:00 AM EST [facility] ([facility]) Ibuprofen 800 MG Oral Tablet 06/20/2020 12:00:00 AM EST [facility] ([facility]) Acetaminophen 300 MG / Codeine Phosphate 30 MG Oral Ta blet 06/20/2020 12:00:00 AM EST [facility] Misoprostol 0.2 MG Oral Tablet 06/20/2020 12:00:00 AM EST [facility] ([facility]) Mifepristone 200 MG Oral Tablet [Mifeprex] 06/20/2020 12:00:[address] [facility] ([facility]) Citalopram 10 MG Oral Tablet [facility] ([facility])
[2021-06-10] MEDS ORDERED: POTASSIUM CHLORIDE 10MEQ SR TABLET PO ONE (17:00)
[2021-06-10 18:14] LABS: RSV AMPLIFICATION NEGATIVE (NEGATIVE)
[2021-06-10] MEDS ORDERED: ACETAMINOPHEN TAB 650MG DOSE (2X325MG) PO ONE (20:00)
[2021-06-10] MEDS ORDERED: PRENTAB53 PO (20:09)
[2021-06-10] MEDS ORDERED: HOME MED LIST COMPLETE! XX SCH (20:10)
--- NOTE | 2021-06-10 20:45 | ECGEPIP ---
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
[2021-06-10 21:24] VITALS: BP 118/72
== END 2021-06-10 21:35 ==
LOC: M ED 14:10
DX: R45.851 Suicidal ideations (principal); F33.9 Major depressive disorder, recurrent, unspecified; F41.9 Anxiety disorder, unspecified; F43.10 Post-traumatic stress disorder, unspecified; F90.9 Attention-deficit hyperactivity disorder, unspecified type; Z88.8 Allergy status to other drugs, medicaments and biological substances; F17.210 Nicotine dependence, cigarettes, uncomplicated

== ENCOUNTER → 2021-07-04 | Outpatient (CLI) | payer OTHER ==
[~2021-07-04] MED LIST changes: +METO5TAB2; +PRENTAB53 PO
[2021-07-04 15:18] LABS: HEMATOCRIT 32.3 % (36.0-47.0); HEMOGLOBIN 10.4 g/dl (12.0-15.5); MEAN CORPUSCULAR HEMOGLOBIN 25.6 pg (27.0-33.0); MEAN CORPUSCULAR HGB CONC 32.2 g/dl (32.0-36.5); MEAN CORPUSCULAR VOLUME 79.4 fl (80.0-96.0); PLATELET COUNT, AUTOMATED 320 10^3/uL (150-450); RED BLOOD COUNT 4.07 10^6/uL (4.00-5.40); WHITE BLOOD COUNT 8.5 10^3/uL (4.0-10.0)
[2021-07-04 16:33] LABS: HEPATITIS C VIRUS ABY INDEX 0.2 INDEX (<0.8); HIV 1&2 SCREEN CENTAUR NEGATIVE (NEGATIVE)
[2021-07-04 16:35] LABS: GC DNA AMPLIFICATION NEGATIVE (NEGATIVE)
== END ==
LOC: M PLALAB 12:12
PROVIDERS: ATTEND Advanced Practice Midwife
DX: Z34.81 Encounter for supervision of other normal pregnancy, first trimester (principal); Z3A.09 9 weeks gestation of pregnancy

== ENCOUNTER → 2021-08-07 | Outpatient (CLI) | payer OTHER | LOC: M WHC 14:40 | PROVIDERS: ATTEND Advanced Practice Midwife | DX: O26.852 Spotting complicating pregnancy, second trimester (principal); Z3A.18 18 weeks gestation of pregnancy ==

== ENCOUNTER 2021-09-19 13:55 | Outpatient (CLI) | payer OTHER ==
[~2021-09-19] VITALS: Ht 149.9 cm; Wt 68.4 kg
[2021-09-19 14:14] VITALS: BP 134/75
[2021-09-19 16:01] LABS: APPEARANCE, URINE CLEAR (CLEAR); BACTERIA, URINE AUTO 2+ (NEGATIVE); BILIRUBIN, URINE AUTO NEGATIVE (NEGATIVE); BLOOD, URINE BLOOD NEGATIVE (NEGATIVE); COLOR, URINE YELLOW (YELLOW); GLUCOSE, URINE (UA) AUTO NEGATIVE (NEGATIVE); KETONE, URINE AUTO 1+ mg/dL (NEGATIVE); LEUKOCYTE ESTERASE, URINE AUTO NEGATIVE (NEGATIVE); NITRITE, URINE AUTO NEGATIVE (NEGATIVE); PROTEIN, URINE AUTO NEGATIVE (NEGATIVE); RBC, URINE AUTO 0 /HPF (0-3); SPECIFIC GRAVITY URINE AUTO 1.006 (1.002-1.035); SQUAMOUS EPITHELIAL CELL UR AU 6 /HPF (0-6); UROBILINOGEN, URINE AUTO 0.2 mg/dL (0.0-2.0); WBC, URINE AUTO 2 /HPF (0-3)
== END 2021-09-19 16:45 | disposition home or self-care (01) ==
LOC: M LDO 13:55
PROVIDERS: ATTEND Obstetrics & Gynecology
DX: O26.893 Other specified pregnancy related conditions, third trimester (principal); R25.2 Cramp and spasm; R19.7 Diarrhea, unspecified; Z3A.25 25 weeks gestation of pregnancy

== ENCOUNTER → 2021-09-26 | Outpatient (CLI) | payer OTHER ==
[2021-09-26 13:46] LABS: HEMATOCRIT 33.5 % (36.0-47.0); HEMOGLOBIN 11.2 g/dl (12.0-15.5); MEAN CORPUSCULAR HEMOGLOBIN 28.8 pg (27.0-33.0); MEAN CORPUSCULAR HGB CONC 33.4 g/dl (32.0-36.5); MEAN CORPUSCULAR VOLUME 86.1 fl (80.0-96.0); PLATELET COUNT, AUTOMATED 238 10^3/uL (150-450); RED BLOOD COUNT 3.89 10^6/uL (4.00-5.40); WHITE BLOOD COUNT 8.9 10^3/uL (4.0-10.0)
== END ==
LOC: M PLALAB 11:19
PROVIDERS: ATTEND Obstetrics & Gynecology
DX: O34.211 Maternal care for low transverse scar from previous cesarean delivery (principal)

== ENCOUNTER → 2021-09-26 | Outpatient (REF) | payer OTHER | LOC: M PLALAB 13:30 | PROVIDERS: ATTEND Specialist | DX: Z53.9 Procedure and treatment not carried out, unspecified reason (principal) ==

== ENCOUNTER → 2021-09-26 | Outpatient (REF) | payer OTHER | LOC: M SFHCWAGY 17:02 | PROVIDERS: ATTEND Specialist | DX: N39.0 Urinary tract infection, site not specified (principal) ==

== ENCOUNTER 2021-10-10 17:47 | Outpatient (CLI) | payer OTHER ==
[~2021-10-10] VITALS: Ht 149.9 cm; Wt 69.1 kg
[2021-10-10] MEDS ORDERED: IRON65TA2 PO (18:00)
[2021-10-10] MEDS ORDERED: HOME MED LIST COMPLETE! XX SCH (18:00)
[2021-10-10] MEDS ORDERED: AMPI500C9 PO (18:00)
[2021-10-10 18:09] VITALS: BP 113/63
[2021-10-10 18:55] LABS: BASO % 0.3 % (0.0-1.0); EOS # 0.1 10^3/uL (0.0-0.5); EOS % 0.6 % (0.0-3.0); HEMATOCRIT 29.4 % (36.0-47.0); LYMPH # 1.2 10^3/uL (1.5-5.0); LYMPH % 13.2 % (24.0-44.0); MEAN CORPUSCULAR HEMOGLOBIN 28.2 pg (27.0-33.0); MEAN CORPUSCULAR VOLUME 83.1 fl (80.0-96.0); MONO # 0.9 10^3/uL (0.0-0.8); MONO % 9.9 % (2.0-8.0); NEUTROPHILS # 6.6 10^3/uL (1.5-8.5); NEUTROPHILS % 75.5 % (36.0-66.0); PLATELET COUNT, AUTOMATED 232 10^3/uL (150-450); RED BLOOD COUNT 3.54 10^6/uL (4.00-5.40); WHITE BLOOD COUNT 8.7 10^3/uL (4.0-10.0)
[2021-10-10 19:42] VITALS: BP 122/76
[2021-10-10] MEDS ORDERED: MONI4CRE3 PV (19:51)
== END 2021-10-10 19:52 | disposition home or self-care (01) ==
LOC: M LDO 17:47
PROVIDERS: ATTEND Obstetrics & Gynecology
DX: O23.43 Unspecified infection of urinary tract in pregnancy, third trimester (principal); O26.893 Other specified pregnancy related conditions, third trimester; R10.2 Pelvic and perineal pain; M54.50 Low back pain, unspecified; Z3A.28 28 weeks gestation of pregnancy

== ENCOUNTER 2021-10-12 17:09 | Outpatient (CLI) | payer OTHER ==
[~2021-10-12] VITALS: Ht 149.9 cm; Wt 68.3 kg
[~2021-10-12 17:09] MED LIST changes: +AMPI500C9 PO; +IRON65TA2 PO; +MONI4CRE3 PV
[2021-10-12 17:29] VITALS: BP 118/66
== END 2021-10-12 18:51 | disposition home or self-care (01) ==
LOC: M LDO 17:09
PROVIDERS: ATTEND Specialist
DX: O26.893 Other specified pregnancy related conditions, third trimester (principal); R25.2 Cramp and spasm; O23.43 Unspecified infection of urinary tract in pregnancy, third trimester; Z3A.28 28 weeks gestation of pregnancy

== ENCOUNTER → 2021-10-21 | Outpatient (CLI) | payer OTHER ==
[~2021-10-21] VITALS: Ht 149.9 cm; Wt 69.5 kg
[~2021-10-21] MED LIST changes: +CEPH500C PO; +CEPH500T PO; +HOME MED LIST COMPLETE! XX SCH; +LACTATED RINGER'S 1000 ML IV STA; +SODIUM CHLORIDE 0.9% 1000ML IV ONE; +cefTRIAXone SOD 1 GM in D5W MINI-BAG PLUS 50 ML IV ONE
[2021-10-21 17:00] VITALS: BP 121/69
[2021-10-21 18:37] VITALS: BP 113/74
[2021-10-21 19:32] VITALS: BP 125/74
== END ==
LOC: M LDO 16:37
PROVIDERS: ATTEND Obstetrics & Gynecology
DX: O23.43 Unspecified infection of urinary tract in pregnancy, third trimester (principal); O23.13 Infections of bladder in pregnancy, third trimester; Z3A.29 29 weeks gestation of pregnancy
CPT/HCPCS: 59025; 81001; 87088; J0696

== ENCOUNTER 2021-11-10 08:27 | Outpatient (CLI) | payer OTHER ==
[~2021-11-10] VITALS: Ht 149.9 cm; Wt 69.6 kg
[~2021-11-10 08:27] MED LIST changes: -HOME MED LIST COMPLETE! XX SCH; -LACTATED RINGER'S 1000 ML IV STA; -SODIUM CHLORIDE 0.9% 1000ML IV ONE; -cefTRIAXone SOD 1 GM in D5W MINI-BAG PLUS 50 ML IV ONE
[2021-11-10] MEDS ORDERED: ACET325C5 PO (08:36)
[2021-11-10] MEDS ORDERED: HOME MED LIST COMPLETE! XX SCH (08:40)
[2021-11-10 08:51] VITALS: BP 128/74
[2021-11-10] MEDS ORDERED: PERCOCET 5MG/325MG TAB PO ONE (09:35)
[2021-11-10 10:19] LABS: APPEARANCE, URINE HAZY (CLEAR); BACTERIA, URINE AUTO 1+ (NEGATIVE); BILIRUBIN, URINE AUTO NEGATIVE (NEGATIVE); BLOOD, URINE BLOOD NEGATIVE (NEGATIVE); COLOR, URINE YELLOW (YELLOW); GLUCOSE, URINE (UA) AUTO NEGATIVE (NEGATIVE); KETONE, URINE AUTO NEGATIVE (NEGATIVE); LEUKOCYTE ESTERASE, URINE AUTO NEGATIVE (NEGATIVE); MUCUS, URINE SMALL (NEGATIVE); NITRITE, URINE AUTO NEGATIVE (NEGATIVE); PROTEIN, URINE AUTO NEGATIVE (NEGATIVE); RBC, URINE AUTO 4 /HPF (0-3); SPECIFIC GRAVITY URINE AUTO 1.009 (1.002-1.035); SQUAMOUS EPITHELIAL CELL UR AU 1 /HPF (0-6); UROBILINOGEN, URINE AUTO 0.2 mg/dL (0.0-2.0); WBC, URINE AUTO 1 /HPF (0-3)
[2021-11-10 10:48] VITALS: BP 126/68
[2021-11-11] MEDS ORDERED: OXYC1TAB23 PO (14:38)
== END 2021-11-10 11:15 | disposition home or self-care (01) ==
LOC: M LDO 08:27
PROVIDERS: ATTEND Specialist
DX: O26.893 Other specified pregnancy related conditions, third trimester (principal); M54.50 Low back pain, unspecified; R51.9 Headache, unspecified; Z3A.32 32 weeks gestation of pregnancy

== ENCOUNTER 2021-11-14 08:12 | Outpatient (CLI) | payer OTHER ==
[~2021-11-14] VITALS: Ht 149.9 cm; Wt 68.2 kg
[~2021-11-14 08:12] MED LIST changes: +ACET325C5 PO; +IRON SUCROSE 500 MG in NS 250 ML OVER 4 HRS IV ONE
[2021-11-14 08:23] VITALS: BP 141/64
[2021-11-14 12:10] VITALS: BP 116/61
[2021-11-14 13:06] VITALS: BP 120/60
== END 2021-11-14 13:10 | disposition home or self-care (01) ==
LOC: M INFU 08:12
PROVIDERS: ATTEND Advanced Practice Midwife
DX: D64.9 Anemia, unspecified (principal); Z88.8 Allergy status to other drugs, medicaments and biological substances
CPT/HCPCS: 96365; 96366; J1756

== ENCOUNTER 2021-11-21 17:19 | Outpatient (CLI) | payer OTHER ==
[~2021-11-21] VITALS: Ht 149.9 cm; Wt 71.2 kg
[2021-11-21] VITALS (8 sets, daily range): BP systolic 94–114; BP diastolic 49–64
[~2021-11-21 17:19] MED LIST changes: -IRON SUCROSE 500 MG in NS 250 ML OVER 4 HRS IV ONE
[2021-11-21] MEDS ORDERED: FIOR1CAP PO (17:41)
[2021-11-21] MEDS ORDERED: PRENTAB9 PO (17:42)
[2021-11-21] MEDS ORDERED: PYRI1TAB5 PO (17:42)
[2021-11-21] MEDS ORDERED: HOME MED LIST COMPLETE! XX SCH (17:45)
[2021-11-21] MEDS ORDERED: CEPH250T PO (18:10)
[2021-11-21] MEDS ORDERED: cefTRIAXone SOD 1 GM in D5W MINI-BAG PLUS 50 ML IV ONE (18:35)
[2021-11-21 18:58] LABS: BASO % 0.2 % (0.0-1.0); EOS # 0.1 10^3/uL (0.0-0.5); EOS % 0.6 % (0.0-3.0); HEMATOCRIT 29.2 % (36.0-47.0); HEMOGLOBIN 9.8 g/dl (12.0-15.5); LYMPH # 1.8 10^3/uL (1.5-5.0); LYMPH % 13.9 % (24.0-44.0); MEAN CORPUSCULAR HEMOGLOBIN 29.3 pg (27.0-33.0); MEAN CORPUSCULAR HGB CONC 33.6 g/dl (32.0-36.5); MEAN CORPUSCULAR VOLUME 87.2 fl (80.0-96.0); MONO # 0.8 10^3/uL (0.0-0.8); MONO % 6.1 % (2.0-8.0); NEUTROPHILS # 10.1 10^3/uL (1.5-8.5); NEUTROPHILS % 78.6 % (36.0-66.0); PLATELET COUNT, AUTOMATED 288 10^3/uL (150-450); RED BLOOD COUNT 3.35 10^6/uL (4.00-5.40); WHITE BLOOD COUNT 12.9 10^3/uL (4.0-10.0)
[2021-11-21 19:07] LABS: AMORPHOUS SEDIMENT SMALL (NEGATIVE); APPEARANCE, URINE CLOUDY (CLEAR); BACTERIA, URINE AUTO 1+ (NEGATIVE); BILIRUBIN, URINE AUTO NEGATIVE (NEGATIVE); BLOOD, URINE BLOOD NEGATIVE (NEGATIVE); COLOR, URINE YELLOW (YELLOW); GLUCOSE, URINE (UA) AUTO NEGATIVE (NEGATIVE); KETONE, URINE AUTO NEGATIVE (NEGATIVE); LEUKOCYTE ESTERASE, URINE AUTO NEGATIVE (NEGATIVE); MUCUS, URINE SMALL (NEGATIVE); NITRITE, URINE AUTO NEGATIVE (NEGATIVE); PROTEIN, URINE AUTO NEGATIVE (NEGATIVE); RBC, URINE AUTO 2 /HPF (0-3); SPECIFIC GRAVITY URINE AUTO 1.012 (1.002-1.035); SQUAMOUS EPITHELIAL CELL UR AU 3 /HPF (0-6); UROBILINOGEN, URINE AUTO 0.2 mg/dL (0.0-2.0); WBC, URINE AUTO 3 /HPF (0-3)
[2021-11-21] MEDS ORDERED: LACTATED RINGER'S 1000 ML IV STA (19:19)
[2021-11-21] MEDS ORDERED: TERBUTALINE SULFATE 1 MG/ML VIAL (J3105) SC STA (20:15)
[2021-11-21] MEDS: LR 1,000 ML IV SCH (20:53)
[2021-11-21] MEDS ORDERED: BETAMETHASONE SOLUSPAN 6MG/ML 5ML VIAL (J0702 PER 3MG) IM ONE (22:10)
[2021-11-21] MEDS ORDERED: BUTORPHANOL 2 MG/ML INJ (J0595) IV ONE (22:15)
[2021-11-22] VITALS (7 sets, daily range): BP systolic 97–108; BP diastolic 52–68
[2021-11-22] MEDS: LR 1,000 ML IV SCH (05:01)
[2021-11-22] MEDS ORDERED: BETAMETHASONE SOLUSPAN 6MG/ML 5ML VIAL (J0702 PER 3MG) IM STA (11:18)
[2021-12-01] MEDS ORDERED: ceFAZolin 2 GM/D5W 50 ML IV BAG (J0690 PER 500MG) As Ordered ONE (20:04)
[2021-12-01] MEDS ORDERED: BICITRA 30ML SOLN UDC As Ordered ONE (20:04)
[2021-12-03] MEDS ORDERED: OXYC1TAB23 PO ×2 (11:56→16:31)
[2021-12-03] MEDS ORDERED: IBUP80TA PO (11:56)
[2021-12-03] MEDS ORDERED: PROZ20CA11 PO (14:30)
[2021-12-03] MEDS ORDERED: IBUP-1022 PO (16:32)
== END 2021-11-22 11:53 ==
LOC: M LDO 17:19
PROVIDERS: ATTEND Specialist
DX: O60.03 Preterm labor without delivery, third trimester (principal); O26.893 Other specified pregnancy related conditions, third trimester; R10.30 Lower abdominal pain, unspecified; O34.219 Maternal care for unspecified type scar from previous cesarean delivery; Z3A.34 34 weeks gestation of pregnancy
CPT/HCPCS: 59025; 81001; 85025; 87088; 87186; 87426; 96365; 96372; 96374; 96375; J0595; J0696; J0702; J3105

== ENCOUNTER → 2022-04-03 | Outpatient (CLI) | payer OTHER ==
[~2022-04-03] MED LIST changes: +CEPH250T PO; +FIOR1CAP PO; +IBUP-1022 PO; +PROZ20CA11 PO; +PYRI1TAB5 PO
== END ==
LOC: M RAD 11:21
PROVIDERS: ATTEND Nurse Practitioner Family
DX: M54.2 Cervicalgia (principal)

== ENCOUNTER 2022-04-30 17:43 | Emergency (ER) | payer OTHER ==
[~2022-04-30] VITALS: Ht 149.9 cm; Wt 68.2 kg
[2022-04-30 17:44] VITALS: BP 131/77
[2022-04-30 18:27] LABS: BASO % 0.3 % (0.0-1.0); EOS % 0.3 % (0.0-3.0); HEMATOCRIT 38.1 % (36.0-47.0); HEMOGLOBIN 13.1 g/dl (12.0-15.5); LYMPH # 1.7 10^3/uL (1.5-5.0); LYMPH % 18.1 % (24.0-44.0); MEAN CORPUSCULAR HEMOGLOBIN 29.9 pg (27.0-33.0); MEAN CORPUSCULAR HGB CONC 34.4 g/dl (32.0-36.5); MONO % 10.4 % (2.0-8.0); NEUTROPHILS # 6.4 10^3/uL (1.5-8.5); NEUTROPHILS % 70.7 % (36.0-66.0); PLATELET COUNT, AUTOMATED 249 10^3/uL (150-450); RED BLOOD COUNT 4.38 10^6/uL (4.00-5.40); WHITE BLOOD COUNT 9.1 10^3/uL (4.0-10.0)
[2022-04-30 18:32] LABS: APPEARANCE, URINE MANUAL CLEAR (CLEAR); COLOR, URINE MANUAL YELLOW (YELLOW)
[2022-04-30 18:33] LABS: BILIRUBIN, URINE MANUAL NEGATIVE (NEGATIVE); GLUCOSE, URINE (UA) MANUAL NEGATIVE (NEGATIVE); KETONE, URINE MANUAL NEGATIVE (NEGATIVE); NITRITE, URINE MANUAL POSITIVE (NEGATIVE); PROTEIN, URINE MANUAL NEGATIVE (NEGATIVE); SPECIFIC GRAVITY,URINE MANUAL 1.015 (1.002-1.035); UROBILINOGEN, URINE MANUAL NORMAL (NORMAL)
[2022-04-30 18:34] LABS: BLOOD URINE MANUAL TRACE (NEGATIVE); LEUKOCYTE ESTERASE, URINE MAN TRACE (NEGATIVE)
[2022-04-30 18:50] LABS: BACTERIA, URINE LARGE AMOUNT; SQUAMOUS EPITHELIAL CELL URINE LARGE AMOUNT /hpf (SMALL AMT)
[2022-04-30 19:12] LABS: BLOOD UREA NITROGEN 6 MG/DL (7-18); CALCIUM LEVEL 8.9 MG/DL (8.5-10.1); CARBON DIOXIDE LEVEL 28 MEQ/L (21-32); CHLORIDE LEVEL 106 MEQ/L (98-107); CREATININE FOR GFR 0.81 MG/DL (0.55-1.30); GLOMERULAR FILTRATION RATE > 60.0 (>60); GLUCOSE, FASTING 54 MG/DL (70-100); HCG, SERUM QUANTITATIVE 3033 MIU/ML; POTASSIUM SERUM 3.4 MEQ/L (3.5-5.1); SODIUM LEVEL 138 MEQ/L (136-145)
== END 2022-04-30 19:53 | disposition left against medical advice (07) ==
LOC: M ED 17:43
DX: Z53.21 Procedure and treatment not carried out due to patient leaving prior to being seen by health care provider (principal)

== ENCOUNTER 2022-06-09 16:17 | Emergency (ER) | payer OTHER ==
[~2022-06-09] VITALS: Ht 152.4 cm; Wt 68.2 kg
[~2022-06-09 16:17] MED LIST changes: -DOXY-350 PO; +DOXY-444 PO
[2022-06-09 17:23] LABS: BASO % 0.4 % (0.0-1.0); EOS % 0.1 % (0.0-3.0); HEMATOCRIT 41.1 % (36.0-47.0); HEMOGLOBIN 13.5 g/dl (12.0-15.5); LYMPH # 1.7 10^3/uL (1.5-5.0); LYMPH % 21.8 % (24.0-44.0); MEAN CORPUSCULAR HEMOGLOBIN 29.1 pg (27.0-33.0); MEAN CORPUSCULAR HGB CONC 32.8 g/dl (32.0-36.5); MEAN CORPUSCULAR VOLUME 88.6 fl (80.0-96.0); MONO # 0.4 10^3/uL (0.0-0.8); MONO % 5.4 % (2.0-8.0); NEUTROPHILS # 5.6 10^3/uL (1.5-8.5); PLATELET COUNT, AUTOMATED 260 10^3/uL (150-450); RED BLOOD COUNT 4.64 10^6/uL (4.00-5.40); WHITE BLOOD COUNT 7.8 10^3/uL (4.0-10.0)
[2022-06-09] MEDS ORDERED: NS 1,000 ML IV ONE (17:45)
[2022-06-09 17:49] LABS: BLOOD UREA NITROGEN 7 MG/DL (9-23); CALCIUM LEVEL 9.2 MG/DL (8.5-10.1); CARBON DIOXIDE LEVEL 28 MMOL/L (20-31); CHLORIDE LEVEL 104 MMOL/L (98-107); CREATININE FOR GFR 0.75 MG/DL (0.55-1.30); GLOMERULAR FILTRATION RATE > 60.0 (>60); GLUCOSE, FASTING 97 MG/DL (60-100); HCG, SERUM QUANTITATIVE 653.3 MIU/ML (<4.2); POTASSIUM SERUM 3.9 MMOL/L (3.5-5.1); SODIUM LEVEL 140 MMOL/L (136-145)
[2022-06-09 20:09] LABS: RSV AMPLIFICATION NEGATIVE (NEGATIVE)
[2022-06-09 20:20] LABS: GC DNA AMPLIFICATION NEGATIVE (NEGATIVE)
[2022-06-09 20:46] VITALS: BP 132/77
[2022-06-11] MEDS ORDERED: NITR1CAP11 PO (07:50)
== END 2022-06-09 21:24 | disposition home or self-care (01) ==
LOC: M ED 16:17
DX: O20.0 Threatened abortion (principal); O99.019 Anemia complicating pregnancy, unspecified trimester; Z3A.00 Weeks of gestation of pregnancy not specified; Z79.899 Other long term (current) drug therapy

== ENCOUNTER → 2022-06-12 | Outpatient (CLI) | payer OTHER ==
[~2022-06-12] MED LIST changes: +NITR1CAP11 PO
== END ==
LOC: M PLALAB 12:08
PROVIDERS: ATTEND Specialist
DX: N92.6 Irregular menstruation, unspecified (principal)

== ENCOUNTER → 2022-06-22 | Outpatient (CLI) | payer OTHER | LOC: M PLALAB 13:48 | PROVIDERS: ATTEND Specialist | DX: N92.6 Irregular menstruation, unspecified (principal) ==

== ENCOUNTER → 2022-09-17 | Outpatient (CLI) | payer OTHER ==
[2022-09-17 13:51] LABS: HEMATOCRIT 40.9 % (36.0-47.0); HEMOGLOBIN 13.5 g/dl (12.0-15.5); MEAN CORPUSCULAR HEMOGLOBIN 29.3 pg (27.0-33.0); MEAN CORPUSCULAR VOLUME 88.9 fl (80.0-96.0); PLATELET COUNT, AUTOMATED 303 10^3/uL (150-450); WHITE BLOOD COUNT 8.7 10^3/uL (4.0-10.0)
[2022-09-17 14:06] LABS: HCG, SERUM QUALITATIVE NEGATIVE (NEGATIVE)
[2022-09-17 14:07] LABS: ALBUMIN 4.1 G/DL (3.2-5.2); ALKALINE PHOSPHATASE 92 U/L (46-116); ALT/SGPT 21 U/L (7.0-40); AST/SGOT 21 U/L (<34); BILIRUBIN,TOTAL 0.6 MG/DL (0.3-1.2); BLOOD UREA NITROGEN 7 MG/DL (9-23); CALCIUM LEVEL 9.1 MG/DL (8.5-10.1); CARBON DIOXIDE LEVEL 28 MMOL/L (20-31); CHLORIDE LEVEL 107 MMOL/L (98-107); CREATININE FOR GFR 0.83 MG/DL (0.55-1.30); GLOMERULAR FILTRATION RATE > 60.0 (>60); GLUCOSE, FASTING 82 MG/DL (60-100); POTASSIUM SERUM 3.9 MMOL/L (3.5-5.1); SODIUM LEVEL 140 MMOL/L (136-145); TOTAL PROTEIN 7.2 G/DL (5.7-8.2)
[2022-09-17 14:20] LABS: HEPATITIS B SURFACE ANTIGEN NEGATIVE (NEGATIVE)
[2022-09-17 14:32] LABS: HIV 1&2 SCREEN CENTAUR NEGATIVE (NEGATIVE)
[2022-09-17 14:40] LABS: HEPATITIS C VIRUS ABY INDEX 0.2 INDEX (<0.8)
[2022-09-17 15:13] LABS: GC DNA AMPLIFICATION NEGATIVE (NEGATIVE)
== END ==
LOC: M PLALAB 12:07
PROVIDERS: ATTEND Family Medicine
DX: F11.20 Opioid dependence, uncomplicated (principal)

== ENCOUNTER 2022-12-31 00:15 | Emergency (ER) | payer OTHER ==
[~2022-12-31] VITALS: Ht 149.9 cm; Wt 69.4 kg
[2022-12-31 00:15] VITALS: TEMP 98.6
[2022-12-31] MEDS ORDERED: METH10CO3 PO (00:34)
[2022-12-31 03:00] VITALS: BP 124/74
[2022-12-31] MEDS ORDERED: KETOROLAC 30 MG/ML 1ML VIAL IV ONE (03:00)
[2022-12-31] MEDS ORDERED: diphenhydrAMINE 50MG/ML VIAL IV ONE (03:00)
[2022-12-31] MEDS ORDERED: NS 1,000 ML IV ONE (03:00)
[2022-12-31] MEDS ORDERED: METOCLOPRAMIDE INJ 10MG/2ML VIAL IV ONE (03:00)
[2022-12-31 03:30] VITALS: O2SAT 100
== END 2022-12-31 04:04 | disposition left against medical advice (07) ==
LOC: M ED 00:15
DX: Z76.5 Malingerer [conscious simulation] (principal); F32.A Depression, unspecified; F17.200 Nicotine dependence, unspecified, uncomplicated; F12.90 Cannabis use, unspecified, uncomplicated; Z79.899 Other long term (current) drug therapy
CPT/HCPCS: 96374; 96375; 99284; J1200; J1885; J2765

== ENCOUNTER → 2023-05-26 | Outpatient (CLI) | payer OTHER ==
[~2023-05-26] MED LIST changes: +METH10CO3 PO; -MISO100T22 PO; +MISO100T32 PO
[2023-05-26 16:25] LABS: HEMATOCRIT 39.6 % (36.0-47.0); HEMOGLOBIN 13.8 g/dl (12.0-15.5); MEAN CORPUSCULAR HEMOGLOBIN 29.6 pg (27.0-33.0); MEAN CORPUSCULAR HGB CONC 34.8 g/dl (32.0-36.5); MEAN CORPUSCULAR VOLUME 84.8 fl (80.0-96.0); PLATELET COUNT, AUTOMATED 279 10^3/uL (150-450); RED BLOOD COUNT 4.67 10^6/uL (4.00-5.40); WHITE BLOOD COUNT 8.9 10^3/uL (4.0-10.0)
[2023-05-26 17:15] LABS: HIV 1&2 SCREEN NEGATIVE (NEGATIVE)
[2023-05-26 17:22] LABS: HEPATITIS C VIRUS ABY INDEX 0.11 INDEX (<0.8)
[2023-05-26 17:42] LABS: GC DNA AMPLIFICATION NEGATIVE (NEGATIVE)
== END ==
LOC: M LAB 15:31
PROVIDERS: ATTEND Advanced Practice Midwife
DX: Z34.81 Encounter for supervision of other normal pregnancy, first trimester (principal)

== ENCOUNTER → 2023-06-25 | Outpatient (REF) | payer OTHER | LOC: M SFHCWAGY 13:10 | PROVIDERS: ATTEND Specialist | DX: N39.0 Urinary tract infection, site not specified (principal) ==

== ENCOUNTER → 2023-07-25 | Outpatient (CLI) | payer OTHER | LOC: M WHC 13:45 | PROVIDERS: ATTEND Specialist | DX: Z34.82 Encounter for supervision of other normal pregnancy, second trimester (principal) ==

== ENCOUNTER → 2023-09-17 | Outpatient (CLI) | payer OTHER ==
[2023-09-17 10:41] LABS: HEMATOCRIT 32.8 % (36.0-47.0); HEMOGLOBIN 11.2 g/dl (12.0-15.5); MEAN CORPUSCULAR HEMOGLOBIN 31.2 pg (27.0-33.0); MEAN CORPUSCULAR HGB CONC 34.1 g/dl (32.0-36.5); MEAN CORPUSCULAR VOLUME 91.4 fl (80.0-96.0); PLATELET COUNT, AUTOMATED 287 10^3/uL (150-450); RED BLOOD COUNT 3.59 10^6/uL (4.00-5.40); WHITE BLOOD COUNT 8.3 10^3/uL (4.0-10.0)
== END ==
LOC: M PLALAB 08:07
PROVIDERS: ATTEND Obstetrics & Gynecology
DX: O34.211 Maternal care for low transverse scar from previous cesarean delivery (principal)

== ENCOUNTER 2023-09-25 19:40 | Outpatient (CLI) | payer OTHER ==
[2023-09-25 19:52] VITALS: BP 117/65
[2023-09-25] MEDS ORDERED: LACTATED RINGER'S 1000 ML IV ONE (20:10)
[2023-09-25 20:37] LABS: HEMATOCRIT 32.9 % (36.0-47.0); HEMOGLOBIN 11.5 g/dl (12.0-15.5); MEAN CORPUSCULAR HEMOGLOBIN 30.9 pg (27.0-33.0); MEAN CORPUSCULAR VOLUME 88.4 fl (80.0-96.0); PLATELET COUNT, AUTOMATED 266 10^3/uL (150-450); RED BLOOD COUNT 3.72 10^6/uL (4.00-5.40); WHITE BLOOD COUNT 11.6 10^3/uL (4.0-10.0)
[2023-09-25 20:41] LABS: APPEARANCE, URINE CLEAR (CLEAR); BACTERIA, URINE AUTO NEGATIVE (NEGATIVE); BILIRUBIN, URINE AUTO NEGATIVE (NEGATIVE); BLOOD, URINE BLOOD NEGATIVE (NEGATIVE); COLOR, URINE YELLOW (YELLOW); GLUCOSE, URINE (UA) AUTO NEGATIVE (NEGATIVE); KETONE, URINE AUTO 1+ mg/dL (NEGATIVE); LEUKOCYTE ESTERASE, URINE AUTO NEGATIVE (NEGATIVE); MUCUS, URINE SMALL (NEGATIVE); NITRITE, URINE AUTO NEGATIVE (NEGATIVE); PROTEIN, URINE AUTO NEGATIVE (NEGATIVE); RBC, URINE AUTO 0 /HPF (0-3); SPECIFIC GRAVITY URINE AUTO 1.012 (1.002-1.035); SQUAMOUS EPITHELIAL CELL UR AU 4 /HPF (0-6); UROBILINOGEN, URINE AUTO 0.2 mg/dL (0.0-2.0); WBC, URINE AUTO 1 /HPF (0-3)
[2023-09-25] MEDS: MULTIVITAMIN -ADULT INJECTION 10 ML in NS 1,000 ML IV ONE (20:50)
[2023-09-25] MEDS: ONDANSETRON 4MG 2ML VIAL IV ONE (20:57)
[2023-09-25 21:09] LABS: ALBUMIN 2.8 G/DL (3.2-5.2); ALKALINE PHOSPHATASE 76 U/L (46-116); ALT/SGPT 12 U/L (7.0-40); AST/SGOT 12 U/L (<34); BILIRUBIN,TOTAL 0.3 MG/DL (0.3-1.2); BLOOD UREA NITROGEN 6 MG/DL (9-23); CARBON DIOXIDE LEVEL 23 MMOL/L (20-31); CHLORIDE LEVEL 107 MMOL/L (98-107); CREATININE FOR GFR 0.53 MG/DL (0.55-1.30); GLOMERULAR FILTRATION RATE > 60.0 (>60); GLUCOSE, FASTING 122 MG/DL (60-100); SODIUM LEVEL 139 MMOL/L (136-145)
[2023-09-25] MEDS: FIORICET TAB PO ONE (21:11)
[2023-09-25 22:38] LABS: Trichomonas vaginalis (AMP) NOT DETECTED (NEGATIVE)
[2023-09-25 23:01] LABS: GC DNA AMPLIFICATION NEGATIVE (NEGATIVE)
[2023-09-25 23:38] VITALS: BP 118/68
== END 2023-09-25 23:45 | disposition home or self-care (01) ==
LOC: M LDO 19:40
PROVIDERS: ATTEND Advanced Practice Midwife
DX: O26.893 Other specified pregnancy related conditions, third trimester (principal); R51.9 Headache, unspecified; O21.8 Other vomiting complicating pregnancy; O34.219 Maternal care for unspecified type scar from previous cesarean delivery; O09.293 Supervision of pregnancy with other poor reproductive or obstetric history, third trimester; O24.419 Gestational diabetes mellitus in pregnancy, unspecified control; O98.313 Other infections with a predominantly sexual mode of transmission complicating pregnancy, third trimester; A60.09 Herpesviral infection of other urogenital tract; O99.333 Smoking (tobacco) complicating pregnancy, third trimester; F17.290 Nicotine dependence, other tobacco product, uncomplicated; Z3A.28 28 weeks gestation of pregnancy
CPT/HCPCS: 59025; 80053; 81001; 82731; 85027; 87661; 87810; 87850; 96374; G0463; J2405

== ENCOUNTER 2023-10-12 21:45 | Outpatient (CLI) | payer OTHER ==
[~2023-10-12] VITALS: Ht 149.9 cm; Wt 73.9 kg
[2023-10-12 21:59] VITALS: BP 125/66
[2023-10-12 22:43] LABS: APPEARANCE, URINE CLEAR (CLEAR); BACTERIA, URINE AUTO 1+ (NEGATIVE); BASO % 0.3 % (0.0-1.0); BILIRUBIN, URINE AUTO NEGATIVE (NEGATIVE); BLOOD, URINE BLOOD NEGATIVE (NEGATIVE); COLOR, URINE STRAW (YELLOW); EOS # 0.1 10^3/uL (0.0-0.5); EOS % 0.8 % (0.0-3.0); GLUCOSE, URINE (UA) AUTO NEGATIVE (NEGATIVE); HEMATOCRIT 34.3 % (36.0-47.0); HEMOGLOBIN 11.9 g/dl (12.0-15.5); KETONE, URINE AUTO NEGATIVE (NEGATIVE); LEUKOCYTE ESTERASE, URINE AUTO NEGATIVE (NEGATIVE); LYMPH # 2.4 10^3/uL (1.5-5.0); LYMPH % 18.7 % (24.0-44.0); MEAN CORPUSCULAR HEMOGLOBIN 30.1 pg (27.0-33.0); MEAN CORPUSCULAR HGB CONC 34.7 g/dl (32.0-36.5); MEAN CORPUSCULAR VOLUME 86.8 fl (80.0-96.0); MONO # 0.9 10^3/uL (0.0-0.8); MONO % 7.2 % (2.0-8.0); NEUTROPHILS # 9.1 10^3/uL (1.5-8.5); NEUTROPHILS % 72.5 % (36.0-66.0); NITRITE, URINE AUTO NEGATIVE (NEGATIVE); PLATELET COUNT, AUTOMATED 261 10^3/uL (150-450); PROTEIN, URINE AUTO NEGATIVE (NEGATIVE); RBC, URINE AUTO 1 /HPF (0-3); RED BLOOD COUNT 3.95 10^6/uL (4.00-5.40); SPECIFIC GRAVITY URINE AUTO 1.004 (1.002-1.035); SQUAMOUS EPITHELIAL CELL UR AU 1 /HPF (0-6); UROBILINOGEN, URINE AUTO 0.2 mg/dL (0.0-2.0); WBC, URINE AUTO 0 /HPF (0-3); WHITE BLOOD COUNT 12.6 10^3/uL (4.0-10.0)
[2023-10-13 01:24] LABS: AMPHETAMINES LEVEL URINE NEGATIVE (NEGATIVE); BARBITURATES URINE NEGATIVE (NEGATIVE); BENZODIAZEPINES URINE NEGATIVE (NEGATIVE); COCAINE METABOLITE URINE NEGATIVE (NEGATIVE); OPIATES URINE NEGATIVE (NEGATIVE); PHENCYCLIDINE URINE NEGATIVE (NEGATIVE)
[2023-10-13 01:29] LABS: CANNABINOIDS URINE POSITIVE (NEGATIVE); METHADONE URINE POSITIVE (NEGATIVE)
[2023-10-13 01:32] VITALS: BP 111/72
[2023-10-13] MEDS: TERBUTALINE SULFATE 1 MG/ML 1ML VIAL SC STA (01:37)
[2023-10-13] MEDS: PERCOCET 5MG/325MG TAB PO ONE (01:38)
[2023-10-13] MEDS: LR 1,000 ML IV SCH (01:42)
[2023-10-13] MEDS: LR 1,000 ML IV ONE (01:42)
== END 2023-10-13 03:22 | disposition home or self-care (01) ==
LOC: M LDO 21:45
PROVIDERS: ATTEND Obstetrics & Gynecology
DX: O26.893 Other specified pregnancy related conditions, third trimester (principal); R10.2 Pelvic and perineal pain; O36.8130 Decreased fetal movements, third trimester, not applicable or unspecified; Z3A.30 30 weeks gestation of pregnancy; R51.9 Headache, unspecified; O34.219 Maternal care for unspecified type scar from previous cesarean delivery; O47.03 False labor before 37 completed weeks of gestation, third trimester
CPT/HCPCS: 59025; 76816; 76819; 76820; 80307; 81001; 85025; 96360; 96372; G0463; J3105

== ENCOUNTER → 2023-11-06 | Outpatient (CLI) | payer OTHER | LOC: M RAD 07:03 | PROVIDERS: ATTEND Specialist | DX: O24.419 Gestational diabetes mellitus in pregnancy, unspecified control (principal) ==

== ENCOUNTER 2023-11-15 00:22 | Outpatient (CLI) | payer OTHER ==
[~2023-11-15] VITALS: Ht 149.9 cm; Wt 76.3 kg
[2023-11-15] MEDS ORDERED: METH10CO PO (00:41)
[2023-11-15 00:42] VITALS: BP 116/78
[2023-11-15] MEDS ORDERED: HOME MED LIST COMPLETE! XX SCH (00:55)
[2023-11-15] MEDS: LR 1,000 ML IV ONE (01:34)
[2023-11-15 01:43] LABS: HEMATOCRIT 30.3 % (36.0-47.0); HEMOGLOBIN 10.2 g/dl (12.0-15.5); MEAN CORPUSCULAR HGB CONC 33.7 g/dl (32.0-36.5); MEAN CORPUSCULAR VOLUME 86.1 fl (80.0-96.0); PLATELET COUNT, AUTOMATED 232 10^3/uL (150-450); RED BLOOD COUNT 3.52 10^6/uL (4.00-5.40); WHITE BLOOD COUNT 9.5 10^3/uL (4.0-10.0)
[2023-11-15] MEDS: MORPHINE 2 MG/ML 1ML VIAL IV ONE (02:55)
[2023-11-15] MEDS: TERBUTALINE SULFATE 1 MG/ML 1ML VIAL SC ONE (02:55)
[2023-11-15 02:58] VITALS: BP 111/69; O2SAT 99
[2023-11-15 03:44] VITALS: O2SAT 99
[2023-11-19] MEDS ORDERED: METH10CO PO (10:15)
== END 2023-11-15 04:34 | disposition home or self-care (01) ==
LOC: M LDO 00:22
PROVIDERS: ATTEND Obstetrics & Gynecology
DX: O26.893 Other specified pregnancy related conditions, third trimester (principal); O99.333 Smoking (tobacco) complicating pregnancy, third trimester; O98.313 Other infections with a predominantly sexual mode of transmission complicating pregnancy, third trimester; O34.219 Maternal care for unspecified type scar from previous cesarean delivery; O24.419 Gestational diabetes mellitus in pregnancy, unspecified control; R10.84 Generalized abdominal pain; M54.50 Low back pain, unspecified; F17.290 Nicotine dependence, other tobacco product, uncomplicated; A60.09 Herpesviral infection of other urogenital tract; Z3A.35 35 weeks gestation of pregnancy
CPT/HCPCS: 59025; 76815; 76820; 81001; 85027; 96372; 96374; G0463; J3105

== ENCOUNTER → 2023-11-18 | Outpatient (REF) | payer OTHER ==
[~2023-11-18] MED LIST changes: +METH10CO PO
== END ==
LOC: M SFHCWAGY 15:05
PROVIDERS: ATTEND Specialist
DX: O24.419 Gestational diabetes mellitus in pregnancy, unspecified control (principal)

== ENCOUNTER 2023-11-28 16:47 | Inpatient (IN) | payer OTHER ==
[2023-11-28] VITALS (8 sets, daily range): BP systolic 102–118; BP diastolic 51–76; TEMP 98.2; O2SAT 98–100
[~2023-11-28] VITALS: Ht 149.9 cm; Wt 74.7 kg
[~2023-11-28 16:47] MED LIST changes: +DOXY-440 PO; -DOXY-444 PO
[2023-11-28] MEDS ORDERED: OXYTOCIN DRIP 30 UNITS in IV 1 EA IV PRN (17:35)
[2023-11-28] MEDS: ceFAZolin SOD 2 GM in IV 1 EA IV ONE (17:42)
[2023-11-28] MEDS: BICITRA 30ML SOLN UDC PO ONE (17:42)
[2023-11-28] MEDS: LR 1,000 ML IV SCH (17:43)
[2023-11-28] MEDS: LACTATED RINGER'S 1000 ML IV STA (17:43)
[2023-11-28 17:53] LABS: HEMATOCRIT 34.5 % (36.0-47.0); HEMOGLOBIN 11.6 g/dl (12.0-15.5); MEAN CORPUSCULAR HEMOGLOBIN 28.3 pg (27.0-33.0); MEAN CORPUSCULAR HGB CONC 33.6 g/dl (32.0-36.5); MEAN CORPUSCULAR VOLUME 84.1 fl (80.0-96.0); PLATELET COUNT, AUTOMATED 264 10^3/uL (150-450); WHITE BLOOD COUNT 11.2 10^3/uL (4.0-10.0)
[2023-11-28] MEDS ORDERED: ONDANSETRON 4MG 2ML VIAL As Ordered ONE (18:09)
[2023-11-28] MEDS ORDERED: KETOROLAC 60MG 2ML VIAL As Ordered ONE (18:09)
[2023-11-28] MEDS ORDERED: OXYTOCIN 30UNITS IN 0.9% NaCl 500ML IV BAG As Ordered ONE (18:09)
[2023-11-28] MEDS ORDERED: PHENYLephrine 500MCG 5ML (100MCG/ML) SYRINGE As Ordered ONE (18:09)
[2023-11-28] MEDS ORDERED: ACETAMINOPHEN 1000MG 100ML IV BAG As Ordered ONE (18:09)
[2023-11-28] MEDS ORDERED: LIDOCAINE 2% INJ 100 MG/5 ML SYRINGE As Ordered ONE (18:09)
[2023-11-28] MEDS ORDERED: ePHEDrine SULFATE 25 MG/5 ML(5MG/ML) SYRINGE As Ordered ONE (18:09)
[2023-11-28] MEDS ORDERED: MORPHINE PRES-FREE INJ 10 MG/10 ML VIAL As Ordered ONE (18:09)
[2023-11-28 18:53] LABS: CORD GAS ABE A -4.5; CORD GAS ABE V -3.9; CORD GAS HCO3 A 22.8 MMOL/L; CORD GAS HCO3 V 22.7 MMOL/L; CORD GAS O2 SAT A 38.3 %; CORD GAS O2 SAT V 68.2 %; CORD GAS PCO2 A 50.8 mmHg; CORD GAS PH A 7.269 UNITS; CORD GAS PH V 7.302 UNITS; CORD GAS PO2 A 19.2 mmHg; CORD GAS PO2 V 28.6 mmHg; CORD GAS SBC A 19.5 MMOL/L; CORD GAS SBC V 20.6 MMOL/L; CORD GAS TCO2 A 24.3 MMOL/L; CORD GAS TCO2 V 24.2 MMOL/L
[2023-11-28 19:00] LABS: HEPATITIS C VIRUS ABY INDEX 0.05 INDEX (<0.8)
[2023-11-28] MEDS ORDERED: SLF 3 ML SYR IV SCH (19:10)
[2023-11-28] MEDS ORDERED: ONDANSETRON 4MG 2ML VIAL IV PRN (19:10)
[2023-11-28] MEDS ORDERED: oxyCODONE 5MG TAB PO PRN (19:10)
[2023-11-28] MEDS ORDERED: METOCLOPRAMIDE INJ 10MG/2ML VIAL IV PRN (19:10)
[2023-11-28] MEDS ORDERED: **NOTE PATIENT COMMENT** MISC XX SCH (19:10)
[2023-11-28] MEDS ORDERED: diphenhydrAMINE 50MG/ML VIAL IV PRN (19:10)
[2023-11-28] MEDS ORDERED: NALOXONE INJ 0.4MG/1ML VIAL IV PRN ×2 (19:10)
[2023-11-28] MEDS ORDERED: fentaNYL 100 MCG/2 ML INJECTION IV PRN (19:10)
[2023-11-28] MEDS ORDERED: KETOROLAC 30 MG/ML 1ML VIAL IV SCH (19:15)
[2023-11-28] MEDS: OXYTOCIN DRIP 30 UNITS in IV 1 EA IV SCH (19:29)
[2023-11-28] MEDS ORDERED: diphenhydrAMINE 25MG CAP PO PRN (20:55)
[2023-11-28] MEDS: METHYLERGONOVINE MALEATE 0.2MG/ML 1ML VIAL IM STA (22:05)
[2023-11-28] MEDS: PERCOCET 5MG/325MG TAB PO PRN (22:15)
[2023-11-29] MEDS: KETOROLAC 30 MG/ML 1ML VIAL IV SCH (00:02)
[2023-11-29 02:00] VITALS: BP 113/65; O2SAT 99
[2023-11-29 06:00] VITALS: BP 103/54; O2SAT 98
[2023-11-29 07:44] LABS: HEMATOCRIT 28.4 % (36.0-47.0); HEMOGLOBIN 9.7 g/dl (12.0-15.5); MEAN CORPUSCULAR HEMOGLOBIN 29.1 pg (27.0-33.0); MEAN CORPUSCULAR HGB CONC 34.2 g/dl (32.0-36.5); MEAN CORPUSCULAR VOLUME 85.3 fl (80.0-96.0); PLATELET COUNT, AUTOMATED 254 10^3/uL (150-450); RED BLOOD COUNT 3.33 10^6/uL (4.00-5.40)
[2023-11-29] MEDS: METHADONE 10MG TAB PO SCH (08:12)
[2023-11-29] MEDS: PRENATAL VITAMINS CHEWABLE TABLET PO SCH (08:12)
[2023-11-29] MEDS: LR 1,000 ML IV SCH (08:13)
[2023-11-29 10:00] VITALS: BP 109/78; O2SAT 100
[2023-11-29 14:00] VITALS: BP 113/65; O2SAT 100
[2023-11-29 18:00] VITALS: BP 125/74; O2SAT 100
[2023-11-29] MEDS: IBUPROFEN 800 MG TAB PO SCH (19:25)
[2023-11-29] MEDS: SIMETHICONE 80MG CHEW TAB PO PRN (21:06)
[2023-11-29 22:00] VITALS: BP 118/67; O2SAT 100
[2023-11-30 02:00] VITALS: BP 115/61; O2SAT 99
[2023-11-30 06:00] VITALS: BP 114/74; O2SAT 98
[2023-11-30] MEDS: MEASLES,MUMPS,RUBELLA VACCINE INJ (MMR-II) SC.IMMUN ONE (07:11)
[2023-11-30] MEDS: RHO(D) IMMUNE GLOBULIN/MALTOSE 500MCG(2500IU)/2.2ML VIAL (WINRHO) IM SCH (07:12)
[2023-11-30 10:00] VITALS: BP 125/75; O2SAT 100
[2023-11-30] MEDS ORDERED: OXYC1TAB23 PO (13:56)
== END 2023-11-30 10:50 | disposition home or self-care (01) | DRG 540 ==
LOC: M LDI 16:47 → M OBS 20:36
PROVIDERS: ADMIT Specialist; ATTEND Specialist
PROC: 10D00Z1 Extraction of Products of Conception, Low, Open Approach (ICD-10-PCS; principal; 2023-11-28 18:15)
DX: O34.211 Maternal care for low transverse scar from previous cesarean delivery (principal); O24.429 Gestational diabetes mellitus in childbirth, unspecified control; Z3A.37 37 weeks gestation of pregnancy; Z37.0 Single live birth

== ENCOUNTER → 2024-05-12 | Outpatient (REF) | payer MEDICAID, OTHER ==
[~2024-05-12] MED LIST changes: +GABA-1172 PO; -GABA-282 PO; +NITR100C3 PO; -NITR1CAP11 PO
[2024-05-12 21:00] LABS: Trichomonas vaginalis (AMP) POSITIVE (NEGATIVE)
[2024-05-12 21:39] LABS: GC DNA AMPLIFICATION NEGATIVE (NEGATIVE)
== END ==
LOC: M SFHCWAGY 17:14
PROVIDERS: ATTEND Nurse Practitioner Family
DX: N73.9 Female pelvic inflammatory disease, unspecified (principal)

== ENCOUNTER → 2024-10-08 | Outpatient (CLI) | payer OTHER | LOC: M WHC 13:31 | PROVIDERS: ATTEND Nurse Practitioner Family | DX: O30.031 Twin pregnancy, monochorionic/diamniotic, first trimester (principal); Z3A.20 20 weeks gestation of pregnancy ==

== ENCOUNTER 2025-01-16 09:13 | Inpatient (IN) | payer OTHER, MEDICAID ==
[2025-01-16] VITALS (8 sets, daily range): BP systolic 118–134; BP diastolic 71–87; TEMP 98.1; O2SAT 97–99
[~2025-01-16] VITALS: Ht 149.9 cm; Wt 76.8 kg
[~2025-01-16 09:13] MED LIST changes: +FAMO20TA PO; +METH-1175 PO; +OMEP-173 PO
[2025-01-16] MEDS: ceFAZolin SODIUM 2 GM in DEXTROSE 5% (D5W) ADV/MINI-BAG 50 ML IV ONE (09:30)
[2025-01-16] MEDS ORDERED: LR 1,000 ML IV SCH (09:30)
[2025-01-16] MEDS ORDERED: HOME MED LIST COMPLETE! XX SCH (09:35)
[2025-01-16] MEDS: LACTATED RINGER'S 1000 ML IV STA (09:55)
[2025-01-16] MEDS ORDERED: fentaNYL 100 MCG/2 ML INJECTION As Ordered ONE (09:58)
[2025-01-16] MEDS ORDERED: MORPHINE PRES-FREE INJ 10 MG/10 ML VIAL As Ordered ONE (09:58)
[2025-01-16] MEDS: AZITHROMYCIN INJ 500 MG, VIAL MATE ADAPTER 1 EACH in NS 250 ML IV ONE (10:09)
[2025-01-16 10:11] LABS: HEMATOCRIT 31.2 % (36.0-47.0); MEAN CORPUSCULAR HEMOGLOBIN 24.2 pg (27.0-33.0); MEAN CORPUSCULAR HGB CONC 32.1 g/dl (32.0-36.5); MEAN CORPUSCULAR VOLUME 75.5 fl (80.0-96.0); PLATELET COUNT, AUTOMATED 298 10^3/uL (150-450); RED BLOOD COUNT 4.13 10^6/uL (4.00-5.40)
[2025-01-16] MEDS: BICITRA 30 ML SOLN UDC PO ONE (10:16)
[2025-01-16] MEDS ORDERED: dexAMETHasone 4 MG/ML 1 ML VIAL As Ordered ONE (10:24)
[2025-01-16] MEDS ORDERED: ONDANSETRON 4MG 2ML VIAL As Ordered ONE (10:24)
[2025-01-16] MEDS ORDERED: ACETAMINOPHEN 1000MG/100ML IV BAG As Ordered ONE (10:45)
[2025-01-16] MEDS ORDERED: MEPERIDINE 50 MG/ML As Ordered ONE (11:08)
[2025-01-16] MEDS ORDERED: PHENYLephrine 500MCG 5ML (100MCG/ML) SYRINGE As Ordered ONE (11:11)
[2025-01-16] MEDS ORDERED: ePHEDrine SULFATE 25 MG/5 ML SYRINGE As Ordered ONE (11:11)
[2025-01-16] MEDS ORDERED: OXYTOCIN 30UNITS IN 0.9% NaCl 500ML IV BAG As Ordered ONE (11:20)
[2025-01-16 11:32] LABS: AMPHETAMINES URINE REFLEX NEGATIVE (NEGATIVE); BARBITURATES URINE REFLEX NEGATIVE (NEGATIVE); BENZODIAZEPINES URINE REFLEX NEGATIVE (NEGATIVE); COCAINE METABOLITE URINE REFLE NEGATIVE (NEGATIVE)
[2025-01-16 11:33] LABS: OPIATES URINE REFLEX NEGATIVE (NEGATIVE); PHENCYCLIDINE URINE REFLEX NEGATIVE (NEGATIVE)
[2025-01-16 11:36] LABS: HIV 1&2 SCREEN NEGATIVE (NEGATIVE)
[2025-01-16] MEDS ORDERED: KETOROLAC 30 MG/ML 1 ML VIAL As Ordered ONE (11:36)
[2025-01-16 11:38] LABS: CORD GAS ABE A -2.2; CORD GAS HCO3 A 24.7 MMOL/L; CORD GAS O2 SAT A 30.7 %; CORD GAS PCO2 A 51.3 mmHg; CORD GAS PH A 7.3 UNITS; CORD GAS PO2 A 15.7 mmHg; CORD GAS SBC A 21.3 MMOL/L; CORD GAS TCO2 A 26.2 MMOL/L
[2025-01-16 11:39] LABS: CANNABINOIDS URINE REFLEX PENDING CONFIRMATION (NEGATIVE); METHADONE URINE REFLEX PENDING CONFIRMATION (NEGATIVE)
[2025-01-16 11:40] LABS: CORD GAS ABE V -4.2; CORD GAS HCO3 V 21.3 MMOL/L; CORD GAS O2 SAT V 56.5 %; CORD GAS PCO2 V 40.6 mmHg; CORD GAS PH V 7.337 UNITS; CORD GAS PO2 V 23.8 mmHg; CORD GAS SBC V 20.1 MMOL/L; CORD GAS TCO2 V 22.5 MMOL/L
[2025-01-16] MEDS ORDERED: SIMETHICONE 80MG CHEW TAB PO PRN (11:40)
[2025-01-16] MEDS ORDERED: MOM 30 ML SUSPENSION UDC PO PRN (11:40)
[2025-01-16] MEDS ORDERED: RHOGAM 300MCG (1500IU) INJ IM SCH (11:40)
[2025-01-16] MEDS ORDERED: ACETAMINOPHEN 500 MG TAB PO PRN (11:40)
[2025-01-16 11:44] LABS: HEPATITIS C VIRUS ABY INDEX 0.05 INDEX (<0.8)
[2025-01-16] MEDS ORDERED: **NOTE PATIENT COMMENT** MISC XX SCH ×2 (11:45)
[2025-01-16] MEDS ORDERED: NALOXONE INJ 0.4MG/1ML VIAL IV PRN ×4 (11:45)
[2025-01-16] MEDS ORDERED: diphenhydrAMINE 50 MG/ML VIAL IV PRN ×2 (11:45)
[2025-01-16] MEDS ORDERED: METOCLOPRAMIDE INJ 10 MG/2 ML VIAL IV PRN ×2 (11:45)
[2025-01-16 11:49] LABS: CORD GAS ABE A -1.8; CORD GAS HCO3 A 26.6 MMOL/L; CORD GAS O2 SAT A 24.6 %; CORD GAS PCO2 A 61.8 mmHg; CORD GAS PH A 7.251 UNITS; CORD GAS PO2 A 13.8 mmHg; CORD GAS SBC A 21.4 MMOL/L; CORD GAS TCO2 A 28.5 MMOL/L
[2025-01-16 11:52] LABS: CORD GAS ABE V -0.4; CORD GAS HCO3 V 25.5 MMOL/L; CORD GAS O2 SAT V 63.4 %; CORD GAS PH V 7.353 UNITS; CORD GAS PO2 V 25.8 mmHg; CORD GAS SBC V 23.5 MMOL/L
[2025-01-16] MEDS: OXYTOCIN DRIP 30 UNITS in IV 1 EA IV SCH (12:05)
[2025-01-16] MEDS: SLF 3 ML SYR IV SCH (12:06)
[2025-01-16] MEDS: oxyCODONE 5MG TAB PO PRN (16:27)
[2025-01-16] MEDS: KETOROLAC 30 MG/ML 1 ML VIAL IV SCH (17:28)
[2025-01-16] MEDS: DOCUSATE SODIUM 100 MG CAPSULE PO SCH (22:21)
[2025-01-17 01:51] VITALS: BP 126/72; O2SAT 100
[2025-01-17 05:55] VITALS: BP 95/55; O2SAT 100
[2025-01-17 06:10] LABS: HEMATOCRIT 23.4 % (36.0-47.0); MEAN CORPUSCULAR HEMOGLOBIN 23.9 pg (27.0-33.0); MEAN CORPUSCULAR HGB CONC 31.2 g/dl (32.0-36.5); MEAN CORPUSCULAR VOLUME 76.5 fl (80.0-96.0); PLATELET COUNT, AUTOMATED 237 10^3/uL (150-450); RED BLOOD COUNT 3.06 10^6/uL (4.00-5.40)
[2025-01-17 06:11] LABS: HEMOGLOBIN 7.3 g/dl (12.0-15.5)
[2025-01-17] MEDS: PRENATAL VITAMINS CHEWABLE TABLET PO SCH (09:00)
[2025-01-17] MEDS: METHADONE 10 MG TAB PO SCH (09:15)
[2025-01-17 10:00] VITALS: BP 127/77; O2SAT 97
[2025-01-17] MEDS ORDERED: ACET-683 PO (11:02)
[2025-01-17] MEDS ORDERED: OXYC-517 PO (11:02)
[2025-01-17] MEDS ORDERED: IBUP80TA PO (11:02)
[2025-01-17 14:00] VITALS: BP 98/55; O2SAT 99
[2025-01-17] MEDS: IBUPROFEN 800 MG TAB PO SCH (15:03)
[2025-01-17 18:00] VITALS: BP 119/91; O2SAT 100
[2025-01-17 22:33] VITALS: BP 129/66; O2SAT 98
[2025-01-18 02:31] VITALS: BP 136/80; O2SAT 99
[2025-01-18 06:02] VITALS: BP 122/78; O2SAT 99
[2025-01-18] MEDS ORDERED: MEASLES,MUMPS,RUBELLA VACCINE INJ (MMR-II) SC.IMMUN ONE (09:00)
[2025-01-18 10:00] VITALS: BP 138/82; O2SAT 100
[2025-01-24 19:08] LABS: Cannabinoid Positive (.); Carboxy THC Conf, MS, UR >300 ng/mL (Cutoff=10); Methadone Positive (.); Methadone Conf, MS, UR 1650 ng/mL (Cutoff=100)
== END 2025-01-18 15:40 | disposition home or self-care (01) | DRG 540 ==
LOC: M LDO 09:13 → M LDI 09:36 → M OBS 14:17
PROVIDERS: ADMIT Obstetrics & Gynecology; ATTEND Obstetrics & Gynecology
PROC: 10D00Z1 Extraction of Products of Conception, Low, Open Approach (ICD-10-PCS; principal; 2025-01-16 10:00)
DX: O34.211 Maternal care for low transverse scar from previous cesarean delivery (principal); O60.14X1 Preterm labor third trimester with preterm delivery third trimester, fetus 1; O60.14X2 Preterm labor third trimester with preterm delivery third trimester, fetus 2; O30.043 Twin pregnancy, dichorionic/diamniotic, third trimester; Z37.2 Twins, both liveborn; O99.324 Drug use complicating childbirth; Z3A.35 35 weeks gestation of pregnancy; O77.0 Labor and delivery complicated by meconium in amniotic fluid; O69.82X2 Labor and delivery complicated by other cord entanglement, without compression, fetus 2; F19.11 Other psychoactive substance abuse, in remission; Z79.899 Other long term (current) drug therapy